=== PATIENT | female | born 1945 ===

== ENCOUNTER 2017-08-18 10:10 | Inpatient (IN) | payer MEDICARE, MEDICAID ==
[2016-04-08 18:58] VITALS: BMI 30.4
[2017-08-18 10:57] LABS: BASO # 0.01 K/mm3 (0.0-2.0); BASO % 0.2 % (0.0-3.0); EOS # 0.1 (0.0-0.7); EOS % 1.6 % (1.5-5.0); GRAN # 3.05 (1.4-6.5); HEMOGLOBIN 11.7 g/dL (12.0-16.0); LYMPH # 2.6 (1.2-3.4); LYMPH % 42.3 % (22.0-35.0); MEAN CELL VOLUME 78.9 fl (80.0-105.0); MEAN CORPUSCULAR HEMOGLOBIN 25.7 pg (25.0-35.0); MEAN CORPUSCULAR HGB CONC 32.5 g/dl (31.0-37.0); MEAN PLATELET VOLUME 10.4 fl (7.0-11.0); MONO # 0.4 (0.1-0.6); MONO % 5.9 % (1.0-6.0); RBC 4.56 10^6/uL (3.5-6.1); RED CELL DISTRIBUTION WIDTH 13.7 % (11.5-14.5); WHITE BLOOD COUNT 6.1 10^3/ul (4.5-11.0)
[2017-08-18 11:07] LABS: INR 1.03 (0.93-1.08); PARTIAL THROMBOPLASTIN TIME 29.7 Seconds (25.1-36.5); PROTHROMBIN TIME 11.8 SECONDS (9.4-12.5)
[2017-08-18] MEDS ORDERED: Lidocaine 2% Inj (20ml) ONE (11:35)
[2017-08-18] MEDS ORDERED: Midazolam 2 MG/2 ML VIAL ONE ×3 (11:36→13:48)
[2017-08-18] MEDS ORDERED: Iodixanol 320 MG/ML 200 ML BOTTLE IV ONE (11:37)
[2017-08-18] MEDS ORDERED: Iodixanol 320 MG/ML 100 ML BOTTLE IV ONE (11:37)
[2017-08-18] MEDS ORDERED: Oxycodone/Acetaminophen 5/325 mg Tab PO PRN (14:38)
--- NOTE | 2017-08-18 15:37 | CP.PCM.HP ---
<BrooksTaisha - Last Filed: 08/18/17 15:39> History of Present Illness - History of Present Illness History of Present Illness: Hospitalist H&POrlin PGY2 This is a 71yo female with past medical history of HTN and DM who came to same day surgery for carotid angiogram. Patient is Georgian speaking. Strip Feeder # [id number] was used for communication as well as son. Patient was noted to have bilateral carotid stenosis in 2016 that was 60-79% bilaterally. She decided to then follow up with her PMD and check her carotids again. Her ultrasound then showed 80-99% stenosis on the L and significant string sign on the R. The patient reports mild dizziness, but denies vision changes, numbness/tingling, weakness, headaches, chest pain, or shortness of breath. She had a CT angio today which was read by Dr. Dunaway and Dr. Wilcox. Dr. Wilcox reports that the patient will need surgery, but will need to be cleared by cardiology first. Past medical history: HTN, DM, possible gout Past surgical history: Cholecystectomy Home meds: As per Mar Allergies: NKDA Social history: Lives with family, mostly independent in ADLs. Denies EtOH, drug or tobacco use PMD: Dr. Herbert Present on Admission - Present on Admission Any Indicators Present on Admission: No Review of Systems - Review of Systems All systems: reviewed and no additional remarkable complaints except Review of Systems: 12 point ROS reviewed as per HPI Past Patient History - Infectious Disease Hx of Infectious Diseases: None - Tetanus Immunizations Tetanus Immunization: Unknown - Past Social History Smoking Status: Never Smoked Alcohol: None Drugs: Denies Home Situation {Lives}: With Family - CARDIAC Hx Pacemaker: No - PULMONARY Hx Respiratory Disorders: No - NEUROLOGICAL Hx Paralysis: No - HEENT Hx HEENT Problems: No - RENAL Hx Chronic Kidney Disease: No - ENDOCRINE/METABOLIC Hx Endocrine Disorders: Yes Hx Diabetes Mellitus Type 2: Yes - HEMATOLOGICAL/ONCOLOGICAL Hx Blood Transfusions: No - INTEGUMENTARY Hx Dermatological Problems: No - MUSCULOSKELETAL/RHEUMATOLOGICAL Hx Musculoskeletal Disorders: Yes - GASTROINTESTINAL Hx Gastrointestinal Disorders: No - GENITOURINARY/GYNECOLOGICAL Hx Genitourinary Disorders: No - PSYCHIATRIC Hx Emotional Abuse: No Hx Physical Abuse: No Hx Substance Use: No - SURGICAL HISTORY Hx Surgeries: Yes - ANESTHESIA Hx Anesthesia Reactions: No Hx Malignant Hyperthermia: No Meds Allergies/Adverse Reactions: Allergies Allergy/AdvReac Type Severity Reaction Status Date / Time No Known Allergies Allergy Verified 04/08/16 12:59 Physical Exam - Constitutional Appears: No Acute Distress - Head Exam Head Exam: ATRAUMATIC, NORMAL INSPECTION, NORMOCEPHALIC - Eye Exam Eye Exam: Normal appearance, PERRL Pupil Exam: NORMAL ACCOMODATION, PERRL - ENT Exam ENT Exam: Mucous Membranes Moist - Neck Exam Neck exam: Positive for: Full Rom, Normal Inspection Additional comments: no bruits heard bilaterally - Respiratory Exam Respiratory Exam: Clear to Auscultation Bilateral, NORMAL BREATHING PATTERN. absent: Rales, Rhonchi, Wheezes - Cardiovascular Exam Cardiovascular Exam: REGULAR RHYTHM. absent: Gallop, Rubs, Systolic Murmur - GI/Abdominal Exam GI & Abdominal Exam: Normal Bowel Sounds, Soft. absent: Mass, Rebound, Rigid, Tenderness - Extremities Exam Extremities exam: Positive for: normal inspection. Negative for: calf tenderness, pedal edema - Neurological Exam Neurological exam: Alert, CN II-XII Intact, Oriented x3 - Psychiatric Exam Psychiatric exam: Normal Affect, Normal Mood - Skin Skin Exam: Dry, Warm Results - Vital Signs Recent Vital Signs: Last Vital Signs Temp 97.6 F 08/18/17 15:15 Pulse 65 08/18/17 15:15 Resp 18 08/18/17 15:15 BP 162/68 H 08/18/17 15:15 Pulse Ox 96 08/18/17 10:35 - Labs Result Diagrams: 08/18/17 10:48 08/18/17 10:48 Labs: Laboratory Results - last 24 hr 08/18/17 08/18/17 08/18/17 10:48 10:48 10:48 WBC 6.1 RBC 4.56 Hgb 11.7 L Hct 36.0 MCV 78.9 L MCH 25.7 MCHC 32.5 RDW 13.7 Plt Count 336 MPV 10.4 Gran % 50.0 Lymph % (Auto) 42.3 H Motley % (Auto) 5.9 Eos % (Auto) 1.6 Baso % (Auto) 0.2 Gran # 3.05 Lymph # (Auto) 2.6 Motley # (Auto) 0.4 Eos # (Auto) 0.1 Baso # (Auto) 0.01 PT 11.8 INR 1.03 APTT 29.7 Sodium 144 Potassium 5.1 H Chloride 108 H Carbon Dioxide 23 Anion Gap 19 BUN 36 H Creatinine 1.3 H Est GFR ( Amer) 49 Est GFR (Non-Af Amer) 40 Random Glucose 137 H Calcium 10.0 Assessment & Plan - Assessment and Plan (Free Text) Assessment: This is a 71yo female with past medical history of HTN and DM who is admitted for evaluation of significant carotid stenosis. Plan: 1. Bilateral carotid stenosis - Carotid angiogram done- pending final read - R is worse than L - Plavix 300mg today then 75mg daily - Continue Statin, ASA - NS@80 - Vascular surgery consulted - Cardio consulted for clearance - Patient will have stress test tomorrow - NPO at midnight then can restart diet after stress test - Plan is R Carotid endartectomy on Tuesday after cardiac clearance 2. HTN - Continue home meds: Atenolol/chlorothiadone, Valsartan 3. HLD - Continue Statin 4. Hx of DM - Check HgbA1c - Hold metformin - ISS 5. Hx of gout - Continue Allopurinol GI ppx: Pepcid DVT ppx: SCDs Case seen, discussed and reviewed with attending Orlin Guy PGY2 - Date & Time Date: 08/18/17 Time: 15:56 <Dev Epstein - Last Filed: 08/19/17 16:00> Results - Vital Signs Recent Vital Signs: Last Vital Signs Temp 99.2 F 08/19/17 06:00 Pulse 76 08/19/17 06:00 Resp 18 08/19/17 06:00 BP 96/53 L 08/19/17 06:00 Pulse Ox 97 08/19/17 06:00 - Labs Result Diagrams: 08/19/17 05:30 08/19/17 05:30 Labs: Laboratory Results - last 24 hr 08/18/17 08/19/17 08/19/17 17:43 05:30 05:30 WBC 5.5 RBC 4.29 Hgb 10.6 L Hct 33.2 L MCV 77.4 L MCH 24.7 L MCHC 31.9 RDW 13.8 Plt Count 292 MPV 11.0 Sodium 142 Potassium 4.3 Chloride 110 H Carbon Dioxide 20 L Anion Gap 16 BUN 31 H Creatinine 1.1 Est GFR ( Amer) 59 Est GFR (Non-Af Amer) 49 POC Glucose (mg/dL) 110 Random Glucose 122 H Hemoglobin A1c Calcium 9.5 Total Bilirubin 0.4 AST 21 ALT 17 Alkaline Phosphatase 75 Total Protein 6.9 Albumin 3.8 Globulin 3.0 Albumin/Globulin Ratio 1.3 Triglycerides Cholesterol LDL Cholesterol Direct HDL Cholesterol Free T4 TSH 3rd Generation 08/19/17 08/19/17 08/19/17 05:30 06:00 06:00 WBC RBC Hgb Hct MCV MCH MCHC RDW Plt Count MPV Sodium Potassium Chloride Carbon Dioxide Anion Gap BUN Creatinine Est GFR ( Amer) Est GFR (Non-Af Amer) POC Glucose (mg/dL) Random Glucose Hemoglobin A1c 6.4 Calcium Total Bilirubin AST ALT Alkaline Phosphatase Total Protein Albumin Globulin Albumin/Globulin Ratio Triglycerides 153 Cholesterol 191 LDL Cholesterol Direct 98 HDL Cholesterol 41 Free T4 1.34 TSH 3rd Generation 2.10 Attending/Attestation - Attestation I have personally seen and examined this patient.: Yes I have fully participated in the care of the patient.: Yes I have reviewed all pertinent clinical information: Yes Notes (Text): 08/19/17 15:52 Medical record note made by the resident after discussion with my direction and input after the patient was personally seen and examined by me. I have reviewed the chart and agree that the record accurately reflects by personal performance of the history, physical exam, data review, and medical decision-making, in the course for the patient. I have also personally directed the plan of care. 71 yo female with past medical history of HTN ,DM,Hyperlipidemia,PVD with critical Right ICA stenosis with string sign , also has left ICA stenosis is admitted for right carotid endartrectomy .Patient will need cardiology clearance for surgery, she is scheduled for Stress test tomorrow by cardiology. Patient is started on plavix, statin . Management plan was discussed in detail with patient. Education was provided. 08/19/17 15:59
[2017-08-18] MEDS: Sodium Chloride 0.45% 1,000 ML IV SCH (16:00)
--- NOTE | 2017-08-18 16:01 | CP.PCM.CON ---
History of Present Illness - History of Present Illness History of Present Illness: This is a 71yo female with past medical history of HTN and DM who came to same day surgery for carotid angiogram. Patient is Yi speaking. Assistant Infant Toddler Teacher # [id number] was used for communication as well as son. Patient was noted to have bilateral carotid stenosis in 2016 that was 60-79% bilaterally. She decided to then follow up with her PMD and check her carotids again. Her ultrasound then showed 80-99% stenosis on the L and significant string sign on the R. The patient reports mild dizziness, but denies vision changes, numbness/tingling, weakness, headaches, chest pain, or shortness of breath. She had a CT angio today which was read by Dr. Dunaway and Dr. Wilcox. Dr. Wilcox reports that the patient will need surgery, but will need to be cleared by cardiology first. Past medical history: HTN, DM, possible gout Past surgical history: Cholecystectomy Home meds: As per Mar Allergies: NKDA Social history: Lives with family, mostly independent in ADLs. Denies EtOH, drug or tobacco use PMD: Dr. Herbert Review of Systems - Review of Systems All systems: reviewed and no additional remarkable complaints except (for HPI) Past Patient History - Infectious Disease Hx of Infectious Diseases: None - Tetanus Immunizations Tetanus Immunization: Unknown - Past Social History Smoking Status: Never Smoked Alcohol: None Drugs: Denies Home Situation {Lives}: With Family - CARDIAC Hx Pacemaker: No - PULMONARY Hx Respiratory Disorders: No - NEUROLOGICAL Hx Paralysis: No - HEENT Hx HEENT Problems: No - RENAL Hx Chronic Kidney Disease: No - ENDOCRINE/METABOLIC Hx Endocrine Disorders: Yes Hx Diabetes Mellitus Type 2: Yes - HEMATOLOGICAL/ONCOLOGICAL Hx Blood Transfusions: No - INTEGUMENTARY Hx Dermatological Problems: No - MUSCULOSKELETAL/RHEUMATOLOGICAL Hx Musculoskeletal Disorders: Yes - GASTROINTESTINAL Hx Gastrointestinal Disorders: No - GENITOURINARY/GYNECOLOGICAL Hx Genitourinary Disorders: No - PSYCHIATRIC Hx Emotional Abuse: No Hx Physical Abuse: No Hx Substance Use: No - SURGICAL HISTORY Hx Surgeries: Yes - ANESTHESIA Hx Anesthesia Reactions: No Hx Malignant Hyperthermia: No Meds Allergies/Adverse Reactions: Allergies Allergy/AdvReac Type Severity Reaction Status Date / Time No Known Allergies Allergy Verified 04/08/16 12:59 - Medications Medications: Current Medications Acetaminophen (Tylenol 325mg Tab) 650 mg PO Q4H PRN PRN Reason: Pain, Mild (1-3) Allopurinol (Zyloprim) 100 mg PO DAILY [facility] Aspirin (Ecotrin) 81 mg PO DAILY [facility] Atenolol (Tenormin) 50 mg PO DAILY [facility] Atorvastatin Calcium (Lipitor) 10 mg PO DIN [facility] Chlorthalidone (Hygroton) 25 mg PO DAILY [facility] Clopidogrel Bisulfate (Plavix) 75 mg PO DAILY [facility] Famotidine (Pepcid) 40 mg PO HS [facility] Sodium Chloride (Sodium Chloride 0.45%) 1,000 mls @ 80 mls/hr IV .[id number] [facility] Losartan Potassium (Cozaar) 100 mg PO DAILY [facility] Ondansetron HCl (Zofran Inj) 4 mg IVP ONCE PRN PRN Reason: Nausea/Vomiting Oxycodone/Acetaminophen (Percocet 5/325 Mg Tab) 1 tab PO Q4H PRN PRN Reason: Pain, moderate (4-7) Stop: 08/21/17 14:39 Vitamin B Complex/Vit C/Folic Acid (Nephro-Vargas) 1 tab PO DAILY [facility] Physical Exam - Head Exam Head Exam: ATRAUMATIC, NORMAL INSPECTION, NORMOCEPHALIC - Eye Exam Eye Exam: EOMI, Normal appearance, PERRL Pupil Exam: NORMAL ACCOMODATION - ENT Exam ENT Exam: Mucous Membranes Moist - Respiratory Exam Respiratory Exam: Clear to Auscultation Bilateral, NORMAL BREATHING PATTERN - Cardiovascular Exam Cardiovascular Exam: REGULAR RHYTHM - GI/Abdominal Exam GI & Abdominal Exam: Normal Bowel Sounds, Soft - Extremities Exam Extremities exam: Positive for: normal inspection - Back Exam Back exam: NORMAL INSPECTION - Neurological Exam Neurological exam: Alert, CN II-XII Intact - Psychiatric Exam Psychiatric exam: Normal Affect, Normal Mood - Skin Skin Exam: Dry, Intact Results - Vital Signs Recent Vital Signs: Last Vital Signs Temp 97.6 F 08/18/17 15:30 Pulse 65 08/18/17 15:30 Resp 18 08/18/17 15:30 BP 152/73 H 08/18/17 15:30 Pulse Ox 96 08/18/17 10:35 - Labs Result Diagrams: 08/18/17 10:48 08/18/17 10:48 Labs: Laboratory Results - last 24 hr 08/18/17 08/18/17 08/18/17 10:48 10:48 10:48 WBC 6.1 RBC 4.56 Hgb 11.7 L Hct 36.0 MCV 78.9 L MCH 25.7 MCHC 32.5 RDW 13.7 Plt Count 336 MPV 10.4 Gran % 50.0 Lymph % (Auto) 42.3 H Brown % (Auto) 5.9 Eos % (Auto) 1.6 Baso % (Auto) 0.2 Gran # 3.05 Lymph # (Auto) 2.6 Brown # (Auto) 0.4 Eos # (Auto) 0.1 Baso # (Auto) 0.01 PT 11.8 INR 1.03 APTT 29.7 Sodium 144 Potassium 5.1 H Chloride 108 H Carbon Dioxide 23 Anion Gap 19 BUN 36 H Creatinine 1.3 H Est GFR ( Amer) 49 Est GFR (Non-Af Amer) 40 Random Glucose 137 H Calcium 10.0 Assessment & Plan - Assessment and Plan (Free Text) Assessment: 71yo female with past medical history of HTN and DM who is admitted for evaluation of significant carotid stenosis Plan: -Carotid endarterectomy pending per Cardio clearance. -Will f/u with stress test results. -Will continue to follow Will discuss with Dr. Wilcox
--- NOTE | 2017-08-18 16:21 | VASCULAR ---
PROCEDURE: 1. Arch arteriogram. 2. Bilateral selective carotid arteriograms. 3. Selective left vertebral arteriogram HISTORY: Severe bilateral ICA stenoses. Evaluate for string sign on right.. PHYSICIAN(S): Reji Dunaway MD. TECHNIQUE: The relative risks and indications of the procedure were explained to the patient and her son and consent obtained. The patient was on Plavix prior to procedure. The patient was placed supine on the arteriogram table and the right groin prepped and draped in usual sterile fashion. Conscious sedation monitoring were provided throughout the procedure by a nurse. Via a right common femoral artery approach, a 5 Albanian sheath was placed. Through the sheath and over a guidewire 5 Albanian flush catheter was placed in the ascending aorta and an WOLOF DSA arch arteriogram performed. The catheter was exchanged for a 5 Albanian Earnest A1 catheter placed in the mid right common carotid artery. A DSA right carotid arteriogram consisting of 2 views of the bifurcation and two intracranial views were performed. Next the catheter was placed in the mid left common carotid artery and a DSA left carotid arteriogram consisted of 2 views the bifurcation and two intracranial views performed. Findings the catheter was placed the origin of the dominant left vertebral artery. A DSA left vertebral arteriogram consisting of two views the cervical segment and 2 intracranial views was performed. The sheath was removed hemostasis obtained with a Perclose device. The patient tolerated the procedure well. FINDINGS: The arch arteriogram demonstrates the 3 great vessels to be widely patent without a radiographically significant stenosis. The vertebral arteries are patent with antegrade flow. The left vertebral artery is dominant There is a critical stenosis at the origin of the right internal carotid artery. A continuous string sign is noted 2 cm from the origin the right external carotid artery is hypertrophied Angiographically, there is a 70 percent proximal left internal carotid artery stenosis. However the velocities are much higher on the recent carotid ultrasound. The angiogram may underestimate the degree of stenosis at the left ICA origin. The left external carotid artery is patent. There is cross-filling of the right hemisphere for the left carotid injection. The left vertebral artery origin is tortuous but widely patent. The left vertebral artery is continuous. The basilar artery is normal in appearance. There is a large right P com artery. IMPRESSION: 1. Critical right ICA origin stenosis with a string sign 2. Angiographically 70 percent proximal left ICA stenosis. However, this is been the velocities noted on the recent carotid ultrasound. The angiogram may underestimate the degree of stenosis. 3. Dominant and widely patent left vertebral artery
--- NOTE | 2017-08-18 18:03 | CP.PCM.PN ---
<Beryl Ortiz - Last Filed: 08/18/17 18:58> Subjective - Date & Time of Evaluation Date of Evaluation: 08/18/17 Time of Evaluation: 17:57 - Subjective Subjective: PGY-[address] Liu CC: No urine output since this AM S: Ms Mcwilliams, 71yo Occitan speaking female with PMH of HTN and DM who came to same day surgery for carotid angiogram. She had a CT angio today which was read by Dr. Dunaway and Dr. Wilcox. Dr. Wilcox reports that the patient will need surgery, but will need to be cleared by cardiology first. Pt was admitted for Bilateral carotid stenosis requiring right carotid endarterectomy. Pt complained of dull pain from full bladder. Bladder scan reveals 700cc urine O: VS stable GEN: NAD Card: Regular S1 S2 Pulm: CTA b/l no w/r/r Abd: Soft, NTND. Suprapubic fullness with urge to urinate Ext: No edema A/P: Urinary retention likely side effect of anesthesia - galindo catheter - continue maintanence fluid - strict i/o Objective - Vital Signs/Intake and Output Vital Signs (last 24 hours): Temp Pulse Resp BP Pulse Ox 97.6 F 65 18 152/73 H 96 08/18/17 15:45 08/18/17 15:45 08/18/17 15:45 08/18/17 15:45 08/18/17 10:35 - Medications Medications: Current Medications Acetaminophen (Tylenol 325mg Tab) 650 mg PO Q4H PRN PRN Reason: Pain, Mild (1-3) Allopurinol (Zyloprim) 100 mg PO DAILY [facility] Aspirin (Ecotrin) 81 mg PO DAILY [facility] Atenolol (Tenormin) 50 mg PO DAILY [facility] Atorvastatin Calcium (Lipitor) 10 mg PO DIN [facility] Chlorthalidone (Hygroton) 25 mg PO DAILY [facility] Clopidogrel Bisulfate (Plavix) 75 mg PO DAILY [facility] Famotidine (Pepcid) 40 mg PO HS [facility] Sodium Chloride (Sodium Chloride 0.45%) 1,000 mls @ 80 mls/hr IV .[id number] [facility] Losartan Potassium (Cozaar) 100 mg PO DAILY [facility] Ondansetron HCl (Zofran Inj) 4 mg IVP ONCE PRN PRN Reason: Nausea/Vomiting Oxycodone/Acetaminophen (Percocet 5/325 Mg Tab) 1 tab PO Q4H PRN PRN Reason: Pain, moderate (4-7) Stop: 08/21/17 14:39 Vitamin B Complex/Vit C/Folic Acid (Nephro-Vargas) 1 tab PO DAILY [facility] - Labs Labs: 08/18/17 10:48 08/18/17 10:48 PT 11.8 SECONDS (9.4-12.5) 08/18/17 10:48 INR 1.03 (0.93-1.08) 08/18/17 10:48 APTT 29.7 Seconds (25.1-36.5) 08/18/17 10:48 <Dev Epstein - Last Filed: 08/19/17 16:01> Objective - Vital Signs/Intake and Output Vital Signs (last 24 hours): Temp Pulse Resp BP Pulse Ox 99.2 F 76 18 96/53 L 97 08/19/17 06:00 08/19/17 06:00 08/19/17 06:00 08/19/17 06:00 08/19/17 06:00 Intake and Output: 08/19/17 08/19/17 06:59 18:59 Intake Total 640 240 Output Total 1400 Balance -760 240 - Medications Medications: Current Medications Acetaminophen (Tylenol 325mg Tab) 650 mg PO Q4H PRN PRN Reason: Pain, Mild (1-3) Allopurinol (Zyloprim) 100 mg PO DAILY [facility] Last Admin: 08/19/17 13:53 Dose: 100 mg Aspirin (Ecotrin) 81 mg PO DAILY [facility] Last Admin: 08/19/17 13:53 Dose: 81 mg Atenolol (Tenormin) 25 mg PO DAILY [facility] Atorvastatin Calcium (Lipitor) 40 mg PO DIN [facility] Chlorthalidone (Hygroton) 25 mg PO DAILY [facility] Last Admin: 08/19/17 13:53 Dose: 25 mg Clopidogrel Bisulfate (Plavix) 75 mg PO DAILY [facility] Last Admin: 08/19/17 13:53 Dose: 75 mg Famotidine (Pepcid) 40 mg PO HS [facility] Last Admin: 08/18/17 21:36 Dose: 40 mg Sodium Chloride (Sodium Chloride 0.45%) 1,000 mls @ 80 mls/hr IV .[id number] [facility] Last Admin: 08/19/17 04:56 Dose: Not Given Losartan Potassium (Cozaar) 100 mg PO DAILY [facility] Last Admin: 08/19/17 13:53 Dose: 100 mg Ondansetron HCl (Zofran Inj) 4 mg IVP ONCE PRN PRN Reason: Nausea/Vomiting Oxycodone/Acetaminophen (Percocet 5/325 Mg Tab) 1 tab PO Q4H PRN PRN Reason: Pain, moderate (4-7) Stop: 08/21/17 14:39 Vitamin B Complex/Vit C/Folic Acid (Nephro-Vargas) 1 tab PO DAILY [facility] Last Admin: 08/19/17 13:53 Dose: 1 tab - Labs Labs: 08/19/17 05:30 08/19/17 05:30 PT 11.8 SECONDS (9.4-12.5) 08/18/17 10:48 INR 1.03 (0.93-1.08) 08/18/17 10:48 APTT 29.7 Seconds (25.1-36.5) 08/18/17 10:48 Attending/Attestation - Attestation I have personally seen and examined this patient.: Yes I have fully participated in the care of the patient.: Yes I have reviewed all pertinent clinical information, including history, physical exam and plan: Yes
[2017-08-19] MEDS: Sodium Chloride 0.45% 1,000 ML IV SCH ×2 (04:56→15:45)
[2017-08-19 06:33] LABS: HEMOGLOBIN 10.6 g/dL (12.0-16.0); MEAN CELL VOLUME 77.4 fl (80.0-105.0); MEAN CORPUSCULAR HEMOGLOBIN 24.7 pg (25.0-35.0); MEAN CORPUSCULAR HGB CONC 31.9 g/dl (31.0-37.0); RBC 4.29 10^6/uL (3.5-6.1); RED CELL DISTRIBUTION WIDTH 13.8 % (11.5-14.5); WHITE BLOOD COUNT 5.5 10^3/ul (4.5-11.0)
[2017-08-19 06:47] LABS: ALB/GLOB RATIO 1.3 (1.1-1.8); ALBUMIN 3.8 g/dL (3.0-4.8); CALCIUM 9.5 mg/dL (8.4-10.5)
--- NOTE | 2017-08-19 07:29 | CP.PCM.PN ---
Subjective - Date & Time of Evaluation Date of Evaluation: 08/19/17 Time of Evaluation: 07:27 - Subjective Subjective: Patient seen and examined at bedside. Per nursing no acute events occurred overnight. Patient was heading to cardiac stress stess at the time of the examination. Patient denies any chest pain, dizziness, fevers, chills, nausea, vomiting, or any other complaints. Objective - Vital Signs/Intake and Output Vital Signs (last 24 hours): Temp Pulse Resp BP Pulse Ox 99.2 F 76 18 96/53 L 97 08/19/17 06:00 08/19/17 06:00 08/19/17 06:00 08/19/17 06:00 08/19/17 06:00 Intake and Output: 08/19/17 08/19/17 06:59 18:59 Intake Total 640 Output Total 1400 Balance -760 - Medications Medications: Current Medications Acetaminophen (Tylenol 325mg Tab) 650 mg PO Q4H PRN PRN Reason: Pain, Mild (1-3) Allopurinol (Zyloprim) 100 mg PO DAILY [facility] Aspirin (Ecotrin) 81 mg PO DAILY [facility] Atenolol (Tenormin) 50 mg PO DAILY [facility] Atorvastatin Calcium (Lipitor) 10 mg PO DIN [facility] Last Admin: 08/18/17 21:36 Dose: 10 mg Chlorthalidone (Hygroton) 25 mg PO DAILY [facility] Clopidogrel Bisulfate (Plavix) 75 mg PO DAILY [facility] Famotidine (Pepcid) 40 mg PO HS [facility] Last Admin: 08/18/17 21:36 Dose: 40 mg Sodium Chloride (Sodium Chloride 0.45%) 1,000 mls @ 80 mls/hr IV .[id number] [facility] Last Admin: 08/19/17 04:56 Dose: Not Given Losartan Potassium (Cozaar) 100 mg PO DAILY [facility] Ondansetron HCl (Zofran Inj) 4 mg IVP ONCE PRN PRN Reason: Nausea/Vomiting Oxycodone/Acetaminophen (Percocet 5/325 Mg Tab) 1 tab PO Q4H PRN PRN Reason: Pain, moderate (4-7) Stop: 08/21/17 14:39 Vitamin B Complex/Vit C/Folic Acid (Nephro-Vargas) 1 tab PO DAILY [facility] - Labs Labs: 08/19/17 05:30 08/19/17 05:30 PT 11.8 SECONDS (9.4-12.5) 08/18/17 10:48 INR 1.03 (0.93-1.08) 08/18/17 10:48 APTT 29.7 Seconds (25.1-36.5) 08/18/17 10:48 - Head Exam Head Exam: ATRAUMATIC, NORMAL INSPECTION, NORMOCEPHALIC - Eye Exam Eye Exam: EOMI, Normal appearance, PERRL Pupil Exam: NORMAL ACCOMODATION - ENT Exam ENT Exam: Mucous Membranes Moist - Respiratory Exam Respiratory Exam: Clear to Ausculation Bilateral - Cardiovascular Exam Cardiovascular Exam: REGULAR RHYTHM - GI/Abdominal Exam GI & Abdominal Exam: Soft, Normal Bowel Sounds - Extremities Exam Extremities Exam: Normal Inspection - Neurological Exam Neurological Exam: Alert, Awake - Psychiatric Exam Psychiatric exam: Normal Affect, Normal Mood - Skin Skin Exam: Dry Assessment and Plan - Assessment and Plan (Free Text) Assessment: 71yo female with past medical history of HTN and DM who is admitted for evaluation of significant carotid stenosis Plan: -Stress test today. -Possible repeat imaging of the left carotid artery. -O.R. tentatively scheduled for Tuesday. -Will continue to monitor.
[2017-08-19 07:43] LABS: HDL CHOLESTEROL 41 mg/dL (29-60)
--- NOTE | 2017-08-19 07:48 | CP.PCM.PN ---
<Rica Brown - Last Filed: 08/19/17 15:21> Subjective - Date & Time of Evaluation Date of Evaluation: 08/19/17 Time of Evaluation: 07:47 - Subjective Subjective: Internal Medicine Progress Note: Patient seen and examined at bedside. Per nursing patient had 4 sec pause overnight while sleeping, asymptomatic. Patient for stress test today. Will decrease Atenolol dose to 25mg PO daily. Offers no complaints at this time. Objective - Vital Signs/Intake and Output Vital Signs (last 24 hours): Temp Pulse Resp BP Pulse Ox 99.2 F 76 18 96/53 L 97 08/19/17 06:00 08/19/17 06:00 08/19/17 06:00 08/19/17 06:00 08/19/17 06:00 Intake and Output: 08/19/17 08/19/17 06:59 18:59 Intake Total 640 Output Total 1400 Balance -760 - Medications Medications: Current Medications Acetaminophen (Tylenol 325mg Tab) 650 mg PO Q4H PRN PRN Reason: Pain, Mild (1-3) Allopurinol (Zyloprim) 100 mg PO DAILY [facility] Aspirin (Ecotrin) 81 mg PO DAILY [facility] Atenolol (Tenormin) 50 mg PO DAILY [facility] Atorvastatin Calcium (Lipitor) 40 mg PO DIN [facility] Chlorthalidone (Hygroton) 25 mg PO DAILY [facility] Clopidogrel Bisulfate (Plavix) 75 mg PO DAILY [facility] Famotidine (Pepcid) 40 mg PO HS [facility] Last Admin: 08/18/17 21:36 Dose: 40 mg Sodium Chloride (Sodium Chloride 0.45%) 1,000 mls @ 80 mls/hr IV .[id number] [facility] Last Admin: 08/19/17 04:56 Dose: Not Given Losartan Potassium (Cozaar) 100 mg PO DAILY [facility] Ondansetron HCl (Zofran Inj) 4 mg IVP ONCE PRN PRN Reason: Nausea/Vomiting Oxycodone/Acetaminophen (Percocet 5/325 Mg Tab) 1 tab PO Q4H PRN PRN Reason: Pain, moderate (4-7) Stop: 08/21/17 14:39 Vitamin B Complex/Vit C/Folic Acid (Nephro-Vargas) 1 tab PO DAILY [facility] - Labs Labs: 08/19/17 05:30 08/19/17 05:30 PT 11.8 SECONDS (9.4-12.5) 08/18/17 10:48 INR 1.03 (0.93-1.08) 08/18/17 10:48 APTT 29.7 Seconds (25.1-36.5) 08/18/17 10:48 - Additional Findings Additional findings: - Constitutional Appears: No Acute Distress - Head Exam Head Exam: ATRAUMATIC, NORMAL INSPECTION, NORMOCEPHALIC - Eye Exam Eye Exam: Normal appearance, PERRL Pupil Exam: NORMAL ACCOMODATION, PERRL - ENT Exam ENT Exam: Mucous Membranes Moist - Neck Exam Neck exam: Positive for: Full Rom, Normal Inspection Additional comments: no bruits heard bilaterally - Respiratory Exam Respiratory Exam: Clear to Auscultation Bilateral, NORMAL BREATHING PATTERN. absent: Rales, Rhonchi, Wheezes - Cardiovascular Exam Cardiovascular Exam: REGULAR RHYTHM. absent: Gallop, Rubs, Systolic Murmur - GI/Abdominal Exam GI & Abdominal Exam: Normal Bowel Sounds, Soft. absent: Mass, Rebound, Rigid, Tenderness - Extremities Exam Extremities exam: Positive for: normal inspection. Negative for: calf tenderness, pedal edema - Neurological Exam Neurological exam: Alert, CN II-XII Intact, Oriented x3 - Psychiatric Exam Psychiatric exam: Normal Affect, Normal Mood - Skin Skin Exam: Dry, Warm Assessment and Plan - Assessment and Plan (Free Text) Assessment: Patient is a 71 year old female with past medical history of HTN and DM who is admitted for evaluation of significant carotid stenosis. 1. Bilateral carotid stenosis - Carotid angiogram done- critical R ICA origin stenosis with string sign, 70% proximal L ICA stenosis - Continue aspirin 81mg and plavix 75mg PO daily - Increased Lipitor 40mg PO daily - NPO for stress test today - Carotid duplex of Left ICA showed 70% proximal left ICA stenosis - Vascular surgery consulted - Cardio consulted for clearance 2. Acute Kidney Injury - Improved with fluids - Continue to monitor renal function 3. HTN - Continue home meds: Atenolol/chlorothiadone, Valsartan - Atenolol decreased to 25mg PO daily with holding parameters 4. HLD - Continue Statin 5. Hx of DM - HgA1C 6.4 - Continue to Hold metformin - ISS, accuchecks 6. Hx of gout - Continue Allopurinol GI ppx: Pepcid DVT ppx: SCDs <Irfan,Mohammad - Last Filed: 08/19/17 16:04> Objective - Vital Signs/Intake and Output Vital Signs (last 24 hours): Temp Pulse Resp BP Pulse Ox 99.2 F 76 18 96/53 L 97 08/19/17 06:00 08/19/17 06:00 08/19/17 06:00 08/19/17 06:00 08/19/17 06:00 Intake and Output: 08/19/17 08/19/17 06:59 18:59 Intake Total 640 240 Output Total 1400 Balance -760 240 - Medications Medications: Current Medications Acetaminophen (Tylenol 325mg Tab) 650 mg PO Q4H PRN PRN Reason: Pain, Mild (1-3) Allopurinol (Zyloprim) 100 mg PO DAILY [facility] Last Admin: 08/19/17 13:53 Dose: 100 mg Aspirin (Ecotrin) 81 mg PO DAILY [facility] Last Admin: 08/19/17 13:53 Dose: 81 mg Atenolol (Tenormin) 25 mg PO DAILY [facility] Atorvastatin Calcium (Lipitor) 40 mg PO DIN [facility] Chlorthalidone (Hygroton) 25 mg PO DAILY [facility] Last Admin: 08/19/17 13:53 Dose: 25 mg Clopidogrel Bisulfate (Plavix) 75 mg PO DAILY [facility] Last Admin: 08/19/17 13:53 Dose: 75 mg Famotidine (Pepcid) 40 mg PO HS [facility] Last Admin: 08/18/17 21:36 Dose: 40 mg Sodium Chloride (Sodium Chloride 0.45%) 1,000 mls @ 80 mls/hr IV .[id number] [facility] Last Admin: 08/19/17 04:56 Dose: Not Given Losartan Potassium (Cozaar) 100 mg PO DAILY [facility] Last Admin: 08/19/17 13:53 Dose: 100 mg Ondansetron HCl (Zofran Inj) 4 mg IVP ONCE PRN PRN Reason: Nausea/Vomiting Oxycodone/Acetaminophen (Percocet 5/325 Mg Tab) 1 tab PO Q4H PRN PRN Reason: Pain, moderate (4-7) Stop: 08/21/17 14:39 Vitamin B Complex/Vit C/Folic Acid (Nephro-Vargas) 1 tab PO DAILY [facility] Last Admin: 08/19/17 13:53 Dose: 1 tab - Labs Labs: 08/19/17 05:30 08/19/17 05:30 PT 11.8 SECONDS (9.4-12.5) 08/18/17 10:48 INR 1.03 (0.93-1.08) 08/18/17 10:48 APTT 29.7 Seconds (25.1-36.5) 08/18/17 10:48 Attending/Attestation - Attestation I have personally seen and examined this patient.: Yes I have fully participated in the care of the patient.: Yes I have reviewed all pertinent clinical information, including history, physical exam and plan: Yes Notes (Text): 08/19/17 16:02 Medical record note made by the resident after discussion with my direction and input after the patient was personally seen and examined by me. I have reviewed the chart and agree that the record accurately reflects by personal performance of the history, physical exam, data review, and medical decision-making, in the course for the patient. I have also personally directed the plan of care. 71 yo female with past medical history of HTN ,DM,Hyperlipidemia,PVD with critical Right ICA stenosis with string sign , also has left ICA stenosis is admitted for right carotid endartrectomy .Patient underwent stress test today, we will follow up stress test and Echo. Patient had sinus pause last night, was sleeping and asymptomatic.Atenolol dose is reduced to 25 mg daily .Continue telemetry monitoring Cardiology is following. Management plan was discussed in detail with patient and family. Education was provided 08/19/17 16:03
[2017-08-19 07:54] LABS: LDL CHOLESTEROL 98 mg/dL (0-129)
[2017-08-19 08:03] LABS: FREE T4 1.34 ng/dL (0.78-2.19)
[2017-08-19] MEDS ORDERED: Aminophylline 25 mg/ml Inj ONE (09:22)
--- NOTE | 2017-08-19 13:22 | US ---
PROCEDURE: Left carotid artery duplex ultrasound HISTORY: Bilateral carotid stenosis. Is crepitance E between ultrasound and angiography on degree of left carotid stenosis. Needs repeat left carotid ultrasound PHYSICIAN(S): Reji Dunaway MD. TECHNIQUE: Duplex sonography and color-flow Doppler were used to evaluate the left carotid bifurcation and limited images of the left vertebral artery FINDINGS: Focal moderate to extensive smooth heterogeneous plaque is noted at the left ICA origin. The peak systolic velocity in the proximal left ICA is 275 cm/second. The end-diastolic velocity at this position is 80 cm/second. This corresponds to a 70-80 percent proximal left ICA stenosis. The velocities are less than the prior ultrasound examination. There is antegrade flow in the dominant left vertebral artery. IMPRESSION: 1. 70-80 percent proximal left ICA stenosis. The velocities of slightly less than the prior study 2. Antegrade flow in the left vertebral artery
[2017-08-19] MEDS: Multivitamin Vitamin B Complex (Nephro-Vite) Tab PO SCH (13:53)
--- NOTE | 2017-08-19 18:01 | CARD ---
APPROVED REPORT Protocol: LEXISCAN Test Type: Lexiscan Sestamibi Stress Test Attending Physician: Dr. Reji Riddle Referring Physician: Dr. Reji Riddle Test Indications: Pre-Op Evaluation Height:5 ft 4 in Weight:177lbs Medications: Allopurinol, Aspirin, Atenolol, Lipitor, Chlorthalidone, Plavix, Cozaar, Nephro-Vargas Medical History: 71 y/o female with a history of diabetes, htn, carotid stenosis Target HR: 148 bpm Resting ECG: normal Resting Heart Rate: 72 bpm Resting Blood Pressure: 132/76mmHg Submaximum (85%): 126 bpm PROCEDURE Pharmacologic stress testing was performed using 0.4mg per 5ml of regadenoson given intravenously over 7-10 seconds. POST EXERCISE Reason for Termination: Protocol completed Target HR: No Max HR: 97 bpm 70% of Maximum Predicted HR: 148 bpm Exercise duration: 05:13 min:sec, 0 Stage Exercise capacity: 1.0METs Max Blood Pressure: 132/76mmHg Blood Pressure response to exercise: normal resting BP - appropriate response Heart Rate response to exercise: appropriate Chest Pain: No, none Angina index: 0 Arrhythmia: No, none ST Change: No, none Deviation: 0 mm INTERPRETATION Stress EKG Conclusion: Lexiscan performed without complications...nuclear results pending Signed by Reji Riddle Electronically Approved: 08/19/2017 10:20:12 EXAM: Myocardial Perfusion REST/STRESS Stress Test Type: Pharmacologic Imaging Protocol Rest Spect myocardial perfusion imaging was performed in supine position 45 minutes following the injection of 10.6 mCi of Tc-99 Myoview. At peak stress, the patient was injected intravenously with 30.2mCi of Tc-99 tetrofosmin after an infusion time of 0 minutes and 10 seconds. Gated Stress Spect was performed 65 minutes after intravenous Tc-99 Myoview injection. The images were gated to evaluate regional wall motion and calculate ventricular ejection fraction.Images were reconstructed using backfilter projection method in short horizontal and verticle long axis. Spect slices were generated. LV Perfusion The quality of the study is good. The left ventricle is normal in size. The right ventricle is unremarkable. The lung uptake is normal. The distribution of tracer reveals an area of mildly to moderately decreased perfusion involving distal anteroseptal/ apical wall on the stress study. The remainder of the LV myocardium is unremarkable. The rest myocardial perfusion study shows no significant change. Wall Motion Wall motion study shows good contractility of the left ventricle. LVEF = 64%. Conclusion 1. Essentially normal SPECT myocardial perfusion study. 2. Fixed, anteroseptal /apical defects are most likely due to breast attenuation. 3. Normal gated wall motion of the left ventricle.
--- NOTE | 2017-08-19 19:13 | CARD ---
APPROVED REPORT EXAM: Two-dimensional and M-mode echocardiogram with Doppler and color Doppler. INDICATION 2D DIMENSIONS Left Atrium (2D)2.8 (1.6-4.0cm)IVSd1.1 (0.7-1.1cm) LVDd3.8 (3.9-5.9cm)PWd1.1 (0.7-1.1cm) LVDs2.5 (2.5-4.0cm)FS (%) 32.6 % LVEF (%)61.8 (>50%) M-Mode DIMENSIONS Aortic Root3.40 (2.2-3.7cm)Aortic Cusp Exc.2.10 (1.5-2.0cm) Aortic Valve AoV Peak Nddjgfcm017.0cm/Marian Peak GR.13mmHgAI P 1/2 Hsjb150ce Mitral Valve MV E Wzakhveq79.4cm/sMV A Ftafqjwf20.2cm/sE/A ratio1.4 TDI Lateral E' Peak V7.31cm/sMedial E' Peak V8.09cm/sE/Lateral E'11.5 E/Medial E'10.4 Tricuspid Valve TR Peak Vwdinmkk992uv/sRAP YINCLVLJ54vrKzSL Peak Gr.41mmHg [id number] LEFT VENTRICLE The left ventricle is normal size. There is normal left ventricular wall thickness. The left ventricular function is normal. The left ventricular ejection fraction is within the normal range. There is normal LV segmental wall motion. Transmitral Doppler flow pattern is Grade I-abnormal relaxation pattern. RIGHT VENTRICLE The right ventricle is normal size. There is normal right ventricular wall thickness. The right ventricular systolic function is normal. ATRIA The left atrium size is normal. The right atrium size is normal. AORTIC VALVE The aortic valve is not well visualized. There is mild to moderate aortic regurgitation. MITRAL VALVE The mitral valve is mildly thickened. TRICUSPID VALVE There is moderate pulmonary hypertension. GREAT VESSELS The aortic root is normal in size. PERICARDIAL EFFUSION There is a trace loculated anterior pericardial effusion. <Conclusion> The left ventricle is normal size. There is normal left ventricular wall thickness. The left ventricular function is normal. The left ventricular ejection fraction is within the normal range. There is normal LV segmental wall motion. Transmitral Doppler flow pattern is Grade I-abnormal relaxation pattern. There is mild to moderate aortic regurgitation. There is moderate pulmonary hypertension.
--- NOTE | 2017-08-19 20:42 | CON ---
DATE: 08/19/2017 HISTORY OF PRESENT ILLNESS: The patient is a 71-year-old woman who presents with headaches. She was found to have significant right carotid disease. There is plans for surgery next week. PAST MEDICAL HISTORY: The patient's past medical history is notable for diabetes mellitus, hypertension and hypercholesterolemia. She denies angina. No previous cardiac history is documented. SOCIAL HISTORY The patient does not smoke. REVIEW OF SYSTEMS: A 14-point review of systems reviewed in detail. No cardiac symptomatology is noted. PHYSICAL EXAMINATION: VITAL SIGNS: Blood pressure is 96/53, the heart rate is in the 50s. NECK: Negative JVD. LUNGS: Without rales. HEART: Reveals S1 and S2. EXTREMITIES: Without edema. LABORATORIES DATA: Reveal a hemoglobin of 10.6. Chemistries, BUN and creatinine is 31 and 1.1. IMPRESSION: 1. Significant peripheral vascular disease. 2. Diabetes mellitus. 3. Hypertension. 4. Hypercholesterolemia. 5. High probability for significant coronary artery disease. Given these findings, we will do stress test to rule out significant coronary artery disease prior to surgery planned for next week. Reji Riddle MD
[2017-08-20] MEDS: Sodium Chloride 0.45% 1,000 ML IV SCH (05:19)
[2017-08-20 08:04] LABS: HEMOGLOBIN 10.5 g/dL (12.0-16.0); MEAN CELL VOLUME 78.6 fl (80.0-105.0); MEAN CORPUSCULAR HEMOGLOBIN 24.7 pg (25.0-35.0); MEAN CORPUSCULAR HGB CONC 31.4 g/dl (31.0-37.0); MEAN PLATELET VOLUME 11.1 fl (7.0-11.0); RBC 4.25 10^6/uL (3.5-6.1); WHITE BLOOD COUNT 4.6 10^3/ul (4.5-11.0)
[2017-08-20 08:18] LABS: ALB/GLOB RATIO 1.2 (1.1-1.8); ALBUMIN 3.9 g/dL (3.0-4.8); CALCIUM 9.4 mg/dL (8.4-10.5)
[2017-08-20] MEDS: Multivitamin Vitamin B Complex (Nephro-Vite) Tab PO SCH (09:22)
--- NOTE | 2017-08-20 11:33 | CP.PCM.PN ---
<Taisha Guy - Last Filed: 08/20/17 14:49> Subjective - Date & Time of Evaluation Date of Evaluation: 08/20/17 Time of Evaluation: 07:00 - Subjective Subjective: Hospitalist Progress Note, Orlin Guy PGY2 Patient seen and examined at bedside. There were no acute overnight events as per nursing staff. Spoke with patient via tankman #[id number]. Patient reports feeling well today. She denies chest pain, shortness of breath, nausea/ vomiting/diarrhea/constipation, fever/chills, weakness, numbness/tingling, or vision changes. She reports she feels mildly dizzy when she stands up. She was instructed to ask for a nurse before she gets up out of the bed. Objective - Vital Signs/Intake and Output Vital Signs (last 24 hours): Temp Pulse Resp BP Pulse Ox 97.9 F 73 20 121/58 L 96 08/20/17 06:00 08/20/17 10:00 08/20/17 06:00 08/20/17 09:22 08/20/17 06:00 Intake and Output: 08/20/17 08/20/17 06:59 18:59 Intake Total 180 Balance 180 - Medications Medications: Current Medications Acetaminophen (Tylenol 325mg Tab) 650 mg PO Q4H PRN PRN Reason: Pain, Mild (1-3) Allopurinol (Zyloprim) 100 mg PO DAILY [facility] Last Admin: 08/20/17 09:22 Dose: 100 mg Aspirin (Ecotrin) 81 mg PO DAILY [facility] Last Admin: 08/20/17 09:22 Dose: 81 mg Atenolol (Tenormin) 25 mg PO DAILY [facility] Last Admin: 08/20/17 09:22 Dose: 25 mg Atorvastatin Calcium (Lipitor) 40 mg PO DIN [facility] Last Admin: 08/19/17 17:31 Dose: 40 mg Chlorthalidone (Hygroton) 25 mg PO DAILY [facility] Last Admin: 08/20/17 09:22 Dose: 25 mg Clopidogrel Bisulfate (Plavix) 75 mg PO DAILY [facility] Last Admin: 08/20/17 09:21 Dose: 75 mg Famotidine (Pepcid) 40 mg PO HS [facility] Last Admin: 08/19/17 23:15 Dose: 40 mg Losartan Potassium (Cozaar) 100 mg PO DAILY [facility] Last Admin: 08/20/17 09:22 Dose: 100 mg Ondansetron HCl (Zofran Inj) 4 mg IVP ONCE PRN PRN Reason: Nausea/Vomiting Oxycodone/Acetaminophen (Percocet 5/325 Mg Tab) 1 tab PO Q4H PRN PRN Reason: Pain, moderate (4-7) Stop: 08/21/17 14:39 Vitamin B Complex/Vit C/Folic Acid (Nephro-Vargas) 1 tab PO DAILY [facility] Last Admin: 08/20/17 09:22 Dose: 1 tab - Labs Labs: 08/20/17 07:00 08/20/17 07:00 PT 11.8 SECONDS (9.4-12.5) 08/18/17 10:48 INR 1.03 (0.93-1.08) 08/18/17 10:48 APTT 29.7 Seconds (25.1-36.5) 08/18/17 10:48 - Constitutional Appears: No Acute Distress - Head Exam Head Exam: ATRAUMATIC, NORMAL INSPECTION, NORMOCEPHALIC - Eye Exam Eye Exam: EOMI, Normal appearance, PERRL Pupil Exam: NORMAL ACCOMODATION, PERRL - ENT Exam ENT Exam: Mucous Membranes Moist - Neck Exam Neck Exam: Full ROM - Respiratory Exam Respiratory Exam: Clear to Ausculation Bilateral, NORMAL BREATHING PATTERN. absent: Rales, Rhonchi, Wheezes - Cardiovascular Exam Cardiovascular Exam: REGULAR RHYTHM, +S1, +S2. absent: Gallop, Rubs, Murmur - GI/Abdominal Exam GI & Abdominal Exam: Soft, Normal Bowel Sounds. absent: Rigid, Tenderness, Mass , Rebound - Extremities Exam Extremities Exam: Normal Inspection. absent: Calf Tenderness, Pedal Edema - Neurological Exam Neurological Exam: Alert, Awake, CN II-XII Intact, Oriented x3 - Psychiatric Exam Psychiatric exam: Normal Affect, Normal Mood - Skin Skin Exam: Dry, Intact, Warm Assessment and Plan - Assessment and Plan (Free Text) Assessment: This is a 71yo female with past medical history of HTN and DM who is admitted for evaluation of significant carotid stenosis. Plan: 1. Bilateral carotid stenosis - Carotid angiogram showed critical R ICA origin stenosis with string sign, 70% proximal L ICA stenosis - ASA, Plavix, Lipitor - Stress test did not show any abnormalities - Cardio consulted and cleared patient for surgery - Vascular on consult and will do R CEA on Tuesday - Fall precaution 2. FABIO (improved) - Cr: 1.1 - Continue to monitor renal function 3. HTN - Continue Chlorthalidone and Cozaar - Atenolol decreased to 25mg PO daily with holding parameters 4. HLD - Continue Lipitor 5. Hx of DM - HgA1C 6.4 - Hold metformin - Continue ISS and accuchecks 6. Hx of gout - Allopurinol GI ppx: Pepcid DVT ppx: SCDs Dispo: Plan is for CEA on Tuesday. Will obtain PT eval after surgery. Case seen, discussed and reviewed with attending. Orlin Guy PGY2 <Dev Epstein - Last Filed: 08/20/17 15:51> Objective - Vital Signs/Intake and Output Vital Signs (last 24 hours): Temp Pulse Resp BP Pulse Ox 98.4 F 66 18 124/62 96 08/20/17 12:00 08/20/17 14:00 08/20/17 12:00 08/20/17 12:00 08/20/17 06:00 Intake and Output: 08/20/17 08/20/17 06:59 18:59 Intake Total 180 Balance 180 - Medications Medications: Current Medications Acetaminophen (Tylenol 325mg Tab) 650 mg PO Q4H PRN PRN Reason: Pain, Mild (1-3) Allopurinol (Zyloprim) 100 mg PO DAILY [facility] Last Admin: 08/20/17 09:22 Dose: 100 mg Aspirin (Ecotrin) 81 mg PO DAILY [facility] Last Admin: 08/20/17 09:22 Dose: 81 mg Atenolol (Tenormin) 25 mg PO DAILY [facility] Last Admin: 08/20/17 09:22 Dose: 25 mg Atorvastatin Calcium (Lipitor) 40 mg PO DIN [facility] Last Admin: 08/19/17 17:31 Dose: 40 mg Chlorthalidone (Hygroton) 25 mg PO DAILY [facility] Last Admin: 08/20/17 09:22 Dose: 25 mg Clopidogrel Bisulfate (Plavix) 75 mg PO DAILY [facility] Last Admin: 08/20/17 09:21 Dose: 75 mg Famotidine (Pepcid) 40 mg PO HS [facility] Last Admin: 08/19/17 23:15 Dose: 40 mg Losartan Potassium (Cozaar) 100 mg PO DAILY [facility] Last Admin: 08/20/17 09:22 Dose: 100 mg Ondansetron HCl (Zofran Inj) 4 mg IVP ONCE PRN PRN Reason: Nausea/Vomiting Oxycodone/Acetaminophen (Percocet 5/325 Mg Tab) 1 tab PO Q4H PRN PRN Reason: Pain, moderate (4-7) Stop: 08/21/17 14:39 Vitamin B Complex/Vit C/Folic Acid (Nephro-Vargas) 1 tab PO DAILY [facility] Last Admin: 08/20/17 09:22 Dose: 1 tab - Labs Labs: 08/20/17 07:00 08/20/17 07:00 PT 11.8 SECONDS (9.4-12.5) 08/18/17 10:48 INR 1.03 (0.93-1.08) 08/18/17 10:48 APTT 29.7 Seconds (25.1-36.5) 08/18/17 10:48 Attending/Attestation - Attestation I have personally seen and examined this patient.: Yes I have fully participated in the care of the patient.: Yes I have reviewed all pertinent clinical information, including history, physical exam and plan: Yes Notes (Text): 08/20/17 15:49 Medical record note made by the resident after discussion with my direction and input after the patient was personally seen and examined by me. I have reviewed the chart and agree that the record accurately reflects by personal performance of the history, physical exam, data review, and medical decision-making, in the course for the patient. I have also personally directed the plan of care. 71 yo female with past medical history of HTN ,DM,Hyperlipidemia,PVD with critical Right ICA stenosis with string sign , also has left ICA stenosis is admitted for right carotid endartrectomy .Patient underwent stress test ty which is negative for acute ischemia.Echo showed normal systolic function and grade 1 diastolic dysfunction.Patient is euvolemic, has been clearred by cardiology for right Carotid endartrectomy on Tuesday08/22/17. Management plan was discussed in detail with patient and family. Education was provided 08/20/17 15:50
--- NOTE | 2017-08-20 13:15 | PN ---
DATE: 08/20/2017 CARDIOLOGY FOLLOWUP SUBJECTIVE: The patient is comfortable in bed. No shortness of breath. No chest pain. PHYSICAL EXAMINATION: VITAL SIGNS: Blood pressure is 121/60, heart rates in the 90s. NECK: Negative JVD. LUNGS: Without rales. HEART: Reveals S1, S2. EXTREMITIES: Without edema. LABORATORY DATA: Hemoglobin is 10.5. BUN and creatinine are 38 and 1.2 with a glucose of 130. Lexiscan results reveal normal perfusion. The ejection fraction of 64%. IMPRESSION: 1. Critical carotid disease. 2. Hypercholesterolemia. 3. Diabetes mellitus. 4. Hypertension. PLAN: Given these findings, there are no cardiac contraindications to her planned carotid endarterectomy. Reji Riddle MD
--- NOTE | 2017-08-20 13:31 | CP.PCM.PN ---
Subjective - Date & Time of Evaluation Date of Evaluation: 08/20/17 Time of Evaluation: 15:20 - Subjective Subjective: Vascular Surgery Progress note. Dr. Wilcox Daughter at bedside who assisted in translation. Pt resting comfortably in bed. No acute events overnight. Denies any focal deficits. No new complaints. No N/V/D. No headaches. No F/C. No CP/SOB. Objective - Vital Signs/Intake and Output Vital Signs (last 24 hours): Temp Pulse Resp BP Pulse Ox 98.4 F 66 18 124/62 96 08/20/17 12:00 08/20/17 12:00 08/20/17 12:00 08/20/17 12:00 08/20/17 06:00 Intake and Output: 08/20/17 08/20/17 06:59 18:59 Intake Total 180 Balance 180 - Medications Medications: Current Medications Acetaminophen (Tylenol 325mg Tab) 650 mg PO Q4H PRN PRN Reason: Pain, Mild (1-3) Allopurinol (Zyloprim) 100 mg PO DAILY [facility] Last Admin: 08/20/17 09:22 Dose: 100 mg Aspirin (Ecotrin) 81 mg PO DAILY [facility] Last Admin: 08/20/17 09:22 Dose: 81 mg Atenolol (Tenormin) 25 mg PO DAILY [facility] Last Admin: 08/20/17 09:22 Dose: 25 mg Atorvastatin Calcium (Lipitor) 40 mg PO DIN [facility] Last Admin: 08/19/17 17:31 Dose: 40 mg Chlorthalidone (Hygroton) 25 mg PO DAILY [facility] Last Admin: 08/20/17 09:22 Dose: 25 mg Clopidogrel Bisulfate (Plavix) 75 mg PO DAILY [facility] Last Admin: 08/20/17 09:21 Dose: 75 mg Famotidine (Pepcid) 40 mg PO HS [facility] Last Admin: 08/19/17 23:15 Dose: 40 mg Losartan Potassium (Cozaar) 100 mg PO DAILY [facility] Last Admin: 08/20/17 09:22 Dose: 100 mg Ondansetron HCl (Zofran Inj) 4 mg IVP ONCE PRN PRN Reason: Nausea/Vomiting Oxycodone/Acetaminophen (Percocet 5/325 Mg Tab) 1 tab PO Q4H PRN PRN Reason: Pain, moderate (4-7) Stop: 08/21/17 14:39 Vitamin B Complex/Vit C/Folic Acid (Nephro-Vargas) 1 tab PO DAILY [facility] Last Admin: 08/20/17 09:22 Dose: 1 tab - Labs Labs: 08/20/17 07:00 08/20/17 07:00 PT 11.8 SECONDS (9.4-12.5) 08/18/17 10:48 INR 1.03 (0.93-1.08) 08/18/17 10:48 APTT 29.7 Seconds (25.1-36.5) 08/18/17 10:48 - Constitutional Appears: Well, Non-toxic, No Acute Distress - Head Exam Head Exam: ATRAUMATIC, NORMAL INSPECTION, NORMOCEPHALIC - Eye Exam Eye Exam: EOMI, Normal appearance - ENT Exam ENT Exam: Mucous Membranes Moist - Neck Exam Neck Exam: Full ROM - Respiratory Exam Respiratory Exam: NORMAL BREATHING PATTERN. absent: Accessory Muscle Use - Cardiovascular Exam Cardiovascular Exam: RRR. absent: JVD - GI/Abdominal Exam GI & Abdominal Exam: Soft. absent: Distended, Guarding, Rigid, Tenderness - Extremities Exam Extremities Exam: Normal Inspection. absent: Calf Tenderness - Neurological Exam Neurological Exam: Alert, Awake, Oriented x3 - Psychiatric Exam Psychiatric exam: Normal Affect, Normal Mood - Skin Skin Exam: Dry, Intact, Normal Color, Warm Assessment and Plan - Assessment and Plan (Free Text) Assessment: 71yo F with bilateral carotid disease. L ICA 70% stenosis and R ICA severe stenosis with string sign. - Left Carotid US noted Plan: - Continue ASA/Plavix - f/u Cardiac Clearance for surgery - To OR Tuesday - NPO past mn Tuesday Further recs as per Dr. Brenden Patton PGY1 surgery pager: [phone]
--- NOTE | 2017-08-21 07:20 | CP.PCM.PN ---
Subjective - Date & Time of Evaluation Date of Evaluation: 08/21/17 Time of Evaluation: 09:00 - Subjective Subjective: Hospitalist Progress Note, Orlin Guy PGY2 Patient seen and examined at bedside. As per nursing staff, there were no acute overnight events. Spoke to patient via video pediatrician/medical doctor. She reports feeling well this morning. She denies chest pain, shortness of breath, weakness, vision changes, dizziness, nausea/vomiting or diarrhea. Patient does complain of some constipation. We explained that patient will go for surgery tomorrow. She does not have any questions and agrees with plan. Objective - Vital Signs/Intake and Output Vital Signs (last 24 hours): Temp Pulse Resp BP Pulse Ox 98.0 F 63 20 129/69 98 08/21/17 06:00 08/21/17 06:00 08/21/17 06:00 08/21/17 06:00 08/21/17 06:00 Intake and Output: 08/21/17 08/21/17 06:59 18:59 Intake Total 120 Output Total 0 Balance 120 - Medications Medications: Current Medications Acetaminophen (Tylenol 325mg Tab) 650 mg PO Q4H PRN PRN Reason: Pain, Mild (1-3) Allopurinol (Zyloprim) 100 mg PO DAILY [facility] Last Admin: 08/20/17 09:22 Dose: 100 mg Aspirin (Ecotrin) 81 mg PO DAILY [facility] Last Admin: 08/20/17 09:22 Dose: 81 mg Atenolol (Tenormin) 25 mg PO DAILY [facility] Last Admin: 08/20/17 09:22 Dose: 25 mg Atorvastatin Calcium (Lipitor) 40 mg PO DIN [facility] Last Admin: 08/20/17 18:09 Dose: 40 mg Chlorthalidone (Hygroton) 25 mg PO DAILY [facility] Last Admin: 08/20/17 09:22 Dose: 25 mg Clopidogrel Bisulfate (Plavix) 75 mg PO DAILY [facility] Last Admin: 08/20/17 09:21 Dose: 75 mg Famotidine (Pepcid) 40 mg PO HS [facility] Last Admin: 08/20/17 21:50 Dose: 40 mg Losartan Potassium (Cozaar) 100 mg PO DAILY [facility] Last Admin: 08/20/17 09:22 Dose: 100 mg Ondansetron HCl (Zofran Inj) 4 mg IVP ONCE PRN PRN Reason: Nausea/Vomiting Oxycodone/Acetaminophen (Percocet 5/325 Mg Tab) 1 tab PO Q4H PRN PRN Reason: Pain, moderate (4-7) Stop: 08/21/17 14:39 Vitamin B Complex/Vit C/Folic Acid (Nephro-Vargas) 1 tab PO DAILY [facility] Last Admin: 08/20/17 09:22 Dose: 1 tab - Labs Labs: 08/20/17 07:00 08/20/17 07:00 PT 11.8 SECONDS (9.4-12.5) 08/18/17 10:48 INR 1.03 (0.93-1.08) 08/18/17 10:48 APTT 29.7 Seconds (25.1-36.5) 08/18/17 10:48 - Constitutional Appears: No Acute Distress - Head Exam Head Exam: ATRAUMATIC, NORMAL INSPECTION, NORMOCEPHALIC - Eye Exam Eye Exam: Normal appearance, PERRL Pupil Exam: NORMAL ACCOMODATION, PERRL - ENT Exam ENT Exam: Mucous Membranes Moist - Neck Exam Neck Exam: Full ROM - Respiratory Exam Respiratory Exam: Clear to Ausculation Bilateral, NORMAL BREATHING PATTERN. absent: Rales, Rhonchi, Wheezes - Cardiovascular Exam Cardiovascular Exam: REGULAR RHYTHM, +S1, +S2. absent: Gallop, Rubs, Murmur - GI/Abdominal Exam GI & Abdominal Exam: Soft, Normal Bowel Sounds. absent: Rigid, Tenderness, Mass , Rebound - Neurological Exam Neurological Exam: Alert, Awake, CN II-XII Intact, Oriented x3 - Psychiatric Exam Psychiatric exam: Normal Affect, Normal Mood - Skin Skin Exam: Dry, Warm Assessment and Plan - Assessment and Plan (Free Text) Assessment: This is a 71yo female with past medical history of HTN and DM who is admitted for evaluation of significant carotid stenosis and was also found to FABIO. Plan: 1. Bilateral carotid stenosis - Carotid angiogram: critical R ICA origin stenosis with string sign, 70% proximal L ICA stenosis - Continue ASA, Plavix and Lipitor - Stress test did not show any abnormalities - Cardio consulted and cleared patient for surgery - Vascular on consult and will do R CEA tomorrow - NPO after midnight - Continue Fall precaution 2. FABIO - can be secondary to dehydration - Cr increased from 1.1 to 1.4 - Will start NS@75 - Continue to monitor renal function 3. HTN - Continue Chlorthalidone, Cozaar, Atenolol 25mg PO daily 4. HLD - Continue Lipitor 5. Hx of DM - HgA1C 6.4 - Continue ISS and accuchecks - Hold metformin - will restart upon D/C 6. Hx of gout - Allopurinol 7. Constipation - Miralax GI ppx: Pepcid DVT ppx: SCDs Dispo: Plan is for CEA on Tomorrow. Obtain PT evaluation after surgery. Case seen, discussed and reviewed with attending. Orlin Guy PGY2
[2017-08-21 08:25] LABS: HEMOGLOBIN 10.7 g/dL (12.0-16.0); MEAN CELL VOLUME 78.7 fl (80.0-105.0); MEAN CORPUSCULAR HGB CONC 31.8 g/dl (31.0-37.0); MEAN PLATELET VOLUME 10.8 fl (7.0-11.0); RBC 4.28 10^6/uL (3.5-6.1); RED CELL DISTRIBUTION WIDTH 13.8 % (11.5-14.5); WHITE BLOOD COUNT 4.2 10^3/ul (4.5-11.0)
[2017-08-21 09:05] LABS: ALB/GLOB RATIO 1.3 (1.1-1.8); CALCIUM 9.6 mg/dL (8.4-10.5)
[2017-08-21] MEDS: Multivitamin Vitamin B Complex (Nephro-Vite) Tab PO SCH (09:14)
[2017-08-21] MEDS: POLYETHYLENE GLYCOL 3350 17 GM/Dose PACKET PO SCH (11:01)
[2017-08-21] MEDS: Sodium Chloride 0.9% 1,000 ML IV SCH (11:02)
--- NOTE | 2017-08-21 16:21 | CP.PCM.PCO ---
Physician Communication Note - Physician Communication Note Physician Communication Note: OR 08/22 CEA, NPO at midnight
[2017-08-22] MEDS: Sodium Chloride 0.9% 1,000 ML IV SCH ×2 (00:29→13:19)
[2017-08-22 05:42] LABS: HEMOGLOBIN 10.5 g/dL (12.0-16.0); MEAN CELL VOLUME 78.7 fl (80.0-105.0); MEAN CORPUSCULAR HEMOGLOBIN 25.4 pg (25.0-35.0); MEAN CORPUSCULAR HGB CONC 32.2 g/dl (31.0-37.0); MEAN PLATELET VOLUME 10.8 fl (7.0-11.0); RBC 4.14 10^6/uL (3.5-6.1); RED CELL DISTRIBUTION WIDTH 13.9 % (11.5-14.5); WHITE BLOOD COUNT 5.8 10^3/ul (4.5-11.0)
[2017-08-22 06:01] LABS: CALCIUM 9.3 mg/dL (8.4-10.5)
--- NOTE | 2017-08-22 07:01 | CP.PCM.PN ---
<Rica Brown - Last Filed: 08/22/17 13:14> Subjective - Date & Time of Evaluation Date of Evaluation: 08/22/17 Time of Evaluation: 07:01 - Subjective Subjective: Internal Medicine Progress Note: Patient seen and examined at [facility]. Per nursing no acute events overnight. Patient going to [facility] tomorrow with Vascular. Denies headaches, dizziness, cp, palpitations, sob, abdominal pain, urinary symptoms. Objective - Vital Signs/Intake and Output Vital Signs (last 24 hours): Temp Pulse Resp BP Pulse Ox 97.9 F 64 20 123/64 97 08/22/17 05:52 08/22/17 05:52 08/22/17 05:52 08/22/17 05:52 08/22/17 05:52 Intake and Output: 08/22/17 08/22/17 06:59 18:59 Intake Total 740 Balance 740 - Medications Medications: Current Medications Acetaminophen (Tylenol 325mg Tab) 650 mg PO Q4H PRN PRN Reason: Pain, Mild (1-3) Allopurinol (Zyloprim) 100 mg PO DAILY [facility] Last Admin: 08/21/17 09:14 Dose: 100 mg Aspirin (Ecotrin) 81 mg PO DAILY [facility] Last Admin: 08/21/17 09:14 Dose: 81 mg Atenolol (Tenormin) 25 mg PO DAILY [facility] Last Admin: 08/21/17 09:14 Dose: 25 mg Atorvastatin Calcium (Lipitor) 40 mg PO DIN [facility] Last Admin: 08/21/17 17:15 Dose: 40 mg Chlorthalidone (Hygroton) 25 mg PO DAILY [facility] Last Admin: 08/21/17 09:14 Dose: 25 mg Clopidogrel Bisulfate (Plavix) 75 mg PO DAILY [facility] Last Admin: 08/21/17 09:14 Dose: 75 mg Famotidine (Pepcid) 40 mg PO HS [facility] Last Admin: 08/21/17 21:44 Dose: 40 mg Sodium Chloride (Sodium Chloride 0.9%) 1,000 mls @ 75 mls/hr IV .[id number] [facility] Last Admin: 08/22/17 00:29 Dose: 75 mls/hr Losartan Potassium (Cozaar) 100 mg PO DAILY [facility] Last Admin: 08/21/17 09:14 Dose: 100 mg Ondansetron HCl (Zofran Inj) 4 mg IVP ONCE PRN PRN Reason: Nausea/Vomiting Polyethylene Glycol (Miralax) 17 gm PO DAILY [facility] Last Admin: 08/21/17 11:01 Dose: 17 gm Vitamin B Complex/Vit C/Folic Acid (Nephro-Vargas) 1 tab PO DAILY [facility] Last Admin: 08/21/17 09:14 Dose: 1 tab - Labs Labs: 08/22/17 05:30 08/22/17 05:30 PT 11.8 SECONDS (9.4-12.5) 08/18/17 10:48 INR 1.03 (0.93-1.08) 08/18/17 10:48 APTT 29.7 Seconds (25.1-36.5) 08/18/17 10:48 - Constitutional Appears: Well, No Acute Distress - Head Exam Head Exam: ATRAUMATIC, NORMAL INSPECTION, NORMOCEPHALIC - Eye Exam Eye Exam: EOMI, Normal appearance - ENT Exam ENT Exam: Mucous Membranes Moist - Neck Exam Neck Exam: Full ROM - Respiratory Exam Respiratory Exam: Clear to Ausculation Bilateral, NORMAL BREATHING PATTERN. absent: Rales, Rhonchi, Wheezes - Cardiovascular Exam Cardiovascular Exam: REGULAR RHYTHM, +S1, +S2 - GI/Abdominal Exam GI & Abdominal Exam: Soft, Normal Bowel Sounds. absent: Guarding, Rigid, Tenderness, Rebound - Extremities Exam Extremities Exam: Normal Inspection - Back Exam Back Exam: NORMAL INSPECTION - Neurological Exam Neurological Exam: Alert, Awake, Normal Gait, Oriented x3 - Psychiatric Exam Psychiatric exam: Normal Affect, Normal Mood - Skin Skin Exam: Dry, Normal Color, Warm Assessment and Plan - Assessment and Plan (Free Text) Assessment: Assessment: This is a 71yo female with past medical history of HTN and DM who is admitted for evaluation of significant carotid stenosis and was also found to FABIO. Plan: 1. Bilateral carotid stenosis - Carotid angiogram: critical R ICA origin stenosis with string sign, 70% proximal L ICA stenosis - Continue ASA, Plavix and Lipitor - Stress test did not show any abnormalities - Cardio consulted and cleared patient for surgery - Vascular on consult and will do R CEA tomorrow - NPO after midnight - Continue Fall precaution 2. FABIO - can be secondary to dehydration - Cr increased from 1.1 to 1.3 - Continue NS@75 - Continue to monitor renal function 3. HTN - Continue Chlorthalidone, Cozaar, Atenolol 25mg PO daily 4. HLD - Continue Lipitor 5. Hx of DM - HgA1C 6.4 - Continue ISS and accuchecks - Hold metformin - will restart upon D/C 6. Hx of gout - Allopurinol 7. Constipation - Miralax prn GI ppx: Pepcid DVT ppx: SCDs Dispo: Plan is for CEA Tomorrow 08/23. Obtain PT evaluation after surgery. <Zoran Vera - Last Filed: 08/22/17 13:27> Objective - Vital Signs/Intake and Output Vital Signs (last 24 hours): Temp Pulse Resp BP Pulse Ox 97.9 F 78 20 148/75 99 08/22/17 05:52 08/22/17 10:16 08/22/17 05:52 08/22/17 10:16 08/22/17 10:00 Intake and Output: 08/22/17 08/22/17 06:59 18:59 Intake Total 740 900 Balance 740 900 - Medications Medications: Current Medications Acetaminophen (Tylenol 325mg Tab) 650 mg PO Q4H PRN PRN Reason: Pain, Mild (1-3) Allopurinol (Zyloprim) 100 mg PO DAILY [facility] Last Admin: 08/22/17 10:16 Dose: 100 mg Aspirin (Ecotrin) 81 mg PO DAILY [facility] Last Admin: 08/22/17 10:16 Dose: 81 mg Atenolol (Tenormin) 25 mg PO DAILY [facility] Last Admin: 08/22/17 10:16 Dose: 25 mg Atorvastatin Calcium (Lipitor) 40 mg PO DIN [facility] Last Admin: 08/21/17 17:15 Dose: 40 mg Chlorthalidone (Hygroton) 25 mg PO DAILY [facility] Last Admin: 08/22/17 10:17 Dose: 25 mg Clopidogrel Bisulfate (Plavix) 75 mg PO DAILY [facility] Last Admin: 08/22/17 10:17 Dose: 75 mg Famotidine (Pepcid) 40 mg PO HS [facility] Last Admin: 08/21/17 21:44 Dose: 40 mg Sodium Chloride (Sodium Chloride 0.9%) 1,000 mls @ 75 mls/hr IV .[id number] [facility] Last Admin: 08/22/17 13:19 Dose: 75 mls/hr Losartan Potassium (Cozaar) 100 mg PO DAILY [facility] Last Admin: 08/22/17 10:15 Dose: 100 mg Ondansetron HCl (Zofran Inj) 4 mg IVP ONCE PRN PRN Reason: Nausea/Vomiting Polyethylene Glycol (Miralax) 17 gm PO DAILY [facility] Last Admin: 08/22/17 10:16 Dose: 17 gm Vitamin B Complex/Vit C/Folic Acid (Nephro-Vargas) 1 tab PO DAILY [facility] Last Admin: 08/22/17 10:16 Dose: 1 tab - Labs Labs: 08/22/17 05:30 08/22/17 05:30 PT 11.8 SECONDS (9.4-12.5) 08/18/17 10:48 INR 1.03 (0.93-1.08) 08/18/17 10:48 APTT 29.7 Seconds (25.1-36.5) 08/18/17 10:48 Attending/Attestation - Attestation I have personally seen and examined this patient.: Yes I have fully participated in the care of the patient.: Yes I have reviewed all pertinent clinical information, including history, physical exam and plan: Yes Notes (Text): 08/22/17 13:21 71 year old female with past medical history of hypertension, dyslipidemia and diabetes who is admitted for evaluation of carotid stenosis and FABIO. Carotid ultrasound was reviewed as above. She underwent cardiac stress test last week which was negative. She is being followed by vascular and cardiology and plan is for CEA tomorrow ( procedure was postponed today). She is on aspirin, plavix and statin. She is on fluid for mild renal insufficiency. Zoran Vera MD Hospitalist.
--- NOTE | 2017-08-22 07:39 | CP.PCM.PN ---
Subjective - Date & Time of Evaluation Date of Evaluation: 08/22/17 Time of Evaluation: 07:38 - Subjective Subjective: Patient seen and examined at bedside. Per nursing no acute events occurred overnight. Patient denies any chest pain, fevers, chills, dizziness, headache, abdominal pain or any other complaints. Objective - Vital Signs/Intake and Output Vital Signs (last 24 hours): Temp Pulse Resp BP Pulse Ox 97.9 F 64 20 123/64 97 08/22/17 05:52 08/22/17 05:52 08/22/17 05:52 08/22/17 05:52 08/22/17 05:52 Intake and Output: 08/22/17 08/22/17 06:59 18:59 Intake Total 740 900 Balance 740 900 - Medications Medications: Current Medications Acetaminophen (Tylenol 325mg Tab) 650 mg PO Q4H PRN PRN Reason: Pain, Mild (1-3) Allopurinol (Zyloprim) 100 mg PO DAILY [facility] Last Admin: 08/21/17 09:14 Dose: 100 mg Aspirin (Ecotrin) 81 mg PO DAILY [facility] Last Admin: 08/21/17 09:14 Dose: 81 mg Atenolol (Tenormin) 25 mg PO DAILY [facility] Last Admin: 08/21/17 09:14 Dose: 25 mg Atorvastatin Calcium (Lipitor) 40 mg PO DIN [facility] Last Admin: 08/21/17 17:15 Dose: 40 mg Chlorthalidone (Hygroton) 25 mg PO DAILY [facility] Last Admin: 08/21/17 09:14 Dose: 25 mg Clopidogrel Bisulfate (Plavix) 75 mg PO DAILY [facility] Last Admin: 08/21/17 09:14 Dose: 75 mg Famotidine (Pepcid) 40 mg PO HS [facility] Last Admin: 08/21/17 21:44 Dose: 40 mg Sodium Chloride (Sodium Chloride 0.9%) 1,000 mls @ 75 mls/hr IV .[id number] [facility] Last Admin: 08/22/17 00:29 Dose: 75 mls/hr Losartan Potassium (Cozaar) 100 mg PO DAILY [facility] Last Admin: 08/21/17 09:14 Dose: 100 mg Ondansetron HCl (Zofran Inj) 4 mg IVP ONCE PRN PRN Reason: Nausea/Vomiting Polyethylene Glycol (Miralax) 17 gm PO DAILY [facility] Last Admin: 08/21/17 11:01 Dose: 17 gm Vitamin B Complex/Vit C/Folic Acid (Nephro-Vargas) 1 tab PO DAILY [facility] Last Admin: 08/21/17 09:14 Dose: 1 tab - Labs Labs: 08/22/17 05:30 08/22/17 05:30 PT 11.8 SECONDS (9.4-12.5) 08/18/17 10:48 INR 1.03 (0.93-1.08) 08/18/17 10:48 APTT 29.7 Seconds (25.1-36.5) 08/18/17 10:48 - Head Exam Head Exam: ATRAUMATIC, NORMAL INSPECTION, NORMOCEPHALIC - Eye Exam Eye Exam: EOMI, Normal appearance - ENT Exam ENT Exam: Mucous Membranes Moist - Respiratory Exam Respiratory Exam: Clear to Ausculation Bilateral - Cardiovascular Exam Cardiovascular Exam: REGULAR RHYTHM - GI/Abdominal Exam GI & Abdominal Exam: Soft, Normal Bowel Sounds - Extremities Exam Extremities Exam: Full ROM - Back Exam Back Exam: NORMAL INSPECTION - Neurological Exam Neurological Exam: Alert, Awake - Psychiatric Exam Psychiatric exam: Normal Affect, Normal Mood - Skin Skin Exam: Dry, Intact Assessment and Plan - Assessment and Plan (Free Text) Assessment: 71yo female with past medical history of HTN and DM who is admitted for evaluation of significant carotid stenosis Plan: -Medical management per primary care team. -O.R. tentatively scheduled for Tuesday -NPO after midnight. -Will continue to monitor.
[2017-08-22] MEDS: Multivitamin Vitamin B Complex (Nephro-Vite) Tab PO SCH (10:16)
[2017-08-22] MEDS: POLYETHYLENE GLYCOL 3350 17 GM/Dose PACKET PO SCH (10:16)
[2017-08-23] MEDS: Sodium Chloride 0.9% 1,000 ML IV SCH ×2 (02:46→17:20)
[2017-08-23 06:25] LABS: HEMOGLOBIN 10.4 g/dL (12.0-16.0); MEAN CELL VOLUME 79.2 fl (80.0-105.0); MEAN CORPUSCULAR HEMOGLOBIN 24.6 pg (25.0-35.0); MEAN PLATELET VOLUME 10.8 fl (7.0-11.0); RBC 4.23 10^6/uL (3.5-6.1); WHITE BLOOD COUNT 5.2 10^3/ul (4.5-11.0)
[2017-08-23 06:46] LABS: BLOOD UREA NITROGEN 27 mg/dL (7-21); CALCIUM 9.1 mg/dL (8.4-10.5); GFR AFRICAN-AMERICAN > 60; GFR NON-AFRICAN AMERICAN 55
--- NOTE | 2017-08-23 06:50 | CP.PCM.PN ---
<Taisha Guy - Last Filed: 08/23/17 11:39> Subjective - Date & Time of Evaluation Date of Evaluation: 08/23/17 Time of Evaluation: 08:22 - Subjective Subjective: Hospitalist Progress Note, Orlin Guy PGY2 Patient seen and examined at bedside. There were no acute overnight events as per nursing staff. Patient reports feeling well today. She is moving her bowel regularly. She denies chest pain, shortness of breath, nausea/vomiting/diarrhea , numbness/tingling, dizziness, vision changes or weakness. She is aware she will have her surgery today. She did not have any questions. Objective - Vital Signs/Intake and Output Vital Signs (last 24 hours): Temp Pulse Resp BP Pulse Ox 97.8 F 68 24 134/63 99 08/23/17 00:01 08/23/17 00:01 08/23/17 00:01 08/23/17 00:01 08/23/17 00:01 Intake and Output: 08/22/17 08/23/17 18:59 06:59 Intake Total 1440 Output Total 10 Balance 1430 - Medications Medications: Current Medications Acetaminophen (Tylenol 325mg Tab) 650 mg PO Q4H PRN PRN Reason: Pain, Mild (1-3) Allopurinol (Zyloprim) 100 mg PO DAILY [facility] Last Admin: 08/22/17 10:16 Dose: 100 mg Aspirin (Ecotrin) 81 mg PO DAILY [facility] Last Admin: 08/22/17 10:16 Dose: 81 mg Atenolol (Tenormin) 25 mg PO DAILY [facility] Last Admin: 08/22/17 10:16 Dose: 25 mg Atorvastatin Calcium (Lipitor) 40 mg PO DIN [facility] Last Admin: 08/22/17 18:00 Dose: 40 mg Chlorthalidone (Hygroton) 25 mg PO DAILY [facility] Last Admin: 08/22/17 10:17 Dose: 25 mg Clopidogrel Bisulfate (Plavix) 75 mg PO DAILY [facility] Last Admin: 08/22/17 10:17 Dose: 75 mg Famotidine (Pepcid) 40 mg PO HS [facility] Last Admin: 08/22/17 22:20 Dose: 40 mg Sodium Chloride (Sodium Chloride 0.9%) 1,000 mls @ 75 mls/hr IV .[id number] [facility] Last Admin: 08/23/17 02:46 Dose: 75 mls/hr Losartan Potassium (Cozaar) 100 mg PO DAILY [facility] Last Admin: 08/22/17 10:15 Dose: 100 mg Ondansetron HCl (Zofran Inj) 4 mg IVP ONCE PRN PRN Reason: Nausea/Vomiting Polyethylene Glycol (Miralax) 17 gm PO DAILY [facility] Last Admin: 08/22/17 10:16 Dose: 17 gm Vitamin B Complex/Vit C/Folic Acid (Nephro-Vargas) 1 tab PO DAILY [facility] Last Admin: 08/22/17 10:16 Dose: 1 tab - Labs Labs: 08/23/17 05:40 08/23/17 05:40 PT 11.8 SECONDS (9.4-12.5) 08/18/17 10:48 INR 1.03 (0.93-1.08) 08/18/17 10:48 APTT 29.7 Seconds (25.1-36.5) 08/18/17 10:48 - Constitutional Appears: No Acute Distress - Head Exam Head Exam: ATRAUMATIC, NORMAL INSPECTION, NORMOCEPHALIC - Eye Exam Eye Exam: Normal appearance, PERRL Pupil Exam: NORMAL ACCOMODATION - ENT Exam ENT Exam: Mucous Membranes Moist - Neck Exam Neck Exam: Full ROM - Respiratory Exam Respiratory Exam: Clear to Ausculation Bilateral, NORMAL BREATHING PATTERN. absent: Rales, Rhonchi, Wheezes - Cardiovascular Exam Cardiovascular Exam: REGULAR RHYTHM, +S1, +S2. absent: Gallop, Rubs, Murmur - GI/Abdominal Exam GI & Abdominal Exam: Soft, Normal Bowel Sounds. absent: Rigid, Tenderness, Mass , Rebound - Extremities Exam Extremities Exam: Normal Inspection. absent: Calf Tenderness, Pedal Edema - Neurological Exam Neurological Exam: Alert, Awake, CN II-XII Intact, Oriented x3 - Psychiatric Exam Psychiatric exam: Normal Affect, Normal Mood - Skin Skin Exam: Dry, Intact, Warm Assessment and Plan - Assessment and Plan (Free Text) Assessment: This is a 71yo female with past medical history of HTN and DM who is admitted for evaluation of significant carotid stenosis and was also found to FABIO which has improved. Patient is going to R CEA this AM. Plan: 1. Bilateral carotid stenosis - Carotid angiogram: critical R ICA origin stenosis with string sign, 70% proximal L ICA stenosis - Stress test was normal - Cardio consulted and cleared patient for surgery - Vascular on consult and will do R CEA this morning - ASA, Plavix and Lipitor - Continue Fall precaution 2. FABIO (improved) - can be secondary to dehydration - Cr now 1.0 (was 1.4) - NS@75 3. HTN - Chlorthalidone, Cozaar, Atenolol 25mg PO daily 4. HLD - Lipitor 5. Hx of DM - HgA1C 6.4 - Continue ISS and accuchecks - Home med, Metformin is on hold and will restart upon D/C 6. Hx of gout - Continue Allopurinol 7. Constipation - Continue Miralax GI ppx: Pepcid DVT ppx: SCDs Dispo: Plan is for CEA on this morning. Obtain PT evaluation after surgery. Case seen, discussed and reviewed with attending. Orlin Guy PGY2 <Zoran Vera A - Last Filed: 08/23/17 12:28> Objective - Vital Signs/Intake and Output Vital Signs (last 24 hours): Temp Pulse Resp BP Pulse Ox 99 F 77 24 184/79 H 98 08/23/17 10:20 08/23/17 10:20 08/23/17 10:20 08/23/17 10:20 08/23/17 10:20 - Medications Medications: Current Medications Acetaminophen (Tylenol 325mg Tab) 650 mg PO Q4H PRN PRN Reason: Pain, Mild (1-3) Allopurinol (Zyloprim) 100 mg PO DAILY [facility] Last Admin: 08/23/17 09:36 Dose: 100 mg Aspirin (Ecotrin) 81 mg PO DAILY [facility] Last Admin: 08/22/17 10:16 Dose: 81 mg Atenolol (Tenormin) 25 mg PO DAILY [facility] Last Admin: 08/23/17 09:36 Dose: 25 mg Atorvastatin Calcium (Lipitor) 40 mg PO DIN [facility] Last Admin: 08/22/17 18:00 Dose: 40 mg Chlorthalidone (Hygroton) 25 mg PO DAILY [facility] Last Admin: 08/23/17 09:35 Dose: 25 mg Clopidogrel Bisulfate (Plavix) 75 mg PO DAILY [facility] Last Admin: 08/23/17 10:07 Dose: 75 mg Famotidine (Pepcid) 40 mg PO HS [facility] Last Admin: 08/22/17 22:20 Dose: 40 mg Sodium Chloride (Sodium Chloride 0.9%) 1,000 mls @ 75 mls/hr IV .[id number] [facility] Last Admin: 08/23/17 02:46 Dose: 75 mls/hr Losartan Potassium (Cozaar) 100 mg PO DAILY [facility] Last Admin: 08/23/17 09:35 Dose: 100 mg Ondansetron HCl (Zofran Inj) 4 mg IVP ONCE PRN PRN Reason: Nausea/Vomiting Polyethylene Glycol (Miralax) 17 gm PO DAILY [facility] Last Admin: 08/23/17 09:36 Dose: Not Given Vitamin B Complex/Vit C/Folic Acid (Nephro-Vargas) 1 tab PO DAILY [facility] Last Admin: 08/23/17 09:36 Dose: 1 tab - Labs Labs: 08/23/17 05:40 08/23/17 05:40 PT 12.1 SECONDS (9.4-12.5) 08/23/17 05:40 INR 1.05 (0.93-1.08) 08/23/17 05:40 APTT 26.6 Seconds (25.1-36.5) 08/23/17 05:40 Attending/Attestation - Attestation I have personally seen and examined this patient.: Yes I have fully participated in the care of the patient.: Yes I have reviewed all pertinent clinical information, including history, physical exam and plan: Yes Notes (Text): 08/23/17 12:27 71 year old female with past medical history of hypertension, dyslipidemia and diabetes who is admitted for evaluation of carotid stenosis and FABIO. Carotid ultrasound was reviewed as above. She underwent cardiac stress test last week which was negative. She was seen by vascular and will be going for CEA today. She is on aspirin, plavix and statin. She was on iv fluids for mild renal insufficiency which has now resolved. Zoran Vera MD Hospitalist.
[2017-08-23 07:04] LABS: INR 1.05 (0.93-1.08); PARTIAL THROMBOPLASTIN TIME 26.6 Seconds (25.1-36.5); PROTHROMBIN TIME 12.1 SECONDS (9.4-12.5)
--- NOTE | 2017-08-23 07:56 | RAD ---
HISTORY: pre-op COMPARISON: 04/26/2014 FINDINGS: LUNGS: No active pulmonary disease. PLEURA: No significant pleural effusion identified, no pneumothorax apparent. CARDIOVASCULAR: Normal. OSSEOUS STRUCTURES: No significant abnormalities. VISUALIZED UPPER ABDOMEN: Normal. OTHER FINDINGS: None. IMPRESSION: No active disease.
[2017-08-23] MEDS ORDERED: Protamine 50mg/5mL Inj IV ONE (08:04)
[2017-08-23] MEDS ORDERED: Lidocaine 1% Inj (20ml) ONE ×2 (08:04→09:44)
[2017-08-23] MEDS ORDERED: Heparin 10,000 Units/ml ONE (08:04)
[2017-08-23] MEDS: POLYETHYLENE GLYCOL 3350 17 GM/Dose PACKET PO SCH (09:36)
[2017-08-23] MEDS: Multivitamin Vitamin B Complex (Nephro-Vite) Tab PO SCH (09:36)
[2017-08-23] MEDS ORDERED: Midazolam 2 MG/2 ML VIAL ONE (09:44)
[2017-08-23] MEDS ORDERED: Propofol 10 mg/ml Inj (20 ML) ONE (09:44)
[2017-08-23] MEDS ORDERED: Rocuronium 10 mg/ml (5 ml) ONE ×2 (09:44→12:02)
[2017-08-23] MEDS ORDERED: Phenylephrine 10 mg/ml Inj ONE (09:55)
[2017-08-23] MEDS ORDERED: ePHEDrine 50 mg/ml Inj ONE ×4 (10:08→14:22)
[2017-08-23] MEDS ORDERED: Atropine 0.4 mg/ml Inj (1 mL) ONE (10:14)
[2017-08-23] MEDS ORDERED: Nitroglycerin 50mg in D5W 0 MG/0 ML BOTTLE IV ONE (11:58)
[2017-08-23] MEDS ORDERED: Neostigmine Methylsulfate 3mg/3ml Syringe IV ONE (12:02)
--- NOTE | 2017-08-23 12:23 | PN ---
DATE: 08/23/2013 CARDIOLOGY FOLLOWUP SUBJECTIVE: The patient is asymptomatic. PHYSICAL EXAMINATION VITAL SIGNS: Blood pressure varies from 124-184 systolic, heart rate is in the 70s. NECK: Negative JVD. LUNGS: Without rales. HEART: Reveals S1 and S2. EXTREMITIES: Without edema. LABORATORY DATA: Hemoglobin is 10.4. Chemistries unremarkable. IMPRESSION: 1. Severe carotid disease. 2. Hypercholesterolemia. 3. Diabetes mellitus. 4. Hypertension. PLAN: Given these findings, the patient's stress test is unremarkable. The patient is for carotid endarterectomy today. Reji Riddle MD
--- NOTE | 2017-08-23 15:14 | PCM.SURG1 ---
Surgeon's Initial Post Op Note - Surgeon's Notes Surgeon: Brenden Product Builder: Lilly PGY3, Lane MSIII Type of Anesthesia: General Endo Anesthesia Administered By: Bro Pre-Operative Diagnosis: Right carotid artery stenosis Operative Findings: Chronically inflamed carotid w. plaque Post-Operative Diagnosis: same Operation Performed: R CEA w. vein patch closure Specimen/Specimens Removed: plaque Estimated Blood Loss: EBL {In ML}: 100 Blood Products Given: N/A Drains Used: No Drains Post-Op Condition: Good Date of Surgery/Procedure: 08/23/17 Time of Surgery/Procedure: 15:14
[2017-08-23] MEDS ORDERED: Oxycodone/Acetaminophen 5/325 mg Tab PO PRN (15:15)
[2017-08-23] MEDS ORDERED: Nitroglycerin 2% Ointment Foilpak UD TOP ONE ×2 (15:15)
[2017-08-23] MEDS ORDERED: HYDROmorphone 0.5 mg/0.5 ml ISec IVP PRN (15:16)
[2017-08-23] MEDS ORDERED: Morphine 4 mg/ml ISec IVP PRN (15:18)
[2017-08-23] MEDS ORDERED: Nitroglycerin 2% Ointment Foilpak UD TOP STA (15:23)
[2017-08-23] MEDS ORDERED: Lactated Ringer's 1,000 ML IV SCH (15:30)
[2017-08-23] MEDS ORDERED: Nicardipine 20 MG/200 ML 20 MG/200 ML BAG IV PRN (15:40)
--- NOTE | 2017-08-23 15:53 | CP.PCM.CON ---
<Annika Pollard - Last Filed: 08/23/17 15:42> History of Present Illness - History of Present Illness History of Present Illness: Annika Pollard, PGY1, Critical care consult note for Dr Newton: CC: s/p right CEA 71 year old female with past medical history of HTN and DM, presents to [facility] for evaluation and management of carotid artery stenosis. Pt initially had FABIO, which resolved and underwent cardiology clearance as well. Her Ultrasound showed 70-80% proximal stenosis on the L and significant string sign on the R. Vascular Surgery ([facility]) was consulted, and pt underwent R CEA this afternoon. No fevers, pt hemodynamically stable. HPI obtained from prior records, PACU staff, as pt is sedated post anesthesia. Past medical history: HTN, DM, possible gout Past surgical history: Cholecystectomy Allergies: NKDA Family history: denies Social history: Lives with family, mostly independent in ADLs. Denies EtOH, drug or tobacco use PMD: Dr. Herbert Review of Systems - Review of Systems Systems not reviewed;Unavailable: Other (sedated) Past Patient History - Infectious Disease Hx of Infectious Diseases: None - Tetanus Immunizations Tetanus Immunization: Unknown - Past Social History Smoking Status: Never Smoked - CARDIAC Hx Hypertension: Yes - PULMONARY Hx Respiratory Disorders: No - NEUROLOGICAL Hx Dizziness: Yes - HEENT Hx HEENT Problems: No - RENAL Hx Chronic Kidney Disease: No - ENDOCRINE/METABOLIC Hx Diabetes Mellitus Type 2: Yes - HEMATOLOGICAL/ONCOLOGICAL Hx Blood Disorders: No - INTEGUMENTARY Hx Dermatological Problems: No - MUSCULOSKELETAL/RHEUMATOLOGICAL Hx Arthritis: Yes Hx Falls: No - GASTROINTESTINAL Hx Gastrointestinal Disorders: No - GENITOURINARY/GYNECOLOGICAL Hx Genitourinary Disorders: No - PSYCHIATRIC Hx Psychophysiologic Disorder: No - SURGICAL HISTORY Hx Cholecystectomy: Yes - ANESTHESIA Hx Anesthesia Reactions: No Hx Malignant Hyperthermia: No Meds Allergies/Adverse Reactions: Allergies Allergy/AdvReac Type Severity Reaction Status Date / Time No Known Allergies Allergy Verified 04/08/16 12:59 - Medications Medications: Current Medications Acetaminophen (Tylenol 325mg Tab) 650 mg PO Q4H PRN PRN Reason: Pain, Mild (1-3) Allopurinol (Zyloprim) 100 mg PO DAILY [facility] Last Admin: 08/23/17 09:36 Dose: 100 mg Aspirin (Ecotrin) 81 mg PO DAILY [facility] Last Admin: 08/22/17 10:16 Dose: 81 mg Atenolol (Tenormin) 25 mg PO DAILY [facility] Last Admin: 08/23/17 09:36 Dose: 25 mg Atorvastatin Calcium (Lipitor) 40 mg PO DIN [facility] Last Admin: 08/22/17 18:00 Dose: 40 mg Chlorthalidone (Hygroton) 25 mg PO DAILY [facility] Last Admin: 08/23/17 09:35 Dose: 25 mg Clopidogrel Bisulfate (Plavix) 75 mg PO DAILY [facility] Last Admin: 08/23/17 10:07 Dose: 75 mg Enoxaparin Sodium (Lovenox) 40 mg SC DAILY [facility] PRN Reason: Protocol Famotidine (Pepcid) 40 mg PO HS [facility] Last Admin: 08/22/17 22:20 Dose: 40 mg Hydralazine HCl (Apresoline) 10 mg IVP ONCE PRN PRN Reason: hypertension Hydromorphone HCl (Dilaudid) 0.5 mg IVP Q4H PRN PRN Reason: Pain, severe (8-10) Sodium Chloride (Sodium Chloride 0.9%) 1,000 mls @ 75 mls/hr IV .[id number] [facility] Last Admin: 08/23/17 02:46 Dose: 75 mls/hr Lactated Ringer's (Lactated Ringer's) 1,000 mls @ 75 mls/hr IV .[id number] [facility] Stop: 08/23/17 17:31 Nicardipine HCl (Cardene Iv Premix) 20 mg in 200 mls @ 50 mls/hr IV .Q4H PRN; Protocol; 5 MG/HR PRN Reason: TITRATE PER MD ORDER Losartan Potassium (Cozaar) 100 mg PO DAILY [facility] Last Admin: 08/23/17 09:35 Dose: 100 mg Morphine Sulfate (Morphine) 3 mg IVP Q15M PRN PRN Reason: Pain, moderate (4-7) Nitroglycerin (Nitro-Dur 0.1 Mg/Hr Patch) 1 patch TD DAILY [facility] Ondansetron HCl (Zofran Inj) 4 mg IVP ONCE PRN PRN Reason: Nausea/Vomiting Oxycodone/Acetaminophen (Percocet 5/325 Mg Tab) 1 tab PO Q4H PRN PRN Reason: Pain, moderate (4-7) Stop: 04/27/18 15:16 Polyethylene Glycol (Miralax) 17 gm PO DAILY [facility] Last Admin: 08/23/17 09:36 Dose: Not Given Vitamin B Complex/Vit C/Folic Acid (Nephro-Vargas) 1 tab PO DAILY [facility] Last Admin: 08/23/17 09:36 Dose: 1 tab Physical Exam - Constitutional Appears: Non-toxic, No Acute Distress - Head Exam Head Exam: ATRAUMATIC, NORMOCEPHALIC Additional comments: + right neck - dressing in place. - Eye Exam Eye Exam: PERRL. absent: Conjunctival injection, Nystagmus, Periorbital tenderness, Scleral icterus Pupil Exam: PERRL. absent: Fixed, Irregular, Miosis, Mydriatic, Unequal - ENT Exam ENT Exam: Mucous Membranes Moist - Neck Exam Neck exam: Positive for: Normal Inspection Additional comments: limited ROM of neck due to recent surgery - Respiratory Exam Respiratory Exam: Clear to Auscultation Bilateral, NORMAL BREATHING PATTERN. absent: Accessory Muscle Use, Chest Wall Tenderness, Decreased Breath Sounds, Rales, Rhonchi, Wheezes, Respiratory Distress, Stridor - Cardiovascular Exam Cardiovascular Exam: RRR, +S1, +S2. absent: Bradycardia, Tachycardia, Systolic Murmur - GI/Abdominal Exam GI & Abdominal Exam: Normal Bowel Sounds, Soft. absent: Distended, Firm, Guarding, Organomegaly, Pulsatile Mass, Rebound, Rigid, Tenderness - Extremities Exam Extremities exam: Positive for: normal inspection. Negative for: calf tenderness, pedal edema - Back Exam Back exam: NORMAL INSPECTION - Neurological Exam Neurological exam: Alert Additional comments: +sedated, but arousable - Skin Skin Exam: Dry, Normal Color, Warm Results - Vital Signs Recent Vital Signs: Last Vital Signs Temp 99 F 08/23/17 10:20 Pulse 77 08/23/17 10:20 Resp 24 08/23/17 10:20 BP 184/79 H 08/23/17 10:20 Pulse Ox 98 08/23/17 10:20 - Labs Result Diagrams: 08/23/17 05:40 08/23/17 05:40 Labs: Laboratory Results - last 24 hr 08/22/17 08/22/17 08/23/17 16:34 21:54 05:40 WBC 5.2 RBC 4.23 Hgb 10.4 L Hct 33.5 L MCV 79.2 L MCH 24.6 L MCHC 31.0 RDW 14.0 Plt Count 315 MPV 10.8 PT INR APTT Sodium Potassium Chloride Carbon Dioxide Anion Gap BUN Creatinine Est GFR ( Amer) Est GFR (Non-Af Amer) POC Glucose (mg/dL) 70 149 H Random Glucose Calcium 08/23/17 08/23/17 08/23/17 05:40 05:40 15:17 WBC RBC Hgb Hct MCV MCH MCHC RDW Plt Count MPV PT 12.1 INR 1.05 APTT 26.6 Sodium 144 Potassium 4.3 Chloride 109 H Carbon Dioxide 24 Anion Gap 16 BUN 27 H Creatinine 1.0 Est GFR ( Amer) > 60 Est GFR (Non-Af Amer) 55 POC Glucose (mg/dL) 157 H Random Glucose 123 H Calcium 9.1 Assessment & Plan - Assessment and Plan (Free Text) Assessment: 71 year old female with past medical history of HTN and DM, admitted to ICU s/ p right carotid endarterectomy: Neuro: - sedated post anesthesia, but arousable - Monitor Pulm: - maintain SPO2 >90-94 - Oxygen prn CV: - A line in place - Cardene drip - Will maintain SBP <160s - S/p R CEA, surgery on board. F/u recs - Chlorthalidone, Cozaar, Atenolol 25mg PO daily - Cont to monitor GI: - ppx with Pepcid - liquid diet Renal: - Stable BUN/Cr - replete electrolytes as needed ID: - no fevers, no leukocytosis - monitor Heme: - Stable - daily cbc Endo: - Hx of DM - ISS - BS ACHS - Monitor GI/ DVT ppx - Pepcid and Lovenox sq Case and plan was reviewed and discussed in detail with Dr Newton. - Date & Time Date: 08/23/17 Time: 16:11 <Narciso Newton - Last Filed: 08/23/17 16:49> Meds - Medications Medications: Current Medications Acetaminophen (Tylenol 325mg Tab) 650 mg PO Q4H PRN PRN Reason: Pain, Mild (1-3) Allopurinol (Zyloprim) 100 mg PO DAILY [facility] Last Admin: 08/23/17 09:36 Dose: 100 mg Aspirin (Ecotrin) 81 mg PO DAILY [facility] Last Admin: 08/22/17 10:16 Dose: 81 mg Atenolol (Tenormin) 25 mg PO DAILY [facility] Last Admin: 08/23/17 09:36 Dose: 25 mg Atorvastatin Calcium (Lipitor) 40 mg PO DIN [facility] Last Admin: 08/22/17 18:00 Dose: 40 mg Chlorthalidone (Hygroton) 25 mg PO DAILY [facility] Last Admin: 08/23/17 09:35 Dose: 25 mg Clopidogrel Bisulfate (Plavix) 75 mg PO DAILY [facility] Last Admin: 08/23/17 10:07 Dose: 75 mg Enoxaparin Sodium (Lovenox) 40 mg SC DAILY [facility] PRN Reason: Protocol Famotidine (Pepcid) 40 mg PO HS [facility] Last Admin: 08/22/17 22:20 Dose: 40 mg Hydralazine HCl (Apresoline) 10 mg IVP ONCE PRN PRN Reason: hypertension Hydromorphone HCl (Dilaudid) 0.5 mg IVP Q4H PRN PRN Reason: Pain, severe (8-10) Sodium Chloride (Sodium Chloride 0.9%) 1,000 mls @ 75 mls/hr IV .[id number] [facility] Last Admin: 08/23/17 02:46 Dose: 75 mls/hr Lactated Ringer's (Lactated Ringer's) 1,000 mls @ 75 mls/hr IV .[id number] [facility] Stop: 08/23/17 17:31 Nicardipine HCl (Cardene Iv Premix) 20 mg in 200 mls @ 50 mls/hr IV .Q4H PRN; Protocol; 5 MG/HR PRN Reason: TITRATE PER MD ORDER Insulin Human Lispro (Humalog Low) 0 units SC [facility] PRN Reason: Protocol Losartan Potassium (Cozaar) 100 mg PO DAILY [facility] Last Admin: 08/23/17 09:35 Dose: 100 mg Morphine Sulfate (Morphine) 3 mg IVP Q15M PRN PRN Reason: Pain, moderate (4-7) Nitroglycerin (Nitro-Dur 0.1 Mg/Hr Patch) 1 patch TD DAILY [facility] Ondansetron HCl (Zofran Inj) 4 mg IVP ONCE PRN PRN Reason: Nausea/Vomiting Ondansetron HCl (Zofran Inj) 4 mg IVP Q6H PRN PRN Reason: Nausea/Vomiting Oxycodone/Acetaminophen (Percocet 5/325 Mg Tab) 1 tab PO Q4H PRN PRN Reason: Pain, moderate (4-7) Stop: 08/26/17 15:16 Polyethylene Glycol (Miralax) 17 gm PO DAILY [facility] Last Admin: 08/23/17 09:36 Dose: Not Given Vitamin B Complex/Vit C/Folic Acid (Nephro-Vargas) 1 tab PO DAILY [facility] Last Admin: 08/23/17 09:36 Dose: 1 tab Results - Vital Signs Recent Vital Signs: Last Vital Signs Temp 99 F 08/23/17 15:50 Pulse 64 08/23/17 15:50 Resp 22 08/23/17 15:50 BP 169/64 H 08/23/17 15:50 Pulse Ox 100 08/23/17 15:50 - Labs Result Diagrams: 08/23/17 05:40 08/23/17 05:40 Labs: Laboratory Results - last 24 hr 08/22/17 08/22/17 08/23/17 16:34 21:54 05:40 WBC 5.2 RBC 4.23 Hgb 10.4 L Hct 33.5 L MCV 79.2 L MCH 24.6 L MCHC 31.0 RDW 14.0 Plt Count 315 MPV 10.8 PT INR APTT Sodium Potassium Chloride Carbon Dioxide Anion Gap BUN Creatinine Est GFR ( Amer) Est GFR (Non-Af Amer) POC Glucose (mg/dL) 70 149 H Random Glucose Calcium 08/23/17 08/23/17 08/23/17 05:40 05:40 15:17 WBC RBC Hgb Hct MCV MCH MCHC RDW Plt Count MPV PT 12.1 INR 1.05 APTT 26.6 Sodium 144 Potassium 4.3 Chloride 109 H Carbon Dioxide 24 Anion Gap 16 BUN 27 H Creatinine 1.0 Est GFR ( Amer) > 60 Est GFR (Non-Af Amer) 55 POC Glucose (mg/dL) 157 H Random Glucose 123 H Calcium 9.1 Assessment & Plan - Assessment and Plan (Free Text) Assessment: Patient seen and examined on rounds with resident, agree with note with following additions/exceptions: Patient is 71yo female with PMHx HTN, DM s/p R CEA Afebrile, HD stable, comfortable in NAD. Cont with BP control, SBP<160 as per vascular, resume home BP meds Monitor resp status Pain control FS control DVT ppx Monitor in MICU
[2017-08-23] MEDS: Nitroglycerin 0.1 mg/hr Top Patch TD SCH (17:19)
[2017-08-23] MEDS: Insulin Lispro (humaLOG) LOW Coverage SC SCH ×2 (17:21→23:00)
--- NOTE | 2017-08-24 03:01 | OP ---
PROCEDURE DATE: 08/23/2017 PREOPERATIVE DIAGNOSES: Bilateral carotid stenosis, asymptomatic. PROCEDURES: Right carotid endarterectomy, cervical lymph node biopsy. SURGEON: Pat Wilcox MD ANESTHESIA: General. PROCEDURE NOTE: Patient was brought to the OR and placed supine on the OR table. After adequate general anesthesia had been accomplished, the right neck and chest was prepped with ChloraPrep and draped out as a sterile field. An incision was made extending from just posterior to the earlobe to 2 fingerbreadths below the angle of jaw, continuous through the anterior border of the sternocleidomastoid muscle. The incision was extended down to the platysma. The deep cervical fascia was incised. The sternocleidomastoid muscle was retracted laterally. The internal jugular vein was dissected out and retracted laterally. The carotid was identified. The common carotid was soft and relatively free of atherosclerosis. There was a large cervical lymph node at the carotid bifurcation, which was dissected out and sent for pathology. The dissection continued up the external and internal carotid artery. The hypoglossal nerve was identified and left alone. The internal carotid artery was dissected out.It is hard at the bifurcation. The stenosis extended for approximately 2 cm and the rest of the carotid artery appeared normal. The patient was then systemically heparinized. The internal, external,and common carotid artery were crossclamped and arteriotomy was made extending from the common carotid into the internal carotid artery. There was a hard plaque just distal to the bifurcation allowing barely a small passage. The distal carotid appeared to be normal. Using the [place] elevator, the plaque was circumferentially dissected out and removed. All circular fiber of the media and that segment was also removed. A Bard Brener shunt was used to shunt blood from the common to the internal carotid artery throughout this entire procedure. As the carotid endarterectomy was completed, the arteriotomy was closed with a previously dissected out external jugular vein patch . Prior to completion of the angioplasty, the shunt was clamped and removed and the angioplasty completed. All bleeding was treated with additional sutures and electrocoagulation. The patient was given 45 mg of protamine to reverse the effect of the heparin. All bleeding had subsided. The neck was closed in 2 layers using the 3-0 Monocryl for the platysma and the 4-0 Monocryl subcuticular suture for skin. Sterile dressing was applied. Patient was awakened in the OR and extubated. She was neurologically intact. Tongue was midline. She was taken to the recovery room in stable condition. Pat Wilcox MD [email or web address]
[2017-08-24 07:05] LABS: HEMOGLOBIN 8.9 g/dL (12.0-16.0); MEAN CELL VOLUME 80.1 fl (80.0-105.0); MEAN CORPUSCULAR HGB CONC 31.2 g/dl (31.0-37.0); MEAN PLATELET VOLUME 10.6 fl (7.0-11.0); RBC 3.56 10^6/uL (3.5-6.1); WHITE BLOOD COUNT 6.4 10^3/ul (4.5-11.0)
[2017-08-24 07:20] LABS: BLOOD UREA NITROGEN 15 mg/dL (7-21); CALCIUM 8.5 mg/dL (8.4-10.5); GFR AFRICAN-AMERICAN > 60; GFR NON-AFRICAN AMERICAN 55
--- NOTE | 2017-08-24 08:09 | CP.PCM.PN ---
<Taisha Guy - Last Filed: 08/24/17 10:15> Subjective - Date & Time of Evaluation Date of Evaluation: 08/24/17 Time of Evaluation: 08:05 - Subjective Subjective: Hospitalist Progress Note, Orlin Guy PGY2 Patient seen and examined at bedside. There were no acute overnight events as per nursing staff. Yesterday she had her R CEA without any complications. She was monitored overnight in the ICU and remained stable overnight. She reports having pain in her neck at the surgical site which is clean and dry. She says has some nausea. She denies chest pain, shortness of breath, vomiting/diarrhea/ constipation, numbness/tingling, weakness or vision changes. Objective - Vital Signs/Intake and Output Vital Signs (last 24 hours): Temp Pulse Resp BP Pulse Ox 97.5 F L 83 18 106/46 L 100 08/23/17 16:55 08/24/17 07:40 08/24/17 07:40 08/24/17 07:30 08/24/17 07:40 - Medications Medications: Current Medications Acetaminophen (Tylenol 325mg Tab) 650 mg PO Q4H PRN PRN Reason: Pain, Mild (1-3) Allopurinol (Zyloprim) 100 mg PO DAILY [facility] Last Admin: 08/23/17 09:36 Dose: 100 mg Aspirin (Ecotrin) 81 mg PO DAILY [facility] Last Admin: 08/22/17 10:16 Dose: 81 mg Atenolol (Tenormin) 25 mg PO DAILY [facility] Last Admin: 08/23/17 09:36 Dose: 25 mg Atorvastatin Calcium (Lipitor) 40 mg PO DIN [facility] Last Admin: 08/23/17 17:18 Dose: Not Given Chlorthalidone (Hygroton) 25 mg PO DAILY [facility] Last Admin: 08/23/17 09:35 Dose: 25 mg Clopidogrel Bisulfate (Plavix) 75 mg PO DAILY [facility] Last Admin: 08/23/17 10:07 Dose: 75 mg Enoxaparin Sodium (Lovenox) 40 mg SC DAILY [facility] PRN Reason: Protocol Famotidine (Pepcid) 40 mg PO HS [facility] Last Admin: 08/23/17 22:00 Dose: Not Given Hydralazine HCl (Apresoline) 10 mg IVP ONCE PRN PRN Reason: hypertension Hydromorphone HCl (Dilaudid) 0.5 mg IVP Q4H PRN PRN Reason: Pain, severe (8-10) Last Admin: 08/23/17 18:15 Dose: 0.5 mg Sodium Chloride (Sodium Chloride 0.9%) 1,000 mls @ 75 mls/hr IV .[id number] [facility] Last Admin: 08/23/17 17:20 Dose: 75 mls/hr Nicardipine HCl (Cardene Iv Premix) 20 mg in 200 mls @ 50 mls/hr IV .Q4H PRN; Protocol; 5 MG/HR PRN Reason: TITRATE PER MD ORDER Insulin Human Lispro (Humalog Low) 0 units SC ACHS [facility] PRN Reason: Protocol Last Admin: 08/23/17 23:00 Dose: Not Given Losartan Potassium (Cozaar) 100 mg PO DAILY [facility] Last Admin: 08/23/17 09:35 Dose: 100 mg Morphine Sulfate (Morphine) 3 mg IVP Q15M PRN PRN Reason: Pain, moderate (4-7) Nitroglycerin (Nitro-Dur 0.1 Mg/Hr Patch) 1 patch TD DAILY [facility] Last Admin: 08/23/17 17:19 Dose: 1 patch Ondansetron HCl (Zofran Inj) 4 mg IVP ONCE PRN PRN Reason: Nausea/Vomiting Ondansetron HCl (Zofran Inj) 4 mg IVP Q6H PRN PRN Reason: Nausea/Vomiting Last Admin: 08/23/17 18:14 Dose: 4 mg Oxycodone/Acetaminophen (Percocet 5/325 Mg Tab) 1 tab PO Q4H PRN PRN Reason: Pain, moderate (4-7) Stop: 08/26/17 15:16 Polyethylene Glycol (Miralax) 17 gm PO DAILY [facility] Last Admin: 08/23/17 09:36 Dose: Not Given Vitamin B Complex/Vit C/Folic Acid (Nephro-Vargas) 1 tab PO DAILY [facility] Last Admin: 08/23/17 09:36 Dose: 1 tab - Labs Labs: 08/24/17 06:25 08/24/17 06:25 PT 12.1 SECONDS (9.4-12.5) 08/23/17 05:40 INR 1.05 (0.93-1.08) 08/23/17 05:40 APTT 26.6 Seconds (25.1-36.5) 08/23/17 05:40 - Constitutional Appears: No Acute Distress - Head Exam Head Exam: ATRAUMATIC, NORMAL INSPECTION, NORMOCEPHALIC - Eye Exam Eye Exam: Normal appearance, PERRL Pupil Exam: NORMAL ACCOMODATION, PERRL - ENT Exam ENT Exam: Mucous Membranes Moist - Neck Exam Additional comments: R neck CEA dressing in place- clean and dry - Respiratory Exam Respiratory Exam: Clear to Ausculation Bilateral, NORMAL BREATHING PATTERN. absent: Rales, Rhonchi, Wheezes - Cardiovascular Exam Cardiovascular Exam: REGULAR RHYTHM, +S1, +S2. absent: Gallop, Rubs, Murmur - GI/Abdominal Exam GI & Abdominal Exam: Soft, Normal Bowel Sounds. absent: Rigid, Tenderness, Mass , Rebound - Extremities Exam Extremities Exam: Normal Inspection. absent: Calf Tenderness, Pedal Edema - Neurological Exam Neurological Exam: Alert, Awake, CN II-XII Intact, Oriented x3 - Psychiatric Exam Psychiatric exam: Normal Affect, Normal Mood - Skin Skin Exam: Dry, Warm Assessment and Plan - Assessment and Plan (Free Text) Assessment: This is a 71yo female with past medical history of HTN and DM who is admitted for evaluation of significant carotid stenosis and was also found to FABIO which has improved. Patient is s/p R CEA POD #1. Plan: 1. Bilateral carotid stenosis - s/p R CEA POD #1 - Carotid angiogram: critical R ICA origin stenosis with string sign, 70% proximal L ICA stenosis - Vascular consulted- recs appreciated - ASA, Plavix and Lipitor - Continue Fall precaution - Zofran prn nausea - Will eventually need L CEA in future 2. FABIO (resolved) - can be secondary to dehydration - Cr now 1.0 - NS@75 3. HTN - Patient hypotensive - continue NS@75 - As per vascular maintain SBP (100-150s) - Hold BP meds if SBP <100 - Nitro prn patch started by Vascular if SBP >150 - Chlorthalidone, Cozaar, Atenolol 25mg PO daily 4. HLD - Continue Lipitor 5. Hx of DM - HgA1C 6.4 - Continue insulin sliding scale - Home med, Metformin is on hold and will restart upon D/C 6. Hx of gout - Allopurinol 7. Constipation - Miralax - Monitor for constipation GI ppx: Pepcid DVT ppx: Lovenox restarted as per surgery Dispo: Patient will need to be evaluated by PT. As per vascular surgery patient may be able to be d/c tomorrow if cleared by PT. Negro was removed and patient restarted on diet. Case seen, discussed and reviewed with attending. Orlin Guy PGY2 <Zoran Vera A - Last Filed: 08/24/17 10:58> Objective - Vital Signs/Intake and Output Vital Signs (last 24 hours): Temp Pulse Resp BP Pulse Ox 97.5 F L 89 29 H 103/50 L 82 L 08/23/17 16:55 08/24/17 10:10 08/24/17 10:10 08/24/17 10:08 08/24/17 10:10 Intake and Output: 08/24/17 08/24/17 06:59 18:59 Intake Total 1100 Output Total 900 Balance 200 - Medications Medications: Current Medications Acetaminophen (Tylenol 325mg Tab) 650 mg PO Q4H PRN PRN Reason: Pain, Mild (1-3) Allopurinol (Zyloprim) 100 mg PO DAILY [facility] Last Admin: 08/24/17 10:21 Dose: 100 mg Aspirin (Ecotrin) 81 mg PO DAILY [facility] Last Admin: 08/24/17 10:20 Dose: 81 mg Atenolol (Tenormin) 25 mg PO DAILY [facility] Atorvastatin Calcium (Lipitor) 40 mg PO DIN [facility] Last Admin: 08/23/17 17:18 Dose: Not Given Chlorthalidone (Hygroton) 25 mg PO DAILY [facility] Clopidogrel Bisulfate (Plavix) 75 mg PO DAILY [facility] Last Admin: 08/24/17 10:20 Dose: 75 mg Enoxaparin Sodium (Lovenox) 40 mg SC DAILY [facility] PRN Reason: Protocol Last Admin: 08/24/17 10:21 Dose: 40 mg Famotidine (Pepcid) 40 mg PO HS [facility] Last Admin: 08/23/17 22:00 Dose: Not Given Hydromorphone HCl (Dilaudid) 0.5 mg IVP Q4H PRN PRN Reason: Pain, severe (8-10) Last Admin: 08/23/17 18:15 Dose: 0.5 mg Sodium Chloride (Sodium Chloride 0.9%) 1,000 mls @ 75 mls/hr IV .[id number] [facility] Last Admin: 08/24/17 10:08 Dose: 75 mls/hr Insulin Human Lispro (Humalog Low) 0 units SC ACHS [facility] PRN Reason: Protocol Last Admin: 08/24/17 08:26 Dose: Not Given Losartan Potassium (Cozaar) 100 mg PO DAILY [facility] Nitroglycerin (Nitro-Dur 0.1 Mg/Hr Patch) 1 patch TD DAILY PRN PRN Reason: Systolic Blood Pressure Ondansetron HCl (Zofran Inj) 4 mg IVP Q6H PRN PRN Reason: Nausea/Vomiting Last Admin: 08/23/17 18:14 Dose: 4 mg Oxycodone/Acetaminophen (Percocet 5/325 Mg Tab) 1 tab PO Q4H PRN PRN Reason: Pain, moderate (4-7) Stop: 08/26/17 15:16 Polyethylene Glycol (Miralax) 17 gm PO DAILY [facility] Last Admin: 08/24/17 10:21 Dose: 17 gm Vitamin B Complex/Vit C/Folic Acid (Nephro-Vargas) 1 tab PO DAILY [facility] Last Admin: 08/24/17 10:20 Dose: 1 tab - Labs Labs: 08/24/17 06:25 08/24/17 06:25 PT 12.1 SECONDS (9.4-12.5) 08/23/17 05:40 INR 1.05 (0.93-1.08) 08/23/17 05:40 APTT 26.6 Seconds (25.1-36.5) 08/23/17 05:40 Attending/Attestation - Attestation I have personally seen and examined this patient.: Yes I have fully participated in the care of the patient.: Yes I have reviewed all pertinent clinical information, including history, physical exam and plan: Yes Notes (Text): 08/24/17 10:56 71 year old female with past medical history of hypertension, dyslipidemia and diabetes who is admitted for evaluation of carotid stenosis. Carotid ultrasound was reviewed as above. She was seen by vascular surgery and is s/p R CEA POD #1. She is on aspirin, plavix and statin. PT follow up is requested. She was on iv fluids for mild renal insufficiency which has now resolved. Zoran Vera MD Hospitalist.
[2017-08-24] MEDS: Insulin Lispro (humaLOG) LOW Coverage SC SCH ×3 (08:26→21:52)
[2017-08-24] MEDS: Sodium Chloride 0.9% 1,000 ML IV SCH (10:08)
[2017-08-24] MEDS: Nitroglycerin 0.1 mg/hr Top Patch TD SCH (10:16)
[2017-08-24] MEDS ORDERED: Nitroglycerin 0.1 mg/hr Top Patch TD PRN (10:19)
[2017-08-24] MEDS: Multivitamin Vitamin B Complex (Nephro-Vite) Tab PO SCH (10:20)
[2017-08-24] MEDS: POLYETHYLENE GLYCOL 3350 17 GM/Dose PACKET PO SCH (10:21)
[2017-08-24] MEDS: Enoxaparin 40 mg Syringe SC SCH (10:21)
--- NOTE | 2017-08-24 10:32 | CP.PCM.PN ---
Subjective - Date & Time of Evaluation Date of Evaluation: 08/24/17 Time of Evaluation: 10:29 - Subjective Subjective: Surgery: Dr. Wilcox Pt seen and examined. Resting comfortably in bed. No acute events overnight. Pain controlled. Objective - Vital Signs/Intake and Output Vital Signs (last 24 hours): Temp Pulse Resp BP Pulse Ox 97.5 F L 89 29 H 103/50 L 82 L 08/23/17 16:55 08/24/17 10:10 08/24/17 10:10 08/24/17 10:08 08/24/17 10:10 Intake and Output: 08/24/17 08/24/17 06:59 18:59 Intake Total 1100 Output Total 900 Balance 200 - Medications Medications: Current Medications Acetaminophen (Tylenol 325mg Tab) 650 mg PO Q4H PRN PRN Reason: Pain, Mild (1-3) Allopurinol (Zyloprim) 100 mg PO DAILY [facility] Last Admin: 08/24/17 10:21 Dose: 100 mg Aspirin (Ecotrin) 81 mg PO DAILY [facility] Last Admin: 08/24/17 10:20 Dose: 81 mg Atenolol (Tenormin) 25 mg PO DAILY [facility] Atorvastatin Calcium (Lipitor) 40 mg PO DIN [facility] Last Admin: 08/23/17 17:18 Dose: Not Given Chlorthalidone (Hygroton) 25 mg PO DAILY [facility] Clopidogrel Bisulfate (Plavix) 75 mg PO DAILY [facility] Last Admin: 08/24/17 10:20 Dose: 75 mg Enoxaparin Sodium (Lovenox) 40 mg SC DAILY [facility] PRN Reason: Protocol Last Admin: 08/24/17 10:21 Dose: 40 mg Famotidine (Pepcid) 40 mg PO HS [facility] Last Admin: 08/23/17 22:00 Dose: Not Given Hydromorphone HCl (Dilaudid) 0.5 mg IVP Q4H PRN PRN Reason: Pain, severe (8-10) Last Admin: 08/23/17 18:15 Dose: 0.5 mg Sodium Chloride (Sodium Chloride 0.9%) 1,000 mls @ 75 mls/hr IV .[id number] [facility] Last Admin: 08/24/17 10:08 Dose: 75 mls/hr Insulin Human Lispro (Humalog Low) 0 units SC ACHS [facility] PRN Reason: Protocol Last Admin: 08/24/17 08:26 Dose: Not Given Losartan Potassium (Cozaar) 100 mg PO DAILY [facility] Nitroglycerin (Nitro-Dur 0.1 Mg/Hr Patch) 1 patch TD DAILY PRN PRN Reason: Systolic Blood Pressure Ondansetron HCl (Zofran Inj) 4 mg IVP Q6H PRN PRN Reason: Nausea/Vomiting Last Admin: 08/23/17 18:14 Dose: 4 mg Oxycodone/Acetaminophen (Percocet 5/325 Mg Tab) 1 tab PO Q4H PRN PRN Reason: Pain, moderate (4-7) Stop: 08/26/17 15:16 Polyethylene Glycol (Miralax) 17 gm PO DAILY [facility] Last Admin: 08/24/17 10:21 Dose: 17 gm Vitamin B Complex/Vit C/Folic Acid (Nephro-Vargas) 1 tab PO DAILY [facility] Last Admin: 08/24/17 10:20 Dose: 1 tab - Labs Labs: 08/24/17 06:25 08/24/17 06:25 PT 12.1 SECONDS (9.4-12.5) 08/23/17 05:40 INR 1.05 (0.93-1.08) 08/23/17 05:40 APTT 26.6 Seconds (25.1-36.5) 08/23/17 05:40 - Constitutional Appears: Non-toxic, No Acute Distress - Head Exam Head Exam: ATRAUMATIC, NORMOCEPHALIC - Eye Exam Eye Exam: EOMI - ENT Exam ENT Exam: Mucous Membranes Moist - Neck Exam Neck Exam: Full ROM Additional comments: R dressing in place, C/D/I - Respiratory Exam Respiratory Exam: NORMAL BREATHING PATTERN. absent: Accessory Muscle Use, Respiratory Distress - Cardiovascular Exam Cardiovascular Exam: REGULAR RHYTHM - GI/Abdominal Exam GI & Abdominal Exam: Soft. absent: Tenderness - Extremities Exam Extremities Exam: absent: Calf Tenderness, Pedal Edema - Neurological Exam Neurological Exam: Alert, Awake, CN II-XII Intact - Psychiatric Exam Psychiatric exam: Normal Affect, Normal Mood Assessment and Plan - Assessment and Plan (Free Text) Assessment: 71F s/p R CEA, POD#1 -d/c A-line and galindo -Systolic BP on low side, continue w. IVF -will start regular diet -OOB to chair w. assistance -PT and IS use -start lovenox -ok to downgrade to floor -d/w attending Lilly PGY3
--- NOTE | 2017-08-24 12:18 | CP.PCM.PN ---
Subjective - Date & Time of Evaluation Date of Evaluation: 08/24/17 Time of Evaluation: 07:25 - Subjective Subjective: Pt seen and examined Reports no major complaints daughter at bedside Objective - Vital Signs/Intake and Output Vital Signs (last 24 hours): Temp Pulse Resp BP Pulse Ox 97.5 F L 89 29 H 103/50 L 82 L 08/23/17 16:55 08/24/17 10:10 08/24/17 10:10 08/24/17 10:08 08/24/17 10:10 Intake and Output: 08/24/17 08/24/17 06:59 18:59 Intake Total 1100 Output Total 1450 Balance -350 - Medications Medications: Current Medications Acetaminophen (Tylenol 325mg Tab) 650 mg PO Q4H PRN PRN Reason: Pain, Mild (1-3) Allopurinol (Zyloprim) 100 mg PO DAILY [facility] Last Admin: 08/24/17 10:21 Dose: 100 mg Aspirin (Ecotrin) 81 mg PO DAILY [facility] Last Admin: 08/24/17 10:20 Dose: 81 mg Atenolol (Tenormin) 25 mg PO DAILY [facility] Atorvastatin Calcium (Lipitor) 40 mg PO DIN [facility] Last Admin: 08/23/17 17:18 Dose: Not Given Chlorthalidone (Hygroton) 25 mg PO DAILY [facility] Clopidogrel Bisulfate (Plavix) 75 mg PO DAILY [facility] Last Admin: 08/24/17 10:20 Dose: 75 mg Enoxaparin Sodium (Lovenox) 40 mg SC DAILY [facility] PRN Reason: Protocol Last Admin: 08/24/17 10:21 Dose: 40 mg Famotidine (Pepcid) 40 mg PO HS [facility] Last Admin: 08/23/17 22:00 Dose: Not Given Hydromorphone HCl (Dilaudid) 0.5 mg IVP Q4H PRN PRN Reason: Pain, severe (8-10) Last Admin: 08/23/17 18:15 Dose: 0.5 mg Sodium Chloride (Sodium Chloride 0.9%) 1,000 mls @ 75 mls/hr IV .[id number] [facility] Last Admin: 08/24/17 10:08 Dose: 75 mls/hr Insulin Human Lispro (Humalog Low) 0 units SC ACHS [facility] PRN Reason: Protocol Last Admin: 04/25/18 08:26 Dose: Not Given Losartan Potassium (Cozaar) 100 mg PO DAILY [facility] Nitroglycerin (Nitro-Dur 0.1 Mg/Hr Patch) 1 patch TD DAILY PRN PRN Reason: Systolic Blood Pressure Ondansetron HCl (Zofran Inj) 4 mg IVP Q6H PRN PRN Reason: Nausea/Vomiting Last Admin: 08/23/17 18:14 Dose: 4 mg Oxycodone/Acetaminophen (Percocet 5/325 Mg Tab) 1 tab PO Q4H PRN PRN Reason: Pain, moderate (4-7) Stop: 08/26/17 15:16 Polyethylene Glycol (Miralax) 17 gm PO DAILY [facility] Last Admin: 08/24/17 10:21 Dose: 17 gm Vitamin B Complex/Vit C/Folic Acid (Nephro-Vargas) 1 tab PO DAILY [facility] Last Admin: 08/24/17 10:20 Dose: 1 tab - Labs Labs: 08/24/17 06:25 08/24/17 06:25 PT 12.1 SECONDS (9.4-12.5) 08/23/17 05:40 INR 1.05 (0.93-1.08) 08/23/17 05:40 APTT 26.6 Seconds (25.1-36.5) 08/23/17 05:40 - Constitutional Appears: Non-toxic, No Acute Distress - Eye Exam Eye Exam: Normal appearance - ENT Exam ENT Exam: Mucous Membranes Moist - Neck Exam Additional comments: R dressing - Respiratory Exam Respiratory Exam: Clear to Ausculation Bilateral, NORMAL BREATHING PATTERN - Cardiovascular Exam Cardiovascular Exam: REGULAR RHYTHM, +S1, +S2 - GI/Abdominal Exam GI & Abdominal Exam: Soft, Normal Bowel Sounds - Extremities Exam Extremities Exam: Full ROM - Neurological Exam Neurological Exam: Alert, Awake Assessment and Plan - Assessment and Plan (Free Text) Assessment: Patient is 71yo female with PMHx HTN, DM s/p R CEA s/p CEA HTN CArotid stenosis Afebrile, HD stable, comfortable in NAD. Cont with BP control, SBP<160 as per vascular, resume home BP meds Pain control Monitor HH ASA, Plavix FS control DVT ppx stable, discussed with surgical team, patient to be transferred to telemetry
--- NOTE | 2017-08-24 12:19 | CP.CCUPN ---
CCU Subjective - Physician Review Events Since Last Encounter (Free Text): 08/24/17 12:16 Discontinued A line Subjective (Free Text): 08/24/17 12:18 Patient seen and examined at bedside. No acute events overnight. Denies fever, chills, dizziness, syncope, headache, abdominal pain. Reports mild nausea, but states that she is hungry and would like to eat today. CCU Objective - Vital Signs / Intake & Output Vital Signs (Last 4 hours): Vital Signs Pulse Resp BP Pulse Ox 08/24/17 10:10 89 29 H 82 L 08/24/17 10:08 90 20 103/50 L 95 08/24/17 10:00 80 20 105/51 L 100 08/24/17 09:50 77 23 97 08/24/17 09:40 80 22 98 08/24/17 09:30 97/48 L 08/24/17 09:29 83 30 H 98 08/24/17 09:20 93 H 21 91 L 08/24/17 09:10 80 18 89 L 08/24/17 09:00 79 22 106/46 L 96 08/24/17 08:50 76 17 100 08/24/17 08:40 78 15 100 08/24/17 08:31 85 16 101/44 L 98 08/24/17 08:30 80 21 84 L 08/24/17 08:20 80 18 100 Intake and Output (Last 8hrs): Intake & Output 08/23/17 08/24/17 08/24/17 22:59 06:59 14:59 Intake Total 150 1100 Output Total 130 1450 Balance 20 -350 Weight 189 lb 6.4 oz Intake: IV 150 900 Right Hand 150 900 Oral 200 Output: Urine 100 1450 Urethral (Negro) 550 Urine, Voided 100 900 Emesis 30 0 Other: # Bowel Movements 0 - Physical Exam Head: Positive for: Atraumatic, Normocephalic Pupils: Positive for: PERRL Extroacular Muscles: Positive for: EOMI Conjunctiva: Positive for: Normal Mouth: Positive for: Moist Mucous Membranes Pharnyx: Positive for: Normal Nose (External): Positive for: Atraumatic Neck: Positive for: Normal Range of Motion, Other (right neck dressing in place) Respiratory/Chest: Positive for: Clear to Auscultation, Good Air Exchange. Negative for: Respiratory Distress, Accessory Muscle Use, Wheezes, Rales, Retracting, Rhonchi, Tachypneic Cardiovascular: Positive for: Regular Rate and Rhythm, Normal S1, S2, Peripheal Pulses Present. Negative for: Irregular Rhythm, Rub, Gallop, Muffled Abdomen: Positive for: Normal Bowel Sounds. Negative for: Tenderness, Distention, Peritoneal Signs, Rebound, Guarding Upper Extremity: Positive for: Normal Inspection, NORMAL PULSES, Capillary Refill < 2s. Negative for: Tenderness, Swelling, Erythema Lower Extremity: Positive for: Normal Inspection, NORMAL PULSES, Capillary Refill < 2 s. Negative for: Edema, CALF TENDERNESS, Tenderness, Swelling, Erythema, Temperature Abnormalties Neurological: Positive for: GCS=15, CN II-XII Intact, Speech Normal Skin: Positive for: Warm, Dry, Normal Color Psychiatric: Positive for: Alert, Oriented x 3 - Medications Active Medications: Active Medications Generic Name Dose Route Start Last Admin Trade Name Freq PRN Reason Stop Dose Admin Acetaminophen 650 mg 08/18/17 14:39 Tylenol 325mg Tab PO Q4H PRN Pain, Mild (1-3) Allopurinol 100 mg 08/19/17 10:00 08/24/17 10:21 Zyloprim PO 100 mg DAILY [facility]INOR Administration Aspirin 81 mg 08/19/17 10:00 08/24/17 10:20 Ecotrin PO 81 mg DAILY MAINOR Administration Atenolol 25 mg 08/24/17 10:28 Tenormin PO DAILY MAINOR Atorvastatin Calcium 40 mg 08/19/17 07:42 08/23/17 17:18 Lipitor PO Not Given DIN MAINOR Chlorthalidone 25 mg 08/24/17 10:28 Hygroton PO DAILY MAINOR Clopidogrel Bisulfate 75 mg 08/19/17 10:00 08/24/17 10:20 Plavix PO 75 mg DAILY [facility]OR Administration Enoxaparin Sodium 40 mg 08/24/17 10:00 08/24/17 10:21 Lovenox SC 40 mg DAILY [facility]INOR Administration Protocol Famotidine 40 mg 08/18/17 22:00 08/23/17 22:00 Pepcid PO Not Given HS MAINOR Hydromorphone HCl 0.5 mg 08/23/17 15:16 08/23/17 18:15 Dilaudid IVP 0.5 mg Q4H PRN Administration Pain, severe (8-10) Sodium Chloride 1,000 mls @ 75 mls/hr 08/21/17 09:45 08/24/17 10:08 Sodium Chloride 0.9% IV 75 mls/hr .[id number] MAINOR Administration Insulin Human Lispro 0 units 08/23/17 16:30 08/24/17 08:26 Humalog Low SC Not Given ACHS [facility] Protocol Losartan Potassium 100 mg 08/24/17 10:28 Cozaar PO DAILY [facility]OR Nitroglycerin 1 patch 08/24/17 10:19 Nitro-Dur 0.1 Mg/Hr Patch TD DAILY PRN Systolic Blood Pressure Ondansetron HCl 4 mg 08/23/17 16:15 08/23/17 18:14 Zofran Inj IVP 4 mg Q6H PRN Administration Nausea/Vomiting Oxycodone/Acetaminophen 1 tab 08/23/17 15:15 Percocet 5/325 Mg Tab PO 08/26/17 15:16 Q4H PRN Pain, moderate (4-7) Polyethylene Glycol 17 gm 08/21/17 10:00 08/24/17 10:21 Miralax PO 17 gm DAILY MAINOR Administration Vitamin B Complex/Vit C/Folic Acid 1 tab 08/19/17 10:00 08/24/17 10:20 Nephro-Vargas PO 1 tab DAILY MAINOR Administration - Patient Studies Lab Studies: Lab Studies 08/24/17 08/24/17 08/24/17 Range/Units 07:21 06:25 06:25 WBC 6.4 D (4.5-11.0) 10^3/ul RBC 3.56 (3.5-6.1) 10^6/uL Hgb 8.9 L (12.0-16.0) g/dL Hct 28.5 L (36.0-48.0) % MCV 80.1 (80.0-105.0) fl MCH 25.0 (25.0-35.0) pg MCHC 31.2 (31.0-37.0) g/dl RDW 14.0 (11.5-14.5) % Plt Count 267 (120.0-450.0) 10^3/uL MPV 10.6 (7.0-11.0) fl Sodium 144 (132-148) mmol/L Potassium 3.9 (3.6-5.0) mmol/L Chloride 112 H (98-107) mmol/L Carbon Dioxide 22 (21-33) mmol/L Anion Gap 14 (10-20) BUN 15 (7-21) mg/dL Creatinine 1.0 (0.7-1.2) mg/dl Est GFR ( Amer) > 60 Est GFR (Non-Af Amer) 55 POC Glucose (mg/dL) 111 H (65-110) mg/dL Random Glucose 127 H (70-110) mg/dL Calcium 8.5 (8.4-10.5) mg/dL Crossmatch 08/23/17 08/23/17 08/21/17 Range/Units 23:22 15:17 20:15 WBC (4.5-11.0) 10^3/ul RBC (3.5-6.1) 10^6/uL Hgb (12.0-16.0) g/dL Hct (36.0-48.0) % MCV (80.0-105.0) fl MCH (25.0-35.0) pg MCHC (31.0-37.0) g/dl RDW (11.5-14.5) % Plt Count (120.0-450.0) 10^3/uL MPV (7.0-11.0) fl Sodium (132-148) mmol/L Potassium (3.6-5.0) mmol/L Chloride (98-107) mmol/L Carbon Dioxide (21-33) mmol/L Anion Gap (10-20) BUN (7-21) mg/dL Creatinine (0.7-1.2) mg/dl Est GFR ( Amer) Est GFR (Non-Af Amer) POC Glucose (mg/dL) 139 H 157 H (65-110) mg/dL Random Glucose (70-110) mg/dL Calcium (8.4-10.5) mg/dL Crossmatch See Detail Laboratory Results - last 24 hr 08/21/17 08/23/17 08/23/17 20:15 15:17 23:22 WBC RBC Hgb Hct MCV MCH MCHC RDW Plt Count MPV Sodium Potassium Chloride Carbon Dioxide Anion Gap BUN Creatinine Est GFR ( Amer) Est GFR (Non-Af Amer) POC Glucose (mg/dL) 157 H 139 H Random Glucose Calcium Crossmatch See Detail 08/24/17 08/24/17 08/24/17 06:25 06:25 07:21 WBC 6.4 D RBC 3.56 Hgb 8.9 L Hct 28.5 L MCV 80.1 MCH 25.0 MCHC 31.2 RDW 14.0 Plt Count 267 MPV 10.6 Sodium 144 Potassium 3.9 Chloride 112 H Carbon Dioxide 22 Anion Gap 14 BUN 15 Creatinine 1.0 Est GFR ( Amer) > 60 Est GFR (Non-Af Amer) 55 POC Glucose (mg/dL) 111 H Random Glucose 127 H Calcium 8.5 Crossmatch Fingerstick Blood Sugar Results: 176 Review of Systems - Review of Systems All systems: reviewed and no additional remarkable complaints except Review of Systems: as per HPI Critical Care Progress Note - Nutrition Nutrition: Nutrition Category Date Time Status Heart Healthy Diet [DIET] Diets 08/24/17 Breakfast Ordered Assessment/Plan - Assessment and Plan (Free Text) Assessment: 71 year old female with past medical history of HTN and DM, admitted to ICU s/ p right carotid endarterectomy, POD#1: Neuro: - AOX4 - Monitor Pulm: - maintain SPO2 >90-94 - Oxygen prn CV: - Discontinued A line - S/p R CEA, surgery on board. F/u recs - Chlorthalidone, Cozaar, Atenolol 25mg PO daily - Cont to monitor GI: - ppx with Pepcid - HHD Renal: - Stable BUN/Cr - replete electrolytes as needed ID: - no fevers, no leukocytosis - monitor Heme: - Stable - daily cbc Endo: - Hx of DM - ISS - BS ACHS - Monitor GI/ DVT ppx - Pepcid and Lovenox sq Case and plan was reviewed and discussed in detail with Dr Newton.
--- NOTE | 2017-08-24 15:02 | PN ---
DATE: 08/24/2017 SUBJECTIVE: The patient is without distress post carotid endarterectomy. PHYSICAL EXAMINATION: VITAL SIGNS: Blood pressure is 109/53, heart rate is in the 90s. NECK: Negative JVD. LUNGS: Without rales. HEART: S1 and S2. EXTREMITIES: Without edema. LABORATORY DATA: Hemoglobin is 8.9, BUN and creatinine unremarkable. Glucose is 127. IMPRESSION: 1. Hemodynamically stable post carotid endarterectomy. 2. Diabetes mellitus. 3. Peripheral vascular disease. 4. Hypertension. 5. Hypercholesterolemia. Given these findings, I had an extensive talk with the patient and family about the importance of strict cardiac risk reduction program given her documented atherosclerosis. They understand and will emphasize diet and exercise program once she is recovered. Reji Riddle MD
[2017-08-25 07:04] LABS: BASO # 0.01 K/mm3 (0.0-2.0); BASO % 0.2 % (0.0-3.0); EOS # 0.2 (0.0-0.7); GRAN # 3.2 (1.4-6.5); GRAN % 57.1 % (50.0-68.0); HEMOGLOBIN 8.8 g/dL (12.0-16.0); LYMPH # 1.7 (1.2-3.4); LYMPH % 29.4 % (22.0-35.0); MEAN CELL VOLUME 79.4 fl (80.0-105.0); MEAN CORPUSCULAR HEMOGLOBIN 24.8 pg (25.0-35.0); MEAN CORPUSCULAR HGB CONC 31.2 g/dl (31.0-37.0); MEAN PLATELET VOLUME 10.6 fl (7.0-11.0); MONO # 0.6 (0.1-0.6); MONO % 10.3 % (1.0-6.0); RBC 3.55 10^6/uL (3.5-6.1); RED CELL DISTRIBUTION WIDTH 14.1 % (11.5-14.5); WHITE BLOOD COUNT 5.6 10^3/ul (4.5-11.0)
[2017-08-25 07:37] LABS: BLOOD UREA NITROGEN 13 mg/dL (7-21); CALCIUM 8.9 mg/dL (8.4-10.5); GFR AFRICAN-AMERICAN > 60; GFR NON-AFRICAN AMERICAN 55
[2017-08-25 07:59] VITALS: RESP 20
[2017-08-25] MEDS: POLYETHYLENE GLYCOL 3350 17 GM/Dose PACKET PO SCH (10:48)
[2017-08-25] MEDS: Enoxaparin 40 mg Syringe SC SCH (10:48)
[2017-08-25] MEDS: Multivitamin Vitamin B Complex (Nephro-Vite) Tab PO SCH (10:49)
--- NOTE | 2017-08-25 11:48 | CP.PCM.PN ---
Subjective - Date & Time of Evaluation Date of Evaluation: 08/25/17 Time of Evaluation: 11:45 - Subjective Subjective: Surgery Pt s&e. Underwent CEA. Tolerating diet. Took dressing off. c/o headache. + ambulating. Objective - Vital Signs/Intake and Output Vital Signs (last 24 hours): Temp Pulse Resp BP Pulse Ox 98.4 F 92 H 20 133/63 94 L 08/25/17 07:59 08/25/17 10:49 08/25/17 07:59 08/25/17 10:49 08/25/17 07:59 Intake and Output: 08/25/17 08/25/17 06:59 18:59 Intake Total 400 60 Output Total 2 2 Balance 398 58 - Medications Medications: Current Medications Acetaminophen (Tylenol 325mg Tab) 650 mg PO Q4H PRN PRN Reason: Pain, Mild (1-3) Last Admin: 08/25/17 04:07 Dose: 650 mg Allopurinol (Zyloprim) 100 mg PO DAILY [facility] Last Admin: 08/25/17 10:50 Dose: 100 mg Aspirin (Ecotrin) 81 mg PO DAILY [facility] Last Admin: 08/25/17 10:50 Dose: 81 mg Atenolol (Tenormin) 25 mg PO DAILY [facility] Last Admin: 08/25/17 10:49 Dose: 25 mg Atorvastatin Calcium (Lipitor) 40 mg PO DIN [facility] Last Admin: 08/24/17 18:25 Dose: 40 mg Chlorthalidone (Hygroton) 25 mg PO DAILY [facility] Last Admin: 08/25/17 10:49 Dose: 25 mg Clopidogrel Bisulfate (Plavix) 75 mg PO DAILY [facility] Last Admin: 08/25/17 10:49 Dose: 75 mg Enoxaparin Sodium (Lovenox) 40 mg SC DAILY [facility] PRN Reason: Protocol Last Admin: 08/25/17 10:48 Dose: 40 mg Famotidine (Pepcid) 40 mg PO HS [facility] Last Admin: 08/24/17 22:08 Dose: 40 mg Hydromorphone HCl (Dilaudid) 0.5 mg IVP Q4H PRN PRN Reason: Pain, severe (8-10) Last Admin: 08/23/17 18:15 Dose: 0.5 mg Sodium Chloride (Sodium Chloride 0.9%) 1,000 mls @ 75 mls/hr IV .[id number] [facility] Last Admin: 08/24/17 10:08 Dose: 75 mls/hr Insulin Human Lispro (Humalog Low) 0 units SC ACHS [facility] PRN Reason: Protocol Last Admin: 08/24/17 21:52 Dose: Not Given Losartan Potassium (Cozaar) 100 mg PO DAILY [facility] Last Admin: 08/25/17 10:50 Dose: 100 mg Ondansetron HCl (Zofran Inj) 4 mg IVP Q6H PRN PRN Reason: Nausea/Vomiting Last Admin: 08/23/17 18:14 Dose: 4 mg Oxycodone/Acetaminophen (Percocet 5/325 Mg Tab) 1 tab PO Q4H PRN PRN Reason: Pain, moderate (4-7) Stop: 08/26/17 15:16 Last Admin: 08/24/17 19:43 Dose: 1 tab Polyethylene Glycol (Miralax) 17 gm PO DAILY [facility] Last Admin: 08/25/17 10:48 Dose: 17 gm Vitamin B Complex/Vit C/Folic Acid (Nephro-Vargas) 1 tab PO DAILY [facility] Last Admin: 08/25/17 10:49 Dose: 1 tab - Labs Labs: 08/25/17 06:20 08/25/17 06:20 PT 12.1 SECONDS (9.4-12.5) 08/23/17 05:40 INR 1.05 (0.93-1.08) 08/23/17 05:40 APTT 26.6 Seconds (25.1-36.5) 08/23/17 05:40 - Constitutional Appears: No Acute Distress - Head Exam Head Exam: ATRAUMATIC, NORMAL INSPECTION, NORMOCEPHALIC - Eye Exam Eye Exam: EOMI, Normal appearance, PERRL Pupil Exam: NORMAL ACCOMODATION, PERRL - ENT Exam ENT Exam: Mucous Membranes Moist, Normal Exam - Neck Exam Neck Exam: Full ROM, Normal Inspection. absent: Lymphadenopathy Additional comments: Mild ecchymosis and swelling on R nexk. Steristrips in place. - Respiratory Exam Respiratory Exam: NORMAL BREATHING PATTERN - Cardiovascular Exam Cardiovascular Exam: REGULAR RHYTHM, +S1, +S2. absent: Murmur - GI/Abdominal Exam GI & Abdominal Exam: Soft, Normal Bowel Sounds. absent: Tenderness - Extremities Exam Extremities Exam: Full ROM, Normal Capillary Refill, Normal Inspection. absent : Joint Swelling, Pedal Edema - Back Exam Back Exam: NORMAL INSPECTION - Neurological Exam Neurological Exam: Alert, Awake, CN II-XII Intact, Normal Gait, Oriented x3 - Psychiatric Exam Psychiatric exam: Normal Affect, Normal Mood - Skin Skin Exam: Dry, Intact, Warm. absent: Erythema Assessment and Plan - Assessment and Plan (Free Text) Assessment: POD 2 s/p R CEA -Clear for DC for surgical standpoint -Take tylenol for DE SANTIAGO -F/U w Dr. Wilcox in 1-2 weeks. CAn take shower tomorrow -Keep steristrips on DW Dr. Wilcox
--- NOTE | 2017-08-25 13:02 | CP.PCM.DIS ---
<Taisha Guy - Last Filed: 08/25/17 13:13> Provider - Provider Date of Admission: 08/18/17 14:36 Attending physician: Zoran Vera MD Primary care physician: Lenard Herbert MD Consults: Cardio: Dr. Riddle Vascular: Dr. Wilcox Time Spent in preparation of Discharge (in minutes): 35 Hospital Course - Lab Results Lab Results: Most Recent Lab Values WBC 5.6 10^3/ul (4.5-11.0) 08/25/17 06:20 RBC 3.55 10^6/uL (3.5-6.1) 08/25/17 06:20 Hgb 8.8 g/dL (12.0-16.0) L 08/25/17 06:20 Hct 28.2 % (36.0-48.0) L 08/25/17 06:20 MCV 79.4 fl (80.0-105.0) L 08/25/17 06:20 MCH 24.8 pg (25.0-35.0) L 08/25/17 06:20 MCHC 31.2 g/dl (31.0-37.0) 08/25/17 06:20 RDW 14.1 % (11.5-14.5) 08/25/17 06:20 Plt Count 288 10^3/uL (120.0-450.0) 08/25/17 06:20 MPV 10.6 fl (7.0-11.0) 08/25/17 06:20 Gran % 57.1 % (50.0-68.0) 08/25/17 06:20 Lymph % (Auto) 29.4 % (22.0-35.0) 08/25/17 06:20 Bates % (Auto) 10.3 % (1.0-6.0) H 08/25/17 06:20 Eos % (Auto) 3.0 % (1.5-5.0) 08/25/17 06:20 Baso % (Auto) 0.2 % (0.0-3.0) 08/25/17 06:20 Gran # 3.20 (1.4-6.5) 08/25/17 06:20 Lymph # (Auto) 1.7 (1.2-3.4) 08/25/17 06:20 Bates # (Auto) 0.6 (0.1-0.6) 08/25/17 06:20 Eos # (Auto) 0.2 (0.0-0.7) 08/25/17 06:20 Baso # (Auto) 0.01 K/mm3 (0.0-2.0) 08/25/17 06:20 PT 12.1 SECONDS (9.4-12.5) 08/23/17 05:40 INR 1.05 (0.93-1.08) 08/23/17 05:40 APTT 26.6 Seconds (25.1-36.5) 08/23/17 05:40 Sodium 143 mmol/L (132-148) 08/25/17 06:20 Potassium 4.2 mmol/L (3.6-5.0) 08/25/17 06:20 Chloride 111 mmol/L (98-107) H 08/25/17 06:20 Carbon Dioxide 22 mmol/L (21-33) 08/25/17 06:20 Anion Gap 15 (10-20) 08/25/17 06:20 BUN 13 mg/dL (7-21) 08/25/17 06:20 Creatinine 1.0 mg/dl (0.7-1.2) 08/25/17 06:20 Est GFR ( Amer) > 60 08/25/17 06:20 Est GFR (Non-Af Amer) 55 08/25/17 06:20 POC Glucose (mg/dL) 110 mg/dL (65-110) 08/25/17 11:46 Random Glucose 133 mg/dL (70-110) H 08/25/17 06:20 Hemoglobin A1c 6.4 % (4.2-6.5) 08/19/17 05:30 Calcium 8.9 mg/dL (8.4-10.5) 08/25/17 06:20 Total Bilirubin 0.3 mg/dL (0.2-1.3) 08/21/17 08:00 AST 18 U/L (14-36) 08/21/17 08:00 ALT 22 U/L (7-56) 08/21/17 08:00 Alkaline Phosphatase 79 U/L (38-126) 08/21/17 08:00 Total Protein 7.2 g/dL (5.8-8.3) 08/21/17 08:00 Albumin 4.0 g/dL (3.0-4.8) 08/21/17 08:00 Globulin 3.2 gm/dL 08/21/17 08:00 Albumin/Globulin Ratio 1.3 (1.1-1.8) 08/21/17 08:00 Triglycerides 153 mg/dL (35-160) 08/19/17 06:00 Cholesterol 191 mg/dL (130-200) 08/19/17 06:00 LDL Cholesterol Direct 98 mg/dL (0-129) 08/19/17 06:00 HDL Cholesterol 41 mg/dL (29-60) 08/19/17 06:00 Free T4 1.34 ng/dL (0.78-2.19) 08/19/17 06:00 TSH 3rd Generation 2.10 mIU/mL (0.46-4.68) 08/19/17 06:00 Blood Type B POSITIVE 08/21/17 20:15 Blood Type Confirm B POSITIVE 08/22/17 05:30 Antibody Screen Negative 08/21/17 20:15 Crossmatch See Detail 08/21/17 20:15 BBK History Checked No verified bt 08/21/17 20:15 - Hospital Course Hospital Course: This is a 71yo female with past medical history of HTN and DM who is admitted for evaluation of significant carotid stenosis. Patient had carotid angiogram which critical R ICA origin stenosis with string sign, 70% proximal L ICA stenosis. Vascular surgery was consulted. Patient was planned for R CEA. Cardiology was consulted for clearance for surgery. She had a cardiac stress test which was found to be normal. She also had an echo which showed EF 60% with moderate pulm HTN and mild-mod AR. Patient was cleared to proceed with surgery. She had a R CEA and is POD #2 without any complications. She was placed on ASA, Lipitor, and Plavix. She was evaluated by physical therapy and stated patient was able to go home. She was also found to have mild FABIO and placed on fluids which was resolved. Patient was found to have anemia which has been chronic and is stable. It is recommended she follow up with her PMD for further monitoring. She will follow up with Dr. Wilcox in 1 week. I spoke with patient and her son, they verbalized and agreed with discharge plan. Discharge medications are as follows: Stop: Atenolol 50mg daily Lipitor 10mg daily New meds: Lipitor 40mg daily Atenolol 25mg daily Motrin 600mg q12 prn severe pain disp#10 Continue other home medications: ASA, Plavix, Chlorathiodone, Allopurinol, Metformin, Valsartan - Date & Time of H&P Date of H&P: 08/18/17 Time of H&P: 15:30 Discharge Exam - Head Exam Head Exam: ATRAUMATIC, NORMAL INSPECTION, NORMOCEPHALIC - Eye Exam Eye Exam: Normal appearance, PERRL Pupil Exam: NORMAL ACCOMODATION, PERRL - ENT Exam ENT Exam: Mucous Membranes Moist - Neck Exam Additional comments: R sided steri strips in place- clean and dry - Respiratory Exam Respiratory Exam: Clear to PA & Lateral, NORMAL BREATHING PATTERN, UNREMARKABLE. absent: Rales, Rhonchi, Wheezes - Cardiovascular Exam Cardiovascular Exam: REGULAR RHYTHM, +S1, +S2. absent: Gallop, Rubs, Systolic Murmur - GI/Abdominal Exam GI & Abdominal Exam: Normal Bowel Sounds, Soft, Unremarkable. absent: Mass, Rebound, Rigid, Tenderness - Extremities Exam Extremities exam: normal inspection - Neurological Exam Neurological exam: Alert, CN II-XII Intact, Oriented x3 - Psychiatric Exam Psychiatric exam: Normal Affect, Normal Mood - Skin Skin Exam: Dry, Intact, Warm Discharge Plan - Discharge Medications Prescriptions: Aspirin [Ecotrin] 81 mg PO DAILY #30 tabec Atenolol [Tenormin] 25 mg PO DAILY #30 tab Atorvastatin [Lipitor] 40 mg PO DIN #30 tab Chlorthalidone [Hygroton] 25 mg PO DAILY #30 tab Clopidogrel [Plavix] 75 mg PO DAILY #30 tab Ibuprofen [Motrin] 600 mg PO Q12 PRN #10 tab PRN Reason: Pain, Severe (8-10) Valsartan 160 mg PO DAILY #30 tablet - Follow Up Plan Condition: GOOD Disposition: HOME/ ROUTINE Instructions: Carotid Artery Endarterectomy Additional Instructions: You are being discharged to home. 1. Follow up at Dr. Wilcox (vascular surgeon) office in 1 week 2. Keep steri-strips on (white strips). Do not remove. Wait until seen by Dr. Wilcox. 3. Ok to take shower tomorrow. Please have someone help you or seat you in a chair if you are unsteady. 4. Take medications as prescribed. 5. Follow up with your PMD, Dr. Herbert in 1-2 weeks. 6. Follow up with PMD for anemia. Your Hgb was 8.9 and stable. If your symptoms return or worsen, please return to the Emergency Room. Referrals: Pat Wilcox MD [Staff Provider] - Lenard Herbert MD [Primary Care Provider] - <Zoran Vera - Last Filed: 08/25/17 14:32> Provider - Provider Date of Admission: 08/18/17 14:36 Attending physician: Zoran Vera MD Primary care physician: Lenard Herbert MD Hospital Course - Lab Results Lab Results: Most Recent Lab Values WBC 5.6 10^3/ul (4.5-11.0) 08/25/17 06:20 RBC 3.55 10^6/uL (3.5-6.1) 08/25/17 06:20 Hgb 8.8 g/dL (12.0-16.0) L 08/25/17 06:20 Hct 28.2 % (36.0-48.0) L 08/25/17 06:20 MCV 79.4 fl (80.0-105.0) L 08/25/17 06:20 MCH 24.8 pg (25.0-35.0) L 08/25/17 06:20 MCHC 31.2 g/dl (31.0-37.0) 08/25/17 06:20 RDW 14.1 % (11.5-14.5) 08/25/17 06:20 Plt Count 288 10^3/uL (120.0-450.0) 08/25/17 06:20 MPV 10.6 fl (7.0-11.0) 08/25/17 06:20 Gran % 57.1 % (50.0-68.0) 08/25/17 06:20 Lymph % (Auto) 29.4 % (22.0-35.0) 08/25/17 06:20 Bates % (Auto) 10.3 % (1.0-6.0) H 08/25/17 06:20 Eos % (Auto) 3.0 % (1.5-5.0) 08/25/17 06:20 Baso % (Auto) 0.2 % (0.0-3.0) 08/25/17 06:20 Gran # 3.20 (1.4-6.5) 08/25/17 06:20 Lymph # (Auto) 1.7 (1.2-3.4) 08/25/17 06:20 Bates # (Auto) 0.6 (0.1-0.6) 08/25/17 06:20 Eos # (Auto) 0.2 (0.0-0.7) 08/25/17 06:20 Baso # (Auto) 0.01 K/mm3 (0.0-2.0) 08/25/17 06:20 PT 12.1 SECONDS (9.4-12.5) 08/23/17 05:40 INR 1.05 (0.93-1.08) 08/23/17 05:40 APTT 26.6 Seconds (25.1-36.5) 08/23/17 05:40 Sodium 143 mmol/L (132-148) 08/25/17 06:20 Potassium 4.2 mmol/L (3.6-5.0) 08/25/17 06:20 Chloride 111 mmol/L (98-107) H 08/25/17 06:20 Carbon Dioxide 22 mmol/L (21-33) 08/25/17 06:20 Anion Gap 15 (10-20) 08/25/17 06:20 BUN 13 mg/dL (7-21) 08/25/17 06:20 Creatinine 1.0 mg/dl (0.7-1.2) 08/25/17 06:20 Est GFR ( Amer) > 60 08/25/17 06:20 Est GFR (Non-Af Amer) 55 08/25/17 06:20 POC Glucose (mg/dL) 110 mg/dL (65-110) 08/25/17 11:46 Random Glucose 133 mg/dL (70-110) H 08/25/17 06:20 Hemoglobin A1c 6.4 % (4.2-6.5) 08/19/17 05:30 Calcium 8.9 mg/dL (8.4-10.5) 08/25/17 06:20 Total Bilirubin 0.3 mg/dL (0.2-1.3) 08/21/17 08:00 AST 18 U/L (14-36) 08/21/17 08:00 ALT 22 U/L (7-56) 08/21/17 08:00 Alkaline Phosphatase 79 U/L (38-126) 08/21/17 08:00 Total Protein 7.2 g/dL (5.8-8.3) 08/21/17 08:00 Albumin 4.0 g/dL (3.0-4.8) 08/21/17 08:00 Globulin 3.2 gm/dL 08/21/17 08:00 Albumin/Globulin Ratio 1.3 (1.1-1.8) 08/21/17 08:00 Triglycerides 153 mg/dL (35-160) 08/19/17 06:00 Cholesterol 191 mg/dL (130-200) 08/19/17 06:00 LDL Cholesterol Direct 98 mg/dL (0-129) 08/19/17 06:00 HDL Cholesterol 41 mg/dL (29-60) 08/19/17 06:00 Free T4 1.34 ng/dL (0.78-2.19) 08/19/17 06:00 TSH 3rd Generation 2.10 mIU/mL (0.46-4.68) 08/19/17 06:00 Blood Type B POSITIVE 08/21/17 20:15 Blood Type Confirm B POSITIVE 08/22/17 05:30 Antibody Screen Negative 08/21/17 20:15 Crossmatch See Detail 08/21/17 20:15 BBK History Checked No verified bt 08/21/17 20:15 Attending/Attestation - Attestation I have personally seen and examined this patient.: Yes I have fully participated in the care of the patient.: Yes I have reviewed all pertinent clinical information, including history, physical exam and plan: Yes Notes (Text): 08/25/17 14:30 71 year old female with past medical history of hypertension, dyslipidemia and diabetes who was admitted for evaluation of carotid stenosis. She was seen by vascular surgery and is s/p R CEA POD #2. She is on aspirin, plavix and statin. Patient is discharged home to follow up with pmd. Follow up with vascular surgery. Zoran Vera MD Hospitalist.
[2017-08-25 16:07] VITALS: BP 100/64; PULSE 88; TEMP 97.9; O2SAT 96
== END 2017-08-25 16:06 | disposition home or self-care (01) | DRG 38 ==
LOC: SDSVAS 10:10 → 2RNO 14:36 → SDSVAS 16:11 → ICU 08-23 16:03 → 5RNO 08-24 12:31
PROVIDERS: ADMIT Internal Medicine; ATTEND Internal Medicine
PROC: B315YZZ Fluoroscopy of Bilateral Common Carotid Arteries using Other Contrast (ICD-10-PCS; 2017-08-18)
PROC: B31FYZZ Fluoroscopy of Left Vertebral Artery using Other Contrast (ICD-10-PCS; 2017-08-18)
PROC: B318YZZ Fluoroscopy of Bilateral Internal Carotid Arteries using Other Contrast (ICD-10-PCS; 2017-08-18)
PROC: 03UK07Z Supplement Right Internal Carotid Artery with Autologous Tissue Substitute, Open Approach (ICD-10-PCS; 2017-08-23)
PROC: 07B10ZX Excision of Right Neck Lymphatic, Open Approach, Diagnostic (ICD-10-PCS; 2017-08-23)
PROC: 03CK0ZZ Extirpation of Matter from Right Internal Carotid Artery, Open Approach (ICD-10-PCS; principal; 2017-08-23 11:00)
DX: I65.23 Occlusion and stenosis of bilateral carotid arteries (principal); N17.9 Acute kidney failure, unspecified; I10 Essential (primary) hypertension; E11.51 Type 2 diabetes mellitus with diabetic peripheral angiopathy without gangrene; E78.00 Pure hypercholesterolemia, unspecified; I27.20 Pulmonary hypertension, unspecified; I35.1 Nonrheumatic aortic (valve) insufficiency; D64.9 Anemia, unspecified; R33.9 Retention of urine, unspecified; K59.00 Constipation, unspecified; M10.9 Gout, unspecified; Z79.82 Long term (current) use of aspirin; Z79.02 Long term (current) use of antithrombotics/antiplatelets; Z90.49 Acquired absence of other specified parts of digestive tract

== ENCOUNTER 2017-10-31 17:50 | Inpatient (IN) | payer MEDICARE, MEDICAID ==
--- NOTE | 2017-10-31 19:20 | ED PDOC ---
Arrival/HPI - General Chief Complaint: Weakness/Neurological Deficit Time Seen by Provider: 10/31/17 19:00 Historian: Patient - History of Present Illness Narrative History of Present Illness (Text): 10/31/17 19:01 72 year old female, with past medical history of hypertension, hyperlipidemia, diabetes, and endarterectomy done in July, presents to the Emergency department complaining of numbness and weakness on right arm for past week. Patient states similar symptoms in the past and was recommended by her vascular surgeon to present to the Emergency department if symptoms occur again. Patient now presents to the Emergency department for evaluation. Patient additionally informs mild chest pain where surgery was performed. Patient denies any fever, chills, nausea, vomiting, diarrhea, abdominal pain, shortness of breath or any other complaints. Time/Duration: 1 week Symptom Onset: Gradual Symptom Course: Unchanged Activities at Onset: Light Context: Home Past Medical History - Provider Review Nursing Documentation Reviewed: Yes - Infectious Disease Hx of Infectious Diseases: None - Tetanus Immunization Tetanus Immunization: Unknown - Reproductive Menopause: Yes - Cardiac Hx Hypertension: Yes - Pulmonary Hx Respiratory Disorders: No - Neurological Hx Dizziness: Yes - HEENT Hx HEENT Disorder: No - Renal Hx Renal Disorder: No - Endocrine/Metabolic Hx Diabetes Mellitus Type 2: Yes - Hematological/Oncological Hx Blood Disorders: No - Integumentary Hx Dermatological Disorder: No - Musculoskeletal/Rheumatological Hx Arthritis: Yes - Gastrointestinal Hx Gastrointestinal Disorders: No - Genitourinary/Gynecological Hx Genitourinary Disorders: No - Psychiatric Hx Psychophysiologic Disorder: No Hx Substance Use: No - Surgical History Hx Cholecystectomy: Yes - Anesthesia Hx Anesthesia Reactions: No Hx Malignant Hyperthermia: No - Suicidal Assessment Feels Threatened In Home Enviroment: No Family/Social History - Physician Review Nursing Documentation Reviewed: Yes Family/Social History: No Known Family HX Smoking Status: Never Smoked Hx Alcohol Use: No Hx Substance Use: No Hx Substance Use Treatment: No Allergies/Home Meds Allergies/Adverse Reactions: Allergies No Known Allergies Allergy (Verified 10/31/17 18:16) Home Medications: Home Meds Medication Instructions Recorded Confirmed Ergocalciferol (Vitamin D2) 50,000 units PO Q7D 08/17/17 10/31/17 [Vitamin D2] Ferrous Sulfate [Feosol] 325 mg PO BID 08/17/17 10/31/17 Vitamin B Complex [Balance B-100] 1 cap PO DAILY 08/17/17 10/31/17 metFORMIN [glucOPHAGE] 1,000 mg PO BID 08/17/17 10/31/17 Review of Systems - Physician Review All systems were reviewed & negative as marked: Yes - Review of Systems Constitutional: Normal. absent: Fevers Eyes: Normal ENT: Normal Respiratory: Normal. absent: SOB Cardiovascular: Chest Pain Gastrointestinal: Normal. absent: Abdominal Pain, Diarrhea, Nausea, Vomiting Genitourinary Female: Normal Musculoskeletal: Other (numbness and weakness right arm.) Skin: Normal Neurological: Normal Endocrine: Normal Hemo/Lymphatic: Normal Psychiatric: Normal Physical Exam Vital Signs Reviewed: Yes Vital Signs Temp Pulse Resp BP Pulse Ox 10/31/17 18:12 99.2 F 72 18 125/86 98 Temperature: Afebrile Blood Pressure: Normal Pulse: Regular Respiratory Rate: Normal Appearance: Positive for: Well-Appearing, Non-Toxic, Comfortable Pain Distress: None Mental Status: Positive for: Alert and Oriented X 3 - Systems Exam Head: Present: Atraumatic, Normocephalic Pupils: Present: PERRL Extroacular Muscles: Present: EOMI Conjunctiva: Present: Normal Mouth: Present: Moist Mucous Membranes Neck: Present: Other (Tenderness alongside right neck down to right supraclavicular region) Respiratory/Chest: Present: Clear to Auscultation, Good Air Exchange. No: Respiratory Distress, Accessory Muscle Use Cardiovascular: Present: Regular Rate and Rhythm, Normal S1, S2. No: Murmurs Abdomen: No: Tenderness, Distention, Peritoneal Signs Back: Present: Normal Inspection Upper Extremity: Present: Normal Inspection, Normal ROM, NORMAL PULSES, Neurovascularly Intact. No: Cyanosis, Edema Lower Extremity: Present: Normal Inspection, NORMAL PULSES, Normal ROM. No: Edema Neurological: Present: GCS=15, CN II-XII Intact, Speech Normal Skin: Present: Warm, Dry, Normal Color. No: Rashes Psychiatric: Present: Alert, Oriented x 3, Normal Insight, Normal Concentration Medical Decision Making ED Course and Treatment: 10/31/17 19:01 Impression: 72 year old female presents to the Emergency department for right arm numbness and weakness. Differential Diagnosis included but are not limited to: complication of surgery vs. GA Plan: -- EKG -- Labs -- Chest X-ray -- Toradol -- Urinalysis -- Reassess and disposition Prior Visits: Notes and results from previous visits were reviewed. Progress Notes: 10/31/17 21:[address] Lane, who is aware and agrees with Emergency department management plan, accepts patient under her service for further observation. - Lab Interpretations Lab Results: 10/31/17 19:35 10/31/17 19:35 Lab Results 10/31/17 19:35: PT 11.1, INR 0.97, APTT 29.2 10/31/17 19:35: Sodium 143, Potassium 5.2 H, Chloride 109 H, Carbon Dioxide 22, Anion Gap 17, BUN 38 H, Creatinine 1.3 H, Est GFR ( Amer) 49, Est GFR ( Non-Af Amer) 40, Random Glucose 119 H, Calcium 9.4, Magnesium 1.6 L, Total Bilirubin 0.1 L, AST 30, ALT 16, Alkaline Phosphatase 94, Lactate Dehydrogenase 417, Total Creatine Kinase 34 L, Troponin I < 0.01, Total Protein 7.4, Albumin 4.3, Globulin 3.2, Albumin/Globulin Ratio 1.3 10/31/17 19:35: WBC 6.4, RBC 4.15, Hgb 10.3 L, Hct 32.5 L, MCV 78.3 L, MCH 24.8 L, MCHC 31.7, RDW 13.6, Plt Count 340, MPV 10.7, Gran % 60.2, Lymph % (Auto) 32.9, [place] % (Auto) 6.7 H, Eos % (Auto) 0.0 L, Baso % (Auto) 0.2, Gran # 3.84, Lymph # (Auto) 2.1, [place] # (Auto) 0.4, Eos # (Auto) 0.0, Baso # (Auto) 0.01 - RAD Interpretation Radiology Orders: 10/31/17 19:01 CHEST PORTABLE [RAD] Stat - Medication Orders Current Medication Orders: Acetaminophen (Tylenol 325mg Tab) 650 mg PO Q6H PRN PRN Reason: Pain, moderate (4-7) Allopurinol (Zyloprim) 100 mg PO DAILY MAINOR Atenolol (Tenormin) 25 mg PO DAILY MAINOR Atorvastatin Calcium (Lipitor) 40 mg PO DIN MAINOR Ergocalciferol (Drisdol 50,000 Intl Units Cap) 1 cap PO Q7D MAINOR Ferrous Sulfate (Feosol) 324 mg PO BID MAINOR Sodium Chloride (Sodium Chloride 0.9%) 1,000 mls @ 125 mls/hr IV .Q8H MAINOR Magnesium 2 gm/50 ml NS (Magnesium Sulfate 2 Gm/50 Ml Ns) 2 gm in 50 mls @ 50 mls/hr IVPB ONCE ONE Stop: 10/31/17 23:18 Losartan Potassium (Cozaar) 50 mg PO DAILY MAINOR Vitamin B Complex/Vit C/Folic Acid (Nephro-Vargas) 1 tab PO DAILY MAINOR Discontinued Medications Aspirin (Ecotrin) 81 mg PO STAT STA Stop: 10/31/17 22:08 Clopidogrel Bisulfate (Plavix) 75 mg PO STAT STA Stop: 10/31/17 22:08 Ketorolac Tromethamine (Toradol) 15 mg IVP STAT STA Stop: 10/31/17 19:04 Last Admin: 10/31/17 19:38 Dose: 15 mg MAR Pain Assessment Document 10/31/17 19:38 SS (Rec: 10/31/17 19:46 SS [id number]) Pain Reassessment Is this a pain reassessment? No Sleep Is patient sleeping during reassessment? No Presence of Pain Presence of Pain Yes Pain Scale Used Pain Scale Used Numeric Location Left, Right or Bilateral Right Pain Location Body Site Arm IVP Administration Document 10/31/17 19:38 SS (Rec: 10/31/17 19:46 SS [id number]) Charges for Administration # of IVP Administrations 1 Losartan Potassium (Cozaar) 50 mg PO STAT STA Stop: 10/31/17 22:10 Sodium Polystyrene Sulfonate (Kayexalate Susp) 30 gm PO ONCE ONE Stop: 10/31/17 22:15 - Scribe Statement The provider has reviewed the documentation as recorded by the [place] Dan. All medical record entries made by the [place] were at my direction and personally dictated by me. I have reviewed the chart and agree that the record accurately reflects my personal performance of the history, physical exam, medical decision making, and the department course for this patient. I have also personally directed, reviewed, and agree with the discharge instructions and disposition. Disposition/Present on Arrival - Present on Arrival Any Indicators Present on Arrival: No History of DVT/PE: No History of Uncontrolled Diabetes: No Urinary Catheter: No History of Decub. Ulcer: No History Surgical Site Infection Following: None - Disposition Have Diagnosis and Disposition been Completed?: Yes Diagnosis: Carotid arterial disease Disposition Time: 20:59 Patient Plan: Admission Condition: GOOD
[2017-10-31 20:00] LABS: BASO # 0.01 K/mm3 (0.0-2.0); BASO % 0.2 % (0.0-3.0); GRAN # 3.84 (1.4-6.5); GRAN % 60.2 % (50.0-68.0); HEMOGLOBIN 10.3 g/dL (12.0-16.0); LYMPH # 2.1 (1.2-3.4); LYMPH % 32.9 % (22.0-35.0); MEAN CELL VOLUME 78.3 fl (80.0-105.0); MEAN CORPUSCULAR HEMOGLOBIN 24.8 pg (25.0-35.0); MEAN CORPUSCULAR HGB CONC 31.7 g/dl (31.0-37.0); MEAN PLATELET VOLUME 10.7 fl (7.0-11.0); MONO # 0.4 (0.1-0.6); MONO % 6.7 % (1.0-6.0); RBC 4.15 10^6/uL (3.5-6.1); RED CELL DISTRIBUTION WIDTH 13.6 % (11.5-14.5); WHITE BLOOD COUNT 6.4 10^3/ul (4.5-11.0)
[2017-10-31 20:02] LABS: ALB/GLOB RATIO 1.3 (1.1-1.8); ALBUMIN 4.3 g/dL (3.0-4.8); ALT/SGPT 16 U/L (7-56); AST/SGOT 30 U/L (14-36); BLOOD UREA NITROGEN 38 mg/dL (7-21); CALCIUM 9.4 mg/dL (8.4-10.5); GFR AFRICAN-AMERICAN 49; GFR NON-AFRICAN AMERICAN 40
[2017-10-31 20:12] LABS: TROPONIN I < 0.01 ng/mL
--- NOTE | 2017-10-31 20:59 | CP.PCM.CON ---
History of Present Illness - History of Present Illness History of Present Illness: VASCULAR SURGERY CONSULT NOTE FOR DR. MEJIA 72yo F with PMHx of HTN, hyperlipidemia, DM, bilateral carotid artery stenosis s /p Right CEA in July presents to the ED with right arm weakness. She has had the weakness and numbness intermittently since her surgery. No leg weakness. PMHx: HTN, DM, possible gout Surgeries: Right CEA with vein patch closure 08/23/[address] Mejia, Cholecystectomy Home meds: Aspirin, Plavix Allergies: NKDA Social history: Lives with family, mostly independent in ADLs. Denies EtOH, drug or tobacco use PMD: Dr. Herbert Review of Systems - Review of Systems All systems: reviewed and no additional remarkable complaints except (as per HPI ) Past Patient History - Infectious Disease Hx of Infectious Diseases: None - Tetanus Immunizations Tetanus Immunization: Unknown - Past Social History Smoking Status: Never Smoked - CARDIAC Hx Hypertension: Yes - PULMONARY Hx Respiratory Disorders: No - NEUROLOGICAL Hx Dizziness: Yes - HEENT Hx HEENT Problems: No - RENAL Hx Chronic Kidney Disease: No - ENDOCRINE/METABOLIC Hx Diabetes Mellitus Type 2: Yes - HEMATOLOGICAL/ONCOLOGICAL Hx Blood Disorders: No - INTEGUMENTARY Hx Dermatological Problems: No - MUSCULOSKELETAL/RHEUMATOLOGICAL Hx Arthritis: Yes - GASTROINTESTINAL Hx Gastrointestinal Disorders: No - GENITOURINARY/GYNECOLOGICAL Hx Genitourinary Disorders: No - PSYCHIATRIC Hx Psychophysiologic Disorder: No Hx Substance Use: No - SURGICAL HISTORY Hx Cholecystectomy: Yes - ANESTHESIA Hx Anesthesia Reactions: No Hx Malignant Hyperthermia: No Meds Allergies/Adverse Reactions: Allergies Allergy/AdvReac Type Severity Reaction Status Date / Time No Known Allergies Allergy Verified 10/31/17 18:16 Physical Exam - Constitutional Appears: Well, Non-toxic, No Acute Distress - Head Exam Head Exam: ATRAUMATIC, NORMAL INSPECTION - Neck Exam Neck exam: Negative for: Tenderness Additional comments: Right CEA incision healing well - Respiratory Exam Respiratory Exam: NORMAL BREATHING PATTERN. absent: Respiratory Distress - Cardiovascular Exam Cardiovascular Exam: +S1, +S2 - GI/Abdominal Exam GI & Abdominal Exam: Soft. absent: Distended, Tenderness - Extremities Exam Additional comments: Mild RUE weakness 4/5 LUE 5/5 Bilateral LE 4/5 - Neurological Exam Neurological exam: Alert, Oriented x3 - Psychiatric Exam Psychiatric exam: Normal Affect, Normal Mood - Skin Skin Exam: Dry, Normal Color, Warm Results - Vital Signs Recent Vital Signs: Last Vital Signs Temp 99.2 F 10/31/17 18:12 Pulse 72 10/31/17 18:12 Resp 18 10/31/17 18:12 BP 125/86 10/31/17 18:12 Pulse Ox 98 10/31/17 18:12 - Labs Result Diagrams: 10/31/17 19:35 10/31/17 19:35 Labs: Laboratory Results - last 24 hr 10/31/17 10/31/17 19:35 19:35 WBC 6.4 RBC 4.15 Hgb 10.3 L Hct 32.5 L MCV 78.3 L MCH 24.8 L MCHC 31.7 RDW 13.6 Plt Count 340 MPV 10.7 Gran % 60.2 Lymph % (Auto) 32.9 [place] % (Auto) 6.7 H Eos % (Auto) 0.0 L Baso % (Auto) 0.2 Gran # 3.84 Lymph # (Auto) 2.1 [place] # (Auto) 0.4 Eos # (Auto) 0.0 Baso # (Auto) 0.01 Sodium 143 Potassium 5.2 H Chloride 109 H Carbon Dioxide 22 Anion Gap 17 BUN 38 H Creatinine 1.3 H Est GFR ( Amer) 49 Est GFR (Non-Af Amer) 40 Random Glucose 119 H Calcium 9.4 Magnesium 1.6 L Total Bilirubin 0.1 L AST 30 ALT 16 Alkaline Phosphatase 94 Lactate Dehydrogenase 417 Total Creatine Kinase 34 L Troponin I < 0.01 Total Protein 7.4 Albumin 4.3 Globulin 3.2 Albumin/Globulin Ratio 1.3 Assessment & Plan - Assessment and Plan (Free Text) Assessment: 72yo F with PMHx of HTN, hyperlipidemia, DM, bilateral carotid artery stenosis s /p Right CEA in July presents with right upper extremity weakness. - 08/19/17 Carotid duplex: 70-80% stenosis of Left ICA - Plan for Left carotid endarterectomy tomorrow - Procedure, risks and benefits explained to pt and family, all questions answered, written consent was obtained - NPO past midnight - Continue Aspirin and Plavix - Discussed plan with Dr. Brenden Moncada PGY-4
[2017-10-31 21:39] LABS: INR 0.97 (0.93-1.08); PARTIAL THROMBOPLASTIN TIME 29.2 Seconds (25.1-36.5); PROTHROMBIN TIME 11.1 SECONDS (9.4-12.5)
[2017-10-31] MEDS ORDERED: Sod Polystyrene Sulf 15 gm/60 ml Susp PO ONE (22:14)
[2017-10-31] MEDS ORDERED: Sodium Chloride 0.9% 1,000 ML IV SCH (22:15)
[2017-10-31] MEDS ORDERED: Ergocalciferol 50,000 Intl Units Cap PO SCH (22:15)
[2017-10-31] MEDS ORDERED: Magnesium 2 gm/50 ml NS 2 GM/50 ML BAG IVPB ONE (22:19)
[2017-10-31 22:53] VITALS: BMI 28.8
[2017-10-31 22:58] LABS: PH,URINE 5.5 (4.7-8.0); URINE BILIRUBIN NEGATIVE (NEGATIVE); URINE BLOOD NEGATIVE (NEGATIVE); URINE GLUCOSE (UA) NEGATIVE (NEGATIVE); URINE LEUKOCYTE ESTERASE SMALL Leu/uL (NEGATIVE); URINE PROTEIN TRACE mg/dL (<30 mg/dL); URINE UROBILINOGEN 0.2 E.U./dL (<1 E.U./dL)
[2017-10-31 23:01] LABS: URINE APPEARANCE CLEAR (CLEAR); URINE COLOR YELLOW (YELLOW)
[2017-10-31 23:06] LABS: URINE BACTERIA MOD (NEG)
--- NOTE | 2017-10-31 23:51 | CP.PCM.HP ---
<Andrea Todd - Last Filed: 11/01/17 02:30> History of Present Illness - History of Present Illness History of Present Illness: CC: Right upper extremity weakness and pain HPI: Patient is a 71 yo female with PMH of HTN, DM2 who presents to ED with intermittent right upper extremity weakness and pain that has been worsening since July. Most of the pain is in her right shoulder near where she had CEA. She describes the pain as a burning, tingling type of pain and rates it 8/10 in severity. She was found to have b/l carotid artery stenosis of 80-90% in 2016 and is scheduled for left CEA tomorrow. She endorses feeling nauseated with the increasing pain but denies fever, chills, CP, SOB, vomiting, or loss of appetite. PMHx: HTN, DM, gout PSHx: Cholecystectomy, CEA of R side Home medications: see EMR Allergies: NKDA Social history:Denies tobacco, alcohol, drug use, currently lives with daughters and has a good support system Fam Hx: Most family members with DM2, HTN, breast cancer in cousin Present on Admission - Present on Admission Any Indicators Present on Admission: No History of DVT/PE: No History of Uncontrolled Diabetes: No Urinary Catheter: No Decubitus Ulcer Present: No Review of Systems - Review of Systems Review of Systems: A 12 point ROS was reviewed with the patient and were all negative except as stated in the HPI. Past Patient History - Infectious Disease Hx of Infectious Diseases: None - Tetanus Immunizations Tetanus Immunization: Unknown - Past Medical History & Family History Past Medical History?: Yes - Past Social History Smoking Status: Never Smoked - CARDIAC Hx Hypertension: Yes - PULMONARY Hx Respiratory Disorders: No - NEUROLOGICAL Hx Dizziness: Yes - HEENT Hx HEENT Problems: No - RENAL Hx Chronic Kidney Disease: No - ENDOCRINE/METABOLIC Hx Diabetes Mellitus Type 2: Yes - HEMATOLOGICAL/ONCOLOGICAL Hx Blood Disorders: No - INTEGUMENTARY Hx Dermatological Problems: No - MUSCULOSKELETAL/RHEUMATOLOGICAL Hx Arthritis: Yes - GASTROINTESTINAL Hx Gastrointestinal Disorders: No - GENITOURINARY/GYNECOLOGICAL Hx Genitourinary Disorders: No - PSYCHIATRIC Hx Psychophysiologic Disorder: No Hx Substance Use: No - SURGICAL HISTORY Hx Cholecystectomy: Yes - ANESTHESIA Hx Anesthesia Reactions: No Hx Malignant Hyperthermia: No Meds Allergies/Adverse Reactions: Allergies Allergy/AdvReac Type Severity Reaction Status Date / Time No Known Allergies Allergy Verified 10/31/17 18:16 Physical Exam - Constitutional Appears: No Acute Distress - Head Exam Head Exam: ATRAUMATIC, NORMAL INSPECTION, NORMOCEPHALIC - Eye Exam Eye Exam: Normal appearance, PERRL Pupil Exam: NORMAL ACCOMODATION - ENT Exam ENT Exam: Mucous Membranes Moist - Neck Exam Neck exam: Positive for: Normal Inspection Additional comments: R-sided scar noted - Respiratory Exam Respiratory Exam: Clear to Auscultation Bilateral, NORMAL BREATHING PATTERN. absent: Accessory Muscle Use, Chest Wall Tenderness, Prolonged Expiratory Phase , Rales, Rhonchi, Wheezes, Respiratory Distress, Stridor - Cardiovascular Exam Cardiovascular Exam: REGULAR RHYTHM, RRR, +S1, +S2. absent: Diastolic murmur, Gallop, Rubs, Systolic Murmur - GI/Abdominal Exam GI & Abdominal Exam: Normal Bowel Sounds, Soft. absent: Guarding, Mass, Organomegaly, Rebound, Tenderness - Extremities Exam Extremities exam: Positive for: normal inspection. Negative for: calf tenderness, pedal edema - Neurological Exam Neurological exam: Alert, Oriented x3 Additional comments: Right hand heat treater apprentice 4/5 strength, left side 5/5 strength with no sensory deficit. LE 5/5 strength throughout - Psychiatric Exam Psychiatric exam: Normal Affect, Normal Mood - Skin Skin Exam: Dry, Intact, Normal Color, Warm Additional comments: multiple ecchymoses noted on lower extremities. Family states that she has had these since starting ASA and plavix Results - Vital Signs Recent Vital Signs: Last Vital Signs Temp 98.4 F 10/31/17 22:30 Pulse 75 10/31/17 23:16 Resp 18 10/31/17 22:30 BP 184/84 H 10/31/17 23:16 Pulse Ox 98 10/31/17 18:12 - Labs Result Diagrams: 10/31/17 19:35 10/31/17 19:35 Labs: Laboratory Results - last 24 hr 10/31/17 22:53 Urine Color Yellow Urine Appearance Clear Urine pH 5.5 Ur Specific [place] 1.020 Urine Protein Trace H Urine Glucose (UA) Negative Urine Ketones Trace H Urine Blood Negative Urine Nitrate Negative Urine Bilirubin Negative Urine Urobilinogen 0.2 Ur Leukocyte Esterase Small H Urine RBC 1 - 3 Urine WBC 5 - 10 Ur Epithelial Cells 4 - 5 Urine Bacteria Mod Assessment & Plan - Assessment and Plan (Free Text) Assessment: 71 yo female with PMH of HTN, DM2 who presents to ED with intermittent right upper extremity weakness and pain, scheduled for left CEA in AM. 1. right upper extremity weakness and pain - possibly 2/2 recent r-sided CEA -Pain control -ASA and plavix tonight as per surgery recs -F/u EKG -F/u troponin 2. L-sided ICA stenosis -NPO after midnight -F/u surgery consult and recs 3. FABIO -Baseline Cr of 1.0 -Patient started on NS 125 mL/hr -Continue to monitor 4. Hyperkalemia -Kayexalate 30 mg x1 -F/u K in AM 5. Microcytic anemia -F/u H/H -F/u anemia w/u 6. DM2 -Hold metformin -F/u fingerstick glucose readings -Low dose Humalog ordered 7. HTN -Continue valsartan GI/DVT Prophylaxis: -Protonix and heparin 5000U sc Plan discussed in detail with Dr. Lane <America Lane - Last Filed: 11/01/17 02:34> Results - Vital Signs Recent Vital Signs: Last Vital Signs Temp 98.4 F 10/31/17 22:30 Pulse 75 10/31/17 23:16 Resp 18 10/31/17 22:30 BP 184/84 H 10/31/17 23:16 Pulse Ox 98 10/31/17 18:12 - Labs Result Diagrams: 10/31/17 19:35 10/31/17 19:35 Labs: Laboratory Results - last 24 hr 10/31/17 22:53 Urine Color Yellow Urine Appearance Clear Urine pH 5.5 Ur Specific [place] 1.020 Urine Protein Trace H Urine Glucose (UA) Negative Urine Ketones Trace H Urine Blood Negative Urine Nitrate Negative Urine Bilirubin Negative Urine Urobilinogen 0.2 Ur Leukocyte Esterase Small H Urine RBC 1 - 3 Urine WBC 5 - 10 Ur Epithelial Cells 4 - 5 Urine Bacteria Mod Attending/Attestation - Attestation I have personally seen and examined this patient.: Yes I have fully participated in the care of the patient.: Yes I have reviewed all pertinent clinical information: Yes Notes (Text): 11/01/17 02:32 Patient seen with the resident at the bedside.Case discussed.Agree with documentation and orders placed.
[2017-11-01] MEDS: Pantoprazole 40 mg EC Tab PO SCH ×2 (06:02→07:04)
[2017-11-01] MEDS: Insulin Lispro (humaLOG) LOW Coverage SC SCH ×3 (07:16→22:13)
[2017-11-01 07:19] LABS: BASO # 0.01 K/mm3 (0.0-2.0); BASO % 0.2 % (0.0-3.0); GRAN # 3.81 (1.4-6.5); GRAN % 58.8 % (50.0-68.0); HEMOGLOBIN 10.8 g/dL (12.0-16.0); LYMPH # 2.3 (1.2-3.4); LYMPH % 34.7 % (22.0-35.0); MEAN CELL VOLUME 77.2 fl (80.0-105.0); MEAN CORPUSCULAR HEMOGLOBIN 24.8 pg (25.0-35.0); MEAN CORPUSCULAR HGB CONC 32.1 g/dl (31.0-37.0); MONO # 0.4 (0.1-0.6); MONO % 6.3 % (1.0-6.0); RBC 4.35 10^6/uL (3.5-6.1); RED CELL DISTRIBUTION WIDTH 13.7 % (11.5-14.5); WHITE BLOOD COUNT 6.5 10^3/ul (4.5-11.0)
[2017-11-01 07:30] LABS: IRON 42 ug/dL (45-180)
[2017-11-01 07:44] LABS: TROPONIN I < 0.01 ng/mL
[2017-11-01 07:48] LABS: ALB/GLOB RATIO 1.2 (1.1-1.8); ALBUMIN 4.2 g/dL (3.0-4.8); ALT/SGPT 21 U/L (7-56); AST/SGOT 32 U/L (14-36); BLOOD UREA NITROGEN 35 mg/dL (7-21); CALCIUM 9.4 mg/dL (8.4-10.5); GFR AFRICAN-AMERICAN 53; GFR NON-AFRICAN AMERICAN 44
[2017-11-01 07:55] LABS: % IRON SATURATION 14 % (20-55); TOTAL IRON BINDING CAPACITY 308 ug/dL (265-497)
--- NOTE | 2017-11-01 08:23 | RAD ---
HISTORY: Chest pain COMPARISON: 08/22/2017. FINDINGS: LUNGS: The lungs are clear. PLEURA: No significant pleural effusion identified, no pneumothorax apparent. CARDIOVASCULAR: The heart is normal in size. OSSEOUS STRUCTURES: No significant abnormalities. VISUALIZED UPPER ABDOMEN: Normal. OTHER FINDINGS: None. IMPRESSION: No active pulmonary disease.
[2017-11-01] MEDS: Multivitamin Vitamin B Complex (Nephro-Vite) Tab PO SCH (09:15)
--- NOTE | 2017-11-01 09:52 | CARD ---
APPROVED REPORT EKG Measurement Heart [id number] MD [id number] <Conclusion> Normal sinus rhythm Normal ECG No change
[2017-11-01] MEDS ORDERED: Midazolam 2 MG/2 ML VIAL ONE (09:58)
[2017-11-01] MEDS ORDERED: Propofol 10 mg/ml Inj (20 ML) ONE ×3 (09:58→14:00)
[2017-11-01] MEDS ORDERED: Rocuronium 10 mg/ml (5 ml) ONE (09:59)
[2017-11-01] MEDS ORDERED: Enoxaparin 40 mg Syringe SC SCH (10:00)
[2017-11-01] MEDS ORDERED: Vancomycin 1 g Inj ONE (10:19)
[2017-11-01] MEDS ORDERED: Lidocaine 1% Inj (20ml) ONE ×2 (10:19→11:53)
[2017-11-01] MEDS ORDERED: Vancomycin 1gm in NS 250ml IVPB ONE (11:25)
[2017-11-01] MEDS ORDERED: Lidocaine 1% Inj (20ml) IJ ONE ×2 (11:54)
[2017-11-01] MEDS ORDERED: Desflurane Inhalation Anesthetic Liq (240 ml) ONE (12:55)
[2017-11-01 13:12] LABS: FERRITIN 21.6 ng/mL
[2017-11-01] MEDS ORDERED: Neostigmine Methylsulfate 3mg/3ml Syringe IV ONE (13:33)
[2017-11-01] MEDS ORDERED: Liquid Adhesive TOP ONE (14:19)
--- NOTE | 2017-11-01 14:41 | PCM.SURG1 ---
Surgeon's Initial Post Op Note - Surgeon's Notes Surgeon: Dr. Wilcox Associate Account Executive: Rigo PGY2, James PGY1 Type of Anesthesia: General Endo Anesthesia Administered By: Dr. Cruz/Dr. Monk Pre-Operative Diagnosis: L ICA stenosis Operative Findings: left carotid stenosis, plaque Post-Operative Diagnosis: L ICA stenosis Operation Performed: Left carotid endarterectomy Specimen/Specimens Removed: Arthrosclerotic plaque, Lymph node Estimated Blood Loss: EBL {In ML}: 100 Blood Products Given: N/A Drains Used: No Drains Post-Op Condition: Fair Date of Surgery/Procedure: 11/01/17 Time of Surgery/Procedure: 14:40
[2017-11-01] MEDS ORDERED: Nicardipine 20 MG/200 ML 20 MG/200 ML BAG IV SCH (14:45)
[2017-11-01] MEDS ORDERED: Lactated Ringer's 1,000 ML IV SCH (14:45)
[2017-11-01] MEDS ORDERED: HYDROmorphone 0.5 mg/0.5 ml ISec IVP PRN (14:47)
[2017-11-01] MEDS ORDERED: Nitroglycerin 2% Ointment Foilpak UD TOP PRN (15:15)
[2017-11-01] MEDS ORDERED: Nitroglycerin 2% Ointment Foilpak UD TOP SCH (15:15)
[2017-11-01] MEDS ORDERED: Sodium Chloride 0.9% 1,000 ML IV STA (15:17)
--- NOTE | 2017-11-01 15:25 | CP.PCM.PN ---
Addendum entered and electronically signed by Brandt Hernandez DO 11/01/17 17: 07: Original Note: <Brandt Hernandez - Last Filed: 11/01/17 17:00> Subjective - Date & Time of Evaluation Date of Evaluation: 11/01/17 Time of Evaluation: 15:21 - Subjective Subjective: This is a 72 year old female who was seen at bedside this morning. Translation was provided by Jose Epperson #[id number]. Patient denies any complaints. Patient agrees and understands that she has surgery (Left CEA) scheduled later in AM. Patient says the pain medication helped right UE pain. Patient denies dizziness, nausea , blurry vision. Patient admits to mild headache. Objective - Vital Signs/Intake and Output Vital Signs (last 24 hours): Temp Pulse Resp BP Pulse Ox 98.3 F 70 20 186/90 H 97 11/01/17 09:50 11/01/17 09:50 11/01/17 09:50 11/01/17 09:50 11/01/17 09:50 Intake and Output: 11/01/17 11/01/17 06:59 18:59 Intake Total 1100 0 Output Total 1 Balance 1100 -1 - Medications Medications: Current Medications Acetaminophen (Tylenol 325mg Tab) 650 mg PO Q6H PRN PRN Reason: Pain, moderate (4-7) Allopurinol (Zyloprim) 100 mg PO DAILY [facility] Last Admin: 11/01/17 09:15 Dose: 100 mg Aspirin (Ecotrin) 81 mg PO DAILY [facility] Atenolol (Tenormin) 25 mg PO DAILY [facility] Last Admin: 11/01/17 09:15 Dose: 25 mg Atorvastatin Calcium (Lipitor) 40 mg PO DIN [facility] Ergocalciferol (Drisdol 50,000 Intl Units Cap) 1 cap PO Q7D [facility] Last Admin: 10/31/17 23:16 Dose: 1 cap Fentanyl (Fentanyl) 25 mcg IV Q5M PRN PRN Reason: Pain, moderate (4-7) Ferrous Sulfate (Feosol) 324 mg PO BID [facility] Last Admin: 11/01/17 09:15 Dose: 324 mg Hydromorphone HCl (Dilaudid) 0.5 mg IVP Q3H PRN PRN Reason: Pain, severe (8-10) Sodium Chloride (Sodium Chloride 0.9%) 1,000 mls @ 999 mls/hr IV .Q1H1M STA Stop: 11/01/17 16:17 Lactated Ringer's (Lactated Ringer's) 1,000 mls @ 100 mls/hr IV .Q10H [facility] Insulin Human Lispro (Humalog Low) 0 units SC ACHS [facility] PRN Reason: Protocol Last Admin: 11/01/17 07:16 Dose: Not Given Losartan Potassium (Cozaar) 50 mg PO DAILY [facility] Last Admin: 11/01/17 09:15 Dose: 50 mg Metoclopramide HCl (Reglan) 10 mg IV ONCE PRN PRN Reason: Nausea/Vomiting Nitroglycerin (Nitro-Bid 2% Oint) 1 ea TOP Q6H PRN PRN Reason: Systolic Blood Pressure Ondansetron HCl (Zofran Inj) 4 mg IVP Q6H PRN PRN Reason: Nausea/Vomiting Pantoprazole Sodium (Protonix Ec Tab) 40 mg PO 0600 [facility] Last Admin: 11/01/17 07:04 Dose: 40 mg Vitamin B Complex/Vit C/Folic Acid (Nephro-Vargas) 1 tab PO DAILY [facility] Last Admin: 11/01/17 09:15 Dose: 1 tab - Labs Labs: 11/01/17 07:00 11/01/17 07:00 PT 11.1 SECONDS (9.4-12.5) 10/31/17 19:35 INR 0.97 (0.93-1.08) 10/31/17 19:35 APTT 29.2 Seconds (25.1-36.5) 10/31/17 19:35 - Constitutional Appears: Well, No Acute Distress - Head Exam Head Exam: ATRAUMATIC, NORMAL INSPECTION, NORMOCEPHALIC - Eye Exam Eye Exam: Conjunctival injection, EOMI, Normal appearance Pupil Exam: NORMAL ACCOMODATION - ENT Exam ENT Exam: Mucous Membranes Moist, Normal Exam - Neck Exam Neck Exam: Full ROM Additional comments: Carotid bruit appreciated on the left. - Respiratory Exam Respiratory Exam: Clear to Ausculation Bilateral, NORMAL BREATHING PATTERN. absent: Accessory Muscle Use, Chest Wall Tenderness, Decreased Breath Sounds, Rales, Rhonchi, Wheezes, Respiratory Distress - Cardiovascular Exam Cardiovascular Exam: REGULAR RHYTHM, RRR. absent: Gallop, JVD, Rubs, Murmur - GI/Abdominal Exam GI & Abdominal Exam: Soft, Normal Bowel Sounds. absent: Distended, Firm, Tenderness - Extremities Exam Extremities Exam: absent: Tenderness - Back Exam Back Exam: Full ROM - Neurological Exam Neurological Exam: Alert, Awake, CN II-XII Intact, Oriented x3 - Psychiatric Exam Psychiatric exam: Normal Affect, Normal Mood - Skin Skin Exam: Dry, Intact, Normal Color, Warm Assessment and Plan - Assessment and Plan (Free Text) Assessment: 71 yo female with PMH of HTN, DM2 who presents to ED with bilateral carotid artery stenosis S/P RIGHT CEA in July presents with intermittent right upper extremity weakness and pain. Status-post op day 0 for L CEA with Dr. Wilcox. 1. Right upper extremity weakness and pain - possibly 2/2 recent r-sided CEA - Pain control with Tylenol, fentanyl, dilaudid, nitro PRN - NPO, pending swallow-eval - Previous 08/19/17 carotid duplex showed: 70-80% stenosis of L ICA - ASA and plavix tonight as per surgery recs - Follow up surgery consult and rec - EKG: NSR 88bpm - Trop neg x 1 2. L-sided ICA stenosis - Patient is status post L carotid endarterectomy with Dr. Wilcox - F/u surgery consult and recs - Monitor with neuro checks 3. FABIO - Resolved - IVF - Continue to monitor 4. Hyperkalemia - resolved - On repeat K+ 4.2 - Continue to monitor 5. Microcytic anemia - H/H: Iron 42, TIBC 308, % sat 14, Ferritin 21.6 - Continue home-med Ferrous sulfate 324mg PO BID - Recommend out-patient follow-up with PMD - Stool occult pending - Obtain history of colonoscopy 6. DM2 - Hold metformin - F/u fingerstick glucose readings - Low dose Humalog ordered 7. HTN - Continue valsartan and atenolol - Monitor vitals GI/DVT Prophylaxis: - Protonix and heparin 5000U sc Dispo: Patient is in the ICU status post op day 0 for L CEA, is in the ICU for close monitor of neuro function, discharge to home pending discharge from surgery and once medically cleared. Case seen and reviewed with Dr. Ramona Swan D.O. Brandt Hernandez D.O [id number] <Swan,Ramona R - Last Filed: 11/02/17 07:48> Objective - Vital Signs/Intake and Output Vital Signs (last 24 hours): Temp Pulse Resp BP Pulse Ox 97.4 F L 72 15 140/61 100 11/01/17 16:53 11/02/17 05:20 11/02/17 05:20 11/02/17 05:00 11/02/17 05:20 Intake and Output: 11/02/17 11/02/17 06:59 18:59 Intake Total 200 Output Total 600 Balance -400 - Medications Medications: Current Medications Acetaminophen (Tylenol 325mg Tab) 650 mg PO Q6H PRN PRN Reason: Pain, moderate (4-7) Allopurinol (Zyloprim) 100 mg PO DAILY [facility] Last Admin: 11/01/17 09:15 Dose: 100 mg Aspirin (Ecotrin) 81 mg PO DAILY [facility] Atenolol (Tenormin) 25 mg PO DAILY [facility] Last Admin: 11/01/17 09:15 Dose: 25 mg Atorvastatin Calcium (Lipitor) 40 mg PO DIN [facility] Ergocalciferol (Drisdol 50,000 Intl Units Cap) 1 cap PO Q7D [facility] Last Admin: 10/31/17 23:16 Dose: 1 cap Fentanyl (Fentanyl) 25 mcg IV Q5M PRN PRN Reason: Pain, moderate (4-7) Ferrous Sulfate (Feosol) 324 mg PO BID [facility] Last Admin: 11/01/17 09:15 Dose: 324 mg Hydromorphone HCl (Dilaudid) 0.5 mg IVP Q3H PRN PRN Reason: Pain, severe (8-10) Lactated Ringer's (Lactated Ringer's) 1,000 mls @ 100 mls/hr IV .Q10H [facility] Last Admin: 11/02/17 01:04 Dose: 100 mls/hr Insulin Human Lispro (Humalog Low) 0 units SC ACHS [facility] PRN Reason: Protocol Last Admin: 11/01/17 22:13 Dose: Not Given Lisinopril (Zestril) 40 mg PO DAILY [facility] Last Admin: 11/01/17 18:45 Dose: 40 mg Losartan Potassium (Cozaar) 100 mg PO DAILY [facility] Nitroglycerin (Nitro-Bid 2% Oint) 1 ea TOP Q6H PRN PRN Reason: Systolic Blood Pressure Ondansetron HCl (Zofran Inj) 4 mg IVP Q6H PRN PRN Reason: Nausea/Vomiting Pantoprazole Sodium (Protonix Ec Tab) 40 mg PO 0600 [facility] Last Admin: 11/02/17 06:15 Dose: 40 mg Vitamin B Complex/Vit C/Folic Acid (Nephro-Vargas) 1 tab PO DAILY [facility] Last Admin: 11/01/17 09:15 Dose: 1 tab - Labs Labs: 11/02/17 05:05 11/02/17 05:05 PT 11.1 SECONDS (9.4-12.5) 10/31/17 19:35 INR 0.97 (0.93-1.08) 10/31/17 19:35 APTT 29.2 Seconds (25.1-36.5) 10/31/17 19:35 Attending/Attestation - Attestation I have personally seen and examined this patient.: Yes I have fully participated in the care of the patient.: Yes I have reviewed all pertinent clinical information, including history, physical exam and plan: Yes Notes (Text): 11/02/17 07:34 Patient seen and examined by me at 4:15 PM 11/01/17 with residents. Case including physical assessment and plan discussed with resident. Agree with above with following changes/additions. Patient seen in the PACU. Patient is status post left carotid endarterectomy. Patient states that she is feeling tired and sleepy. She is unable to describe whether she has right upper extremity weakness versus pain. She denies any nausea, vomiting or abdominal pain. No chest pain or shortness of breath. No headaches or dizziness. No dysuria. Physical exam: Gen: Patient is lethargic status post anesthesia and lying in bed in no acute distress HEENT: Normocephalic atraumatic, extraocular muscles intact, pupils equal reactive, oropharynx is pink and moist, no pharyngeal erythema or exudate appreciated, dressing left side of neck clean, dry, and intact Cardiovascular: Normal rhythm, normal S1-S2, no murmurs rubs or gallops appreciated Pulmonary: Normal respiratory effort. No rhonchi, rales, or wheezing appreciated Gastrointestinal: Soft, nontender, nondistended, positive bowel sounds all 4 quadrants, no guarding Musculoskeletal: Moves all extremities, no calf tenderness. Central nervous system: Lethargic but arousable, secondary to anesthesia Dermatologic: Skin warm and dry Assessment and plan: Patient is a 72-year-old female with history of bilateral carotid stenosis status post carotid endarterectomy on the right. Patient is now status post left carotid endarterectomy, postop day #0. Continue with aspirin. Continue pain management. Unclear if patient is having right upper extremity weakness versus pain. We will reassess when patient is less lethargic. Patient may need imaging. Hyperkalemia and acute kidney injury resolved. Downtrending H&H likely secondary to surgery acute blood loss. We'll continue to monitor for now. Continue current medications. Case was discussed in detail with the patient and patient's grandson at bedside regarding current diagnosis and treatment plan.
[2017-11-01 15:42] LABS: VENOUS BLOOD GAS BASE EXCESS -6.2 mmol/L (0.0-2.0); VENOUS BLOOD GAS PO2 164 mm/Hg (30-55); VENOUS BLOOD PH 7.31 (7.32-7.43)
[2017-11-01 15:54] LABS: BASO # 0.01 K/mm3 (0.0-2.0); BASO % 0.1 % (0.0-3.0); GRAN # 7.14 (1.4-6.5); GRAN % 76.6 % (50.0-68.0); HEMOGLOBIN 8.3 g/dL (12.0-16.0); LYMPH # 1.6 (1.2-3.4); LYMPH % 17.1 % (22.0-35.0); MEAN CELL VOLUME 77.9 fl (80.0-105.0); MEAN CORPUSCULAR HEMOGLOBIN 24.8 pg (25.0-35.0); MEAN CORPUSCULAR HGB CONC 31.8 g/dl (31.0-37.0); MEAN PLATELET VOLUME 10.9 fl (7.0-11.0); MONO # 0.6 (0.1-0.6); MONO % 6.2 % (1.0-6.0); RBC 3.35 10^6/uL (3.5-6.1); RED CELL DISTRIBUTION WIDTH 13.8 % (11.5-14.5); WHITE BLOOD COUNT 9.3 10^3/ul (4.5-11.0)
[2017-11-01 15:55] LABS: ALB/GLOB RATIO 1.1 (1.1-1.8); ALBUMIN 2.8 g/dL (3.0-4.8); ALT/SGPT 19 U/L (7-56); AST/SGOT 29 U/L (14-36); BLOOD UREA NITROGEN 27 mg/dL (7-21); CALCIUM 8.1 mg/dL (8.4-10.5); GFR AFRICAN-AMERICAN > 60; GFR NON-AFRICAN AMERICAN > 60
[2017-11-01 16:03] LABS: TROPONIN I < 0.01 ng/mL
[2017-11-01] MEDS: Lactated Ringer's 1,000 ML IV SCH (17:55)
[2017-11-02] MEDS: Lactated Ringer's 1,000 ML IV SCH ×2 (01:04→11:45)
--- NOTE | 2017-11-02 01:34 | CON ---
DATE: 11/01/2017 HISTORY OF PRESENT ILLNESS: The patient is a 72-year-old lady with history of multiple cardiovascular comorbidities including hypertension, diabetes, peripheral vascular disease, status post CEA on her right side 2 years ago; who presented this time with right upper extremity weakness and pain that has been worsening over the course of 2 months. Patient was scheduled for left carotid endarterectomy which she has undergone today. According to anesthesiologist's sign out, patient tolerated procedure well. No fever, no chills, no sweats. No nausea, no vomiting, no diarrhea. PAST MEDICAL HISTORY: Hypertension, diabetes mellitus type 2, gout, status post cholecystectomy, CEA on the right. PAST SURGICAL HISTORY: Cholecystectomy and CEA on the right. ALLERGIES: NKDA. SOCIAL HISTORY: No alcohol or illicit drug abuse. No tobacco smoking. FAMILY HISTORY: Noncontributory. REVIEW OF SYSTEMS: Review of 12-organ system other than mentioned in history of present illness is negative. MEDICATIONS: Tylenol p.r.n., allopurinol, aspirin, atenolol, Lipitor, Plavix, Feosol, Dilaudid p.r.n., Lactated Ringer's at 100 mL per hour, Cozaar currently on hold, nitroglycerin p.r.n., Zofran p.r.n., Protonix. One bolus of normal saline was given. Patient was on Cardene drip preoperatively; however, it was stopped now. PHYSICAL EXAMINATION: VITAL SIGNS: Blood pressure 130/60, heart rate 76, oxygen saturation 98% on nasal cannula, respiratory rate 20. HEENT: Head and neck atraumatic; however, status post left CEA. No bleeding. No expanding hematoma present. LUNGS: Clear to auscultation bilaterally. HEART: Regular rate and rhythm. S1, S2 normal. ABDOMEN: Soft, nontender, nondistended. MUSCULOSKELETAL: No C/C/E. NEUROLOGIC: Patient moves all extremities spontaneously and on command. Right motor strength is 5/5 in both upper and lower extremity. Left motor strength on both upper and lower extremity, 4/5. No apparent cranial nerves abnormalities II through XII. SKIN: Moist. PSYCHIATRIC: Patient is alert, awake and oriented x3. LABORATORY DATA: Sodium 145, potassium 4.6, chloride 113, carbon dioxide 19, BUN 35, creatinine 1.2, glucose 117. AST 32, ALT 21. Troponin x2 negative. Glucose 130. INR 0.97. WBC 6.5, hemoglobin 10.8, platelet count 353. ASSESSMENT AND PLAN: This is a 72-year-old lady status post right carotid endarterectomy 2 years ago and left carotid endarterectomy currently. Patient tolerated procedure well. The patient was extubated during the procedure. Procedure lasted about 1 hour. Urine output was not measured during the procedures as the patient did not have Negro catheter placed. Blood loss was about 100 mL. Patient's vascular exam showed good dopplerable pulses on both left and right DPA and DIALS INSPECTOR. At present time, we will maintain blood pressure closer to [address] Wilcox's request. We will follow up postop labs and EKG. We will proceed with early mobilization, serial vascular and neuro exams. At present time, there is no signs of thromboembolic complication after the procedure. Once cleared by Surgery, early mobilization, chest PT, incentive spirometry, pulmonary toilet, deep venous thrombosis and gastrointestinal prophylaxis will be recommended. Physical therapy. Patient will be going to intensive care unit for further management and monitoring. ccm time 40 min Erickson Treviño MD MTDFelipe
[2017-11-02 05:46] LABS: BASO # 0.01 K/mm3 (0.0-2.0); BASO % 0.1 % (0.0-3.0); GRAN # 5.35 (1.4-6.5); GRAN % 67.9 % (50.0-68.0); HEMOGLOBIN 8.7 g/dL (12.0-16.0); LYMPH # 1.9 (1.2-3.4); LYMPH % 23.6 % (22.0-35.0); MEAN CELL VOLUME 78.4 fl (80.0-105.0); MEAN CORPUSCULAR HGB CONC 31.9 g/dl (31.0-37.0); MEAN PLATELET VOLUME 10.5 fl (7.0-11.0); MONO # 0.7 (0.1-0.6); MONO % 8.4 % (1.0-6.0); RBC 3.48 10^6/uL (3.5-6.1); RED CELL DISTRIBUTION WIDTH 13.9 % (11.5-14.5); WHITE BLOOD COUNT 7.9 10^3/ul (4.5-11.0)
[2017-11-02 06:11] LABS: ALB/GLOB RATIO 1.2 (1.1-1.8); ALBUMIN 3.3 g/dL (3.0-4.8); ALT/SGPT 27 U/L (7-56); AST/SGOT 19 U/L (14-36); BLOOD UREA NITROGEN 20 mg/dL (7-21); CALCIUM 8.7 mg/dL (8.4-10.5); GFR AFRICAN-AMERICAN > 60; GFR NON-AFRICAN AMERICAN 54
[2017-11-02] MEDS: Pantoprazole 40 mg EC Tab PO SCH (06:15)
--- NOTE | 2017-11-02 07:48 | CARD ---
APPROVED REPORT EKG Measurement Heart [id number] <Conclusion> Normal sinus rhythm ST abnormality Abnormal ECG
[2017-11-02] MEDS ORDERED: Albuterol-Ipratrop 3 mg / 0.5 (3 ml) UD IH ONE (07:57)
--- NOTE | 2017-11-02 08:42 | CP.PCM.PN ---
Subjective - Date & Time of Evaluation Date of Evaluation: 11/02/17 Time of Evaluation: 07:00 - Subjective Subjective: Vascular Surgery Note for Dr. Wilcox Patient seen and examined at bedside. No acute event overnight. Patient is s/p Left carotid endarterectomy POD#1. Patient is complaining of phlegm in her throat and cough. Her BP has been controlled. She is asking for regular food. Patient has no other complaints at this time. She reports normal voice, tone, pitch and phonation. She is swallowing and speaking without difficulty. Objective - Vital Signs/Intake and Output Vital Signs (last 24 hours): Temp Pulse Resp BP Pulse Ox 98.9 F 68 12 133/69 90 L 11/02/17 04:00 11/02/17 08:10 11/02/17 08:10 11/02/17 08:09 11/02/17 08:10 Intake and Output: 11/02/17 11/02/17 06:59 18:59 Intake Total 1400 Output Total 1350 Balance 50 - Medications Medications: Current Medications Acetaminophen (Tylenol 325mg Tab) 650 mg PO Q6H PRN PRN Reason: Pain, moderate (4-7) Acetylcysteine (Acetylcysteine 20%) 4 ml IH [id number] PRN PRN Reason: Cough and congestion Albuterol/Ipratropium (Duoneb 3 Mg/0.5 Mg (3 Ml) Ud) 3 ml IH [id number] PRN PRN Reason: Shortness of Breath Allopurinol (Zyloprim) [address] [facility] Last Admin: 11/01/17 09:15 Dose: 100 mg Aspirin (Ecotrin) [address] [facility] Atenolol (Tenormin) [address] [facility] Last Admin: 11/01/17 09:15 Dose: 25 mg Atorvastatin Calcium (Lipitor) [address] [facility] Ergocalciferol (Drisdol 50,000 Intl Units Cap) [address] [facility] Last Admin: 10/31/17 23:16 Dose: 1 cap Fentanyl (Fentanyl) 25 mcg IV Q5M PRN PRN Reason: Pain, moderate (4-7) Ferrous Sulfate (Feosol) [address] [facility] Last Admin: 11/01/17 09:15 Dose: 324 mg Hydromorphone HCl (Dilaudid) 0.5 mg IVP Q3H PRN PRN Reason: Pain, severe (8-10) Lactated Ringer's (Lactated Ringer's) 1,000 mls @ 100 mls/hr IV .Q10H [facility] Last Admin: 11/02/17 01:04 Dose: 100 mls/hr Insulin Human Lispro (Humalog Low) 0 units SC ACHS [facility] PRN Reason: Protocol Last Admin: 11/01/17 22:13 Dose: Not Given Lisinopril (Zestril) [address] [facility] Last Admin: 11/01/17 18:45 Dose: 40 mg Losartan Potassium (Cozaar) [address] [facility] Nitroglycerin (Nitro-Bid 2% Oint) 1 ea TOP Q6H PRN PRN Reason: Systolic Blood Pressure Ondansetron HCl (Zofran Inj) 4 mg IVP Q6H PRN PRN Reason: Nausea/Vomiting Pantoprazole Sodium (Protonix Ec Tab) [address] [facility] Last Admin: 11/02/17 06:15 Dose: 40 mg Vitamin B Complex/Vit C/Folic Acid (Nephro-Vargas) [address] [facility] Last Admin: 11/01/17 09:15 Dose: 1 tab - Labs Labs: 11/02/17 05:05 11/02/17 05:05 PT 11.1 SECONDS (9.4-12.5) 10/31/17 19:35 INR 0.97 (0.93-1.08) 10/31/17 19:35 APTT 29.2 Seconds (25.1-36.5) 10/31/17 19:35 - Constitutional Appears: No Acute Distress - Head Exam Head Exam: ATRAUMATIC, NORMOCEPHALIC - Eye Exam Eye Exam: Normal appearance - ENT Exam ENT Exam: Mucous Membranes Moist - Neck Exam Additional comments: Surgical dressing with some saturation but dry and intact - Respiratory Exam Respiratory Exam: NORMAL BREATHING PATTERN - Cardiovascular Exam Cardiovascular Exam: REGULAR RHYTHM - GI/Abdominal Exam GI & Abdominal Exam: Soft, Normal Bowel Sounds. absent: Tenderness - Extremities Exam Extremities Exam: Normal Capillary Refill - Back Exam Back Exam: absent: CVA tenderness (L), CVA tenderness (R) - Neurological Exam Neurological Exam: Alert, Awake, CN II-XII Intact, Oriented x3 - Psychiatric Exam Psychiatric exam: Normal Affect, Normal Mood - Skin Skin Exam: Dry, Intact, Normal Color, Warm Assessment and Plan - Assessment and Plan (Free Text) Assessment: 72 F s/p Left carotid endarterectomy POD#1 Plan: -HHD/CCD -Transfer to med/surg -Discontinued plavix, only ASA -Continue antihypertensives -Continue DM medications -Mucomyst PRN for phlegm -Monitor BP -Montior for bleeding -Further recommendations as per Dr. Brenden Sierra PGY2
[2017-11-02] MEDS: Insulin Lispro (humaLOG) LOW Coverage SC SCH ×2 (08:43→21:48)
--- NOTE | 2017-11-02 08:52 | CP.PCM.PN ---
<Brandt Hernandez - Last Filed: 11/02/17 16:58> Subjective - Date & Time of Evaluation Date of Evaluation: 11/02/17 Time of Evaluation: 08:46 - Subjective Subjective: Brandt Hernandez D.O. PGY-1 -- [employer] -- Medicine Progress Note Patient was seen at bedside this morning, and is status post-op Day 1 for right CEA with Dr. Wilcox. Translation was provided by Turkmen-speaking MD. Patient is sitting up in bed. No acute events over night. Patient admits to localized right upper extremity pain. She says it has felt stiff since her left-sided CEA performed on 08/23/17, but has been getting worse in the last 2 months. Patient admits to left neck pain near incision, and swelling in her right neck region. Patient denies nausea, vomiting, and/or dizziness. Patient denies numbness and/ or tingling in her upper and/or lower extremities. Objective - Vital Signs/Intake and Output Vital Signs (last 24 hours): Temp Pulse Resp BP Pulse Ox 98.9 F 68 12 133/69 90 L 11/02/17 04:00 11/02/17 08:10 11/02/17 08:10 11/02/17 08:09 11/02/17 08:10 Intake and Output: 11/02/17 11/02/17 06:59 18:59 Intake Total 1400 Output Total 1350 Balance 50 - Medications Medications: Current Medications Acetaminophen (Tylenol 325mg Tab) 650 mg PO Q6H PRN PRN Reason: Pain, moderate (4-7) Acetylcysteine (Acetylcysteine 20%) 4 ml IH [id number] PRN PRN Reason: Cough and congestion Albuterol/Ipratropium (Duoneb 3 Mg/0.5 Mg (3 Ml) Ud) 3 ml IH [id number] PRN PRN Reason: Shortness of Breath Allopurinol (Zyloprim) 100 mg PO DAILY [facility] Last Admin: 11/01/17 09:15 Dose: 100 mg Aspirin (Ecotrin) 81 mg PO DAILY [facility] Atenolol (Tenormin) 25 mg PO DAILY [facility] Last Admin: 11/01/17 09:15 Dose: 25 mg Atorvastatin Calcium (Lipitor) 40 mg PO DIN [facility] Ergocalciferol (Drisdol 50,000 Intl Units Cap) 1 cap PO Q7D [facility] Last Admin: 10/31/17 23:16 Dose: 1 cap Fentanyl (Fentanyl) 25 mcg IV Q5M PRN PRN Reason: Pain, moderate (4-7) Ferrous Sulfate (Feosol) 324 mg PO BID [facility] Last Admin: 11/01/17 09:15 Dose: 324 mg Hydromorphone HCl (Dilaudid) 0.5 mg IVP Q3H PRN PRN Reason: Pain, severe (8-10) Lactated Ringer's (Lactated Ringer's) 1,000 mls @ 100 mls/hr IV .Q10H [facility] Last Admin: 11/02/17 01:04 Dose: 100 mls/hr Insulin Human Lispro (Humalog Low) 0 units SC ACHS [facility] PRN Reason: Protocol Last Admin: 11/01/17 22:13 Dose: Not Given Lisinopril (Zestril) 40 mg PO DAILY [facility] Last Admin: 11/01/17 18:45 Dose: 40 mg Losartan Potassium (Cozaar) 100 mg PO DAILY [facility] Nitroglycerin (Nitro-Bid 2% Oint) 1 ea TOP Q6H PRN PRN Reason: Systolic Blood Pressure Ondansetron HCl (Zofran Inj) 4 mg IVP Q6H PRN PRN Reason: Nausea/Vomiting Pantoprazole Sodium (Protonix Ec Tab) 40 mg PO 0600 [facility] Last Admin: 11/02/17 06:15 Dose: 40 mg Vitamin B Complex/Vit C/Folic Acid (Nephro-Vargas) 1 tab PO DAILY [facility] Last Admin: 11/01/17 09:15 Dose: 1 tab - Labs Labs: 11/02/17 05:05 11/02/17 05:05 PT 11.1 SECONDS (9.4-12.5) 10/31/17 19:35 INR 0.97 (0.93-1.08) 10/31/17 19:35 APTT 29.2 Seconds (25.1-36.5) 10/31/17 19:35 - Constitutional Appears: Other (Patient is sitting up in bed, appears non-toxic, with A-line in place. ) - Head Exam Head Exam: ATRAUMATIC, NORMAL INSPECTION, NORMOCEPHALIC - Eye Exam Eye Exam: Normal appearance. absent: Conjunctival injection - ENT Exam ENT Exam: Mucous Membranes Moist, Normal Exam - Neck Exam Neck Exam: Tenderness Additional comments: Patient's incision is covered by wound dressing that appears to be saturated with serosanguineous discharge. On inspection left neck with bruises near site of incision. - Respiratory Exam Respiratory Exam: NORMAL BREATHING PATTERN. absent: Accessory Muscle Use, Rales , Respiratory Distress - Cardiovascular Exam Cardiovascular Exam: REGULAR RHYTHM. absent: Bradycardia, Tachycardia - GI/Abdominal Exam GI & Abdominal Exam: Soft, Normal Bowel Sounds. absent: Distended, Guarding, Tenderness, Organomegaly - Extremities Exam Extremities Exam: absent: Pedal Edema, Tenderness Additional comments: right shoulder is tender to palpation. decreased active range of motion of right shoulder appreciated on inspection. - Back Exam Back Exam: absent: tenderness - Neurological Exam Neurological Exam: Alert, Awake, CN II-XII Intact - Psychiatric Exam Psychiatric exam: Normal Affect, Normal Mood - Skin Skin Exam: Dry, Intact, Normal Color, Warm Additional comments: Patient's incision is covered by wound dressing that appears to be saturated with serosanguineous discharge. On inspection left neck with bruises near site of incision. Assessment and Plan - Assessment and Plan (Free Text) Assessment: This is a 71 year old female with PMH of HTN, DMT2, and bilateral carotid artery stenosis of 70-80% S/P RIGHT CEA in July who was admitted for left carotid stenosis, and is status-post op day 1 for L CEA with Dr. Wilcox. Patient also complained of right upper extremity pain and was diagnosed with anterior- inferior dislocation of right shoulder. 1. Acute anterior-inferior dislocation of right shoulder - X-ray of right shoulder confirms anterior-inferior dislocation of right shoulder without fracture - PT eval and recommendations pending - pain control with Tylenol, fentanyl, dilaudid, nitro PRN - follow-up CT right shoulder - arm sling ordered - Ortho consulted 2. L-sided ICA stenosis - patient is status post L carotid endarterectomy with Dr. Wilcox POD1 - previous 08/19/17 carotid duplex showed: 70-80% stenosis of L ICA - vascular surgery consulted, f/u surgery consult and recs 3. FABIO - resolved - IVF - continue to monitor 4. Hyperkalemia, resolved - continue to monitor 5. Iron deficiency anemia - H/H: Iron 42, TIBC 308, % sat 14, Ferritin 21.6 - continue home-med Ferrous sulfate 324mg PO BID - patient reports previous colonoscopy 2-3 years ago was normal 6. DM2 - hold metformin - accu-check - ISS, low 7. HTN - continue atenolol - Monitor vitals 8. Hx Hyperuricemia - cont Allopurinol GI/DVT Prophylaxis: - Protonix and heparin 5000U sc Case seen and reviewed with Herminio Adams Neev D.O PYG1 <Ramona Swan R - Last Filed: 11/03/17 08:10> Objective - Vital Signs/Intake and Output Vital Signs (last 24 hours): Temp Pulse Resp BP Pulse Ox 98.3 F 87 21 141/70 96 11/03/17 06:00 11/03/17 06:00 11/03/17 06:00 11/03/17 06:00 11/03/17 06:00 Intake and Output: 11/03/17 11/03/17 06:59 18:59 Intake Total 240 Balance 240 - Medications Medications: Current Medications Acetaminophen (Tylenol 325mg Tab) 650 mg PO Q6H PRN PRN Reason: Pain, moderate (4-7) Acetylcysteine (Acetylcysteine 20%) 4 ml IH [id number] PRN PRN Reason: Cough and congestion Last Admin: 11/03/17 05:50 Dose: 4 ml Albuterol/Ipratropium (Duoneb 3 Mg/0.5 Mg (3 Ml) Ud) 3 ml IH [id number] PRN PRN Reason: Shortness of Breath Last Admin: 11/03/17 05:50 Dose: 3 ml Allopurinol (Zyloprim) 100 mg PO DAILY [facility] Last Admin: 11/02/17 10:02 Dose: 100 mg Aspirin (Ecotrin) 81 mg PO DAILY [facility] Last Admin: 11/02/17 10:01 Dose: 81 mg Atenolol (Tenormin) 25 mg PO DAILY [facility] Last Admin: 11/02/17 10:02 Dose: 25 mg Atorvastatin Calcium (Lipitor) 40 mg PO DIN [facility] Last Admin: 11/02/17 18:46 Dose: 40 mg Benzocaine/Menthol (Cepacol Sore Throat) 1 kush MT Q2H PRN PRN Reason: Sore Throat Last Admin: 11/03/17 04:38 Dose: 1 kush Ergocalciferol (Drisdol 50,000 Intl Units Cap) 1 cap PO Q7D [facility] Last Admin: 10/31/17 23:16 Dose: 1 cap Ferrous Sulfate (Feosol) 324 mg PO BID [facility] Last Admin: 11/02/17 18:47 Dose: 324 mg Hydromorphone HCl (Dilaudid) 0.5 mg IVP Q3H PRN PRN Reason: Pain, severe (8-10) Last Admin: 11/02/17 22:53 Dose: 0.5 mg Lactated Ringer's (Lactated Ringer's) 1,000 mls @ 100 mls/hr IV .Q10H [facility] Last Admin: 11/03/17 01:06 Dose: Not Given Insulin Human Lispro (Humalog Low) 0 units SC ACHS [facility] PRN Reason: Protocol Last Admin: 11/02/17 21:48 Dose: Not Given Lisinopril (Zestril) 40 mg PO DAILY [facility] Last Admin: 11/02/17 10:01 Dose: 40 mg Losartan Potassium (Cozaar) 100 mg PO DAILY [facility] Nitroglycerin (Nitro-Bid 2% Oint) 1 ea TOP Q6H PRN PRN Reason: Systolic Blood Pressure Ondansetron HCl (Zofran Inj) 4 mg IVP Q6H PRN PRN Reason: Nausea/Vomiting Pantoprazole Sodium (Protonix Ec Tab) 40 mg PO 0600 [facility] Last Admin: 11/03/17 06:28 Dose: 40 mg Vitamin B Complex/Vit C/Folic Acid (Nephro-Vargas) 1 tab PO DAILY [facility] Last Admin: 11/02/17 10:01 Dose: 1 tab - Labs Labs: 11/03/17 06:10 11/03/17 06:10 PT 11.1 SECONDS (9.4-12.5) 10/31/17 19:35 INR 0.97 (0.93-1.08) 10/31/17 19:35 APTT 29.2 Seconds (25.1-36.5) 10/31/17 19:35 Attending/Attestation - Attestation I have personally seen and examined this patient.: Yes I have fully participated in the care of the patient.: Yes I have reviewed all pertinent clinical information, including history, physical exam and plan: Yes Notes (Text): Patient seen and examined by me at 12:15 PM 11/02/17 with residents. Case including physical assessment and plan discussed with resident. Agree with above with following changes/additions. Patient is status post left carotid endarterectomy. She states she is feeling okay. Complains of throat discomfort and some difficulty swallowing. She also complains of right shoulder and upper extremity pain and weakness. She states it worsened a few days prior to admission. She denies any nausea, vomiting or abdominal pain. No chest pain or shortness of breath. No headaches or dizziness. No dysuria. Physical exam: Gen: Patient is awake and alert sitting up in bed in no acute distress HEENT: Normocephalic atraumatic, extraocular muscles intact, pupils equal reactive, oropharynx is pink and moist, dressing left side of neck soaked with dry blood. Dressing intact Cardiovascular: Normal rhythm, normal S1-S2, no murmurs rubs or gallops appreciated Pulmonary: Normal respiratory effort. No rhonchi, rales, or wheezing appreciated Gastrointestinal: Soft, nontender, nondistended, positive bowel sounds all 4 quadrants, no guarding Musculoskeletal: Moves all extremities, no calf tenderness. Decreased range of motion at right shoulder Central nervous system: AAO 3 Dermatologic: Skin warm and dry Assessment and plan: Patient is a 72-year-old female with history of bilateral carotid stenosis status post carotid endarterectomy on left postop day #1. Continue with aspirin. Continue pain management. Throat discomfort likely secondary to intubation. Continue with Cepacol as needed. Patient with right shoulder and arm pain and weakness. Positive for decreased range of motion. Right shoulder x-ray ordered which showed right anterior inferior dislocation. Orthopedics consulted. Arm placed in a sling. Will need reduction. Follow-up CAT scan of the right shoulder. Hyperkalemia and acute kidney injury resolved. Continue atenolol for history of hypertension. Continue home iron for anemia. Acute on chronic anemia likely secondary to surgery acute blood loss. H&H stable. Continue current medications. Case was discussed in detail with the patient and patient's daughters at bedside regarding current diagnosis and treatment plan.
[2017-11-02] MEDS: Albuterol-Ipratrop 3 mg / 0.5 (3 ml) UD IH PRN ×3 (09:12→23:21)
--- NOTE | 2017-11-02 09:48 | RAD ---
PROCEDURE: Radiographs of the Right Shoulder HISTORY: R shoulder pain COMPARISON: October 31, 2017 chest x-rays including views of the right shoulder FINDINGS: BONES: No fracture identified. . JOINTS: Anterior inferior dislocation of the humeral head relative to the right glenoid. SOFT TISSUES: Normal. OTHER FINDINGS: None. IMPRESSION: Anterior inferior dislocation right humeral head without evident fracture. This appears to represent an acute finding; it was not seen on the recent chest x-ray October 31, 2017.
[2017-11-02] MEDS: Multivitamin Vitamin B Complex (Nephro-Vite) Tab PO SCH (10:01)
[2017-11-02] MEDS: Benzocaine/Menthol (Cepacol) Lozenge MT PRN ×2 (11:49→14:52)
--- NOTE | 2017-11-02 12:48 | CP.CCUPN ---
<Narciso Stanford - Last Filed: 11/02/17 13:44> CCU Subjective - Physician Review Subjective (Free Text): Narciso Stanford PGY-1 ICU Progress Note for Dr. Treviño Pt seen and evaluated at bedside. Pt is complaining of intermittent nonradiating right shoulder pain, that is worse on active range of motion. Pt also reports an inability to cough up phlegm that is down in her throat. Pt denies fever, chills, chest pain, SOB, abdominal pain, nausea, vomiting. A 12 point ROS was reviewed and is unremarkable except as stated above. CCU Objective - Vital Signs / Intake & Output Vital Signs (Last 4 hours): Vital Signs Pulse Resp BP Pulse Ox 11/02/17 10:05 84 11/02/17 10:02 83 140/64 11/02/17 10:00 75 20 140/64 99 11/02/17 09:53 75 25 H 11/02/17 09:52 80 27 H 11/02/17 09:51 89 11/02/17 09:00 77 18 135/66 67 L 11/02/17 08:55 81 19 11/02/17 08:45 67 17 Intake and Output (Last 8hrs): Intake & Output 11/01/17 11/02/17 11/02/17 22:59 06:59 14:59 Intake Total 200 1200 Output Total 600 750 Balance -400 450 Intake: IV 200 1200 Left Antecubital 200 1200 Output: Urine 600 750 Straight 600 Urine, Voided 750 - Physical Exam Head: Positive for: Atraumatic, Normocephalic Pupils: Positive for: PERRL Extroacular Muscles: Positive for: EOMI Conjunctiva: Positive for: Normal Mouth: Positive for: Moist Mucous Membranes Neck: Positive for: Other (left CEA site is clean dry and intact) Respiratory/Chest: Positive for: Decreased Breath Sounds (on the left), Other ( crackles to the right lower lung thomas). Negative for: Respiratory Distress, Accessory Muscle Use Cardiovascular: Positive for: Regular Rate and Rhythm, Normal S1, S2. Negative for: Murmurs Abdomen: Positive for: Normal Bowel Sounds. Negative for: Tenderness, Distention, Peritoneal Signs Back: Positive for: Normal Inspection Upper Extremity: Positive for: Normal Inspection, NORMAL PULSES, Tenderness ( Point tenderness to the right superior AC joint), Neurovascularly Intact. Negative for: Cyanosis, Edema, Normal ROM (Pt is able to move her right shoulder with some limititations; Left upper extremity is WNL) Lower Extremity: Positive for: Normal Inspection, NORMAL PULSES, Normal ROM. Negative for: Edema Neurological: Positive for: GCS=15, CN II-XII Intact, Speech Normal Skin: Positive for: Warm, Dry, Normal Color. Negative for: Rashes Psychiatric: Positive for: Alert, Oriented x 3 - Medications Active Medications: Active Medications Generic Name Dose Route Start Last Admin Trade Name Freq PRN Reason Stop Dose Admin Acetaminophen 650 mg 10/31/17 22:18 Tylenol 325mg Tab PO Q6H PRN Pain, moderate (4-7) Acetylcysteine 4 ml 11/02/17 08:23 Acetylcysteine 20% IH [id number] PRN Cough and congestion Albuterol/Ipratropium 3 ml 11/02/17 08:24 11/02/17 09:12 Duoneb 3 Mg/0.5 Mg (3 Ml) Ud IH 3 ml [id number] PRN Administration Shortness of Breath Allopurinol 100 mg 11/01/17 10:00 11/02/17 10:02 Zyloprim PO 100 mg DAILY [facility] Administration Aspirin 81 mg 11/02/17 10:00 11/02/17 10:01 Ecotrin PO 81 mg DAILY [facility] Administration Atenolol 25 mg 11/01/17 10:00 11/02/17 10:02 Tenormin PO 25 mg DAILY [facility] Administration Atorvastatin Calcium 40 mg 11/01/17 17:00 Lipitor PO DIN [facility]OR Benzocaine/Menthol 1 kush 11/02/17 11:42 11/02/17 11:49 Cepacol Sore Throat MT 1 kush Q2H PRN Administration Sore Throat Ergocalciferol 1 cap 10/31/17 22:15 10/31/17 23:16 Drisdol 50,000 Intl Units Cap PO 1 cap Q7D [facility] Administration Fentanyl 25 mcg 11/01/17 14:42 Fentanyl IV Q5M PRN Pain, moderate (4-7) Ferrous Sulfate 324 mg 11/01/17 10:00 11/02/17 10:02 Feosol PO 324 mg BID [facility] Administration Hydromorphone HCl 0.5 mg 11/01/17 14:58 Dilaudid IVP Q3H PRN Pain, severe (8-10) Lactated Ringer's 1,000 mls @ 100 mls/hr 11/01/17 15:18 11/02/17 11:45 Lactated Ringer's IV 100 mls/hr .Q10H [facility] Administration Insulin Human Lispro 0 units 11/01/17 07:30 11/02/17 08:43 Humalog Low SC Not Given ACHS [facility] Protocol Lisinopril 40 mg 11/02/17 10:00 11/02/17 10:01 Zestril PO 40 mg DAILY [facility] Administration Losartan Potassium 100 mg 11/01/17 18:00 Cozaar PO DAILY [facility] Nitroglycerin 1 ea 11/01/17 15:15 Nitro-Bid 2% Oint TOP Q6H PRN Systolic Blood Pressure Ondansetron HCl 4 mg 11/01/17 14:47 Zofran Inj IVP Q6H PRN Nausea/Vomiting Pantoprazole Sodium 40 mg 11/01/17 06:00 11/02/17 06:15 Protonix Ec Tab PO 40 mg 0600 [facility] Administration Vitamin B Complex/Vit C/Folic Acid 1 tab 11/01/17 10:00 11/02/17 10:01 Nephro-Vargas PO 1 tab DAILY [facility] Administration - Patient Studies Lab Studies: Lab Studies 11/02/17 11/02/17 11/02/17 Range/Units 11:22 07:35 05:05 WBC (4.5-11.0) 10^3/ul RBC (3.5-6.1) 10^6/uL Hgb (12.0-16.0) g/dL Hct (36.0-48.0) % MCV (80.0-105.0) fl MCH (25.0-35.0) pg MCHC (31.0-37.0) g/dl RDW (11.5-14.5) % Plt Count (120.0-450.0) 10^3/uL MPV (7.0-11.0) fl Gran % (50.0-68.0) % Lymph % (Auto) (22.0-35.0) % [place] % (Auto) (1.0-6.0) % Eos % (Auto) (1.5-5.0) % Baso % (Auto) (0.0-3.0) % Gran # (1.4-6.5) Lymph # (Auto) (1.2-3.4) [place] # (Auto) (0.1-0.6) Eos # (Auto) (0.0-0.7) Baso # (Auto) (0.0-2.0) K/mm3 Differential Comment pO2 (30-55) mm/Hg VBG pH (7.32-7.43) VBG pCO2 (40-60) VBG HCO3 (21-28) mmol/l VBG Total CO2 (22-28) mmol.L VBG O2 Sat (Calc) (40-65) % VBG Base Excess (0.0-2.0) mmol/L VBG Potassium (3.6-5.2) mmol/L Sodium 143 (132-148) mmol/L Chloride 111 H (98-107) mmol/L Glucose (65-105) mg/dl Lactate (0.7-2.1) mmol/L FiO2 % Potassium 4.3 (3.6-5.0) mmol/L Carbon Dioxide 21 (21-33) mmol/L Anion Gap 15 (10-20) BUN 20 (7-21) mg/dL Creatinine 1.0 (0.7-1.2) mg/dl Est GFR ( Amer) > 60 Est GFR (Non-Af Amer) 54 POC Glucose (mg/dL) 124 H 125 H (65-110) mg/dL Random Glucose 134 H (70-110) mg/dL Calcium 8.7 (8.4-10.5) mg/dL Transferrin (206-381) mg/dL Ferritin ng/mL Total Bilirubin 0.3 (0.2-1.3) mg/dL AST 19 (14-36) U/L ALT 27 (7-56) U/L Alkaline Phosphatase 81 (38-126) U/L Troponin I ng/mL Total Protein 6.2 (5.8-8.3) g/dL Albumin 3.3 (3.0-4.8) g/dL Globulin 2.9 gm/dL Albumin/Globulin Ratio 1.2 (1.1-1.8) Venous Blood Potassium (3.6-5.2) mmol/L 07/08/1711/01/17 11/01/17 Range/Units 05:05 22:04 18:06 WBC 7.9 (4.5-11.0) 10^3/ul RBC 3.48 L (3.5-6.1) 10^6/uL Hgb 8.7 L (12.0-16.0) g/dL Hct 27.3 L (36.0-48.0) % MCV 78.4 L (80.0-105.0) fl MCH 25.0 (25.0-35.0) pg MCHC 31.9 (31.0-37.0) g/dl RDW 13.9 (11.5-14.5) % Plt Count 302 (120.0-450.0) 10^3/uL MPV 10.5 (7.0-11.0) fl Gran % 67.9 (50.0-68.0) % Lymph % (Auto) 23.6 (22.0-35.0) % [place] % (Auto) 8.4 H (1.0-6.0) % Eos % (Auto) 0.0 L (1.5-5.0) % Baso % (Auto) 0.1 (0.0-3.0) % Gran # 5.35 (1.4-6.5) Lymph # (Auto) 1.9 (1.2-3.4) [place] # (Auto) 0.7 H (0.1-0.6) Eos # (Auto) 0.0 (0.0-0.7) Baso # (Auto) 0.01 (0.0-2.0) K/mm3 Differential Comment pO2 (30-55) mm/Hg VBG pH (7.32-7.43) VBG pCO2 (40-60) VBG HCO3 (21-28) mmol/l VBG Total CO2 (22-28) mmol.L VBG O2 Sat (Calc) (40-65) % VBG Base Excess (0.0-2.0) mmol/L VBG Potassium (3.6-5.2) mmol/L Sodium (132-148) mmol/L Chloride (98-107) mmol/L Glucose (65-105) mg/dl Lactate (0.7-2.1) mmol/L FiO2 % Potassium (3.6-5.0) mmol/L Carbon Dioxide (21-33) mmol/L Anion Gap (10-20) BUN (7-21) mg/dL Creatinine (0.7-1.2) mg/dl Est GFR ( Amer) Est GFR (Non-Af Amer) POC Glucose (mg/dL) 150 H 156 H (65-110) mg/dL Random Glucose (70-110) mg/dL Calcium (8.4-10.5) mg/dL Transferrin (206-381) mg/dL Ferritin ng/mL Total Bilirubin (0.2-1.3) mg/dL AST (14-36) U/L ALT (7-56) U/L Alkaline Phosphatase (38-126) U/L Troponin I ng/mL Total Protein (5.8-8.3) g/dL Albumin (3.0-4.8) g/dL Globulin gm/dL Albumin/Globulin Ratio (1.1-1.8) Venous Blood Potassium (3.6-5.2) mmol/L 11/01/17 11/01/17 11/01/17 Range/Units 15:37 15:37 15:37 WBC 9.3 D (4.5-11.0) 10^3/ul RBC 3.35 L (3.5-6.1) 10^6/uL Hgb 8.3 L D (12.0-16.0) g/dL Hct 26.1 L (36.0-48.0) % MCV 77.9 L (80.0-105.0) fl MCH 24.8 L (25.0-35.0) pg MCHC 31.8 (31.0-37.0) g/dl RDW 13.8 (11.5-14.5) % Plt Count 265 (120.0-450.0) 10^3/uL MPV 10.9 (7.0-11.0) fl Gran % 76.6 H (50.0-68.0) % Lymph % (Auto) 17.1 L (22.0-35.0) % [place] % (Auto) 6.2 H (1.0-6.0) % Eos % (Auto) 0.0 L (1.5-5.0) % Baso % (Auto) 0.1 (0.0-3.0) % Gran # 7.14 H (1.4-6.5) Lymph # (Auto) 1.6 (1.2-3.4) [place] # (Auto) 0.6 (0.1-0.6) Eos # (Auto) 0.0 (0.0-0.7) Baso # (Auto) 0.01 (0.0-2.0) K/mm3 Differential Comment pO2 164 H (30-55) mm/Hg VBG pH 7.31 L (7.32-7.43) VBG pCO2 39.0 L (40-60) VBG HCO3 19.6 L (21-28) mmol/l VBG Total CO2 20.8 L (22-28) mmol.L VBG O2 Sat (Calc) 99.7 H (40-65) % VBG Base Excess -6.2 L (0.0-2.0) mmol/L VBG Potassium 3.7 (3.6-5.2) mmol/L Sodium 143 140.0 (132-148) mmol/L Chloride 114 H 116.0 H (98-107) mmol/L Glucose 186 H (65-105) mg/dl Lactate 0.6 L (0.7-2.1) mmol/L FiO2 21.0 % Potassium 3.8 (3.6-5.0) mmol/L Carbon Dioxide 20 L (21-33) mmol/L Anion Gap 13 (10-20) BUN 27 H (7-21) mg/dL Creatinine 0.9 (0.7-1.2) mg/dl Est GFR ( Amer) > 60 Est GFR (Non-Af Amer) > 60 POC Glucose (mg/dL) (65-110) mg/dL Random Glucose 172 H (70-110) mg/dL Calcium 8.1 L (8.4-10.5) mg/dL Transferrin (206-381) mg/dL Ferritin ng/mL Total Bilirubin 0.2 (0.2-1.3) mg/dL AST 29 (14-36) U/L ALT 19 (7-56) U/L Alkaline Phosphatase 76 (38-126) U/L Troponin I < 0.01 ng/mL Total Protein 5.4 L (5.8-8.3) g/dL Albumin 2.8 L (3.0-4.8) g/dL Globulin 2.5 gm/dL Albumin/Globulin Ratio 1.1 (1.1-1.8) Venous Blood Potassium 3.7 (3.6-5.2) mmol/L 11/01/17 11/01/17 11/01/17 Range/Units 07:00 07:00 06:00 WBC (4.5-11.0) 10^3/ul RBC (3.5-6.1) 10^6/uL Hgb (12.0-16.0) g/dL Hct (36.0-48.0) % MCV (80.0-105.0) fl MCH (25.0-35.0) pg MCHC (31.0-37.0) g/dl RDW (11.5-14.5) % Plt Count (120.0-450.0) 10^3/uL MPV (7.0-11.0) fl Gran % (50.0-68.0) % Lymph % (Auto) (22.0-35.0) % [place] % (Auto) (1.0-6.0) % Eos % (Auto) (1.5-5.0) % Baso % (Auto) (0.0-3.0) % Gran # (1.4-6.5) Lymph # (Auto) (1.2-3.4) [place] # (Auto) (0.1-0.6) Eos # (Auto) (0.0-0.7) Baso # (Auto) (0.0-2.0) K/mm3 Differential Comment See pathology report pO2 (30-55) mm/Hg VBG pH (7.32-7.43) VBG pCO2 (40-60) VBG HCO3 (21-28) mmol/l VBG Total CO2 (22-28) mmol.L VBG O2 Sat (Calc) (40-65) % VBG Base Excess (0.0-2.0) mmol/L VBG Potassium (3.6-5.2) mmol/L Sodium (132-148) mmol/L Chloride (98-107) mmol/L Glucose (65-105) mg/dl Lactate (0.7-2.1) mmol/L FiO2 % Potassium (3.6-5.0) mmol/L Carbon Dioxide (21-33) mmol/L Anion Gap (10-20) BUN (7-21) mg/dL Creatinine (0.7-1.2) mg/dl Est GFR ( Amer) Est GFR (Non-Af Amer) POC Glucose (mg/dL) (65-110) mg/dL Random Glucose (70-110) mg/dL Calcium (8.4-10.5) mg/dL Transferrin 244.15 (206-381) mg/dL Ferritin 21.6 ng/mL Total Bilirubin (0.2-1.3) mg/dL AST (14-36) U/L ALT (7-56) U/L Alkaline Phosphatase (38-126) U/L Troponin I ng/mL Total Protein (5.8-8.3) g/dL Albumin (3.0-4.8) g/dL Globulin gm/dL Albumin/Globulin Ratio (1.1-1.8) Venous Blood Potassium (3.6-5.2) mmol/L Laboratory Results - last 24 hr 11/01/17 11/01/17 11/01/17 06:00 07:00 07:00 WBC RBC Hgb Hct MCV MCH MCHC RDW Plt Count MPV Gran % Lymph % (Auto) [place] % (Auto) Eos % (Auto) Baso % (Auto) Gran # Lymph # (Auto) [place] # (Auto) Eos # (Auto) Baso # (Auto) Differential Comment See pathology report pO2 VBG pH VBG pCO2 VBG HCO3 VBG Total CO2 VBG O2 Sat (Calc) VBG Base Excess VBG Potassium Sodium Chloride Glucose Lactate FiO2 Potassium Carbon Dioxide Anion Gap BUN Creatinine Est GFR ( Amer) Est GFR (Non-Af Amer) POC Glucose (mg/dL) Random Glucose Calcium Transferrin 244.15 Ferritin 21.6 Total Bilirubin AST ALT Alkaline Phosphatase Troponin I Total Protein Albumin Globulin Albumin/Globulin Ratio Venous Blood Potassium 11/01/17 11/01/17 11/01/17 15:37 15:37 15:37 WBC 9.3 D RBC 3.35 L Hgb 8.3 L D Hct 26.1 L MCV 77.9 L MCH 24.8 L MCHC 31.8 RDW 13.8 Plt Count 265 MPV 10.9 Gran % 76.6 H Lymph % (Auto) 17.1 L [place] % (Auto) 6.2 H Eos % (Auto) 0.0 L Baso % (Auto) 0.1 Gran # 7.14 H Lymph # (Auto) 1.6 [place] # (Auto) 0.6 Eos # (Auto) 0.0 Baso # (Auto) 0.01 Differential Comment pO2 164 H VBG pH 7.31 L VBG pCO2 39.0 L VBG HCO3 19.6 L VBG Total CO2 20.8 L VBG O2 Sat (Calc) 99.7 H VBG Base Excess -6.2 L VBG Potassium 3.7 Sodium 140.0 143 Chloride 116.0 H 114 H Glucose 186 H Lactate 0.6 L FiO2 21.0 Potassium 3.8 Carbon Dioxide 20 L Anion Gap 13 BUN 27 H Creatinine 0.9 Est GFR ( Amer) > 60 Est GFR (Non-Af Amer) > 60 POC Glucose (mg/dL) Random Glucose 172 H Calcium 8.1 L Transferrin Ferritin Total Bilirubin 0.2 AST 29 ALT 19 Alkaline Phosphatase 76 Troponin I < 0.01 Total Protein 5.4 L Albumin 2.8 L Globulin 2.5 Albumin/Globulin Ratio 1.1 Venous Blood Potassium 3.7 11/01/17 11/01/17 11/02/17 18:06 22:04 05:05 WBC 7.9 RBC 3.48 L Hgb 8.7 L Hct 27.3 L MCV 78.4 L MCH 25.0 MCHC 31.9 RDW 13.9 Plt Count 302 MPV 10.5 Gran % 67.9 Lymph % (Auto) 23.6 [place] % (Auto) 8.4 H Eos % (Auto) 0.0 L Baso % (Auto) 0.1 Gran # 5.35 Lymph # (Auto) 1.9 [place] # (Auto) 0.7 H Eos # (Auto) 0.0 Baso # (Auto) 0.01 Differential Comment pO2 VBG pH VBG pCO2 VBG HCO3 VBG Total CO2 VBG O2 Sat (Calc) VBG Base Excess VBG Potassium Sodium Chloride Glucose Lactate FiO2 Potassium Carbon Dioxide Anion Gap BUN Creatinine Est GFR ( Amer) Est GFR (Non-Af Amer) POC Glucose (mg/dL) 156 H 150 H Random Glucose Calcium Transferrin Ferritin Total Bilirubin AST ALT Alkaline Phosphatase Troponin I Total Protein Albumin Globulin Albumin/Globulin Ratio Venous Blood Potassium 11/02/17 11/02/17 11/02/17 05:05 07:35 11:22 WBC RBC Hgb Hct MCV MCH MCHC RDW Plt Count MPV Gran % Lymph % (Auto) [place] % (Auto) Eos % (Auto) Baso % (Auto) Gran # Lymph # (Auto) [place] # (Auto) Eos # (Auto) Baso # (Auto) Differential Comment pO2 VBG pH VBG pCO2 VBG HCO3 VBG Total CO2 VBG O2 Sat (Calc) VBG Base Excess VBG Potassium Sodium 143 Chloride 111 H Glucose Lactate FiO2 Potassium 4.3 Carbon Dioxide 21 Anion Gap 15 BUN 20 Creatinine 1.0 Est GFR ( Amer) > 60 Est GFR (Non-Af Amer) 54 POC Glucose (mg/dL) 125 H 124 H Random Glucose 134 H Calcium 8.7 Transferrin Ferritin Total Bilirubin 0.3 AST 19 ALT 27 Alkaline Phosphatase 81 Troponin I Total Protein 6.2 Albumin 3.3 Globulin 2.9 Albumin/Globulin Ratio 1.2 Venous Blood Potassium EKG/Cardiology Studies: Cardiology / EKG Studies 11/01/17 15:15 EKG [ELECTROCARDIOGRAM] Stat Comment: Reason For Exam: postop OR Fingerstick Blood Sugar Results: 125 Review of Systems - Review of Systems All systems: reviewed and no additional remarkable complaints except (as per HPI ) Critical Care Progress Note - Prophylaxis GI Prophylaxis GI: PPI - Prophylaxis DVT Prophylaxis DVT: Ambulatory - Nutrition Nutrition: Nutrition Category Date Time Status Heart Healthy Diet [DIET] Diets 11/02/17 Breakfast Active Assessment/Plan - Assessment and Plan (Free Text) Assessment: This is a 72 year-year old [place]-speaking female with a PMHx of DM2, HLD, Bilateral carotid artery stenosis s/p right CEA (07/2017), who presented to the ED with worsening RUE weakness. Pt was brought to the CCU s/p left CEA completed on 11/01/17, for neurological and cardiovascular monitoring. Plan: Neuro: - Maintain normothermia - AAOx3, pt at baseline - Monitor for any mental status changes Cardio: - Patient is hemodynamically stable; monitor for any vascular changes - Maintain MAP>65 - Continue home statin, beta felicia - Home ARB on hold, pt placed on Lisinopril - ASA - early mobilization was implemented to prevent VTE and pt is ambulatory Pulm: - Maintain SpO2 above 92% - Duonebs Q4H PRN - Mucomyst Q6H PRN - Acapella PEP PRN - Pt given lozanges to prevent from excessive coughing due to phlegm GI: - GI PPX with PPI PO - HHD - Zofran PRN nausea : - Maintain euvolemia Endo: - Maintain euglycemia MSK: - Right shoulder XR shows acute anterior inferior dislocation without fracture. - Ortho consulted; med/surg teams will f/u with recommendation after transfer - Continue home Allopurinol - Continue analgesia PRN PPX: - Protonix for GI; Pt is ambulatory Dispo: Pt is medically stable and is safe to be be transferred to med/surg floor ; PMD and Surgery team are aware Case discussed and reviewed with attending, Dr. Treviño <Erickson Treviño - Last Filed: 11/02/17 16:58> CCU Objective - Vital Signs / Intake & Output Intake and Output (Last 8hrs): Intake & Output 11/02/17 11/02/17 11/02/17 06:59 14:59 22:59 Intake Total 1200 500 Output Total 750 450 Balance 450 50 Intake: IV 1200 500 Left Antecubital 1200 500 Output: Urine 750 450 Urethral (Negro) 450 Urine, Voided 750 - Medications Active Medications: Active Medications Generic Name Dose Route Start Last Admin Trade Name Freq PRN Reason Stop Dose Admin Acetaminophen 650 mg 10/31/17 22:18 Tylenol 325mg Tab PO Q6H PRN Pain, moderate (4-7) Acetylcysteine 4 ml 11/02/17 08:23 11/02/17 16:20 Acetylcysteine 20% IH 4 ml [id number] PRN Administration Cough and congestion Albuterol/Ipratropium 3 ml 11/02/17 08:24 11/02/17 16:20 Duoneb 3 Mg/0.5 Mg (3 Ml) Ud IH 3 ml [id number] PRN Administration Shortness of Breath Allopurinol 100 mg 11/01/17 10:00 11/02/17 10:02 Zyloprim PO 100 mg DAILY MAINOR Administration Aspirin 81 mg 11/02/17 10:00 11/02/17 10:01 Ecotrin PO 81 mg DAILY [facility] Administration Atenolol 25 mg 11/01/17 10:00 11/02/17 10:02 Tenormin PO 25 mg DAILY [facility] Administration Atorvastatin Calcium 40 mg 11/01/17 17:00 Lipitor PO DIN MAINOR Benzocaine/Menthol 1 kush 11/02/17 11:42 11/02/17 14:52 Cepacol Sore Throat MT 1 kush Q2H PRN Administration Sore Throat Ergocalciferol 1 cap 10/31/17 22:15 10/31/17 23:16 Drisdol 50,000 Intl Units Cap PO 1 cap Q7D [facility]INOR Administration Ferrous Sulfate 324 mg 11/01/17 10:00 11/02/17 10:02 Feosol PO 324 mg BID [facility]IN[facility] Administration Hydromorphone HCl 0.5 mg 11/01/17 14:58 Dilaudid IVP Q3H PRN Pain, severe (8-10) Lactated Ringer's 1,000 mls @ 100 mls/hr 11/01/17 15:18 11/02/17 11:45 Lactated Ringer's IV 100 mls/hr .Q10H [facility]IN[facility] Administration Insulin Human Lispro 0 units 11/01/17 07:30 11/02/17 08:43 Humalog Low SC Not Given ACHS [facility] Protocol Lisinopril 40 mg 11/02/17 10:00 11/02/17 10:01 Zestril PO 40 mg DAILY [facility] Administration Losartan Potassium 100 mg 11/01/17 18:00 Cozaar PO DAILY [facility] Nitroglycerin 1 ea 11/01/17 15:15 Nitro-Bid 2% Oint TOP Q6H PRN Systolic Blood Pressure Ondansetron HCl 4 mg 11/01/17 14:47 Zofran Inj IVP Q6H PRN Nausea/Vomiting Pantoprazole Sodium 40 mg 11/01/17 06:00 11/02/17 06:15 Protonix Ec Tab PO 40 mg 0600 [facility]INOR Administration Vitamin B Complex/Vit C/Folic Acid 1 tab 11/01/17 10:00 11/02/17 10:01 Nephro-Vargas PO 1 tab DAILY [facility] Administration - Patient Studies Lab Studies: Lab Studies 11/02/17 11/02/17 11/02/17 Range/Units 16:07 11:22 07:35 WBC (4.5-11.0) 10^3/ul RBC (3.5-6.1) 10^6/uL Hgb (12.0-16.0) g/dL Hct (36.0-48.0) % MCV (80.0-105.0) fl MCH (25.0-35.0) pg MCHC (31.0-37.0) g/dl RDW (11.5-14.5) % Plt Count (120.0-450.0) 10^3/uL MPV (7.0-11.0) fl Gran % (50.0-68.0) % Lymph % (Auto) (22.0-35.0) % [place] % (Auto) (1.0-6.0) % Eos % (Auto) (1.5-5.0) % Baso % (Auto) (0.0-3.0) % Gran # (1.4-6.5) Lymph # (Auto) (1.2-3.4) [place] # (Auto) (0.1-0.6) Eos # (Auto) (0.0-0.7) Baso # (Auto) (0.0-2.0) K/mm3 Differential Comment Sodium (132-148) mmol/L Potassium (3.6-5.0) mmol/L Chloride (98-107) mmol/L Carbon Dioxide (21-33) mmol/L Anion Gap (10-20) BUN (7-21) mg/dL Creatinine (0.7-1.2) mg/dl Est GFR ( Amer) Est GFR (Non-Af Amer) POC Glucose (mg/dL) 121 H 124 H 125 H (65-110) mg/dL Random Glucose (70-110) mg/dL Calcium (8.4-10.5) mg/dL Total Bilirubin (0.2-1.3) mg/dL AST (14-36) U/L ALT (7-56) U/L Alkaline Phosphatase (38-126) U/L Total Protein (5.8-8.3) g/dL Albumin (3.0-4.8) g/dL Globulin gm/dL Albumin/Globulin Ratio (1.1-1.8) 11/02/17 11/02/17 11/01/17 Range/Units 05:05 05:05 22:04 WBC 7.9 (4.5-11.0) 10^3/ul RBC 3.48 L (3.5-6.1) 10^6/uL Hgb 8.7 L (12.0-16.0) g/dL Hct 27.3 L (36.0-48.0) % MCV 78.4 L (80.0-105.0) fl MCH 25.0 (25.0-35.0) pg MCHC 31.9 (31.0-37.0) g/dl RDW 13.9 (11.5-14.5) % Plt Count 302 (120.0-450.0) 10^3/uL MPV 10.5 (7.0-11.0) fl Gran % 67.9 (50.0-68.0) % Lymph % (Auto) 23.6 (22.0-35.0) % [place] % (Auto) 8.4 H (1.0-6.0) % Eos % (Auto) 0.0 L (1.5-5.0) % Baso % (Auto) 0.1 (0.0-3.0) % Gran # 5.35 (1.4-6.5) Lymph # (Auto) 1.9 (1.2-3.4) [place] # (Auto) 0.7 H (0.1-0.6) Eos # (Auto) 0.0 (0.0-0.7) Baso # (Auto) 0.01 (0.0-2.0) K/mm3 Differential Comment Sodium 143 (132-148) mmol/L Potassium 4.3 (3.6-5.0) mmol/L Chloride 111 H (98-107) mmol/L Carbon Dioxide 21 (21-33) mmol/L Anion Gap 15 (10-20) BUN 20 (7-21) mg/dL Creatinine 1.0 (0.7-1.2) mg/dl Est GFR ( Amer) > 60 Est GFR (Non-Af Amer) 54 POC Glucose (mg/dL) 150 H (65-110) mg/dL Random Glucose 134 H (70-110) mg/dL Calcium 8.7 (8.4-10.5) mg/dL Total Bilirubin 0.3 (0.2-1.3) mg/dL AST 19 (14-36) U/L ALT 27 (7-56) U/L Alkaline Phosphatase 81 (38-126) U/L Total Protein 6.2 (5.8-8.3) g/dL Albumin 3.3 (3.0-4.8) g/dL Globulin 2.9 gm/dL Albumin/Globulin Ratio 1.2 (1.1-1.8) 11/01/17 11/01/17 Range/Units 18:06 06:00 WBC (4.5-11.0) 10^3/ul RBC (3.5-6.1) 10^6/uL Hgb (12.0-16.0) g/dL Hct (36.0-48.0) % MCV (80.0-105.0) fl MCH (25.0-35.0) pg MCHC (31.0-37.0) g/dl RDW (11.5-14.5) % Plt Count (120.0-450.0) 10^3/uL MPV (7.0-11.0) fl Gran % (50.0-68.0) % Lymph % (Auto) (22.0-35.0) % [place] % (Auto) (1.0-6.0) % Eos % (Auto) (1.5-5.0) % Baso % (Auto) (0.0-3.0) % Gran # (1.4-6.5) Lymph # (Auto) (1.2-3.4) [place] # (Auto) (0.1-0.6) Eos # (Auto) (0.0-0.7) Baso # (Auto) (0.0-2.0) K/mm3 Differential Comment See pathology report Sodium (132-148) mmol/L Potassium (3.6-5.0) mmol/L Chloride (98-107) mmol/L Carbon Dioxide (21-33) mmol/L Anion Gap (10-20) BUN (7-21) mg/dL Creatinine (0.7-1.2) mg/dl Est GFR ( Amer) Est GFR (Non-Af Amer) POC Glucose (mg/dL) 156 H (65-110) mg/dL Random Glucose (70-110) mg/dL Calcium (8.4-10.5) mg/dL Total Bilirubin (0.2-1.3) mg/dL AST (14-36) U/L ALT (7-56) U/L Alkaline Phosphatase (38-126) U/L Total Protein (5.8-8.3) g/dL Albumin (3.0-4.8) g/dL Globulin gm/dL Albumin/Globulin Ratio (1.1-1.8) Laboratory Results - last 24 hr 11/01/17 11/01/17 11/01/17 06:00 18:06 22:04 WBC RBC Hgb Hct MCV MCH MCHC RDW Plt Count MPV Gran % Lymph % (Auto) [place] % (Auto) Eos % (Auto) Baso % (Auto) Gran # Lymph # (Auto) [place] # (Auto) Eos # (Auto) Baso # (Auto) Differential Comment See pathology report Sodium Potassium Chloride Carbon Dioxide Anion Gap BUN Creatinine Est GFR ( Amer) Est GFR (Non-Af Amer) POC Glucose (mg/dL) 156 H 150 H Random Glucose Calcium Total Bilirubin AST ALT Alkaline Phosphatase Total Protein Albumin Globulin Albumin/Globulin Ratio 11/02/17 11/02/17 11/02/17 05:05 05:05 07:35 WBC 7.9 RBC 3.48 L Hgb 8.7 L Hct 27.3 L MCV 78.4 L MCH 25.0 MCHC 31.9 RDW 13.9 Plt Count 302 MPV 10.5 Gran % 67.9 Lymph % (Auto) 23.6 [place] % (Auto) 8.4 H Eos % (Auto) 0.0 L Baso % (Auto) 0.1 Gran # 5.35 Lymph # (Auto) 1.9 [place] # (Auto) 0.7 H Eos # (Auto) 0.0 Baso # (Auto) 0.01 Differential Comment Sodium 143 Potassium 4.3 Chloride 111 H Carbon Dioxide 21 Anion Gap 15 BUN 20 Creatinine 1.0 Est GFR ( Amer) > 60 Est GFR (Non-Af Amer) 54 POC Glucose (mg/dL) 125 H Random Glucose 134 H Calcium 8.7 Total Bilirubin 0.3 AST 19 ALT 27 Alkaline Phosphatase 81 Total Protein 6.2 Albumin 3.3 Globulin 2.9 Albumin/Globulin Ratio 1.2 11/02/17 11/02/17 11:22 16:07 WBC RBC Hgb Hct MCV MCH MCHC RDW Plt Count MPV Gran % Lymph % (Auto) [place] % (Auto) Eos % (Auto) Baso % (Auto) Gran # Lymph # (Auto) [place] # (Auto) Eos # (Auto) Baso # (Auto) Differential Comment Sodium Potassium Chloride Carbon Dioxide Anion Gap BUN Creatinine Est GFR ( Amer) Est GFR (Non-Af Amer) POC Glucose (mg/dL) 124 H 121 H Random Glucose Calcium Total Bilirubin AST ALT Alkaline Phosphatase Total Protein Albumin Globulin Albumin/Globulin Ratio Critical Care Progress Note - Nutrition Nutrition: Nutrition Category Date Time Status Heart Healthy Diet [DIET] Diets 11/02/17 Breakfast Active Attending/Attestation - Attestation I have personally seen and examined this patient.: Yes I have fully participated in the care of the patient.: Yes I have reviewed all pertinent clinical information: Yes Notes (Text): 11/02/17 16:57 72 yo female with L CEA. Doing well. Continue IS, chest PT, early mobilization, advance diet, pulm toilet, bronchodilators. Ok to downgrade to [facility] ccm time 40 min
--- NOTE | 2017-11-02 16:13 | CP.PCM.PCO ---
Physician Communication Note - Physician Communication Note Physician Communication Note: patient is a low to moderate cardiac risk for noncardiac surgery
[2017-11-02] MEDS: Acetylcysteine 20% Inhal Soln (4ml) IH PRN ×2 (16:20→23:21)
[2017-11-02] MEDS: HYDROmorphone 0.5 mg/0.5 ml ISec IVP PRN (22:53)
[2017-11-03] MEDS: Lactated Ringer's 1,000 ML IV SCH (01:06)
[2017-11-03] MEDS: HYDROmorphone 0.5 mg/0.5 ml ISec IVP PRN (04:37)
[2017-11-03] MEDS: Benzocaine/Menthol (Cepacol) Lozenge MT PRN ×2 (04:38→08:00)
[2017-11-03] MEDS: Acetylcysteine 20% Inhal Soln (4ml) IH PRN (05:50)
[2017-11-03] MEDS: Albuterol-Ipratrop 3 mg / 0.5 (3 ml) UD IH PRN (05:50)
[2017-11-03] MEDS: Pantoprazole 40 mg EC Tab PO SCH (06:28)
[2017-11-03 06:38] LABS: BASO # 0.01 K/mm3 (0.0-2.0); BASO % 0.2 % (0.0-3.0); GRAN # 3.7 (1.4-6.5); GRAN % 62.7 % (50.0-68.0); HEMOGLOBIN 8.6 g/dL (12.0-16.0); LYMPH # 1.6 (1.2-3.4); LYMPH % 26.7 % (22.0-35.0); MEAN CELL VOLUME 78.5 fl (80.0-105.0); MEAN CORPUSCULAR HGB CONC 31.9 g/dl (31.0-37.0); MEAN PLATELET VOLUME 10.7 fl (7.0-11.0); MONO # 0.6 (0.1-0.6); MONO % 10.4 % (1.0-6.0); RBC 3.44 10^6/uL (3.5-6.1)
[2017-11-03 06:59] LABS: WHITE BLOOD COUNT 5.9 10^3/ul (4.5-11.0)
[2017-11-03 07:18] LABS: ALB/GLOB RATIO 1.2 (1.1-1.8); ALBUMIN 3.6 g/dL (3.0-4.8); CALCIUM 9.2 mg/dL (8.4-10.5)
--- NOTE | 2017-11-03 08:13 | OP ---
PROCEDURE DATE: 11/01/2017 PREOPERATIVE DIAGNOSIS: Symptomatic left carotid stenosis. POSTOPERATIVE DIAGNOSIS: Symptomatic left carotid stenosis. PROCEDURE: Carotid endarterectomy, Bovine patch angioplasty. ANESTHESIA: General. SURGEON: Pat Wilcox MD SENIOR PRODUCT ENGINEER: Cipriano Sierra DO. PROCEDURE NOTE: Patient was brought to the OR and placed supine on the OR table. After adequate general anesthesia had been accomplished, a roll was placed under her shoulder to help the neck extended and her head was turned to the right. The left neck and chest were prepped with ChloraPrep and draped out as a sterile field. An incision was made along the anterior border of the sternocleidomastoid muscle aiming for two fingerbreadths below the angle of jaw towards the posterior earlobe. The incision was extended down to subcutaneous tissue and platysma. The deep cervical fascia was incised. The sternocleidomastoid muscle was identified and retracted laterally. After ligation and division of the facial vein, the internal jugular vein was retracted laterally exposing the carotid artery. The carotid artery and its branches were dissected out and looped out using vessel loop. The hypoglossal nerve was identified and left intact. Patient was systemically heparinized. The common internal and external carotid artery were individually clamped. Arteriotomy was made extending from the common carotid artery through the carotid bifurcation towards the internal carotid artery. A tight web was noted at the base of the internal carotid artery. A Bard Brener shunt was used to shunt blood from common carotid artery to the internal carotid artery. After that, the common, internal, and external carotid artery were endarterectomized. The circular fiber of the media was individually removed from the internal carotid artery. The distal flap was tacked down using 6-0 Prolene interrupted sutures. After that, a Bovine patch was trimmed and used to cross the arteriotomy using 6-0 Prolene continuous suture. Prior to completion of the angioplasty, the shunt was clamped and removed and the Bovine patch angioplasty completed. The clamp was removed in the following order, external followed by the common, followed by the internal. Good hemostasis was assured with combination of electrocoagulation and additional suture. No further bleeding was noted. The neck was closed in layers using 2-0 Monocryl continuous suture for the platysma and 4-0 Monocryl subcuticular suture for skin. Sterile dressing was placed. Patient tolerated the procedure well, was awakened in the operating room, deemed to be neurologically intact. She was transferred to the recovery room in stable condition. Pat Wilcox MDDD: 11/01/2017 15:06:33 Joolu # [id number] LIZA
[2017-11-03] MEDS: Insulin Lispro (humaLOG) LOW Coverage SC SCH ×5 (08:45→21:27)
--- NOTE | 2017-11-03 09:08 | CP.PCM.PN ---
Subjective - Date & Time of Evaluation Date of Evaluation: 11/03/17 Time of Evaluation: 07:00 - Subjective Subjective: VASCULAR SURGERY PROGRESS NOTE FOR DR. MEJIA Patient seen and examined at bedside. She was transferred from the ICU to the floor yesterday. She has some pain to the left neck/throat area. She notes some difficulty swallowing but was able to eat breakfast this AM and her meals yesterday. Complains of phlegm that is difficult to clear but she states it improves after mucomyst. Objective - Vital Signs/Intake and Output Vital Signs (last 24 hours): Temp Pulse Resp BP Pulse Ox 98.3 F 87 21 141/70 96 11/03/17 06:00 11/03/17 06:00 11/03/17 06:00 11/03/17 06:00 11/03/17 06:00 Intake and Output: 11/03/17 11/03/17 06:59 18:59 Intake Total 240 Balance 240 - Medications Medications: Current Medications Acetaminophen (Tylenol 325mg Tab) 650 mg PO Q6H PRN PRN Reason: Pain, moderate (4-7) Acetylcysteine (Acetylcysteine 20%) 4 ml IH [id number] PRN PRN Reason: Cough and congestion Last Admin: 11/03/17 05:50 Dose: 4 ml Albuterol/Ipratropium (Duoneb 3 Mg/0.5 Mg (3 Ml) Ud) 3 ml IH [id number] PRN PRN Reason: Shortness of Breath Last Admin: 11/03/17 05:50 Dose: 3 ml Allopurinol (Zyloprim) 100 mg PO DAILY [facility] Last Admin: 11/02/17 10:02 Dose: 100 mg Aspirin (Ecotrin) 81 mg PO DAILY [facility] Last Admin: 11/02/17 10:01 Dose: 81 mg Atenolol (Tenormin) 25 mg PO DAILY [facility] Last Admin: 11/02/17 10:02 Dose: 25 mg Atorvastatin Calcium (Lipitor) 40 mg PO DIN [facility] Last Admin: 11/02/17 18:46 Dose: 40 mg Benzocaine/Menthol (Cepacol Sore Throat) 1 kush MT Q2H PRN PRN Reason: Sore Throat Last Admin: 11/03/17 08:00 Dose: 1 kush Ergocalciferol (Drisdol 50,000 Intl Units Cap) 1 cap PO Q7D [facility] Last Admin: 10/31/17 23:16 Dose: 1 cap Ferrous Sulfate (Feosol) 324 mg PO BID [facility] Last Admin: 11/02/17 18:47 Dose: 324 mg Hydromorphone HCl (Dilaudid) 0.5 mg IVP Q3H PRN PRN Reason: Pain, severe (8-10) Last Admin: 11/02/17 22:53 Dose: 0.5 mg Lactated Ringer's (Lactated Ringer's) 1,000 mls @ 100 mls/hr IV .Q10H [facility] Last Admin: 11/03/17 01:06 Dose: Not Given Insulin Human Lispro (Humalog Low) 0 units SC ACHS [facility] PRN Reason: Protocol Last Admin: 11/03/17 08:45 Dose: 1 unit Lisinopril (Zestril) 40 mg PO DAILY [facility] Last Admin: 11/02/17 10:01 Dose: 40 mg Losartan Potassium (Cozaar) 100 mg PO DAILY [facility] Nitroglycerin (Nitro-Bid 2% Oint) 1 ea TOP Q6H PRN PRN Reason: Systolic Blood Pressure Ondansetron HCl (Zofran Inj) 4 mg IVP Q6H PRN PRN Reason: Nausea/Vomiting Pantoprazole Sodium (Protonix Ec Tab) 40 mg PO 0600 [facility] Last Admin: 11/03/17 06:28 Dose: 40 mg Vitamin B Complex/Vit C/Folic Acid (Nephro-Vargas) 1 tab PO DAILY [facility] Last Admin: 11/02/17 10:01 Dose: 1 tab - Labs Labs: 11/03/17 06:10 11/03/17 06:10 PT 11.1 SECONDS (9.4-12.5) 10/31/17 19:35 INR 0.97 (0.93-1.08) 10/31/17 19:35 APTT 29.2 Seconds (25.1-36.5) 10/31/17 19:35 - Constitutional Appears: Well, Non-toxic, No Acute Distress - Head Exam Head Exam: ATRAUMATIC, NORMAL INSPECTION - Eye Exam Eye Exam: EOMI, Normal appearance - Neck Exam Additional comments: ecchymosis to left neck superior and inferior to incision no drainage steri strips in place some edema - Respiratory Exam Respiratory Exam: NORMAL BREATHING PATTERN. absent: Respiratory Distress - Cardiovascular Exam Cardiovascular Exam: +S1, +S2 - GI/Abdominal Exam GI & Abdominal Exam: Soft. absent: Tenderness - Neurological Exam Neurological Exam: Alert, Awake, CN II-XII Intact - Psychiatric Exam Psychiatric exam: Normal Affect, Normal Mood - Skin Additional comments: ecchymosis to left neck Assessment and Plan - Assessment and Plan (Free Text) Assessment: 72 F s/p Left carotid endarterectomy with bovine patch POD#2 Plan: - Swallow eval ordered - Aspiration precautions - Pt tolerating diet - Will continue to monitor - Continue ASA - Continue antihypertensives - Mucomyst PRN for phlegm - Pt with right shoulder anterior dislocation. Ortho ordered shoulder CT. As per Dr. Mejia, Patient is NOT cleared for any open procedures in regards to R shoulder but may have closed reduction. - Discussed plan with Dr. Brenden Moncada PGY-4
--- NOTE | 2017-11-03 10:02 | CP.PCM.CON ---
History of Present Illness - History of Present Illness History of Present Illness: Orthopedic consultation Dr. Grande 72F with right shoulder pain x over 2 months with continued aching pain of right shoulder after admission. Xrays were taken which were 2 views and interpretation was anterior shoulder dislocation on right, and this was a change from initial CXR which appeared normal on one view. Patient states that she has been dealing with the pain in her shoulder, and is is getting better. She denies that it is any worse than when she came to the hospital, she says it feels the same and that overall it is getting better. She says she is able to get dressed and hold babies, and she is able to move it the same as it has been for months. She does not feel it is any different or that it was ever out of place. She says all she cares about is the surgery she just had, and that she is refusing anything to be done about shoulder right now. She says she will take care of shoulder later. Advised patient (all through translation device) that shoulder dislocation must be evaluated and treated urgently for best outcome, and that dislocation not treated could lead to permanent weakness and loss of function. Patient still refuses and further workup or treatment for shoulder. She denies any numbness/tingling in arm. No recent trauma or falls. No new injury. Review of Systems - Review of Systems All systems: reviewed and no additional remarkable complaints except - Constitutional Additional comments: no fever Past Patient History - Infectious Disease Hx of Infectious Diseases: None - Tetanus Immunizations Tetanus Immunization: Unknown - Past Medical History & Family History Past Medical History?: Yes - Past Social History Smoking Status: Never Smoked - CARDIAC Hx Hypertension: Yes - PULMONARY Hx Respiratory Disorders: No - NEUROLOGICAL Hx Dizziness: Yes - HEENT Hx HEENT Problems: No - RENAL Hx Chronic Kidney Disease: No - ENDOCRINE/METABOLIC Hx Diabetes Mellitus Type 2: Yes - HEMATOLOGICAL/ONCOLOGICAL Hx Blood Transfusions: No Hx Blood Transfusion Reaction: No - INTEGUMENTARY Hx Dermatological Problems: No - MUSCULOSKELETAL/RHEUMATOLOGICAL Hx Arthritis: Yes - GASTROINTESTINAL Hx Gastrointestinal Disorders: No - GENITOURINARY/GYNECOLOGICAL Hx Genitourinary Disorders: No - PSYCHIATRIC Hx Psychophysiologic Disorder: No Hx Substance Use: No - SURGICAL HISTORY Hx Surgeries: Yes - ANESTHESIA Hx Anesthesia Reactions: No Hx Malignant Hyperthermia: No Meds Allergies/Adverse Reactions: Allergies Allergy/AdvReac Type Severity Reaction Status Date / Time No Known Allergies Allergy Verified 10/31/17 18:16 - Medications Medications: Current Medications Acetaminophen (Tylenol 325mg Tab) 650 mg PO Q6H PRN PRN Reason: Pain, moderate (4-7) Acetylcysteine (Acetylcysteine 20%) 4 ml IH [id number] PRN PRN Reason: Cough and congestion Last Admin: 11/03/17 05:50 Dose: 4 ml Albuterol/Ipratropium (Duoneb 3 Mg/0.5 Mg (3 Ml) Ud) 3 ml IH [id number] PRN PRN Reason: Shortness of Breath Last Admin: 11/03/17 05:50 Dose: 3 ml Allopurinol (Zyloprim) 100 mg PO DAILY [facility] Last Admin: 11/02/17 10:02 Dose: 100 mg Aspirin (Ecotrin) 81 mg PO DAILY [facility] Last Admin: 11/02/17 10:01 Dose: 81 mg Atenolol (Tenormin) 25 mg PO DAILY [facility] Last Admin: 11/02/17 10:02 Dose: 25 mg Atorvastatin Calcium (Lipitor) 40 mg PO DIN [facility] Last Admin: 11/02/17 18:46 Dose: 40 mg Benzocaine/Menthol (Cepacol Sore Throat) 1 kush MT Q2H PRN PRN Reason: Sore Throat Last Admin: 11/03/17 08:00 Dose: 1 kush Ergocalciferol (Drisdol 50,000 Intl Units Cap) 1 cap PO Q7D [facility] Last Admin: 10/31/17 23:16 Dose: 1 cap Ferrous Sulfate (Feosol) 324 mg PO BID [facility] Last Admin: 11/02/17 18:47 Dose: 324 mg Hydromorphone HCl (Dilaudid) 0.5 mg IVP Q3H PRN PRN Reason: Pain, severe (8-10) Last Admin: 11/02/17 22:53 Dose: 0.5 mg Lactated Ringer's (Lactated Ringer's) 1,000 mls @ 100 mls/hr IV .Q10H [facility] Last Admin: 11/03/17 01:06 Dose: Not Given Insulin Human Lispro (Humalog Low) 0 units SC ACHS [facility] PRN Reason: Protocol Last Admin: 11/03/17 08:45 Dose: 1 unit Lisinopril (Zestril) 40 mg PO DAILY [facility] Last Admin: 11/02/17 10:01 Dose: 40 mg Losartan Potassium (Cozaar) 100 mg PO DAILY [facility] Nitroglycerin (Nitro-Bid 2% Oint) 1 ea TOP Q6H PRN PRN Reason: Systolic Blood Pressure Ondansetron HCl (Zofran Inj) 4 mg IVP Q6H PRN PRN Reason: Nausea/Vomiting Pantoprazole Sodium (Protonix Ec Tab) 40 mg PO 0600 [facility] Last Admin: 11/03/17 06:28 Dose: 40 mg Vitamin B Complex/Vit C/Folic Acid (Nephro-Vargas) 1 tab PO DAILY [facility] Last Admin: 11/02/17 10:01 Dose: 1 tab Physical Exam - Constitutional Appears: Well, No Acute Distress - Head Exam Head Exam: ATRAUMATIC - Neck Exam Neck exam: Positive for: Full Rom - Respiratory Exam Respiratory Exam: NORMAL BREATHING PATTERN - Cardiovascular Exam Additional comments: +radial pulse - Expanded Upper Extremities Exam Right Shoulder exam: normal inspection (no swelling, deformity, discoloration, ROM 0- 110 fflex/abd without pain, moves right arm freely during conversation, uses right arm to push herself to standing position) Neuro motor exam: finger 2-5 abduction intact, thumb abduction, thumb IP flexion intact, thumb opposition intact, wrist extension intact Neurosensory exam: median nerve intact, radial nerve intact, ulnar nerve intact Vascular exam: radial pulse - Neurological Exam Neurological exam: Alert, Oriented x3 - Psychiatric Exam Psychiatric exam: Normal Affect, Normal Mood - Skin Skin Exam: Dry, Intact, Normal Color, Warm Results - Vital Signs Recent Vital Signs: Last Vital Signs Temp 98.3 F 11/03/17 06:00 Pulse 87 11/03/17 06:00 Resp 21 11/03/17 06:00 BP 141/70 11/03/17 06:00 Pulse Ox 96 11/03/17 06:00 - Labs Result Diagrams: 11/03/17 06:10 11/03/17 06:10 Labs: Laboratory Results - last 24 hr 11/02/17 11/02/17 11/02/17 11:22 16:07 21:16 WBC RBC Hgb Hct MCV MCH MCHC RDW Plt Count MPV Gran % Lymph % (Auto) [place] % (Auto) Eos % (Auto) Baso % (Auto) Gran # Lymph # (Auto) [place] # (Auto) Eos # (Auto) Baso # (Auto) Sodium Potassium Chloride Carbon Dioxide Anion Gap BUN Creatinine Est GFR ( Amer) Est GFR (Non-Af Amer) POC Glucose (mg/dL) 124 H 121 H 118 H Random Glucose Calcium Total Bilirubin AST ALT Alkaline Phosphatase Total Protein Albumin Globulin Albumin/Globulin Ratio 11/03/17 11/03/17 11/03/17 06:10 06:10 06:29 WBC 5.9 D RBC 3.44 L Hgb 8.6 L Hct 27.0 L MCV 78.5 L MCH 25.0 MCHC 31.9 RDW 14.0 Plt Count 290 MPV 10.7 Gran % 62.7 Lymph % (Auto) 26.7 [place] % (Auto) 10.4 H Eos % (Auto) 0.0 L Baso % (Auto) 0.2 Gran # 3.70 Lymph # (Auto) 1.6 [place] # (Auto) 0.6 Eos # (Auto) 0.0 Baso # (Auto) 0.01 Sodium 143 Potassium 4.3 Chloride 106 Carbon Dioxide 26 Anion Gap 15 BUN 15 Creatinine 1.1 Est GFR ( Amer) 59 Est GFR (Non-Af Amer) 49 POC Glucose (mg/dL) 157 H Random Glucose 129 H Calcium 9.2 Total Bilirubin 0.3 AST 31 ALT 21 Alkaline Phosphatase 88 Total Protein 6.7 Albumin 3.6 Globulin 3.0 Albumin/Globulin Ratio 1.2 - Impressions Impression: atient Name / ID : CECILIO Epperson / [id number] Exam Date : 11/02/2017 08:12:02 ( Approved ) Study Comment : Sex / Age : F / 72Y Creator : Santo Berry MD Dictator : Santo Berry MD Home Health Provider : Prescription Benefit Specialist : Santo Berry MD Approver2 : Report Date : 11/02/2017 09:39:37 My Comment : PROCEDURE: Radiographs of the Right Shoulder HISTORY: R shoulder pain COMPARISON: October 31, 2017 chest x-rays including views of the right shoulder FINDINGS: BONES: No fracture identified. . JOINTS: Anterior inferior dislocation of the humeral head relative to the right glenoid. SOFT TISSUES: Normal. OTHER FINDINGS: None. IMPRESSION: Anterior inferior dislocation right humeral head without evident fracture. This appears to represent an acute finding; it was not seen on the recent chest x- ray October 31, 2017. Assessment & Plan (1) Chronic right shoulder pain Assessment and Plan: clinically does not appear dislocated translation device used per patient, she has had pain for 2 months, and it is feeling better no worsening during this admission patient says she is able to get dressed and hold babies and that she refuses any further testing or intervention to shoulder patient refuses CT scan at this time in my presence Patient adamantly states that her shoulder is fine and that she is ill and wants to be left alone Advised patient that timing is important for evaluation of shoulder, and that if it is truly dislocated, that the outcome is better if it is addressed urgently, and that could potentially cause permanent loss of function and instability if not addressed now. Patient again refuses imaging. Xrays do not include scapular Y or axillary view which would give more accurate interpretation of dislocation still recommend CT scan of right shoulder or include these views to rule out dislocation if patient agrees at this time, by history patient is at her baseline and has mild limitation of motion of right shoulder without any acute distress no orthopedic intervention planned at this time as patient refuses diagnostic imaging, unsure if right shoulder is truly dislocated recommend PT/OT, f/u as outpatient if patient continues to refuse imaging d/w Dr. Grande, agrees with above Status: Acute
[2017-11-03] MEDS: Multivitamin Vitamin B Complex (Nephro-Vite) Tab PO SCH (10:58)
--- NOTE | 2017-11-03 14:20 | CP.PCM.PN ---
Addendum entered and electronically signed by Brandt Hernandez DO 11/04/17 05: 59: Correction to Plan for Assessment of Acute dislocation of right shoulder: follow -up of CT of shoulder is necessary given that the patient is refusing CT. Original Note: <Brandt Hernandez - Last Filed: 11/03/17 22:21> Subjective - Date & Time of Evaluation Date of Evaluation: 11/03/17 Time of Evaluation: 22:11 - Subjective Subjective: Brandt Hernandez D.O. PGY1 -- [employer] -- Medicine Progress Note Patient had complaints overnight, per nurse. Patient was resquesting respiratory treatment for phlegm. Patient complained of 10/10 pain in the left neck, but says she does not want to address her shoulder pain during her stay because she does not want to undergo a CT scan and/or any surgery at this time. Otherwise patient denies chest pain, fever, chills, abdominal pain, diarrhea, dizziness, and/or numbness or weakness in her extremities. Objective - Vital Signs/Intake and Output Vital Signs (last 24 hours): Temp Pulse Resp BP Pulse Ox 98.3 F 87 21 149/70 96 11/03/17 06:00 11/03/17 10:58 11/03/17 06:00 11/03/17 10:58 11/03/17 06:00 Intake and Output: 11/03/17 11/03/17 06:59 18:59 Intake Total 240 Balance 240 - Medications Medications: Current Medications Acetaminophen (Tylenol 325mg Tab) 650 mg PO Q6H PRN PRN Reason: Pain, moderate (4-7) Acetylcysteine (Acetylcysteine 20%) 4 ml IH [id number] PRN PRN Reason: Cough and congestion Last Admin: 11/03/17 05:50 Dose: 4 ml Albuterol/Ipratropium (Duoneb 3 Mg/0.5 Mg (3 Ml) Ud) 3 ml IH [id number] PRN PRN Reason: Shortness of Breath Last Admin: 11/03/17 05:50 Dose: 3 ml Allopurinol (Zyloprim) 100 mg PO DAILY [facility] Last Admin: 11/03/17 10:59 Dose: 100 mg Aspirin (Ecotrin) 81 mg PO DAILY [facility] Last Admin: 11/03/17 10:59 Dose: 81 mg Atenolol (Tenormin) 25 mg PO DAILY [facility] Last Admin: 11/03/17 10:58 Dose: 25 mg Atorvastatin Calcium (Lipitor) 40 mg PO DIN [facility] Last Admin: 11/02/17 18:46 Dose: 40 mg Benzocaine/Menthol (Cepacol Sore Throat) 1 kush MT Q2H PRN PRN Reason: Sore Throat Last Admin: 11/03/17 08:00 Dose: 1 kush Ergocalciferol (Drisdol 50,000 Intl Units Cap) 1 cap PO Q7D [facility] Last Admin: 10/31/17 23:16 Dose: 1 cap Ferrous Sulfate (Feosol) 324 mg PO BID [facility] Last Admin: 11/03/17 10:59 Dose: 324 mg Hydromorphone HCl (Dilaudid) 0.5 mg IVP Q3H PRN PRN Reason: Pain, severe (8-10) Last Admin: 11/02/17 22:53 Dose: 0.5 mg Insulin Human Lispro (Humalog Low) 0 units SC ACHS [facility] PRN Reason: Protocol Last Admin: 11/03/17 12:48 Dose: 1 unit Losartan Potassium (Cozaar) 100 mg PO DAILY [facility] Nitroglycerin (Nitro-Bid 2% Oint) 1 ea TOP Q6H PRN PRN Reason: Systolic Blood Pressure Ondansetron HCl (Zofran Inj) 4 mg IVP Q6H PRN PRN Reason: Nausea/Vomiting Pantoprazole Sodium (Protonix Ec Tab) 40 mg PO 0600 [facility] Last Admin: 11/03/17 06:28 Dose: 40 mg Vitamin B Complex/Vit C/Folic Acid (Nephro-Vargas) 1 tab PO DAILY [facility] Last Admin: 11/03/17 10:58 Dose: 1 tab - Labs Labs: 11/03/17 06:10 11/03/17 06:10 PT 11.1 SECONDS (9.4-12.5) 10/31/17 19:35 INR 0.97 (0.93-1.08) 10/31/17 19:35 APTT 29.2 Seconds (25.1-36.5) 10/31/17 19:35 - Constitutional Appears: Agitated - Head Exam Head Exam: ATRAUMATIC, NORMAL INSPECTION, NORMOCEPHALIC - Eye Exam Eye Exam: Normal appearance - ENT Exam ENT Exam: Mucous Membranes Moist, Normal Exam - Neck Exam Additional comments: neck is swollen on left side with bandage covering her incision that is saturated with serosanguinous fluid. - GI/Abdominal Exam GI & Abdominal Exam: Normal Bowel Sounds - Extremities Exam Extremities Exam: Normal Inspection. absent: Tenderness - Back Exam Back Exam: NORMAL INSPECTION - Neurological Exam Neurological Exam: Alert, Awake, CN II-XII Intact, Oriented x3 - Psychiatric Exam Psychiatric exam: Agitated, Anxious - Skin Skin Exam: absent: Normal Color (neck area on the left is edematous with hyperpigmented bruising, otherwise normal color ) Assessment and Plan - Assessment and Plan (Free Text) Assessment: This is a 71 year old female with PMH of HTN, DMT2, and bilateral carotid artery stenosis of 70-80% S/P RIGHT CEA in July who was admitted for left carotid stenosis, and is status-post op day 2 for L CEA with Dr. Wilcox. Patient also complained of right upper extremity pain and was diagnosed with anterior- inferior dislocation of right shoulder. 1. Acute anterior-inferior dislocation of right shoulder - X-ray of right shoulder confirms anterior-inferior dislocation of right shoulder without fracture - Patient denying surgery or CT of shoulder. Patient's family and patient were made aware of risks and complications and agree to proceed without treatment at this time. - PT eval and recommendations recommend TCU - pain control - follow-up CT right shoulder - pending TCU placement - Ortho consulted 2. L-sided ICA stenosis - patient is status post L carotid endarterectomy with Dr. Wilcox POD1 - previous 08/19/17 carotid duplex showed: 70-80% stenosis of L ICA - vascular surgery consulted, f/u surgery consult and recs 3. FABIO - resolved - IVF - continue to monitor 4. Hyperkalemia, resolved - continue to monitor 5. Iron deficiency anemia - H/H: Iron 42, TIBC 308, % sat 14, Ferritin 21.6 - continue home-med Ferrous sulfate 324mg PO BID - patient reports previous colonoscopy 2-3 years ago was normal 6. DM2 - hold metformin - accu-check - ISS, low 7. HTN - continue atenolol - Monitor vitals 8. Hx Hyperuricemia - cont Allopurinol GI/DVT Prophylaxis: - Protonix and heparin 5000U sc patient seen and case reviewed with Herminio Adams Neev D.O PYG1 <Ramona Swan R - Last Filed: 11/04/17 12:05> Objective - Vital Signs/Intake and Output Vital Signs (last 24 hours): Temp Pulse Resp BP Pulse Ox 99.1 F 90 18 115/68 95 11/04/17 06:00 11/04/17 10:27 11/04/17 06:00 11/04/17 10:27 11/04/17 06:00 Intake and Output: 11/04/17 11/04/17 06:59 18:59 Intake Total 120 Balance 120 - Medications Medications: Current Medications Acetaminophen (Tylenol 325mg Tab) 650 mg PO Q6H PRN PRN Reason: Pain, moderate (4-7) Acetylcysteine (Acetylcysteine 20%) 4 ml IH [id number] PRN PRN Reason: Cough and congestion Last Admin: 11/04/17 09:29 Dose: 4 ml Albuterol/Ipratropium (Duoneb 3 Mg/0.5 Mg (3 Ml) Ud) 3 ml IH [id number] PRN PRN Reason: Shortness of Breath Last Admin: 11/04/17 09:29 Dose: 3 ml Allopurinol (Zyloprim) 100 mg PO DAILY [facility] Last Admin: 11/04/17 10:27 Dose: 100 mg Aspirin (Ecotrin) 81 mg PO DAILY [facility] Last Admin: 11/04/17 10:27 Dose: 81 mg Atenolol (Tenormin) 25 mg PO DAILY [facility] Last Admin: 11/04/17 10:27 Dose: 25 mg Atorvastatin Calcium (Lipitor) 40 mg PO DIN [facility] Last Admin: 11/03/17 17:46 Dose: 40 mg Benzocaine/Menthol (Cepacol Sore Throat) 1 kush MT Q2H PRN PRN Reason: Sore Throat Last Admin: 11/03/17 08:00 Dose: 1 kush Ergocalciferol (Drisdol 50,000 Intl Units Cap) 1 cap PO Q7D [facility] Last Admin: 10/31/17 23:16 Dose: 1 cap Ferrous Sulfate (Feosol) 324 mg PO BID [facility] Last Admin: 11/04/17 10:27 Dose: 324 mg Hydromorphone HCl (Dilaudid) 0.5 mg IVP Q3H PRN PRN Reason: Pain, severe (8-10) Last Admin: 11/02/17 22:53 Dose: 0.5 mg Insulin Human Lispro (Humalog Low) 0 units SC ACHS [facility] PRN Reason: Protocol Last Admin: 11/04/17 11:40 Dose: 1 unit Losartan Potassium (Cozaar) 100 mg PO DAILY [facility] Last Admin: 11/04/17 10:27 Dose: 100 mg Nitroglycerin (Nitro-Bid 2% Oint) 1 ea TOP Q6H PRN PRN Reason: Systolic Blood Pressure Ondansetron HCl (Zofran Inj) 4 mg IVP Q6H PRN PRN Reason: Nausea/Vomiting Pantoprazole Sodium (Protonix Ec Tab) 40 mg PO 0600 [facility] Last Admin: 11/04/17 06:56 Dose: 40 mg Vitamin B Complex/Vit C/Folic Acid (Nephro-Vargas) 1 tab PO DAILY [facility] Last Admin: 11/04/17 10:27 Dose: 1 tab - Labs Labs: 11/04/17 08:45 11/04/17 08:45 PT 11.1 SECONDS (9.4-12.5) 10/31/17 19:35 INR 0.97 (0.93-1.08) 10/31/17 19:35 APTT 29.2 Seconds (25.1-36.5) 10/31/17 19:35 Attending/Attestation - Attestation I have personally seen and examined this patient.: Yes I have fully participated in the care of the patient.: Yes I have reviewed all pertinent clinical information, including history, physical exam and plan: Yes Notes (Text): Patient seen and examined by me at 9:35AM 11/03/17 with residents. Case including physical assessment and plan discussed with resident. Agree with above with following changes/additions. Patient is status post left carotid endarterectomy. Patient states that she is not feeling well. Patient is still complaining of throat discomfort and swelling of her face. She complains of pain at the left carotid endarterectomy site. Also states that she is having some pain and discomfort swallowing. However, she has been able to eat. She denies any right upper extremity pain today. She denies any nausea, vomiting or abdominal pain. No chest pain or shortness of breath. No headaches or dizziness. No dysuria. No fevers or chills. Physical exam: Gen: Patient is awake and alert sitting up in bed in no acute distress HEENT: Normocephalic atraumatic, extraocular muscles intact, pupils equal reactive, oropharynx is pink and moist, dressing left side of neck dry, clean, and intact. Positive ecchymosis around left neck and cheek. Significant edema left cheek, neck, and below chin. Cardiovascular: Normal rhythm, normal S1-S2, no murmurs rubs or gallops appreciated Pulmonary: Normal respiratory effort. No rhonchi, rales, or wheezing appreciated Gastrointestinal: Soft, nontender, nondistended, positive bowel sounds all 4 quadrants, no guarding Musculoskeletal: Moves all extremities, no calf tenderness. Decreased range of motion at right shoulder Central nervous system: AAO 3 Dermatologic: Skin warm and dry Assessment and plan: Patient is a 72-year-old female with history of bilateral carotid stenosis status post carotid endarterectomy on left postop day #2. Continue with aspirin. Continue pain management. Throat discomfort likely secondary to intubation and procedure. Continue with Cepacol as needed. Patient seen by speech and swallow. Pure diet with thickened liquids recommended. Right shoulder x-ray per radiologist showed right anterior inferior dislocation. Orthopedics following, recommendations appreciated. Patient is refusing any further imaging or intervention for her right arm and shoulder. This was discussed at length with patient and family and all are refusing. Importance of intervention discussed at length. Hyperkalemia and acute kidney injury resolved. Continue atenolol for history of hypertension. Continue home iron for anemia. Acute on chronic anemia likely secondary to surgery and acute blood loss. H&H stable. Continue current medications. Case was discussed in detail with the patient regarding current diagnosis and treatment plan with change management consultant.
--- NOTE | 2017-11-04 05:43 | CP.PCM.PN ---
<Brandt Hernandez - Last Filed: 11/04/17 13:21> Subjective - Date & Time of Evaluation Date of Evaluation: 11/04/17 Time of Evaluation: 05:40 - Subjective Subjective: Brandt Hernandez D.O. PGY1 -- Compliance Review Specialist -- Medicine Progress Note Today the patient was seen at bedside, and using an coremaker apprentice #[id number] Indra Rivera and #[id number] Lauren. Patient complains of continued sore throat, and swelling of her left cheek. Per patient, she says that she cannot get rid of her phlegm, and that the respiratory treatments have not been working. Patient says her throat is scratchy, and that it hurts to swallow, but that she is able to tolerate a soft PO diet, though with pain. Patient is able to get out of bed, but has not had a bowel movement overnight. Patient still denying any treatment and/or imaging to be done on her right shoulder. She says she does not feel that she needs shoulder treatment because she can go about her daily living activities without pain. Patient otherwise denies nausea, vomiting, headache, abdominal pain and/or dizziness. Objective - Vital Signs/Intake and Output Vital Signs (last 24 hours): Temp Pulse Resp BP Pulse Ox 98.6 F 82 20 158/65 H 96 11/03/17 23:00 11/03/17 23:30 11/03/17 23:00 11/03/17 23:30 11/03/17 23:00 Intake and Output: 11/03/17 11/04/17 18:59 06:59 Intake Total 960 Balance 960 - Medications Medications: Current Medications Acetaminophen (Tylenol 325mg Tab) 650 mg PO Q6H PRN PRN Reason: Pain, moderate (4-7) Acetylcysteine (Acetylcysteine 20%) 4 ml IH [id number] PRN PRN Reason: Cough and congestion Last Admin: 11/03/17 05:50 Dose: 4 ml Albuterol/Ipratropium (Duoneb 3 Mg/0.5 Mg (3 Ml) Ud) 3 ml IH [id number] PRN PRN Reason: Shortness of Breath Last Admin: 11/03/17 05:50 Dose: 3 ml Allopurinol (Zyloprim) 100 mg PO DAILY [facility] Last Admin: 11/03/17 10:59 Dose: 100 mg Aspirin (Ecotrin) 81 mg PO DAILY [facility] Last Admin: 11/03/17 10:59 Dose: 81 mg Atenolol (Tenormin) 25 mg PO DAILY [facility] Last Admin: 11/03/17 10:58 Dose: 25 mg Atorvastatin Calcium (Lipitor) 40 mg PO DIN [facility] Last Admin: 11/03/17 17:46 Dose: 40 mg Benzocaine/Menthol (Cepacol Sore Throat) 1 kush MT Q2H PRN PRN Reason: Sore Throat Last Admin: 11/03/17 08:00 Dose: 1 kush Ergocalciferol (Drisdol 50,000 Intl Units Cap) 1 cap PO Q7D [facility] Last Admin: 10/31/17 23:16 Dose: 1 cap Ferrous Sulfate (Feosol) 324 mg PO BID [facility] Last Admin: 11/03/17 17:46 Dose: 324 mg Hydromorphone HCl (Dilaudid) 0.5 mg IVP Q3H PRN PRN Reason: Pain, severe (8-10) Last Admin: 11/02/17 22:53 Dose: 0.5 mg Insulin Human Lispro (Humalog Low) 0 units SC ACHS [facility] PRN Reason: Protocol Last Admin: 11/03/17 21:27 Dose: Not Given Losartan Potassium (Cozaar) 100 mg PO DAILY [facility] Nitroglycerin (Nitro-Bid 2% Oint) 1 ea TOP Q6H PRN PRN Reason: Systolic Blood Pressure Ondansetron HCl (Zofran Inj) 4 mg IVP Q6H PRN PRN Reason: Nausea/Vomiting Pantoprazole Sodium (Protonix Ec Tab) 40 mg PO 0600 [facility] Last Admin: 11/03/17 06:28 Dose: 40 mg Vitamin B Complex/Vit C/Folic Acid (Nephro-Vargas) 1 tab PO DAILY [facility] Last Admin: 11/03/17 10:58 Dose: 1 tab - Labs Labs: 11/03/17 06:10 11/03/17 06:10 PT 11.1 SECONDS (9.4-12.5) 10/31/17 19:35 INR 0.97 (0.93-1.08) 10/31/17 19:35 APTT 29.2 Seconds (25.1-36.5) 10/31/17 19:35 - Constitutional Appears: No Acute Distress, Agitated - Head Exam Head Exam: ATRAUMATIC, NORMAL INSPECTION, NORMOCEPHALIC - Eye Exam Eye Exam: Normal appearance. absent: Conjunctival injection Pupil Exam: NORMAL ACCOMODATION - ENT Exam ENT Exam: Mucous Membranes Moist Additional comments: patient has bruising on her neck and extending towards her chin on the left. patient has swelling of her left cheek - Neck Exam Neck Exam: absent: Normal Inspection Additional comments: patient has bruising and swelling and bruising inferior to her mandible, and along the left side of her neck. - Respiratory Exam Respiratory Exam: NORMAL BREATHING PATTERN. absent: Accessory Muscle Use, Decreased Breath Sounds, Rales, Wheezes, Respiratory Distress, Stridor - Cardiovascular Exam Cardiovascular Exam: REGULAR RHYTHM, RRR. absent: +S4, Murmur - GI/Abdominal Exam GI & Abdominal Exam: Soft, Normal Bowel Sounds - Extremities Exam Extremities Exam: Normal Inspection Additional comments: SCD on lower extremities bilaterally - Back Exam Back Exam: NORMAL INSPECTION. absent: rash noted - Neurological Exam Neurological Exam: Alert, Awake, CN II-XII Intact, Oriented x3 - Psychiatric Exam Psychiatric exam: Agitated, Normal Affect - Skin Skin Exam: Dry, Intact, Warm. absent: Normal Color (patient's neck and left cheek with swelling and brusing. scattered bruising noted on chest bilaterally) Additional comments: patient has bruising of left neck and swelling of left neck. Incision is covered with dressing. serosanguinous fluid appreciated on dressing. Assessment and Plan - Assessment and Plan (Free Text) Assessment: Assessment & Plan: This is a 71 year old female with PMH of HTN, DMT2, and bilateral carotid artery stenosis of 70-80% S/P RIGHT CEA in July who was admitted for left carotid stenosis, and is status-post op day 3 for L CEA with Dr. Wilcox. Patient also complained of right upper extremity pain and was diagnosed with anterior- inferior dislocation of right shoulder. moderate oral dysphagia secondary to left-sided ICA stenosis status post left carotid endarterectomy with Dr. Wilcox, post-op day 3 continue application of ice to alleviate pain and swelling of right cheek PRN speech therapist eval completed, mod-to-high risk aspiration consider ENT consult for throat pain, dysphagia, appreciate recommendations follow vascular surgery, appreciate the recommendations follow-up with primary care physician outpatient monitor Acute anterior-inferior dislocation of right shoulder X-ray of right shoulder confirms anterior-inferior dislocation of right shoulder without fracture translation device used #[id number] Indra Rivera, #[id number] Lauren patient refuses CT scan at this time patient adamantly states that her shoulder is fine and that she is ill and wants to be left alone advised patient that timing is important for evaluation of shoulder, and that if it is dislocated, that the outcome is better if it is addressed urgently , and that could potentially cause permanent loss of function and instability if not addressed now. Patient again refuses imaging. Ortho consulted: states that Xrays do not include scapular Y or axillary view which would give more accurate interpretation of dislocation and still recommend CT scan of right shoulder or include these views to rule out dislocation if patient agrees at this time, by history patient is at her baseline and has mild limitation of motion of right shoulder without any acute distress no orthopedic intervention planned at this time as patient refuses diagnostic imaging, unsure if right shoulder is truly dislocated recommend PT/OT, f/u as outpatient if patient continues to refuse imaging PT recommends to discharge home monitor FABIO resolved IVF monitor hyperkalemia, resolved K+ today 4.4 continue to monitor daily iron deficiency anemia H/H: Iron 42, TIBC 308, % sat 14, Ferritin 21.6 continue home-med Ferrous sulfate 324mg PO BID patient reports previous colonoscopy 2-3 years ago was normal history of diabetes mellitus type 2 hold metformin accu-check ISS, low hypertension continue atenolol Monitor vitals history of hyperuricemia cont Allopurinol GI/DVT Prophylaxis: protonix and heparin 5000U sc SCD dispo: discharge to home once medically optimized, as patient was evaluated and denied to TCU since she has medicare part B only. patient seen, and case reviewed in detail with Herminio Adams Neev D.O PYG1 -- family psychologist <Ramona Swan R - Last Filed: 11/05/17 08:10> Objective - Vital Signs/Intake and Output Vital Signs (last 24 hours): Temp Pulse Resp BP Pulse Ox 98.4 F 84 16 155/67 H 96 11/04/17 22:25 11/04/17 22:25 11/04/17 22:25 11/04/17 22:25 07/06/18 22:25 Intake and Output: 11/05/17 11/05/17 06:59 18:59 Intake Total 800 Balance 800 - Medications Medications: Current Medications Acetaminophen (Tylenol 325mg Tab) 650 mg PO Q6H PRN PRN Reason: Pain, moderate (4-7) Acetylcysteine (Acetylcysteine 20%) 4 ml IH [id number] PRN PRN Reason: Cough and congestion Last Admin: 11/04/17 09:29 Dose: 4 ml Albuterol/Ipratropium (Duoneb 3 Mg/0.5 Mg (3 Ml) Ud) 3 ml IH [id number] PRN PRN Reason: Shortness of Breath Last Admin: 11/04/17 09:29 Dose: 3 ml Allopurinol (Zyloprim) 100 mg PO DAILY [facility] Last Admin: 11/04/17 10:27 Dose: 100 mg Aspirin (Ecotrin) 81 mg PO DAILY [facility] Last Admin: 11/04/17 10:27 Dose: 81 mg Atenolol (Tenormin) 25 mg PO DAILY [facility] Last Admin: 11/04/17 10:27 Dose: 25 mg Atorvastatin Calcium (Lipitor) 40 mg PO DIN [facility] Last Admin: 11/04/17 17:27 Dose: 40 mg Benzocaine/Menthol (Cepacol Sore Throat) 1 kush MT Q2H PRN PRN Reason: Sore Throat Last Admin: 11/03/17 08:00 Dose: 1 kush Ergocalciferol (Drisdol 50,000 Intl Units Cap) 1 cap PO Q7D [facility] Last Admin: 10/31/17 23:16 Dose: 1 cap Ferrous Sulfate (Feosol) 324 mg PO BID [facility] Last Admin: 11/04/17 17:27 Dose: 324 mg Hydromorphone HCl (Dilaudid) 0.5 mg IVP Q3H PRN PRN Reason: Pain, severe (8-10) Last Admin: 11/02/17 22:53 Dose: 0.5 mg Insulin Human Lispro (Humalog Low) 0 units SC ACHS [facility] PRN Reason: Protocol Last Admin: 11/04/17 22:11 Dose: 3 unit Losartan Potassium (Cozaar) 100 mg PO DAILY [facility] Last Admin: 11/04/17 10:27 Dose: 100 mg Methylprednisolone (Solu-Medrol) 40 mg IV Q8 [facility] Stop: 11/06/17 23:59 Last Admin: 11/05/17 05:36 Dose: 40 mg Nitroglycerin (Nitro-Bid 2% Oint) 1 ea TOP Q6H PRN PRN Reason: Systolic Blood Pressure Ondansetron HCl (Zofran Inj) 4 mg IVP Q6H PRN PRN Reason: Nausea/Vomiting Pantoprazole Sodium (Protonix Ec Tab) 40 mg PO 0600 [facility] Last Admin: 11/05/17 05:36 Dose: 40 mg Vitamin B Complex/Vit C/Folic Acid (Nephro-Vargas) 1 tab PO DAILY [facility] Last Admin: 11/04/17 10:27 Dose: 1 tab - Labs Labs: 11/05/17 06:00 11/05/17 06:00 PT 11.1 SECONDS (9.4-12.5) 10/31/17 19:35 INR 0.97 (0.93-1.08) 10/31/17 19:35 APTT 29.2 Seconds (25.1-36.5) 10/31/17 19:35 Attending/Attestation - Attestation I have personally seen and examined this patient.: Yes I have fully participated in the care of the patient.: Yes I have reviewed all pertinent clinical information, including history, physical exam and plan: Yes Notes (Text): Patient seen and examined by me at 11AM 11/04/17 with resident. Case including physical assessment and plan discussed with resident. Agree with above with following changes/additions. Patient states she is still not feeling well. Continues to have throat pain and pain on the left side of her face and neck. Patient has been eating however feels that she is having difficulty swallowing. States her face became more swollen overnight for which she used ice packs that did help. She denies any right upper extremity pain. She denies any nausea, vomiting or abdominal pain. No chest pain or shortness of breath. No headaches or dizziness. No dysuria. No fevers or chills. Physical exam: Gen: Patient is awake and alert sitting up in bed in no acute distress HEENT: Normocephalic atraumatic, extraocular muscles intact, pupils equal reactive, oropharynx is pink and moist, dressing left side of neck dry, clean, and intact. Positive ecchymosis around left neck and cheek. Significant edema left cheek, neck, and below chin. Cardiovascular: Normal rhythm, normal S1-S2, no murmurs rubs or gallops appreciated Pulmonary: Normal respiratory effort. No rhonchi, rales, or wheezing appreciated Gastrointestinal: Soft, nontender, nondistended, positive bowel sounds all 4 quadrants, no guarding Musculoskeletal: Moves all extremities, no calf tenderness. Decreased range of motion at right shoulder Central nervous system: AAO 3 Dermatologic: Skin warm and dry. Positive ecchymosis left anterior chest wall Assessment and plan: Patient is a 72-year-old female with history of bilateral carotid stenosis status post carotid endarterectomy on left postop day #3. Continue with aspirin. Continue pain management. Throat discomfort likely secondary to intubation and procedure. We will discuss with ENT. Continue with Cepacol as needed. Continue with Pure diet with thickened liquids for now. Right shoulder x-ray per radiologist showed right anterior inferior dislocation. Orthopedics following, recommendations appreciated. Patient is refusing any further imaging or intervention for her right arm and shoulder. Patient understands the risks involved with this. Hyperkalemia and acute kidney injury resolved. Continue atenolol for history of hypertension. Continue iron for anemia. Acute on chronic anemia likely secondary to surgery and acute blood loss. H&H stable. Continue current medications. Case was discussed in detail with the patient with coremaker apprentice and medical practice administrator regarding current diagnosis and treatment plan.
[2017-11-04] MEDS: Pantoprazole 40 mg EC Tab PO SCH (06:56)
--- NOTE | 2017-11-04 07:43 | CP.PCM.PN ---
Subjective - Date & Time of Evaluation Date of Evaluation: 11/04/17 Time of Evaluation: 07:05 - Subjective Subjective: Vascular Surgery Note for Dr. Wilcox Patient seen and examined at bedside. No acute event overnight. Patient still complains of soreness in the left neck. She notes some difficulty swallowing but was able to eat her meals yesterday. She also still has phlegm that is difficult to clear but improves after mucomyst. Patient is annoyed with being uncomfortable. Objective - Vital Signs/Intake and Output Vital Signs (last 24 hours): Temp Pulse Resp BP Pulse Ox 98.6 F 82 20 158/65 H 96 11/03/17 23:00 11/03/17 23:30 11/03/17 23:00 11/03/17 23:30 11/03/17 23:00 Intake and Output: 11/04/17 11/04/17 06:59 18:59 Intake Total 120 Balance 120 - Medications Medications: Current Medications Acetaminophen (Tylenol 325mg Tab) 650 mg PO Q6H PRN PRN Reason: Pain, moderate (4-7) Acetylcysteine (Acetylcysteine 20%) 4 ml IH [id number] PRN PRN Reason: Cough and congestion Last Admin: 11/03/17 05:50 Dose: 4 ml Albuterol/Ipratropium (Duoneb 3 Mg/0.5 Mg (3 Ml) Ud) 3 ml IH [id number] PRN PRN Reason: Shortness of Breath Last Admin: 11/03/17 05:50 Dose: 3 ml Allopurinol (Zyloprim) 100 mg PO DAILY [facility] Last Admin: 11/03/17 10:59 Dose: 100 mg Aspirin (Ecotrin) 81 mg PO DAILY [facility] Last Admin: 11/03/17 10:59 Dose: 81 mg Atenolol (Tenormin) 25 mg PO DAILY [facility] Last Admin: 11/03/17 10:58 Dose: 25 mg Atorvastatin Calcium (Lipitor) 40 mg PO DIN [facility] Last Admin: 11/03/17 17:46 Dose: 40 mg Benzocaine/Menthol (Cepacol Sore Throat) 1 kush MT Q2H PRN PRN Reason: Sore Throat Last Admin: 11/03/17 08:00 Dose: 1 kush Ergocalciferol (Drisdol 50,000 Intl Units Cap) 1 cap PO Q7D [facility] Last Admin: 10/31/17 23:16 Dose: 1 cap Ferrous Sulfate (Feosol) 324 mg PO BID [facility] Last Admin: 11/03/17 17:46 Dose: 324 mg Hydromorphone HCl (Dilaudid) 0.5 mg IVP Q3H PRN PRN Reason: Pain, severe (8-10) Last Admin: 11/02/17 22:53 Dose: 0.5 mg Insulin Human Lispro (Humalog Low) 0 units SC ACHS [facility] PRN Reason: Protocol Last Admin: 11/03/17 21:27 Dose: Not Given Losartan Potassium (Cozaar) 100 mg PO DAILY [facility] Nitroglycerin (Nitro-Bid 2% Oint) 1 ea TOP Q6H PRN PRN Reason: Systolic Blood Pressure Ondansetron HCl (Zofran Inj) 4 mg IVP Q6H PRN PRN Reason: Nausea/Vomiting Pantoprazole Sodium (Protonix Ec Tab) 40 mg PO 0600 [facility] Last Admin: 11/04/17 06:56 Dose: 40 mg Vitamin B Complex/Vit C/Folic Acid (Nephro-Vargas) 1 tab PO DAILY [facility] Last Admin: 11/03/17 10:58 Dose: 1 tab - Labs Labs: 11/03/17 06:10 11/03/17 06:10 PT 11.1 SECONDS (9.4-12.5) 10/31/17 19:35 INR 0.97 (0.93-1.08) 10/31/17 19:35 APTT 29.2 Seconds (25.1-36.5) 10/31/17 19:35 - Additional Findings Additional findings: - Constitutional Appears: Well, Non-toxic, No Acute Distress - Head Exam Head Exam: ATRAUMATIC, NORMAL INSPECTION - Eye Exam Eye Exam: EOMI, Normal appearance - Neck Exam Additional comments: ecchymosis to left neck superior and inferior to incision - edema presents but slightly improved, no bleeding or drainage Dressing clean dry and intact - Respiratory Exam Respiratory Exam: NORMAL BREATHING PATTERN. absent: Respiratory Distress - Cardiovascular Exam Cardiovascular Exam: +S1, +S2 - GI/Abdominal Exam GI & Abdominal Exam: Soft. absent: Tenderness - Neurological Exam Neurological Exam: Alert, Awake, CN II-XII Intact - Psychiatric Exam Psychiatric exam: Normal Affect, Normal Mood - Skin Additional comments: ecchymosis on left neck Assessment and Plan - Assessment and Plan (Free Text) Assessment: 72 F s/p Left carotid endarterectomy with bovine patch POD#3 Plan: - Dysphagia diet pureed food and nectar thick liquids - Aspiration precautions - Will continue to monitor - Continue ASA - Continue antihypertensives - Mucomyst PRN for phlegm - right shoulder anterior dislocation - As per Dr. Wilcox, Patient is NOT cleared for any open procedures in regards to R shoulder but may have closed reduction. - Patient clear for discharge from vascular standpoint, She is required to follow up in exactly 1 week - Discussed plan with Dr. Bernden Sierra PGY2
[2017-11-04] MEDS: Insulin Lispro (humaLOG) LOW Coverage SC SCH ×4 (08:52→22:11)
[2017-11-04 09:21] LABS: HEMOGLOBIN 8.4 g/dL (12.0-16.0); MEAN CELL VOLUME 78.2 fl (80.0-105.0); MEAN CORPUSCULAR HEMOGLOBIN 24.7 pg (25.0-35.0); MEAN CORPUSCULAR HGB CONC 31.6 g/dl (31.0-37.0); MEAN PLATELET VOLUME 10.8 fl (7.0-11.0); RBC 3.4 10^6/uL (3.5-6.1); RED CELL DISTRIBUTION WIDTH 14.1 % (11.5-14.5); WHITE BLOOD COUNT 5.7 10^3/ul (4.5-11.0)
[2017-11-04] MEDS: Acetylcysteine 20% Inhal Soln (4ml) IH PRN (09:29)
[2017-11-04] MEDS: Albuterol-Ipratrop 3 mg / 0.5 (3 ml) UD IH PRN (09:29)
[2017-11-04 09:37] LABS: ALB/GLOB RATIO 1.2 (1.1-1.8); ALBUMIN 3.6 g/dL (3.0-4.8); ALT/SGPT 23 U/L (7-56); AST/SGOT 32 U/L (14-36); BLOOD UREA NITROGEN 14 mg/dL (7-21); CALCIUM 9.2 mg/dL (8.4-10.5); GFR AFRICAN-AMERICAN > 60; GFR NON-AFRICAN AMERICAN 54
[2017-11-04] MEDS: Multivitamin Vitamin B Complex (Nephro-Vite) Tab PO SCH (10:27)
--- NOTE | 2017-11-04 17:07 | CP.PCM.CON ---
History of Present Illness - History of Present Illness History of Present Illness: 72 y/o Female s/p carotid endarterecomy left side on 11/01/17. Interview performed through language line. Patient has noted dysphagia and dysphonia since the recent surgery. Pt having pain and swelling of left neck. Pt had previous carotidendarterectomy right sided in the past. Patient is able to handle her saliva. Resting comfortably in bed with no evidence of stridor. Review of Systems - Constitutional Constitutional: As Per HPI - EENT Eyes: As Per HPI Ears: As Per HPI Nose/Mouth/Throat: As Per HPI, Change in Voice, Dysphagia, Odynophagia, Neck Pain - Respiratory Respiratory: As Per HPI - Musculoskeletal Musculoskeletal: As Per HPI - Integumentary Integumentary: As Per HPI - Neurological Neurological: As Per HPI - Psychiatric Psychiatric: As Per HPI - Endocrine Endocrine: As Per HPI - Hematologic/Lymphatic Hematologic: As Per HPI Past Patient History - Infectious Disease Hx of Infectious Diseases: None - Tetanus Immunizations Tetanus Immunization: Unknown - Past Medical History & Family History Past Medical History?: Yes - Past Social History Smoking Status: Never Smoked - CARDIAC Hx Hypertension: Yes - PULMONARY Hx Respiratory Disorders: No - NEUROLOGICAL Hx Dizziness: Yes - HEENT Hx HEENT Problems: No - RENAL Hx Chronic Kidney Disease: No - ENDOCRINE/METABOLIC Hx Diabetes Mellitus Type 2: Yes - HEMATOLOGICAL/ONCOLOGICAL Hx Blood Transfusions: No Hx Blood Transfusion Reaction: No - INTEGUMENTARY Hx Dermatological Problems: No - MUSCULOSKELETAL/RHEUMATOLOGICAL Hx Arthritis: Yes - GASTROINTESTINAL Hx Gastrointestinal Disorders: No - GENITOURINARY/GYNECOLOGICAL Hx Genitourinary Disorders: No - PSYCHIATRIC Hx Psychophysiologic Disorder: No Hx Substance Use: No - SURGICAL HISTORY Hx Surgeries: Yes - ANESTHESIA Hx Anesthesia Reactions: No Hx Malignant Hyperthermia: No Meds Allergies/Adverse Reactions: Allergies Allergy/AdvReac Type Severity Reaction Status Date / Time No Known Allergies Allergy Verified 10/31/17 18:16 - Medications Medications: Current Medications Acetaminophen (Tylenol 325mg Tab) 650 mg PO Q6H PRN PRN Reason: Pain, moderate (4-7) Acetylcysteine (Acetylcysteine 20%) 4 ml IH [id number] PRN PRN Reason: Cough and congestion Last Admin: 11/04/17 09:29 Dose: 4 ml Albuterol/Ipratropium (Duoneb 3 Mg/0.5 Mg (3 Ml) Ud) 3 ml IH [id number] PRN PRN Reason: Shortness of Breath Last Admin: 11/04/17 09:29 Dose: 3 ml Allopurinol (Zyloprim) 100 mg PO DAILY [facility] Last Admin: 11/04/17 10:27 Dose: 100 mg Aspirin (Ecotrin) 81 mg PO DAILY [facility] Last Admin: 11/04/17 10:27 Dose: 81 mg Atenolol (Tenormin) 25 mg PO DAILY [facility] Last Admin: 11/04/17 10:27 Dose: 25 mg Atorvastatin Calcium (Lipitor) 40 mg PO DIN [facility] Last Admin: 11/03/17 17:46 Dose: 40 mg Benzocaine/Menthol (Cepacol Sore Throat) 1 kush MT Q2H PRN PRN Reason: Sore Throat Last Admin: 11/03/17 08:00 Dose: 1 kush Ergocalciferol (Drisdol 50,000 Intl Units Cap) 1 cap PO Q7D [facility] Last Admin: 10/31/17 23:16 Dose: 1 cap Ferrous Sulfate (Feosol) 324 mg PO BID [facility] Last Admin: 11/04/17 10:27 Dose: 324 mg Hydromorphone HCl (Dilaudid) 0.5 mg IVP Q3H PRN PRN Reason: Pain, severe (8-10) Last Admin: 11/02/17 22:53 Dose: 0.5 mg Insulin Human Lispro (Humalog Low) 0 units SC ACHS [facility] PRN Reason: Protocol Last Admin: 11/04/17 16:40 Dose: Not Given Losartan Potassium (Cozaar) 100 mg PO DAILY [facility] Last Admin: 11/04/17 10:27 Dose: 100 mg Nitroglycerin (Nitro-Bid 2% Oint) 1 ea TOP Q6H PRN PRN Reason: Systolic Blood Pressure Ondansetron HCl (Zofran Inj) 4 mg IVP Q6H PRN PRN Reason: Nausea/Vomiting Pantoprazole Sodium (Protonix Ec Tab) 40 mg PO 0600 [facility] Last Admin: 11/04/17 06:56 Dose: 40 mg Vitamin B Complex/Vit C/Folic Acid (Nephro-Vargas) 1 tab PO DAILY [facility] Last Admin: 11/04/17 10:27 Dose: 1 tab Physical Exam - Constitutional Appears: Well, Non-toxic, No Acute Distress - Head Exam Head Exam: ATRAUMATIC, NORMAL INSPECTION - Eye Exam Eye Exam: EOMI, Normal appearance Pupil Exam: NORMAL ACCOMODATION - ENT Exam ENT Exam: Mucous Membranes Moist Additional comments: Due to limitation in view with laryngeal mirror secondary to patient's anatomy a Fiberoptic laryngoscopy was performed for indication of dysphagia/dysphonia after surgery. Lidocaine/afrin topical was applied to inside patient nose bilaterally. Fiberoptic nasolaryngoscope was inserted into the left nares. Scope was advanced to the supraglottic region and the findings are as follows: Supraglottic: Epiglottic Edema and ecchymosis with tracking lateral pharyngeal wall left side and along aryepiglottic fold and arytenoid partially blocking view of left vocal cord Glottic: Mild left False vocal cord edema and ecchymosis, True vocal cords approximating well with normal movement hypopharynx: wnl Patient tolerated the procedure well. Scope withdrawn. - Expanded ENT Exam Expanded Ear exam: absent: Auricular Hematoma, Auricular Trauma, External Canal Tenderness Mouth exam: normal external inspection Teeth exam: normal external inspection Throat exam: Normal Inspection - Neck Exam Neck exam: Positive for: Tenderness Additional comments: ecchymosis with edema left neck, no fluctuance. - Psychiatric Exam Psychiatric exam: Normal Affect, Normal Mood - Skin Additional comments: swelling with ecchymosis left neck Results - Vital Signs Recent Vital Signs: Last Vital Signs Temp 99.1 F 11/04/17 06:00 Pulse 90 11/04/17 10:27 Resp 18 11/04/17 06:00 BP 115/68 11/04/17 10:27 Pulse Ox 95 11/04/17 06:00 - Labs Result Diagrams: 11/04/17 08:45 11/04/17 08:45 Labs: Laboratory Results - last 24 hr 11/03/17 11/04/17 11/04/17 21:24 06:33 08:45 WBC 5.7 RBC 3.40 L Hgb 8.4 L Hct 26.6 L MCV 78.2 L MCH 24.7 L MCHC 31.6 RDW 14.1 Plt Count 270 MPV 10.8 Sodium Potassium Chloride Carbon Dioxide Anion Gap BUN Creatinine Est GFR ( Amer) Est GFR (Non-Af Amer) POC Glucose (mg/dL) 122 H 127 H Random Glucose Calcium Total Bilirubin AST ALT Alkaline Phosphatase Total Protein Albumin Globulin Albumin/Globulin Ratio 11/04/17 11/04/17 11/04/17 08:45 11:15 15:57 WBC RBC Hgb Hct MCV MCH MCHC RDW Plt Count MPV Sodium 143 Potassium 4.4 Chloride 104 Carbon Dioxide 28 Anion Gap 16 BUN 14 Creatinine 1.0 Est GFR ( Amer) > 60 Est GFR (Non-Af Amer) 54 POC Glucose (mg/dL) 171 H 123 H Random Glucose 189 H Calcium 9.2 Total Bilirubin 0.4 AST 32 ALT 23 Alkaline Phosphatase 91 Total Protein 6.6 Albumin 3.6 Globulin 3.0 Albumin/Globulin Ratio 1.2 Assessment & Plan (1) Carotid arterial disease Status: Acute (2) Chronic right shoulder pain Status: Acute (3) Other voice and resonance disorders Status: Acute (4) Oropharyngeal dysphagia Status: Acute (5) Ecchymosis of neck Status: Acute (6) Edematous skin Status: Acute (7) Laryngeal edema Status: Acute - Assessment and Plan (Free Text) Plan: Discussed findings with patient's vascular surgeon. Recommend trial of steroid for laryngeal edema. Monitor patient. Soft diet as tolerated. - Date & Time Date: 11/04/17 Time: 17:06
[2017-11-04] MEDS: MethylPREDNISolone 40 mg Vial IV SCH ×2 (17:24→21:21)
[2017-11-05] MEDS: Pantoprazole 40 mg EC Tab PO SCH (05:36)
[2017-11-05] MEDS: MethylPREDNISolone 40 mg Vial IV SCH ×3 (05:36→22:13)
[2017-11-05 06:56] LABS: HEMOGLOBIN 8.8 g/dL (12.0-16.0); MEAN CELL VOLUME 77.8 fl (80.0-105.0); MEAN CORPUSCULAR HEMOGLOBIN 24.4 pg (25.0-35.0); MEAN CORPUSCULAR HGB CONC 31.3 g/dl (31.0-37.0); MEAN PLATELET VOLUME 10.8 fl (7.0-11.0); RBC 3.61 10^6/uL (3.5-6.1); RED CELL DISTRIBUTION WIDTH 13.9 % (11.5-14.5); WHITE BLOOD COUNT 5.2 10^3/ul (4.5-11.0)
[2017-11-05 07:31] LABS: ALB/GLOB RATIO 1.2 (1.1-1.8); ALBUMIN 3.9 g/dL (3.0-4.8); ALT/SGPT 32 U/L (7-56); AST/SGOT 35 U/L (14-36); BLOOD UREA NITROGEN 16 mg/dL (7-21); GFR AFRICAN-AMERICAN > 60; GFR NON-AFRICAN AMERICAN > 60
--- NOTE | 2017-11-05 07:47 | CP.PCM.PN ---
Subjective - Date & Time of Evaluation Date of Evaluation: 11/05/17 Time of Evaluation: 06:55 - Subjective Subjective: Vascular Surgery Note for Dr. Wilcox Patient seen and examined at bedside. No acute event overnight. Patient states swelling has improved. She is able to eat and drink without difficulty. Her sore throat has also gotten better. She still complains of a cough but phlegm has decreased. Speaking without difficulty, no hoarseness, normal tone, pitch and phonation. Objective - Vital Signs/Intake and Output Vital Signs (last 24 hours): Temp Pulse Resp BP Pulse Ox 98.4 F 84 16 155/67 H 96 11/04/17 22:25 11/04/17 22:25 11/04/17 22:25 11/04/17 22:25 11/04/17 22:25 Intake and Output: 11/05/17 11/05/17 06:59 18:59 Intake Total 800 Balance 800 - Medications Medications: Current Medications Acetaminophen (Tylenol 325mg Tab) 650 mg PO Q6H PRN PRN Reason: Pain, moderate (4-7) Acetylcysteine (Acetylcysteine 20%) 4 ml IH [id number] PRN PRN Reason: Cough and congestion Last Admin: 11/04/17 09:29 Dose: 4 ml Albuterol/Ipratropium (Duoneb 3 Mg/0.5 Mg (3 Ml) Ud) 3 ml IH [id number] PRN PRN Reason: Shortness of Breath Last Admin: 11/04/17 09:29 Dose: 3 ml Allopurinol (Zyloprim) 100 mg PO DAILY [facility] Last Admin: 11/04/17 10:27 Dose: 100 mg Aspirin (Ecotrin) 81 mg PO DAILY [facility] Last Admin: 11/04/17 10:27 Dose: 81 mg Atenolol (Tenormin) 25 mg PO DAILY [facility] Last Admin: 11/04/17 10:27 Dose: 25 mg Atorvastatin Calcium (Lipitor) 40 mg PO DIN [facility] Last Admin: 11/04/17 17:27 Dose: 40 mg Benzocaine/Menthol (Cepacol Sore Throat) 1 kush MT Q2H PRN PRN Reason: Sore Throat Last Admin: 11/03/17 08:00 Dose: 1 kush Ergocalciferol (Drisdol 50,000 Intl Units Cap) 1 cap PO Q7D [facility] Last Admin: 10/31/17 23:16 Dose: 1 cap Ferrous Sulfate (Feosol) 324 mg PO BID [facility] Last Admin: 11/04/17 17:27 Dose: 324 mg Hydromorphone HCl (Dilaudid) 0.5 mg IVP Q3H PRN PRN Reason: Pain, severe (8-10) Last Admin: 11/02/17 22:53 Dose: 0.5 mg Insulin Human Lispro (Humalog Low) 0 units SC ACHS [facility] PRN Reason: Protocol Last Admin: 11/04/17 22:11 Dose: 3 unit Losartan Potassium (Cozaar) 100 mg PO DAILY [facility] Last Admin: 11/04/17 10:27 Dose: 100 mg Methylprednisolone (Solu-Medrol) 40 mg IV Q8 [facility] Stop: 11/06/17 23:59 Last Admin: 11/05/17 05:36 Dose: 40 mg Nitroglycerin (Nitro-Bid 2% Oint) 1 ea TOP Q6H PRN PRN Reason: Systolic Blood Pressure Ondansetron HCl (Zofran Inj) 4 mg IVP Q6H PRN PRN Reason: Nausea/Vomiting Pantoprazole Sodium (Protonix Ec Tab) 40 mg PO 0600 [facility] Last Admin: 11/05/17 05:36 Dose: 40 mg Vitamin B Complex/Vit C/Folic Acid (Nephro-Vargas) 1 tab PO DAILY [facility] Last Admin: 11/04/17 10:27 Dose: 1 tab - Labs Labs: 11/05/17 06:00 11/05/17 06:00 PT 11.1 SECONDS (9.4-12.5) 10/31/17 19:35 INR 0.97 (0.93-1.08) 10/31/17 19:35 APTT 29.2 Seconds (25.1-36.5) 10/31/17 19:35 - Additional Findings Additional findings: - Constitutional Appears: Well, Non-toxic, No Acute Distress - Head Exam Head Exam: ATRAUMATIC, NORMAL INSPECTION - Eye Exam Eye Exam: EOMI, Normal appearance - Neck Exam Additional comments: ecchymosis to left neck superior and inferior to incision - edema and ecchymosis improving, no bleeding steri strips clean dry and intact - Respiratory Exam Respiratory Exam: NORMAL BREATHING PATTERN. absent: Respiratory Distress - Cardiovascular Exam Cardiovascular Exam: +S1, +S2 - GI/Abdominal Exam GI & Abdominal Exam: Soft. absent: Tenderness - Neurological Exam Neurological Exam: Alert, Awake, CN II-XII Intact - Psychiatric Exam Psychiatric exam: Normal Affect, Normal Mood - Skin Additional comments: ecchymosis on left neck improving Assessment and Plan - Assessment and Plan (Free Text) Assessment: 72 F s/p Left carotid endarterectomy with bovine patch POD#4 Plan: - ENT recomendations - Solu-medrol 40 mg Q8H for laryngeal edema - Dysphagia diet pureed food and nectar thick liquids - Aspiration precautions - Continue ASA - Continue antihypertensives - Mucomyst PRN - right shoulder anterior dislocation - As per Dr. Wilcox, Patient is NOT cleared for any open procedures in regards to R shoulder but may have closed reduction. - Patient clear for discharge from vascular standpoint after steroid course, She is required to follow up in exactly 1 week - Discussed plan with Dr. Brenden Sierra PGY2
--- NOTE | 2017-11-05 08:18 | CP.PCM.PN ---
Addendum entered and electronically signed by Brandt Hernandez DO 11/06/17 07: 53: Acute Kidney Injury assessment: stage 1, resolved. Original Note: <Brandt Hernandez - Last Filed: 11/05/17 13:26> Subjective - Date & Time of Evaluation Date of Evaluation: 11/05/17 Time of Evaluation: 08:08 - Subjective Subjective: Brandt Hernandez D.O. PGY1 -- Film Composer -- Medicine Progress Note Patient was seen at bedside this morning. Translation was provided with Manal # [id number] and Perfecto #[id number]. Patient states she is feeling much better this morning. Patient says she noticed that the swelling has been improving. Patient able to tolerate modefied consistancy PO diet this morning and was able to get out of bed to chair without issue. Patient admits to mild neck pain on the left and cough, but says that both have improved. Patient otherwise denies shoulder pain , chest pain, shortness of breath, dizziness, pruritus, fevers, chills, joint pain, and/or muscle pain. Objective - Vital Signs/Intake and Output Vital Signs (last 24 hours): Temp Pulse Resp BP Pulse Ox 98.4 F 84 16 155/67 H 96 11/04/17 22:25 11/04/17 22:25 11/04/17 22:25 11/04/17 22:25 11/04/17 22:25 Intake and Output: 11/05/17 11/05/17 06:59 18:59 Intake Total 800 Balance 800 - Medications Medications: Current Medications Acetaminophen (Tylenol 325mg Tab) 650 mg PO Q6H PRN PRN Reason: Pain, moderate (4-7) Acetylcysteine (Acetylcysteine 20%) 4 ml IH [id number] PRN PRN Reason: Cough and congestion Last Admin: 11/04/17 09:29 Dose: 4 ml Albuterol/Ipratropium (Duoneb 3 Mg/0.5 Mg (3 Ml) Ud) 3 ml IH [id number] PRN PRN Reason: Shortness of Breath Last Admin: 11/04/17 09:29 Dose: 3 ml Allopurinol (Zyloprim) 100 mg PO DAILY [facility] Last Admin: 11/04/17 10:27 Dose: 100 mg Aspirin (Ecotrin) 81 mg PO DAILY [facility] Last Admin: 11/04/17 10:27 Dose: 81 mg Atenolol (Tenormin) 25 mg PO DAILY [facility] Last Admin: 11/04/17 10:27 Dose: 25 mg Atorvastatin Calcium (Lipitor) 40 mg PO DIN [facility] Last Admin: 11/04/17 17:27 Dose: 40 mg Benzocaine/Menthol (Cepacol Sore Throat) 1 kush MT Q2H PRN PRN Reason: Sore Throat Last Admin: 11/03/17 08:00 Dose: 1 kush Ergocalciferol (Drisdol 50,000 Intl Units Cap) 1 cap PO Q7D [facility] Last Admin: 10/31/17 23:16 Dose: 1 cap Ferrous Sulfate (Feosol) 324 mg PO BID [facility] Last Admin: 11/04/17 17:27 Dose: 324 mg Hydromorphone HCl (Dilaudid) 0.5 mg IVP Q3H PRN PRN Reason: Pain, severe (8-10) Last Admin: 11/02/17 22:53 Dose: 0.5 mg Insulin Human Lispro (Humalog Low) 0 units SC ACHS [facility] PRN Reason: Protocol Last Admin: 11/04/17 22:11 Dose: 3 unit Losartan Potassium (Cozaar) 100 mg PO DAILY [facility] Last Admin: 11/04/17 10:27 Dose: 100 mg Methylprednisolone (Solu-Medrol) 40 mg IV Q8 [facility] Stop: 11/06/17 23:59 Last Admin: 11/05/17 05:36 Dose: 40 mg Nitroglycerin (Nitro-Bid 2% Oint) 1 ea TOP Q6H PRN PRN Reason: Systolic Blood Pressure Ondansetron HCl (Zofran Inj) 4 mg IVP Q6H PRN PRN Reason: Nausea/Vomiting Pantoprazole Sodium (Protonix Ec Tab) 40 mg PO 0600 [facility] Last Admin: 11/05/17 05:36 Dose: 40 mg Vitamin B Complex/Vit C/Folic Acid (Nephro-Vargas) 1 tab PO DAILY [facility] Last Admin: 11/04/17 10:27 Dose: 1 tab - Labs Labs: 11/05/17 06:00 11/05/17 06:00 PT 11.1 SECONDS (9.4-12.5) 10/31/17 19:35 INR 0.97 (0.93-1.08) 10/31/17 19:35 APTT 29.2 Seconds (25.1-36.5) 10/31/17 19:35 - Constitutional Appears: Well, No Acute Distress - Head Exam Head Exam: ATRAUMATIC, NORMAL INSPECTION, NORMOCEPHALIC - Eye Exam Eye Exam: Normal appearance. absent: Conjunctival injection, Periorbital swelling, Periorbital tenderness, Scleral icterus Pupil Exam: NORMAL ACCOMODATION - ENT Exam ENT Exam: Mucous Membranes Moist Additional comments: Hyperpigmentation and bruising along the left jaw, inferior to mandible appreciated on inspection - Neck Exam Neck Exam: Full ROM, Tenderness. absent: Lymphadenopathy Additional comments: neck tenderness to palpation on left near site of incision. Swelling of neck region appreciated on inspection. - Respiratory Exam Respiratory Exam: Clear to Ausculation Bilateral, NORMAL BREATHING PATTERN. absent: Accessory Muscle Use, Chest Wall Tenderness, Decreased Breath Sounds, Prolonged Expiratory Phase, Rales, Rhonchi, Wheezes, Respiratory Distress, Stridor - Cardiovascular Exam Cardiovascular Exam: REGULAR RHYTHM, RRR. absent: Bradycardia, Tachycardia, Diastolic murmur, Gallop, JVD, Rubs, +S4, Murmur - GI/Abdominal Exam GI & Abdominal Exam: Soft, Normal Bowel Sounds. absent: Bruit, Distended, Firm , Guarding, Rigid, Tenderness, Diminished Bowel Sounds, Hernia, Hyperactive Bowel Sounds - Extremities Exam Extremities Exam: Full ROM, Normal Inspection. absent: Pedal Edema, Tenderness - Back Exam Back Exam: Full ROM, NORMAL INSPECTION. absent: muscle spasm, paraspinal tenderness, rash noted - Neurological Exam Neurological Exam: Alert, Awake, CN II-XII Intact, Oriented x3 - Psychiatric Exam Psychiatric exam: Normal Affect, Normal Mood - Skin Skin Exam: Dry, Intact, Warm Additional comments: scattered bruising appreciated on legs and chest. Neck is bruised with hyperpigmentation. Assessment and Plan - Assessment and Plan (Free Text) Assessment: This is a 71 year old female with past medical history of hypertension, diabetes mellitus type 2, and bilateral carotid artery stenosis of 70-80% status post right carotid endarterectomy in July 2017 who was admitted for left carotid stenosis status post op day 4 for left carotid endarterectomy with Dr. Wilcox. Patient also complained of right shoulder pain and was diagnosed with anterior-inferior dislocation of right shoulder. Dysphagia secondary to laryngeal edema, status post left carotid endarterectomy post-op day 3 ENT consulted, recommendations appreciated Steroids 40mg IV Q8 started, will reassess followed by PO taper continue application of ice packs PRN Speech therapist consulted, recommendations appreciated mod-to-high risk aspiration Vascular surgery consulted, recommendations appreciated monitor Acute anterior-inferior dislocation of right shoulder X-ray of right shoulder: Anterior-inferior dislocation of right shoulder without fracture CT right shoulder denied by patient Patient educated about risks of delaying evaluation and treatment and agrees Ortho consulted, recommendations appreciated PT/OT eval and therapy monitor Acute kidney injury (type___), resolved IVF monitor hyperkalemia, resolved K+ 4.1 on repeat monitor iron deficiency anemia continue home-med Ferrous sulfate 324mg PO BID colonoscopy 2-3 years ago was normal per patient history of diabetes mellitus type 2 hold metformin accu-check ISS, low hypertension continue atenolol Monitor vitals history of hyperuricemia cont Allopurinol GI/DVT Prophylaxis: protonix and heparin 5000U sc Sequential compression device dispo: discharge to home once medically optimized, as patient was evaluated and denied to TCU since she has medicare part B only. patient seen, and case reviewed in detail with Herminio Adams Neev D.O PYG1 -- family lawyer <Ramona Swan R - Last Filed: 11/06/17 09:09> Objective - Vital Signs/Intake and Output Vital Signs (last 24 hours): Temp Pulse Resp BP Pulse Ox 98.2 F 86 20 177/83 H 98 11/05/17 22:20 11/05/17 22:20 11/05/17 22:20 11/05/17 22:20 11/05/17 22:20 Intake and Output: 11/06/17 11/06/17 06:59 18:59 Intake Total 480 Balance 480 - Medications Medications: Current Medications Acetaminophen (Tylenol 325mg Tab) 650 mg PO Q6H PRN PRN Reason: Pain, moderate (4-7) Last Admin: 11/05/17 14:33 Dose: 650 mg Acetylcysteine (Acetylcysteine 20%) 4 ml IH [id number] PRN PRN Reason: Cough and congestion Last Admin: 11/04/17 09:29 Dose: 4 ml Albuterol/Ipratropium (Duoneb 3 Mg/0.5 Mg (3 Ml) Ud) 3 ml IH [id number] PRN PRN Reason: Shortness of Breath Last Admin: 11/04/17 09:29 Dose: 3 ml Allopurinol (Zyloprim) 100 mg PO DAILY [facility] Last Admin: 11/05/17 10:55 Dose: 100 mg Aspirin (Ecotrin) 81 mg PO DAILY [facility] Last Admin: 11/05/17 10:55 Dose: 81 mg Atenolol (Tenormin) 25 mg PO DAILY [facility] Last Admin: 11/05/17 11:06 Dose: 25 mg Atorvastatin Calcium (Lipitor) 40 mg PO DIN [facility] Last Admin: 11/05/17 17:46 Dose: 40 mg Benzocaine/Menthol (Cepacol Sore Throat) 1 kush MT Q2H PRN PRN Reason: Sore Throat Last Admin: 11/03/17 08:00 Dose: 1 kush Ergocalciferol (Drisdol 50,000 Intl Units Cap) 1 cap PO Q7D [facility] Last Admin: 10/31/17 23:16 Dose: 1 cap Ferrous Sulfate (Feosol) 324 mg PO BID [facility] Last Admin: 11/05/17 17:46 Dose: 324 mg Hydromorphone HCl (Dilaudid) 0.5 mg IVP Q3H PRN PRN Reason: Pain, severe (8-10) Last Admin: 11/02/17 22:53 Dose: 0.5 mg Insulin Human Lispro (Humalog Low) 0 units SC ACHS [facility] PRN Reason: Protocol Last Admin: 11/06/17 07:57 Dose: 1 unit Losartan Potassium (Cozaar) 100 mg PO DAILY [facility] Last Admin: 11/05/17 10:55 Dose: 100 mg Methylprednisolone (Solu-Medrol) 40 mg IV Q8 [facility] Stop: 11/06/17 23:59 Last Admin: 11/06/17 06:12 Dose: 40 mg Nitroglycerin (Nitro-Bid 2% Oint) 1 ea TOP Q6H PRN PRN Reason: Systolic Blood Pressure Ondansetron HCl (Zofran Inj) 4 mg IVP Q6H PRN PRN Reason: Nausea/Vomiting Pantoprazole Sodium (Protonix Ec Tab) 40 mg PO 0600 [facility] Last Admin: 11/06/17 06:16 Dose: 40 mg Vitamin B Complex/Vit C/Folic Acid (Nephro-Vargas) 1 tab PO DAILY [facility] Last Admin: 11/05/17 10:55 Dose: 1 tab - Labs Labs: 11/06/17 07:00 11/06/17 07:00 PT 11.1 SECONDS (9.4-12.5) 10/31/17 19:35 INR 0.97 (0.93-1.08) 10/31/17 19:35 APTT 29.2 Seconds (25.1-36.5) 10/31/17 19:35 Attending/Attestation - Attestation I have personally seen and examined this patient.: Yes I have fully participated in the care of the patient.: Yes I have reviewed all pertinent clinical information, including history, physical exam and plan: Yes Notes (Text): Patient seen and examined by me at 9:55AM 11/05/17 with resident. Case including physical assessment and plan discussed with resident. Agree with above with following changes/additions. Patient states she is feeling much better today. Patient was started on steroids yesterday. Patient feels her throat pain has improved. She states she is able to eat a little bit more. She also feels that the swelling in her face and throat has improved. She continues to deny any right upper extremity pain. She denies any nausea, vomiting or abdominal pain. No chest pain or shortness of breath. No headaches or dizziness. No dysuria. No fevers or chills. No diarrhea or constipation Physical exam: Gen: Patient is awake and alert sitting up in bed in no acute distress HEENT: Normocephalic atraumatic, extraocular muscles intact, pupils equal reactive, oropharynx is pink and moist, Steri-Strips left side of neck intact. Positive ecchymosis around left neck and cheek. Improved left cheek, neck, and below chin. Cardiovascular: Normal rhythm, normal S1-S2, no murmurs rubs or gallops appreciated Pulmonary: Normal respiratory effort. No rhonchi, rales, or wheezing appreciated Gastrointestinal: Soft, nontender, nondistended, positive bowel sounds all 4 quadrants, no guarding Musculoskeletal: Moves all extremities, no calf tenderness. Decreased range of motion at right shoulder Central nervous system: AAO 3 Dermatologic: Skin warm and dry. Positive resolving ecchymosis left anterior chest wall Assessment and plan: Patient is a 72-year-old female with history of bilateral carotid stenosis status post carotid endarterectomy on left postop day #4. Continue with aspirin. Continue pain management. Patient seen by ENT, recommendations appreciated. Patient found to have laryngeal edema and started on IV steroids. Continue with Pure diet with thickened liquids for now. Speech and swallow to reevaluate. Right shoulder x-ray per radiologist showed right anterior inferior dislocation. Orthopedics following, recommendations appreciated. Patient is refusing any further imaging or intervention for her right arm and shoulder. Patient understands the risks involved with this. Patient continues to refuse any intervention. Hyperkalemia and acute kidney injury resolved. Continue atenolol and Cozaar for hypertension. Continue iron for anemia. Acute on chronic anemia likely secondary to surgery and acute blood loss. H&H stable. Continue current medications. Case was discussed in detail with the patient with scalp treatment operator and medical coding auditor regarding current diagnosis and treatment plan.
[2017-11-05] MEDS: Insulin Lispro (humaLOG) LOW Coverage SC SCH ×5 (08:23→22:14)
[2017-11-05] MEDS: Multivitamin Vitamin B Complex (Nephro-Vite) Tab PO SCH (10:55)
[2017-11-06] MEDS: MethylPREDNISolone 40 mg Vial IV SCH ×3 (06:12→22:37)
[2017-11-06] MEDS: Pantoprazole 40 mg EC Tab PO SCH (06:16)
[2017-11-06] MEDS: Insulin Lispro (humaLOG) LOW Coverage SC SCH ×4 (07:57→22:56)
--- NOTE | 2017-11-06 07:57 | CP.PCM.PN ---
<Brandt Heranndez - Last Filed: 11/06/17 18:32> Subjective - Date & Time of Evaluation Date of Evaluation: 11/06/17 Time of Evaluation: 07:47 - Subjective Subjective: Brandt Hernandez D.O. PGY1 -- Process Line Operator -- Medicine Progress Note Patient was seen at bedside this morning, and is status post-up day 5 for left endarterectomy with Dr. Wilcox. Translation was provided by Cirilo Clement #[id number] and by Arlene #[id number]. Per patient, she became anxious last night because she felt that the swelling in her neck began to increase again. However, patient says that this improved with application of ice pack last night. Patient admits to ambulating down the samuel and tolerated this well. Patient admits to bowel movement without diarrhea, and tolerated her breakfast this morning and dinner last night. Patient explains that she decreased her liquid intake because she is eating less than normal. Patient admits to tenderness and swelling over her left neck, but has been progressively improving. Otherwise patient denies headache, lower extremity edema, chest pain, shortness of breath , dizziness, abdominal pain, joint pain, fever, chills, nausea, and/or vomiting. Objective - Vital Signs/Intake and Output Vital Signs (last 24 hours): Temp Pulse Resp BP Pulse Ox 98.2 F 86 20 177/83 H 98 11/05/17 22:20 11/05/17 22:20 11/05/17 22:20 11/05/17 22:20 11/05/17 22:20 Intake and Output: 11/06/17 11/06/17 06:59 18:59 Intake Total 480 Balance 480 - Medications Medications: Current Medications Acetaminophen (Tylenol 325mg Tab) 650 mg PO Q6H PRN PRN Reason: Pain, moderate (4-7) Last Admin: 11/05/17 14:33 Dose: 650 mg Acetylcysteine (Acetylcysteine 20%) 4 ml IH [id number] PRN PRN Reason: Cough and congestion Last Admin: 11/04/17 09:29 Dose: 4 ml Albuterol/Ipratropium (Duoneb 3 Mg/0.5 Mg (3 Ml) Ud) 3 ml IH [id number] PRN PRN Reason: Shortness of Breath Last Admin: 07/06/18 09:29 Dose: 3 ml Allopurinol (Zyloprim) 100 mg PO DAILY [facility] Last Admin: 11/05/17 10:55 Dose: 100 mg Aspirin (Ecotrin) 81 mg PO DAILY [facility] Last Admin: 11/05/17 10:55 Dose: 81 mg Atenolol (Tenormin) 25 mg PO DAILY [facility] Last Admin: 11/05/17 11:06 Dose: 25 mg Atorvastatin Calcium (Lipitor) 40 mg PO DIN [facility] Last Admin: 11/05/17 17:46 Dose: 40 mg Benzocaine/Menthol (Cepacol Sore Throat) 1 kush MT Q2H PRN PRN Reason: Sore Throat Last Admin: 11/03/17 08:00 Dose: 1 kush Ergocalciferol (Drisdol 50,000 Intl Units Cap) 1 cap PO Q7D [facility] Last Admin: 10/31/17 23:16 Dose: 1 cap Ferrous Sulfate (Feosol) 324 mg PO BID [facility] Last Admin: 11/05/17 17:46 Dose: 324 mg Hydromorphone HCl (Dilaudid) 0.5 mg IVP Q3H PRN PRN Reason: Pain, severe (8-10) Last Admin: 11/02/17 22:53 Dose: 0.5 mg Insulin Human Lispro (Humalog Low) 0 units SC [facility] PRN Reason: Protocol Last Admin: 11/05/17 22:14 Dose: Not Given Losartan Potassium (Cozaar) 100 mg PO DAILY [facility] Last Admin: 11/05/17 10:55 Dose: 100 mg Methylprednisolone (Solu-Medrol) 40 mg IV Q8 [facility] Stop: 11/06/17 23:59 Last Admin: 11/06/17 06:12 Dose: 40 mg Nitroglycerin (Nitro-Bid 2% Oint) 1 ea TOP Q6H PRN PRN Reason: Systolic Blood Pressure Ondansetron HCl (Zofran Inj) 4 mg IVP Q6H PRN PRN Reason: Nausea/Vomiting Pantoprazole Sodium (Protonix Ec Tab) 40 mg PO 0600 [facility] Last Admin: 11/06/17 06:16 Dose: 40 mg Vitamin B Complex/Vit C/Folic Acid (Nephro-Vargas) 1 tab PO DAILY [facility] Last Admin: 11/05/17 10:55 Dose: 1 tab - Labs Labs: 11/05/17 06:00 11/05/17 06:00 PT 11.1 SECONDS (9.4-12.5) 10/31/17 19:35 INR 0.97 (0.93-1.08) 10/31/17 19:35 APTT 29.2 Seconds (25.1-36.5) 10/31/17 19:35 - Constitutional Appears: Well, Non-toxic, No Acute Distress, Other (Patient is seen sitting in chair applying ice-pack to neck) - Head Exam Head Exam: ATRAUMATIC, NORMAL INSPECTION, NORMOCEPHALIC - Eye Exam Eye Exam: EOMI, Normal appearance, PERRL. absent: Conjunctival injection, Periorbital swelling, Scleral icterus Pupil Exam: NORMAL ACCOMODATION, PERRL - ENT Exam ENT Exam: Mucous Membranes Moist, Normal Exam - Neck Exam Neck Exam: Tenderness Additional comments: Tender to palpation on left. Positive swelling that is firm to palpation. Hyperpigmentation appreciated on left. - Respiratory Exam Respiratory Exam: Clear to Ausculation Bilateral, NORMAL BREATHING PATTERN. absent: Accessory Muscle Use, Chest Wall Tenderness, Decreased Breath Sounds, Prolonged Expiratory Phase, Rales, Rhonchi, Wheezes, Stridor - Cardiovascular Exam Cardiovascular Exam: REGULAR RHYTHM (83 beats per minute ). absent: Bradycardia , Tachycardia, Clicks, Diastolic murmur, Gallop, Rubs, Murmur - GI/Abdominal Exam GI & Abdominal Exam: Soft, Normal Bowel Sounds. absent: Distended, Firm, Guarding, Rigid, Tenderness, Diminished Bowel Sounds, Hypoactive Bowel Sounds - Extremities Exam Extremities Exam: Normal Inspection. absent: Calf Tenderness, Pedal Edema, Tenderness - Back Exam Back Exam: Full ROM, NORMAL INSPECTION. absent: muscle spasm, paraspinal tenderness - Neurological Exam Neurological Exam: Alert, Awake, CN II-XII Intact, Normal Gait, Oriented x3 - Psychiatric Exam Psychiatric exam: Normal Affect, Normal Mood - Skin Skin Exam: Dry, Intact, Normal Color, Warm Additional comments: patchy purplish-blue bruising appreciated with inspection of left neck. Scattered bruising appreciated inferior to clavicle on left. Assessment and Plan - Assessment and Plan (Free Text) Assessment: This is a 71 year old female with past medical history of hypertension, diabetes mellitus type 2, and bilateral carotid artery stenosis of 70-80% status post right carotid endarterectomy in July 2017 who was admitted for left carotid stenosis post op day 4 for left carotid endarterectomy with Dr. Wilcox. Patient also complained of right shoulder pain and was diagnosed with anterior- inferior dislocation of right shoulder. Dysphagia secondary to laryngeal edema, status post left carotid endarterectomy post-op day 5, improved Cervical Spine X-Ray: no acute findings related to/accounting for the clinical presentations, as per radiologist Dr. Gisselle STOREY ENT consulted, recommendations appreciated Steroids 40mg IV changed to Q12; continue to reassess Continue application of ice packs PRN Speech therapist consulted, recommendations appreciated Mod-to-high risk aspiration Vascular surgery consulted, recommendations appreciated Continue to monitor Acute kidney injury, BUN 27, Cr. 1.2 Likely secondary to dehydration secondary to decreased fluid intake Educated patient on increasing her fluid intake even if she is eating less Patient denied IVF Continue to monitor Hyperkalemia, resolved K+ 4.6 on repeat Continue to monitor Acute anterior-inferior dislocation of right shoulder X-ray of right shoulder: Anterior-inferior dislocation of right shoulder without fracture CT right shoulder denied by patient Patient educated about risks of delaying evaluation and treatment and agrees Ortho consulted, recommendations appreciated PT/OT eval and therapy Continue to monitor Hypertension Continue atenolol Continue to monitor vitals History of iron deficiency anemia Continue home-med Ferrous sulfate 324mg PO BID Colonoscopy 2-3 years ago was normal per patient History of diabetes mellitus type 2 Continue to hold metformin Continue Accu-check ISS, low History of hyperuricemia Cont Allopurinol GI/DVT Prophylaxis: Continue protonix and heparin 5000U sc Continue sequential compression device Dispo: discharge to home once tapered to oral steroids and medically optimized. Patient seen, and case reviewed in detail with Herminio Adams Neev D.O PYG1 -- family mediator <Ramona Swan R - Last Filed: 11/06/17 18:59> Objective - Vital Signs/Intake and Output Vital Signs (last 24 hours): Temp Pulse Resp BP Pulse Ox 97.9 F 69 20 141/74 100 11/06/17 14:00 11/06/17 14:00 11/06/17 14:00 11/06/17 14:00 11/06/17 14:00 Intake and Output: 11/06/17 11/06/17 06:59 18:59 Intake Total 480 480 Balance 480 480 - Medications Medications: Current Medications Acetaminophen (Tylenol 325mg Tab) 650 mg PO Q6H PRN PRN Reason: Pain, moderate (4-7) Last Admin: 11/05/17 14:33 Dose: 650 mg Acetylcysteine (Acetylcysteine 20%) 4 ml IH [id number] PRN PRN Reason: Cough and congestion Last Admin: 11/04/17 09:29 Dose: 4 ml Albuterol/Ipratropium (Duoneb 3 Mg/0.5 Mg (3 Ml) Ud) 3 ml IH [id number] PRN PRN Reason: Shortness of Breath Last Admin: 11/04/17 09:29 Dose: 3 ml Allopurinol (Zyloprim) 100 mg PO DAILY [facility] Last Admin: 11/06/17 09:50 Dose: 100 mg Aspirin (Ecotrin) 81 mg PO DAILY [facility] Last Admin: 11/06/17 09:50 Dose: 81 mg Atenolol (Tenormin) 25 mg PO DAILY [facility] Last Admin: 11/06/17 09:50 Dose: 25 mg Atorvastatin Calcium (Lipitor) 40 mg PO DIN [facility] Last Admin: 11/06/17 17:50 Dose: 40 mg Benzocaine/Menthol (Cepacol Sore Throat) 1 kush MT Q2H PRN PRN Reason: Sore Throat Last Admin: 11/03/17 08:00 Dose: 1 kush Ergocalciferol (Drisdol 50,000 Intl Units Cap) 1 cap PO Q7D [facility] Last Admin: 10/31/17 23:16 Dose: 1 cap Ferrous Sulfate (Feosol) 324 mg PO BID [facility] Last Admin: 11/06/17 18:25 Dose: 324 mg Hydromorphone HCl (Dilaudid) 0.5 mg IVP Q3H PRN PRN Reason: Pain, severe (8-10) Last Admin: 11/02/17 22:53 Dose: 0.5 mg Sodium Chloride (Sodium Chloride 0.45%) 1,000 mls @ 75 mls/hr IV .[id number] [facility] Stop: 11/07/17 05:31 Last Admin: 11/06/17 18:28 Dose: Not Given Insulin Human Lispro (Humalog Low) 0 units SC ACHS [facility] PRN Reason: Protocol Last Admin: 11/06/17 17:50 Dose: 1 unit Losartan Potassium (Cozaar) 100 mg PO DAILY [facility] Last Admin: 11/06/17 09:50 Dose: 100 mg Methylprednisolone (Solu-Medrol) 40 mg IV Q12H [facility] Last Admin: 11/06/17 11:30 Dose: 40 mg Nitroglycerin (Nitro-Bid 2% Oint) 1 ea TOP Q6H PRN PRN Reason: Systolic Blood Pressure Ondansetron HCl (Zofran Inj) 4 mg IVP Q6H PRN PRN Reason: Nausea/Vomiting Pantoprazole Sodium (Protonix Ec Tab) 40 mg PO 0600 [facility] Last Admin: 11/06/17 06:16 Dose: 40 mg Vitamin B Complex/Vit C/Folic Acid (Nephro-Vargas) 1 tab PO DAILY [facility] Last Admin: 11/06/17 11:13 Dose: 1 tab - Labs Labs: 11/06/17 07:00 11/06/17 07:00 PT 11.1 SECONDS (9.4-12.5) 10/31/17 19:35 INR 0.97 (0.93-1.08) 10/31/17 19:35 APTT 29.2 Seconds (25.1-36.5) 10/31/17 19:35 Attending/Attestation - Attestation I have personally seen and examined this patient.: Yes I have fully participated in the care of the patient.: Yes I have reviewed all pertinent clinical information, including history, physical exam and plan: Yes Notes (Text): Patient seen and examined by me at 10:50AM with resident. Case including physical assessment and plan discussed with resident. Agree with above with following changes/additions. Patient states she is feeling much better today. Patient states she had an episode last night where she felt like the left side of her neck and face were becoming more swollen. This caused her to feel short of breath. This has since resolved. Patient states that her neck and face feel less swollen. Pain has improved. Throat pain has also improved. Dysphasia improved. Patient is denying any right upper extremity pain. She denies any nausea, vomiting or abdominal pain. No chest pain or shortness of breath. No headaches or dizziness. No dysuria. No fevers or chills. No diarrhea or constipation Physical exam: Gen: Patient is awake and alert sitting up in chair in no acute distress HEENT: Normocephalic atraumatic, extraocular muscles intact, pupils equal reactive, oropharynx is pink and moist, Steri-Strips left side of neck intact. Positive ecchymosis around left neck and cheek. Improved edema left cheek, neck , and below chin. Cardiovascular: Normal rhythm, normal S1-S2, no murmurs rubs or gallops appreciated Pulmonary: Normal respiratory effort. No rhonchi, rales, or wheezing appreciated Gastrointestinal: Soft, nontender, nondistended, positive bowel sounds all 4 quadrants, no guarding Musculoskeletal: Moves all extremities, no calf tenderness. Decreased range of motion at right shoulder Central nervous system: AAO 3 Dermatologic: Skin warm and dry. Positive resolving ecchymosis left anterior chest wall Assessment and plan: Patient is a 72-year-old female with history of bilateral carotid stenosis status post carotid endarterectomy on left postop day #5. Continue with aspirin. Continue pain management. Patient seen by ENT, recommendations appreciated. Patient has found to have laryngeal edema and is on IV steroids. We'll taper steroids. Patient reevaluated by speech and swallow. I advanced. Right shoulder x-ray per radiologist showed right anterior inferior dislocation. Orthopedics following, recommendations appreciated. Patient is refusing any further imaging or intervention for her right arm and shoulder. Patient understands the risks involved with this. Hyperkalemia resolved. BUN and creatinine slightly elevated today. Patient is refusing IV fluids. Patient encouraged to increase by mouth fluid intake. Continue atenolol and Cozaar for hypertension. Continue iron for anemia. Acute on chronic anemia likely secondary to surgery and acute blood loss. H&H stable. Continue current medications. Disposition: DC planning for tomorrow on PO steroids if swelling does not worsen overnight. Case was discussed in detail with the patient with verifier and medical advisor regarding current diagnosis and treatment plan.
[2017-11-06 08:03] LABS: MEAN CELL VOLUME 77.2 fl (80.0-105.0); MEAN CORPUSCULAR HEMOGLOBIN 24.4 pg (25.0-35.0); MEAN CORPUSCULAR HGB CONC 31.6 g/dl (31.0-37.0); MEAN PLATELET VOLUME 10.8 fl (7.0-11.0); RBC 3.69 10^6/uL (3.5-6.1); WHITE BLOOD COUNT 9.2 10^3/ul (4.5-11.0)
[2017-11-06 08:10] LABS: ALB/GLOB RATIO 1.2 (1.1-1.8); ALBUMIN 3.7 g/dL (3.0-4.8); CALCIUM 8.7 mg/dL (8.4-10.5)
--- NOTE | 2017-11-06 09:10 | RAD ---
PROCEDURE: Cervical Spine Radiographs. HISTORY: Pain. No history of recent/ related trauma provided COMPARISON: None. FINDINGS: BONES: Alignment maintained. No fracture. Dens Intact. Limitations of the current examination: Nonvisualization C7 vertebral body. DISC SPACES: Normal. SOFT TISSUES: Normal. No prevertebral soft tissue swelling. OTHER FINDINGS: Postoperative findings in the neck bilaterally likely carotid artery surgery IMPRESSION: No acute findings related to/accounting for the clinical presentation. Limitations of the current examination: Nonvisualization C7 vertebral body.
[2017-11-06] MEDS: Multivitamin Vitamin B Complex (Nephro-Vite) Tab PO SCH (11:13)
--- NOTE | 2017-11-06 13:28 | CP.PCM.PN ---
Subjective - Date & Time of Evaluation Date of Evaluation: 11/06/17 Time of Evaluation: 13:24 - Subjective Subjective: Patient seen and examined with agreement. Patient feels swallowing and pain has much improved. She has noted neck swelling to decrease as well Objective - Vital Signs/Intake and Output Vital Signs (last 24 hours): Temp Pulse Resp BP Pulse Ox 98.5 F 85 16 169/72 H 96 11/06/17 06:00 11/06/17 09:50 11/06/17 06:00 11/06/17 09:50 11/06/17 06:00 Intake and Output: 11/06/17 11/06/17 06:59 18:59 Intake Total 480 Balance 480 - Medications Medications: Current Medications Acetaminophen (Tylenol 325mg Tab) 650 mg PO Q6H PRN PRN Reason: Pain, moderate (4-7) Last Admin: 11/05/17 14:33 Dose: 650 mg Acetylcysteine (Acetylcysteine 20%) 4 ml IH [id number] PRN PRN Reason: Cough and congestion Last Admin: 11/04/17 09:29 Dose: 4 ml Albuterol/Ipratropium (Duoneb 3 Mg/0.5 Mg (3 Ml) Ud) 3 ml IH [id number] PRN PRN Reason: Shortness of Breath Last Admin: 11/04/17 09:29 Dose: 3 ml Allopurinol (Zyloprim) 100 mg PO DAILY [facility] Last Admin: 11/06/17 09:50 Dose: 100 mg Aspirin (Ecotrin) 81 mg PO DAILY [facility] Last Admin: 11/06/17 09:50 Dose: 81 mg Atenolol (Tenormin) 25 mg PO DAILY [facility] Last Admin: 11/06/17 09:50 Dose: 25 mg Atorvastatin Calcium (Lipitor) 40 mg PO DIN [facility] Last Admin: 11/05/17 17:46 Dose: 40 mg Benzocaine/Menthol (Cepacol Sore Throat) 1 kush MT Q2H PRN PRN Reason: Sore Throat Last Admin: 11/03/17 08:00 Dose: 1 kush Ergocalciferol (Drisdol 50,000 Intl Units Cap) 1 cap PO Q7D [facility] Last Admin: 10/31/17 23:16 Dose: 1 cap Ferrous Sulfate (Feosol) 324 mg PO BID [facility] Last Admin: 11/06/17 09:50 Dose: 324 mg Hydromorphone HCl (Dilaudid) 0.5 mg IVP Q3H PRN PRN Reason: Pain, severe (8-10) Last Admin: 11/02/17 22:53 Dose: 0.5 mg Insulin Human Lispro (Humalog Low) 0 units SC ACHS [facility] PRN Reason: Protocol Last Admin: 11/06/17 11:30 Dose: 1 unit Losartan Potassium (Cozaar) 100 mg PO DAILY [facility] Last Admin: 11/06/17 09:50 Dose: 100 mg Methylprednisolone (Solu-Medrol) 40 mg IV Q12H [facility] Last Admin: 11/06/17 11:30 Dose: 40 mg Nitroglycerin (Nitro-Bid 2% Oint) 1 ea TOP Q6H PRN PRN Reason: Systolic Blood Pressure Ondansetron HCl (Zofran Inj) 4 mg IVP Q6H PRN PRN Reason: Nausea/Vomiting Pantoprazole Sodium (Protonix Ec Tab) 40 mg PO 0600 [facility] Last Admin: 11/06/17 06:16 Dose: 40 mg Vitamin B Complex/Vit C/Folic Acid (Nephro-Vargas) 1 tab PO DAILY [facility] Last Admin: 11/06/17 11:13 Dose: 1 tab - Labs Labs: 11/06/17 07:00 11/06/17 07:00 PT 11.1 SECONDS (9.4-12.5) 10/31/17 19:35 INR 0.97 (0.93-1.08) 10/31/17 19:35 APTT 29.2 Seconds (25.1-36.5) 10/31/17 19:35 - Constitutional Appears: Well, Non-toxic - Head Exam Head Exam: ATRAUMATIC, NORMAL INSPECTION - Eye Exam Eye Exam: EOMI, Normal appearance, PERRL Pupil Exam: NORMAL ACCOMODATION - ENT Exam ENT Exam: Mucous Membranes Moist - Neck Exam Neck Exam: Full ROM Additional comments: mild/mod ecchymosis and edema this has improved from day prior - Respiratory Exam Respiratory Exam: NORMAL BREATHING PATTERN - Neurological Exam Neurological Exam: Alert, Awake, Oriented x3 - Psychiatric Exam Psychiatric exam: Normal Affect - Skin Skin Exam: Warm Assessment and Plan (1) Carotid arterial disease Status: Acute (2) Chronic right shoulder pain Status: Acute (3) Other voice and resonance disorders Status: Acute (4) Oropharyngeal dysphagia Status: Acute (5) Ecchymosis of neck Status: Acute (6) Edematous skin Status: Acute (7) Laryngeal edema Status: Acute - Assessment and Plan (Free Text) Plan: continue with steroid. May taper upon your order. f/u out patient if necessary
[2017-11-06] MEDS: Sodium Chloride 0.45% 1,000 ML IV SCH ×2 (17:50→18:28)
[2017-11-07] MEDS: Pantoprazole 40 mg EC Tab PO SCH (06:09)
[2017-11-07 07:19] LABS: HEMOGLOBIN 9.2 g/dL (12.0-16.0); MEAN CELL VOLUME 78.3 fl (80.0-105.0); MEAN CORPUSCULAR HEMOGLOBIN 24.7 pg (25.0-35.0); MEAN CORPUSCULAR HGB CONC 31.5 g/dl (31.0-37.0); RBC 3.73 10^6/uL (3.5-6.1); RED CELL DISTRIBUTION WIDTH 14.1 % (11.5-14.5); WHITE BLOOD COUNT 8.7 10^3/ul (4.5-11.0)
[2017-11-07 07:30] LABS: ALB/GLOB RATIO 1.2 (1.1-1.8); ALBUMIN 3.7 g/dL (3.0-4.8); CALCIUM 8.2 mg/dL (8.4-10.5)
[2017-11-07] MEDS: Insulin Lispro (humaLOG) LOW Coverage SC SCH ×2 (08:38→12:17)
[2017-11-07] MEDS: Multivitamin Vitamin B Complex (Nephro-Vite) Tab PO SCH (09:55)
[2017-11-07] MEDS ORDERED: MethylPREDNISolone 40 mg Vial IV SCH (11:19)
--- NOTE | 2017-11-07 13:49 | CP.PCM.DIS ---
<Brandt Hernandez - Last Filed: 11/07/17 14:59> Provider - Provider Date of Admission: 10/31/17 20:59 Attending physician: Berenice Liu MD Primary care physician: Keon VIDAL Consults: Vascular Surgery: Pat Wilcox MD Ear Nose and Throat: Delano Neil MD Orthopedic Surgery: Lance Grande III, MD Time Spent in preparation of Discharge (in minutes): 60 Diagnosis - Discharge Diagnosis (1) Carotid arterial disease Status: Resolved Priority: Medium (2) Chronic right shoulder pain Status: Acute Priority: Medium (3) Ecchymosis of neck Status: Resolved Priority: Medium (4) Edematous skin Status: Resolved Priority: Medium (5) Laryngeal edema Status: Resolved Priority: Medium Hospital Course - Lab Results Lab Results: Most Recent Lab Values WBC 8.7 10^3/ul (4.5-11.0) 11/07/17 06:30 RBC 3.73 10^6/uL (3.5-6.1) 11/07/17 06:30 Hgb 9.2 g/dL (12.0-16.0) L 11/07/17 06:30 Hct 29.2 % (36.0-48.0) L 11/07/17 06:30 MCV 78.3 fl (80.0-105.0) L 11/07/17 06:30 MCH 24.7 pg (25.0-35.0) L 11/07/17 06:30 MCHC 31.5 g/dl (31.0-37.0) 11/07/17 06:30 RDW 14.1 % (11.5-14.5) 11/07/17 06:30 Plt Count 426 10^3/uL (120.0-450.0) 11/07/17 06:30 MPV 11.0 fl (7.0-11.0) 11/07/17 06:30 Gran % 62.7 % (50.0-68.0) 11/03/17 06:10 Lymph % (Auto) 26.7 % (22.0-35.0) 11/03/17 06:10 Dent % (Auto) 10.4 % (1.0-6.0) H 11/03/17 06:10 Eos % (Auto) 0.0 % (1.5-5.0) L 11/03/17 06:10 Baso % (Auto) 0.2 % (0.0-3.0) 11/03/17 06:10 Gran # 3.70 (1.4-6.5) 11/03/17 06:10 Lymph # (Auto) 1.6 (1.2-3.4) 11/03/17 06:10 Dent # (Auto) 0.6 (0.1-0.6) 11/03/17 06:10 Eos # (Auto) 0.0 (0.0-0.7) 11/03/17 06:10 Baso # (Auto) 0.01 K/mm3 (0.0-2.0) 11/03/17 06:10 Differential Comment See pathology report 11/01/17 06:00 Retic Count 1.74 % (0.5-1.5) H 11/01/17 07:00 PT 11.1 SECONDS (9.4-12.5) 10/31/17 19:35 INR 0.97 (0.93-1.08) 10/31/17 19:35 APTT 29.2 Seconds (25.1-36.5) 10/31/17 19:35 pO2 164 mm/Hg (30-55) H 11/01/17 15:37 VBG pH 7.31 (7.32-7.43) L 11/01/17 15:37 VBG pCO2 39.0 (40-60) L 11/01/17 15:37 VBG HCO3 19.6 mmol/l (21-28) L 11/01/17 15:37 VBG Total CO2 20.8 mmol.L (22-28) L 11/01/17 15:37 VBG O2 Sat (Calc) 99.7 % (40-65) H 11/01/17 15:37 VBG Base Excess -6.2 mmol/L (0.0-2.0) L 11/01/17 15:37 VBG Potassium 3.7 mmol/L (3.6-5.2) 11/01/17 15:37 Sodium 140.0 mmol/L (132-148) 11/01/17 15:37 Chloride 116.0 mmol/L (98-107) H 11/01/17 15:37 Glucose 186 mg/dl (65-105) H 11/01/17 15:37 Lactate 0.6 mmol/L (0.7-2.1) L 11/01/17 15:37 FiO2 21.0 % 11/01/17 15:37 Sodium 140 mmol/L (132-148) 11/07/17 06:30 Potassium 4.7 mmol/L (3.6-5.0) 11/07/17 06:30 Chloride 102 mmol/L (98-107) 11/07/17 06:30 Carbon Dioxide 28 mmol/L (21-33) 11/07/17 06:30 Anion Gap 15 (10-20) 11/07/17 06:30 BUN 38 mg/dL (7-21) H 11/07/17 06:30 Creatinine 1.1 mg/dl (0.7-1.2) 11/07/17 06:30 Est GFR ( Amer) 59 11/07/17 06:30 Est GFR (Non-Af Amer) 49 11/07/17 06:30 POC Glucose (mg/dL) 157 mg/dL (65-110) H 11/07/17 11:06 Random Glucose 179 mg/dL (70-110) H 11/07/17 06:30 Calcium 8.2 mg/dL (8.4-10.5) L 11/07/17 06:30 Magnesium 2.2 mg/dL (1.7-2.2) 11/01/17 07:00 Iron 42 ug/dL (45-180) L 11/01/17 07:00 TIBC 308 ug/dL (265-497) 11/01/17 07:00 % Saturation 14 % (20-55) L 11/01/17 07:00 Transferrin 244.15 mg/dL (206-381) 11/01/17 07:00 Ferritin 21.6 ng/mL 11/01/17 07:00 Total Bilirubin 0.4 mg/dL (0.2-1.3) 11/07/17 06:30 AST 28 U/L (14-36) 11/07/17 06:30 ALT 18 U/L (7-56) 11/07/17 06:30 Alkaline Phosphatase 81 U/L (38-126) 11/07/17 06:30 Lactate Dehydrogenase 417 U/L (333-699) 10/31/17 19:35 Total Creatine Kinase 34 U/L (35-230) L 10/31/17 19:35 Troponin I < 0.01 ng/mL 11/01/17 15:37 Total Protein 6.9 g/dL (5.8-8.3) 11/07/17 06:30 Albumin 3.7 g/dL (3.0-4.8) 11/07/17 06:30 Globulin 3.2 gm/dL 11/07/17 06:30 Albumin/Globulin Ratio 1.2 (1.1-1.8) 11/07/17 06:30 Venous Blood Potassium 3.7 mmol/L (3.6-5.2) 11/01/17 15:37 Urine Color Yellow (YELLOW) 10/31/17 22:53 Urine Appearance Clear (CLEAR) 10/31/17 22:53 Urine pH 5.5 (4.7-8.0) 10/31/17 22:53 Ur Specific [place] 1.020 (1.005-1.035) 10/31/17 22:53 Urine Protein Trace mg/dL (<30 mg/dL) H 10/31/17 22:53 Urine Glucose (UA) Negative mg/dL (NEGATIVE) 10/31/17 22:53 Urine Ketones Trace mg/dL (NEGATIVE) H 10/31/17 22:53 Urine Blood Negative (NEGATIVE) 10/31/17 22:53 Urine Nitrate Negative (NEGATIVE) 10/31/17 22:53 Urine Bilirubin Negative (NEGATIVE) 10/31/17 22:53 Urine Urobilinogen 0.2 E.U./dL (<1 E.U./dL) 10/31/17 22:53 Ur Leukocyte Esterase Small Dillon/uL (NEGATIVE) H 10/31/17 22:53 Urine RBC 1 - 3 /hpf (0-2) 10/31/17 22:53 Urine WBC 5 - 10 /hpf (0-6) 10/31/17 22:53 Ur Epithelial Cells 4 - 5 /hpf (0-5) 10/31/17 22:53 Urine Bacteria Mod (NEG) 10/31/17 22:53 Blood Type B POSITIVE 11/01/17 07:00 Antibody Screen Negative 11/01/17 07:00 BBK History Checked Patient has bt 11/01/17 07:00 - Hospital Course Hospital Course: Hospital Course: This is a 71 year old female with past medical history of hypertension, diabetes mellitus type 2, and bilateral carotid artery stenosis of 70-80% status post right carotid endarterectomy in July 2017 who was admitted on for symptomatic carotid stenosis. Vascular surgery was consulted, and the patient subsequently underwent left carotid endarterectomy with Dr. Wilcox on . Patient was found to have dysphasia secondary to laryngeal edema on post op day 3 of left carotid endarterectomy. Patient was at mod-to-high risk for aspiration. ENT was consulted, and patient was treated with application of ice packs and IV steroids, and discharged on steroids taper. X-Ray of cervical spine was performed and showed no abnormal findings, per radiology report. Patient to follow-up with Dr. Wilcox in office within 1 week. Patient to follow up with ENT within 1 week. Patient to restart home dose aspirin. Patient also complained of right shoulder pain and was diagnosed with anterior- inferior dislocation of right shoulder. Patient underwent a right shoulder X-ray , as per radiology report, an acute anterior-inferior dislocation of the right shoulder. Orthopedic surgery was consulted and recommended CT of right shoulder , but patient denied. Patient educated about risks of delaying evaluation and treatment and agreed. Patient was treated with Physical Therapy and Occupational Therapy. Patient to follow-up with primary care physician within 3- 5 days. Patient has history of hypertension. Patient was continued on home meds. Patient to follow-up with primary care physician within 3-5 days. Patient has a history of diabetes mellitus type 2. Metformin was held, and patient was started on low insulin sliding scale during hospitalization. Patient received routine accu-checks. Patient educated about importance of following up with primary care physician for diabetes. Patient educated on importance of completing annual vision and foot exam screening. Patient to restart on home dose of Metformin. Patient was also found to have iron deficiency, and was continued on home iron supplement. Per patient, she underwent colonoscopy 2-3 years ago, and reports no abnormal results. Patient to follow up with primary care physician to repeat iron studies. Patient has a history of hyperuricemia, and was continued on home dose of allopurinol. Patient to follow up with primary care physician. Please see chart for full details. Procedures Performed: Left Carotid endarterectomy Imaging and Labs Ordered: Chest X-Ray EKG Right Shoulder X-Ray Cervical Spine X-Ray Venous Blood Gas Medications upon discharge: Allopurinol 100mg Tab PO DAILY Aspirin 81mg PO DAILY Atenolol 25mg Tab PO DAILY Lipitor 40mg Tab PO DIN Ergocalciferol 50,000 Units capsule PO Q7D Ferrous Sulfate 325mg Tab PO BID Pantoprazole - Rx Prednisone Taper - Rx Valsartan 160mg Tab PO DAILY Vitamin B Complex 1 cap PO DAILY Metformin 500mg Tab 1000mg PO BID This case was reviewed, and patient seen with, attending physician Racquel Urrutia M.D., D.O. PGY1 -- Spa Manager -- Medicine Discharge Summary - Date & Time of H&P Date of H&P: 11/07/17 Time of H&P: 14:54 Discharge Exam - Head Exam Head Exam: ATRAUMATIC, NORMAL INSPECTION, NORMOCEPHALIC - Eye Exam Eye Exam: EOMI, Normal appearance, PERRL Pupil Exam: NORMAL ACCOMODATION - ENT Exam ENT Exam: Mucous Membranes Dry, Mucous Membranes Moist, Normal Exam, Normal Oropharynx - Neck Exam Neck exam: Full Rom Additional comments: mild ecchymosis on left neck appreciated on inspection - Respiratory Exam Respiratory Exam: Clear to PA & Lateral, NORMAL BREATHING PATTERN, UNREMARKABLE. absent: Accessory Muscle Use, Chest Wall Tenderness, Decreased Breath Sounds, Prolonged Expiratory Phase, Rales, Rhonchi, Wheezes, Respiratory Distress, Stridor - Cardiovascular Exam Cardiovascular Exam: REGULAR RHYTHM. absent: Bradycardia, Tachycardia, Clicks, Diastolic murmur, Gallop, JVD, Rubs, Systolic Murmur - GI/Abdominal Exam GI & Abdominal Exam: Normal Bowel Sounds, Soft, Unremarkable. absent: Diminished Bowel Sounds, Distended, Firm, Hyperactive Bowel Sounds, Hypoactive Bowel Sounds, Mass, Organomegaly, Pulsatile Mass, Rebound, Rigid - Extremities Exam Extremities exam: full ROM, normal inspection - Back Exam Back exam: FULL ROM, NORMAL INSPECTION. absent: muscle spasm, paraspinal tenderness, rash noted - Neurological Exam Neurological exam: Alert, CN II-XII Intact, Normal Gait, Oriented x3, Reflexes Normal - Psychiatric Exam Psychiatric exam: Normal Affect, Normal Mood - Skin Skin Exam: Dry, Intact, Normal Color, Warm Discharge Plan - Discharge Medications Prescriptions: Aspirin 81 mg PO DAILY #30 tab.chew Prednisone See Taper PO DAILY 10 Days tab.ds.pk Pantoprazole [Protonix EC Tab] 40 mg PO 0600 #15 ect - Follow Up Plan Condition: GOOD Disposition: HOME/ ROUTINE Patient education suggested?: Yes Instructions: Shoulder Dislocation (DC), Preventing Falls, Dysphagia (DC), Carotid Artery Disease (DC), Carotid Artery Endarterectomy (DC) Additional Instructions: Follow up with primary doctor within 3-5 days Follow up with vascular surgeon within 1 week Follow up with ENT if dysphagia returns Complete prednisone as prescribed While taking prednisone, use protonix as prescribed Resume home medications as indicated on discharge instructions Check blood glucose at home while taking prednisone, as it can increase blood glucose Return to ED if symptoms return Referrals: Lance Grande III, MD [Medical Doctor] - Pat Wilcox MD [Staff Provider] - Delano Neil DO [Staff Provider] - <Berenice Liu - Last Filed: 11/07/17 18:33> Provider - Provider Date of Admission: 10/31/17 20:59 Attending physician: Berenice Liu MD Hospital Course - Lab Results Lab Results: Most Recent Lab Values WBC 8.7 10^3/ul (4.5-11.0) 11/07/17 06:30 RBC 3.73 10^6/uL (3.5-6.1) 11/07/17 06:30 Hgb 9.2 g/dL (12.0-16.0) L 11/07/17 06:30 Hct 29.2 % (36.0-48.0) L 11/07/17 06:30 MCV 78.3 fl (80.0-105.0) L 11/07/17 06:30 MCH 24.7 pg (25.0-35.0) L 11/07/17 06:30 MCHC 31.5 g/dl (31.0-37.0) 11/07/17 06:30 RDW 14.1 % (11.5-14.5) 11/07/17 06:30 Plt Count 426 10^3/uL (120.0-450.0) 11/07/17 06:30 MPV 11.0 fl (7.0-11.0) 11/07/17 06:30 Gran % 62.7 % (50.0-68.0) 11/03/17 06:10 Lymph % (Auto) 26.7 % (22.0-35.0) 11/03/17 06:10 Dent % (Auto) 10.4 % (1.0-6.0) H 11/03/17 06:10 Eos % (Auto) 0.0 % (1.5-5.0) L 11/03/17 06:10 Baso % (Auto) 0.2 % (0.0-3.0) 11/03/17 06:10 Gran # 3.70 (1.4-6.5) 11/03/17 06:10 Lymph # (Auto) 1.6 (1.2-3.4) 11/03/17 06:10 Dent # (Auto) 0.6 (0.1-0.6) 11/03/17 06:10 Eos # (Auto) 0.0 (0.0-0.7) 11/03/17 06:10 Baso # (Auto) 0.01 K/mm3 (0.0-2.0) 11/03/17 06:10 Differential Comment See pathology report 11/01/17 06:00 Retic Count 1.74 % (0.5-1.5) H 11/01/17 07:00 PT 11.1 SECONDS (9.4-12.5) 10/31/17 19:35 INR 0.97 (0.93-1.08) 10/31/17 19:35 APTT 29.2 Seconds (25.1-36.5) 10/31/17 19:35 pO2 164 mm/Hg (30-55) H 11/01/17 15:37 VBG pH 7.31 (7.32-7.43) L 11/01/17 15:37 VBG pCO2 39.0 (40-60) L 11/01/17 15:37 VBG HCO3 19.6 mmol/l (21-28) L 11/01/17 15:37 VBG Total CO2 20.8 mmol.L (22-28) L 11/01/17 15:37 VBG O2 Sat (Calc) 99.7 % (40-65) H 11/01/17 15:37 VBG Base Excess -6.2 mmol/L (0.0-2.0) L 11/01/17 15:37 VBG Potassium 3.7 mmol/L (3.6-5.2) 11/01/17 15:37 Sodium 140.0 mmol/L (132-148) 11/01/17 15:37 Chloride 116.0 mmol/L (98-107) H 11/01/17 15:37 Glucose 186 mg/dl (65-105) H 11/01/17 15:37 Lactate 0.6 mmol/L (0.7-2.1) L 11/01/17 15:37 FiO2 21.0 % 11/01/17 15:37 Sodium 140 mmol/L (132-148) 11/07/17 06:30 Potassium 4.7 mmol/L (3.6-5.0) 11/07/17 06:30 Chloride 102 mmol/L (98-107) 11/07/17 06:30 Carbon Dioxide 28 mmol/L (21-33) 11/07/17 06:30 Anion Gap 15 (10-20) 11/07/17 06:30 BUN 38 mg/dL (7-21) H 11/07/17 06:30 Creatinine 1.1 mg/dl (0.7-1.2) 11/07/17 06:30 Est GFR ( Amer) 59 11/07/17 06:30 Est GFR (Non-Af Amer) 49 11/07/17 06:30 POC Glucose (mg/dL) 178 mg/dL (65-110) H 11/07/17 16:06 Random Glucose 179 mg/dL (70-110) H 11/07/17 06:30 Calcium 8.2 mg/dL (8.4-10.5) L 11/07/17 06:30 Magnesium 2.2 mg/dL (1.7-2.2) 11/01/17 07:00 Iron 42 ug/dL (45-180) L 11/01/17 07:00 TIBC 308 ug/dL (265-497) 11/01/17 07:00 % Saturation 14 % (20-55) L 11/01/17 07:00 Transferrin 244.15 mg/dL (206-381) 11/01/17 07:00 Ferritin 21.6 ng/mL 11/01/17 07:00 Total Bilirubin 0.4 mg/dL (0.2-1.3) 11/07/17 06:30 AST 28 U/L (14-36) 11/07/17 06:30 ALT 18 U/L (7-56) 11/07/17 06:30 Alkaline Phosphatase 81 U/L (38-126) 11/07/17 06:30 Lactate Dehydrogenase 417 U/L (333-699) 10/31/17 19:35 Total Creatine Kinase 34 U/L (35-230) L 10/31/17 19:35 Troponin I < 0.01 ng/mL 11/01/17 15:37 Total Protein 6.9 g/dL (5.8-8.3) 11/07/17 06:30 Albumin 3.7 g/dL (3.0-4.8) 11/07/17 06:30 Globulin 3.2 gm/dL 11/07/17 06:30 Albumin/Globulin Ratio 1.2 (1.1-1.8) 11/07/17 06:30 Venous Blood Potassium 3.7 mmol/L (3.6-5.2) 11/01/17 15:37 Urine Color Yellow (YELLOW) 10/31/17 22:53 Urine Appearance Clear (CLEAR) 10/31/17 22:53 Urine pH 5.5 (4.7-8.0) 10/31/17 22:53 Ur Specific [place] 1.020 (1.005-1.035) 10/31/17 22:53 Urine Protein Trace mg/dL (<30 mg/dL) H 10/31/17 22:53 Urine Glucose (UA) Negative mg/dL (NEGATIVE) 10/31/17 22:53 Urine Ketones Trace mg/dL (NEGATIVE) H 10/31/17 22:53 Urine Blood Negative (NEGATIVE) 10/31/17 22:53 Urine Nitrate Negative (NEGATIVE) 10/31/17 22:53 Urine Bilirubin Negative (NEGATIVE) 10/31/17 22:53 Urine Urobilinogen 0.2 E.U./dL (<1 E.U./dL) 10/31/17 22:53 Ur Leukocyte Esterase Small Dillon/uL (NEGATIVE) H 10/31/17 22:53 Urine RBC 1 - 3 /hpf (0-2) 10/31/17 22:53 Urine WBC 5 - 10 /hpf (0-6) 10/31/17 22:53 Ur Epithelial Cells 4 - 5 /hpf (0-5) 10/31/17 22:53 Urine Bacteria Mod (NEG) 10/31/17 22:53 Blood Type B POSITIVE 11/01/17 07:00 Antibody Screen Negative 11/01/17 07:00 BBK History Checked Patient has bt 11/01/17 07:00 Attending/Attestation - Attestation I have personally seen and examined this patient.: Yes I have fully participated in the care of the patient.: Yes I have reviewed all pertinent clinical information, including history, physical exam and plan: Yes Notes (Text): 11/07/17 18:29 Attending note; Patient seen and examined with resident . Patient is alert and awake. Denies any complaints . Denies any shortness of breath or swallowing difficulty . Patient is a 72-year-old female with history of bilateral carotid stenosis status post carotid endarterectomy on left. Left-sided neck swelling is improving .Patient has found to have laryngeal edema and is on IV steroids. Patient will be discharged home with tapering by mouth prednisone. ENT evaluation appreciated. Speech and swallow evaluation appreciated. Follow-up with vascular surgery in 1 week. Right shoulder x-ray showed right anterior inferior dislocation. Orthopedics recommendations appreciated. Patient is refusing any further imaging or intervention for her right arm and shoulder. Advised to follow up as outpatient as needed. Anemia; chronic. Hemoglobin is stable. Diabetes; continue metformin. Monitor blood sugar closely. Upon discharge the patient will follow up with PMD . Follow-up instructions given. Case was discussed in detail with the patient with deaf interpreter regarding current diagnosis and treatment plan.
[2017-11-07 15:05] VITALS: PULSE 77
[2017-11-07 15:08] VITALS: BP 111/50; RESP 18; TEMP 98.1; O2SAT 97
== END 2017-11-07 17:53 | disposition home or self-care (01) | DRG 38 ==
LOC: ED 17:50 → ERH 20:59 → 3RSO 21:46 → CCU 11-01 17:32 → 5RNO 11-02 12:55
PROVIDERS: ADMIT Hospitalist; ATTEND Internal Medicine
PROC: 07B20ZZ Excision of Left Neck Lymphatic, Open Approach (ICD-10-PCS; 2017-11-01)
PROC: 03CL0ZZ Extirpation of Matter from Left Internal Carotid Artery, Open Approach (ICD-10-PCS; principal; 2017-11-01 10:30)
DX: I65.22 Occlusion and stenosis of left carotid artery (principal); N17.9 Acute kidney failure, unspecified; D50.9 Iron deficiency anemia, unspecified; E11.51 Type 2 diabetes mellitus with diabetic peripheral angiopathy without gangrene; E78.5 Hyperlipidemia, unspecified; E86.0 Dehydration; E87.5 Hyperkalemia; G89.29 Other chronic pain; I10 Essential (primary) hypertension; J38.4 Edema of larynx; R13.12 Dysphagia, oropharyngeal phase; R47.02 Dysphasia; S43.014A Anterior dislocation of right humerus, initial encounter; S43.034A Inferior dislocation of right humerus, initial encounter; Z79.02 Long term (current) use of antithrombotics/antiplatelets; Z79.82 Long term (current) use of aspirin; Z80.3 Family history of malignant neoplasm of breast; Z82.49 Family history of ischemic heart disease and other diseases of the circulatory system; Z83.3 Family history of diabetes mellitus; Z90.49 Acquired absence of other specified parts of digestive tract; M19.90 Unspecified osteoarthritis, unspecified site

== ENCOUNTER 2018-07-28 09:25 | Outpatient (CLI) | payer MEDICARE, MEDICAID | END 2018-07-28 09:26 | disposition home or self-care (01) | LOC: RAD 09:25 ==

== ENCOUNTER 2018-08-16 06:06 | Inpatient (IN) | payer MEDICARE, MEDICAID ==
[2018-08-15 12:38] VITALS: BMI 29.2
[2018-08-16] MEDS ORDERED: Lidocaine PF 2% (5 ml) Inj (For Cardiac Arrhy) ONE (06:40)
[2018-08-16] MEDS ORDERED: Iodixanol 320 MG/ML 100 ML BOTTLE IV ONE (06:41)
[2018-08-16] MEDS ORDERED: Iodixanol 320 MG/ML 200 ML BOTTLE IV ONE (06:41)
[2018-08-16] MEDS ORDERED: Phenylephrine 10 mg/ml Inj ONE (06:41)
[2018-08-16] MEDS ORDERED: Nitroglycerin 50mg in D5W 50 MG/250 ML BOTTLE IV ONE (06:41)
[2018-08-16] MEDS ORDERED: Heparin 2,000 ML IV ONE (06:41)
[2018-08-16] MEDS ORDERED: DOPamine 400mg/250ml D5W 400 MG/250 ML BAG IV ONE (06:42)
[2018-08-16 06:46] LABS: BLOOD UREA NITROGEN 22 mg/dL (7-21); CALCIUM 9.7 mg/dL (8.4-10.5); GFR NON-AFRICAN AMERICAN 54; INR 1.1; PARTIAL THROMBOPLASTIN TIME 35.5 Seconds (26.9-38.3); PROTHROMBIN TIME 12.4 SECONDS (9.4-12.5)
[2018-08-16 07:02] LABS: BASO # 0.01 K/mm3 (0.0-2.0); BASO % 0.2 % (0.0-3.0); EOS # 0.1 (0.0-0.7); EOS % 2.4 % (1.5-5.0); LYMPH # 2.9 (1.2-3.4); LYMPH % 50.5 % (22.0-35.0); MEAN CORPUSCULAR HEMOGLOBIN 25.7 pg (25.0-35.0); MEAN CORPUSCULAR HGB CONC 30.6 g/dl (31.0-37.0); MEAN PLATELET VOLUME 11.3 fl (7.0-11.0); MONO # 0.5 (0.1-0.6); MONO % 8.3 % (1.0-6.0); RBC 4.55 10^6/uL (3.5-6.1); RED CELL DISTRIBUTION WIDTH 14.2 % (11.5-14.5); WHITE BLOOD COUNT 5.8 10^3/uL (4.5-11.0)
[2018-08-16 07:04] LABS: HEMOGLOBIN 11.7 g/dL (12.0-16.0)
[2018-08-16] MEDS ORDERED: Midazolam 2 MG/2 ML VIAL ONE (08:46)
[2018-08-16] MEDS ORDERED: Oxycodone/Acetaminophen 5/325 mg Tab PO PRN (09:44)
[2018-08-16] MEDS: Sodium Chloride 0.45% 1,000 ML IV SCH (10:20)
--- NOTE | 2018-08-16 11:26 | CP.PCM.CON ---
History of Present Illness - History of Present Illness History of Present Illness: MICU CONSULT NOTE Patient is 72yo female with PMHx HTN, DM, carotid stenosis s/p carotid stent today with IR Dr Dunaway. Currently afebriel HD stable, comfortable in NAD, doing well, no major complaints. Home meds except Metformin resumed No focal weakness PMHx: HTN, DM, gout PSHx: Cholecystectomy, CEA of R side Home medications: see EMR Allergies: NKDA Social history:Denies tobacco, alcohol, drug use, currently lives with daughters and has a good support system Fam Hx: DM2, HTN, breast cancer Review of Systems - Review of Systems Review of Systems: negative Past Patient History - Infectious Disease Hx of Infectious Diseases: None - Tetanus Immunizations Tetanus Immunization: Unknown - Past Medical History & Family History Past Medical History?: Yes - Past Social History Smoking Status: Never Smoked - CARDIAC Hx Pacemaker: No - PULMONARY Hx Respiratory Disorders: No - NEUROLOGICAL Hx Paralysis: No - HEENT Hx HEENT Problems: No - RENAL Hx Chronic Kidney Disease: No - ENDOCRINE/METABOLIC Hx Diabetes Mellitus Type 2: Yes - HEMATOLOGICAL/ONCOLOGICAL Hx Blood Transfusions: No Hx Blood Transfusion Reaction: No - INTEGUMENTARY Hx Dermatological Problems: No - MUSCULOSKELETAL/RHEUMATOLOGICAL Hx Musculoskeletal Disorders: Yes - GASTROINTESTINAL Hx Gastrointestinal Disorders: No - GENITOURINARY/GYNECOLOGICAL Hx Genitourinary Disorders: No - PSYCHIATRIC Hx Emotional Abuse: No Hx Physical Abuse: No Hx Substance Use: No - SURGICAL HISTORY Hx Surgeries: Yes - ANESTHESIA Hx Anesthesia Reactions: No Hx Malignant Hyperthermia: No Meds Allergies/Adverse Reactions: Allergies Allergy/AdvReac Type Severity Reaction Status Date / Time No Known Allergies Allergy Verified 10/31/17 18:16 - Medications Medications: Current Medications Acetaminophen (Tylenol 325mg Tab) 650 mg PO Q4H PRN PRN Reason: Pain, Mild (1-3) Allopurinol (Zyloprim) 300 mg PO DAILY [facility] Aspirin (Aspirin Chewable) 81 mg PO DAILY [facility] Atenolol (Tenormin) 50 mg PO DAILY [facility] Atorvastatin Calcium (Lipitor) 40 mg PO DIN [facility] Chlorthalidone (Hygroton) 25 mg PO DAILY [facility] Clopidogrel Bisulfate (Plavix) 75 mg PO DAILY [facility] Ferrous Sulfate (Feosol) 324 mg PO BID [facility] Sodium Chloride (Sodium Chloride 0.45%) 1,000 mls @ 80 mls/hr IV .[id number] MAINOR Stop: 08/17/18 06:00 Losartan Potassium (Cozaar) 50 mg PO DAILY [facility] Metformin HCl (Glucophage) 1,000 mg PO BID [facility] Multivitamins (Thera Tab) 1 tab PO DAILY [facility] Ondansetron HCl (Zofran Inj) 4 mg IVP Q6H PRN PRN Reason: Nausea/Vomiting Oxycodone/Acetaminophen (Percocet 5/325 Mg Tab) 1 tab PO Q6H PRN PRN Reason: Pain, moderate (4-7) Stop: 08/19/18 09:45 Physical Exam - Constitutional Appears: Non-toxic, No Acute Distress - Head Exam Head Exam: NORMAL INSPECTION - Eye Exam Eye Exam: Normal appearance - ENT Exam ENT Exam: Mucous Membranes Moist - Respiratory Exam Respiratory Exam: Clear to Auscultation Bilateral, NORMAL BREATHING PATTERN - Cardiovascular Exam Cardiovascular Exam: REGULAR RHYTHM, +S1, +S2 - GI/Abdominal Exam GI & Abdominal Exam: Normal Bowel Sounds, Soft - Extremities Exam Extremities exam: Positive for: normal inspection - Neurological Exam Neurological exam: Alert, Oriented x3 - Psychiatric Exam Psychiatric exam: Normal Mood - Skin Skin Exam: Normal Color, Warm Results - Vital Signs Recent Vital Signs: Last Vital Signs Temp 99.3 F 08/16/18 07:19 Pulse 69 08/16/18 07:19 Resp 18 08/16/18 07:19 BP 161/87 H 08/16/18 07:19 Pulse Ox 100 08/16/18 07:19 - Labs Result Diagrams: 08/16/18 06:20 08/16/18 06:20 Labs: Laboratory Results - last 24 hr 08/16/18 08/16/18 08/16/18 06:20 06:20 06:20 WBC 5.8 RBC 4.55 Hgb 11.7 L D Hct 38.2 MCV 84.0 D MCH 25.7 MCHC 30.6 L RDW 14.2 Plt Count 320 MPV 11.3 H Neut % (Auto) 38.6 L Lymph % (Auto) 50.5 H [place] % (Auto) 8.3 H Eos % (Auto) 2.4 Baso % (Auto) 0.2 Lymph # (Auto) 2.9 [place] # (Auto) 0.5 Eos # (Auto) 0.1 Baso # (Auto) 0.01 Absolute Neuts (auto) 2.23 PT 12.4 INR 1.10 APTT 35.5 Sodium 142 Potassium 5.0 Chloride 107 Carbon Dioxide 26 Anion Gap 14 BUN 22 H Creatinine 1.0 Est GFR ( Amer) > 60 Est GFR (Non-Af Amer) 54 Random Glucose 126 H Calcium 9.7 Assessment & Plan - Assessment and Plan (Free Text) Assessment: 72yo female s/p carotid stenting by IR DM HTN Carotid Stenosis s/p stent Recommend; - supp o2 as needed, duonebs PRN - NO ID issues - BP control - ASA, plavix - Statin - FS control - Hold Metformin - IVF - GI ppx - DVT ppx - monitor in MICU
[2018-08-16] MEDS: Multivitamin Therapeutic Tab PO SCH (11:28)
[2018-08-16] MEDS ORDERED: Pneumococcal 23-Valent Vaccine IM ONE (17:12)
--- NOTE | 2018-08-16 17:29 | VASCULAR ---
Date of service: 08/16/2018 PROCEDURE: 1. Arch arteriogram. 2. Selective right carotid arteriogram. 3. Selective left vertebral arteriogram. 4. Left proximal ICA angioplasty and stent placement with filter wire protection. HISTORY: Bilateral carotid endarterectomy in 2018. Severe left ICA restenosis. TIA. COMPARISON: TECHNIQUE: The relative risks and indications of the procedure were explained the patient her daughter and consent obtained. Patient placed on aspirin Plavix prior to the procedure. The patient was hydrated prior to the procedure. The patient was placed supine on the arteriogram table in the right groin prepped and draped usual sterile fashion. Conscious sedation monitoring were provided throughout the procedure by a nurse. Under ultrasound guidance, the right common femoral artery puncture with a micropuncture set. A 5 Bulgarian sheath was placed. Through the sheath over guidewire a 5 Bulgarian flush catheter was placed in the ascending aorta an WOLOF DSA arch arteriogram performed. The catheter was exchanged for a 5 Bulgarian day this A1 catheter which was Placed in the distal right common carotid artery. A selective right carotid arteriogram was performed consisting of two views of the bifurcation into intracranial views. Next a catheter was placed the origin of the dominant left vertebral artery. A DSA left vertebral arteriogram consisting of two views of the cervical segment 2 intracranial views performed. The catheter was placed selectively in the mid left common carotid artery. DSA left carotid arteriogram consisting of two views of the bifurcation into intracranial views performed. A support Glidewire was advanced into the left external carotid artery. Exchange is made for a 6 Bulgarian 90 cm sheath in the mid left common carotid artery. Heparin was given. The critical restenosis at the left ICA origin was crossed with a filter wire. The filter wire was deployed at the level of C1. The critical stenosis was dilated with a 4 mm x 4 cm balloon. Next a tapered 7-9 mm Nitinol stent was deployed at the left ICA origin. Post dilatation was performed with a 6 mm balloon. The filter was retrieved and completion angiograms performed. No evidence of macroscopic emboli was noted. The sheath was removed hemostasis obtained with a Perclose device. The patient tolerated the procedure well. FINDINGS: The right carotid endarterectomy site is widely patent. There is a critical 90 percent focal stenosis of the left carotid CEA site. The arch vessels are widely patent. The vertebral arteries are patent. The left vertebral artery is dominant. Post angioplasty and stent, there is no significant residual stenosis in the left proximal ICA. The intracranial circulation is unremarkable. The left vertebral artery is widely patent. The basilar artery is normal. There is a patent P com artery. IMPRESSION: Critical 90 percent restenosis the left carotid endarterectomy site. Successful left ICA angioplasty and stent placement with filter wire protection as described above. Widely patent right carotid endarterectomy site. Dominant and normal left vertebral artery.
[2018-08-17] MEDS: Sodium Chloride 0.45% 1,000 ML IV SCH (00:56)
[2018-08-17 01:14] VITALS: TEMP 98.4
[2018-08-17 03:09] VITALS: O2SAT 100
[2018-08-17 06:58] LABS: CALCIUM 8.6 mg/dL (8.4-10.5)
--- NOTE | 2018-08-17 07:01 | CP.CCUPN ---
<AntSurinderjannette Chi - Last Filed: 08/17/18 11:20> CCU Subjective - Physician Review Events Since Last Encounter (Free Text): 08/17/18 06:58 no acute events overnight Subjective (Free Text): 08/17/18 06:59 Pt seen and examined, denies chest pain, SOB CCU Objective - Vital Signs / Intake & Output Vital Signs (Last 4 hours): Vital Signs Pulse Resp BP Pulse Ox 08/17/18 03:00 65 16 91/39 L 100 Intake and Output (Last 8hrs): Intake & Output 08/16/18 08/16/18 08/17/18 14:59 22:59 06:59 Intake Total 780 Output Total 1000 Balance -220 Weight 170 lb Intake: IV 480 Right Wrist 480 Oral 300 Output: Urine 1000 Urine, Voided 1000 Other: Voiding Method Bedside Commode # Voids Urine, Voided 3 - Physical Exam Physical Exam Limitations: Negative for: Altered Mental Status Head: Positive for: Atraumatic, Normocephalic Pupils: Positive for: PERRL Extroacular Muscles: Positive for: EOMI Mouth: Positive for: Moist Mucous Membranes Neck: Positive for: Normal Range of Motion Respiratory/Chest: Positive for: Clear to Auscultation, Good Air Exchange. Negative for: Respiratory Distress, Accessory Muscle Use Cardiovascular: Positive for: Regular Rate and Rhythm, Normal S1, S2. Negative for: Murmurs Abdomen: Positive for: Normal Bowel Sounds. Negative for: Tenderness, Distention Upper Extremity: Positive for: Normal Inspection. Negative for: Cyanosis, Edema Lower Extremity: Positive for: Normal Inspection. Negative for: Edema, CALF TENDERNESS Neurological: Positive for: GCS=15, CN II-XII Intact, Speech Normal Skin: Positive for: Warm, Dry, Rashes Psychiatric: Positive for: Alert, Oriented x 3 - Medications Active Medications: Active Medications Generic Name Dose Route Start Last Admin Trade Name Freq PRN Reason Stop Dose Admin Acetaminophen 650 mg 08/16/18 09:44 Tylenol 325mg Tab PO Q4H PRN Pain, Mild (1-3) Allopurinol 300 mg 08/16/18 10:00 08/16/18 11:27 Zyloprim PO 300 mg DAILY MAINOR Administration Aspirin 81 mg 08/16/18 10:00 08/16/18 11:25 Aspirin Chewable PO 81 mg DAILY MAINOR Administration Atenolol 50 mg 08/16/18 10:00 08/16/18 11:25 Tenormin PO 50 mg DAILY MAINOR Administration Atorvastatin Calcium 40 mg 08/16/18 17:00 08/16/18 17:35 Lipitor PO 40 mg DIN MAINOR Administration Chlorthalidone 25 mg 08/16/18 10:00 [place] PO DAILY [facility] Clopidogrel Bisulfate 75 mg 08/16/18 10:00 Plavix PO DAILY MAINOR Ferrous Sulfate 324 mg 08/16/18 10:00 08/16/18 17:35 Feosol PO 324 mg BID MAINOR Administration Losartan Potassium 50 mg 08/16/18 10:00 08/16/18 11:26 Cozaar PO 50 mg DAILY MAINOR Administration Metformin HCl 1,000 mg 08/16/18 10:00 08/16/18 17:36 Glucophage PO Not Given BID [facility] Multivitamins 1 tab 08/16/18 10:00 08/16/18 11:28 Thera Tab PO 1 tab DAILY MAINOR Administration Ondansetron HCl 4 mg 08/16/18 09:46 Zofran Inj IVP Q6H PRN Nausea/Vomiting Oxycodone/Acetaminophen 1 tab 08/16/18 09:44 Percocet 5/325 Mg Tab PO 08/19/18 09:45 Q6H PRN Pain, moderate (4-7) - Patient Studies Lab Studies: Lab Studies 08/16/18 Range/Units 06:20 WBC 5.8 (4.5-11.0) 10^3/uL RBC 4.55 (3.5-6.1) 10^6/uL Hgb 11.7 L D (12.0-16.0) g/dL Hct 38.2 (36.0-48.0) % MCV 84.0 D (80.0-105.0) fl MCH 25.7 (25.0-35.0) pg MCHC 30.6 L (31.0-37.0) g/dl RDW 14.2 (11.5-14.5) % Plt Count 320 (120.0-450.0) 10^3/uL MPV 11.3 H (7.0-11.0) fl Neut % (Auto) 38.6 L (50.0-68.0) % Lymph % (Auto) 50.5 H (22.0-35.0) % Hardeman % (Auto) 8.3 H (1.0-6.0) % Eos % (Auto) 2.4 (1.5-5.0) % Baso % (Auto) 0.2 (0.0-3.0) % Lymph # (Auto) 2.9 (1.2-3.4) Hardeman # (Auto) 0.5 (0.1-0.6) Eos # (Auto) 0.1 (0.0-0.7) Baso # (Auto) 0.01 (0.0-2.0) K/mm3 Absolute Neuts (auto) 2.23 (1.4-6.5) Laboratory Results - last 24 hr 08/16/18 06:20 WBC 5.8 RBC 4.55 Hgb 11.7 L D Hct 38.2 MCV 84.0 D MCH 25.7 MCHC 30.6 L RDW 14.2 Plt Count 320 MPV 11.3 H Neut % (Auto) 38.6 L Lymph % (Auto) 50.5 H Hardeman % (Auto) 8.3 H Eos % (Auto) 2.4 Baso % (Auto) 0.2 Lymph # (Auto) 2.9 Hardeman # (Auto) 0.5 Eos # (Auto) 0.1 Baso # (Auto) 0.01 Absolute Neuts (auto) 2.23 Radiology Impressions: Radiology Impressions Interventional Vascular Procedure 08/16/18 06:22 IMPRESSION: Critical 90 percent restenosis the left carotid endarterectomy site. Successful left ICA angioplasty and stent placement with filter wire protection as described above. Widely patent right carotid endarterectomy site. Dominant and normal left vertebral artery. Critical Care Progress Note - Nutrition Nutrition: Nutrition Category Date Time Status Consistent Carbohydrate [DIET] Diets 08/16/18 Lunch Ordered Assessment/Plan - Assessment and Plan (Free Text) Assessment: Pt is a 72 yo male with a PMH of HTN, DM, gout, carotid stenosis s/p carotid stent placed yesterday who is currently being monitored in the ICU. Plan: Neuro - AOx3, monitor for neuro status changes Cardiovascular - HTN, carotid stenosis s/p carotid stent placed by Dr Dunaway yesterday in left carotid restenosis of stent - atenolol, lipitor, plavix, cozaar, ASA, chlorthalidone - continue to monitor Pulm - maintain O2 >92% GI - carb consistent diet Nephro/ - monitor electrolytes - BUN/Cr 23/1.1 Heme/Onc - Hgb 11.7 - INR 1.1 ID - afevrile - no leukocytosis Endo/ Rheum - gout, DM - allopurinol - metformin Pt seen, examined, assessment and plan discussed with Dr Donya Cain PGY1 - Date & Time Date: 08/17/18 Time: 07:01 <Donya Dior - Last Filed: 08/17/18 18:11> CCU Objective - Vital Signs / Intake & Output Intake and Output (Last 8hrs): Intake & Output 08/17/18 08/17/18 08/17/18 06:59 14:59 22:59 Intake Total 1160 Output Total 400 Balance 760 Intake: IV 960 Right Hand 960 Oral 200 Output: Urine 400 Urine, Voided 400 Other: # Bowel Movements 0 - Patient Studies Lab Studies: Lab Studies 08/17/18 08/17/18 Range/Units 05:30 05:30 WBC 4.8 (4.5-11.0) 10^3/uL RBC 3.91 (3.5-6.1) 10^6/uL Hgb 9.9 L (12.0-16.0) g/dL Hct 32.6 L (36.0-48.0) % MCV 83.4 (80.0-105.0) fl MCH 25.3 (25.0-35.0) pg MCHC 30.4 L (31.0-37.0) g/dl RDW 14.4 (11.5-14.5) % Plt Count 236 (120.0-450.0) 10^3/uL MPV 11.7 H (7.0-11.0) fl Sodium 139 (132-148) mmol/L Potassium 4.6 (3.6-5.0) mmol/L Chloride 109 H (98-107) mmol/L Carbon Dioxide 23 (21-33) mmol/L Anion Gap 11 (10-20) BUN 23 H (7-21) mg/dL Creatinine 1.1 (0.7-1.2) mg/dl Est GFR ( Amer) 59 Est GFR (Non-Af Amer) 49 Random Glucose 114 H (70-110) mg/dL Calcium 8.6 (8.4-10.5) mg/dL Laboratory Results - last 24 hr 08/17/18 08/17/18 05:30 05:30 WBC 4.8 RBC 3.91 Hgb 9.9 L Hct 32.6 L MCV 83.4 MCH 25.3 MCHC 30.4 L RDW 14.4 Plt Count 236 MPV 11.7 H Sodium 139 Potassium 4.6 Chloride 109 H Carbon Dioxide 23 Anion Gap 11 BUN 23 H Creatinine 1.1 Est GFR ( Amer) 59 Est GFR (Non-Af Amer) 49 Random Glucose 114 H Calcium 8.6 Radiology Impressions: Radiology Impressions Carotid Artery Ultrasound 08/17/18 08:00 IMPRESSION: Widely patent left ICA stent. Critical Care Progress Note - Nutrition Nutrition: Nutrition Category Date Time Status Consistent Carbohydrate [DIET] Diets 08/16/18 Lunch Ordered Addendum Addendum: 08/17/18 18:11 MICU Attending Addendum Patient seen and examined with housestaff case discussed on round agree with resident note above with the following additions/exceptions: 72M with a PMH of HTN, and carotid stenosis now s/p carotid stent placed 08/16 stable over night no acute events d/c planning as per Dr Dunaway Rest of care as mentioned in above resident note Donya Dior MD Pulmonary Critical Care Sleep Medicine
[2018-08-17 07:23] LABS: MEAN CELL VOLUME 83.4 fl (80.0-105.0); MEAN CORPUSCULAR HEMOGLOBIN 25.3 pg (25.0-35.0); MEAN CORPUSCULAR HGB CONC 30.4 g/dl (31.0-37.0); MEAN PLATELET VOLUME 11.7 fl (7.0-11.0); RBC 3.91 10^6/uL (3.5-6.1); RED CELL DISTRIBUTION WIDTH 14.4 % (11.5-14.5); WHITE BLOOD COUNT 4.8 10^3/uL (4.5-11.0)
[2018-08-17 07:27] LABS: HEMOGLOBIN 9.9 g/dL (12.0-16.0)
--- NOTE | 2018-08-17 11:07 | US ---
Date of service: 08/17/2018 PROCEDURE: Left carotid duplex ultrasound HISTORY: Previous bilateral carotid endarterectomy. Left ICA restenosis. Recent left ICA angioplasty and stent placement. Baseline study COMPARISON: TECHNIQUE: FINDINGS: A self expanding stent is well positioned at the left carotid bifurcation. The stent is widely patent without evidence of dissection or thrombus. The peak systolic velocity within the left ICA stent is 128 cm/second. The dominant left vertebral artery is patent with antegrade flow IMPRESSION: Widely patent left ICA stent.
[2018-08-17] MEDS: Multivitamin Therapeutic Tab PO SCH (12:03)
[2018-08-17 18:59] VITALS: BP 103/48; PULSE 61; RESP 15
== END 2018-08-17 17:00 | disposition home or self-care (01) | DRG 68 ==
LOC: SDSVAS 06:06 → CCU 09:39 → SDSVAS 08-17 17:00 → CCU 08-17 17:00
PROVIDERS: ADMIT Radiology Vascular & Interventional Radiology; ATTEND Radiology Vascular & Interventional Radiology
DX: I65.22 Occlusion and stenosis of left carotid artery (principal); I10 Essential (primary) hypertension; E11.9 Type 2 diabetes mellitus without complications; M10.9 Gout, unspecified; Z86.73 Personal history of transient ischemic attack (TIA), and cerebral infarction without residual deficits; Z79.84 Long term (current) use of oral hypoglycemic drugs; Z79.82 Long term (current) use of aspirin; Z80.3 Family history of malignant neoplasm of breast